=== PATIENT | female | born 1980 | race Caucasian/White ===

== ENCOUNTER 2018-01-05 13:50 | Emergency (ER) | payer OTHER, SELFPAY ==
[2018-01-05 13:58] VITALS: BP 113/75; PULSE 90; RESP 22; TEMP 36.8; O2SAT 98
[2018-01-05 14:48] LABS: Add Manual Diff / Slide Review NO; Basophils Percent Auto 0.6 % (0-2); Hemoglobin 13.4 g/dL (12.0-16.0); Lymphocytes Percent Auto 33.4 % (25-40); Mean Corpuscular HGB Conc 34.4 % (30-36); Mean Corpuscular Hemoglobin 32.9 PG (26-34); Mean Corpuscular Volume 95.5 fL (80-100); Neutrophils Absolute Auto 3900 /uL (3000-5900); Platelet Count 186 X10^3/uL (150-400); Red Blood Cell Count 4.08 X10^6/uL (4.0-5.2); White Blood Cell Count 6.5 X10^3/uL (4.5-11.0)
[2018-01-05 14:55] LABS: Alanine Aminotransferase 25 IU/L (9-52); Albumin Globulin Ratio 1.5 (1.0-2.8); Alkaline Phosphatase 70 U/L (38-126); Aspartate Aminotransferase 29 IU/L (14-36); BUN Creatinine Ratio 18.6 (6-22); Bilirubin Total 0.3 mg/dL (0.2-1.3); Blood Urea Nitrogen 13 mg/dL (7-17); Calcium 8.8 mg/dL (8.4-10.2); Carbon Dioxide 28 mmol/L (22-32); Chloride 104 mmol/L (98-107); Estimated Glomerular Filt Rate > 60.0 mL/min (>60); Globulin 2.6 g/dL (1.7-4.1); Glucose 99 mg/dL (70-100); HEMOLYSIS 16 (0-50); Potassium 3.7 mmol/L (3.4-5.1); Sodium 142 mmol/L (137-145); Total Protein 6.6 g/dL (6.3-8.2)
[2018-01-05 15:12] VITALS: BP 122/89; PULSE 76; RESP 22; TEMP 36.7; O2SAT 97
--- NOTE | 2018-01-05 16:33 | ED_ITS ---
HPI - Abdominal Pain General Chief Complaint: Abdominal Pain Stated Complaint: states intestinal/hip pain Time Seen by Provider: 01/05/18 16:33 Related Data Home Medications Medication Instructions Recorded Confirmed amoxicillin 500 mg PO BID 01/05/18 01/05/18 lidocaine HCl [Lidocaine Viscous] 1 dose PO DIRECTED 01/05/18 01/05/18 methocarbamol 1 tab PO Q6H PRN 01/05/18 01/05/18 oxycodone 10 mg PO TID 01/05/18 01/05/18 quetiapine 25 mg PO BEDTIME 01/05/18 01/05/18 venlafaxine 1 cap PO DAILY 01/05/18 01/05/18 Previous Rx's Medication Instructions Recorded valacyclovir 500 mg tablet 1,000 mg PO QDAY #60 tab 10/31/17 lamotrigine 100 mg tablet 200 mg PO BID #60 tab MDD 200mg 12/30/17 venlafaxine ER 37.5 mg 37.5 mg PO DAILY #30 cap MDD 112.5 12/30/17 capsule,extended release 24 hr mg Allergies Allergy/AdvReac Type Severity Reaction Status Date / Time coconut [COCONUT] Allergy Severe STOPS Verified 12/30/17 15:28 BREATHS prochlorperazine Allergy Intermediate seizure Verified 12/30/17 15:28 NSAIDS (Non-Steroidal Allergy Mild rash, milner Verified 12/30/17 15:28 Anti-Inflamma [NSAIDS (NON-STEROIDAL ANTI-INFLAMMA] promethazine [From PHENERGAN] Allergy Unknown restless Verified 12/30/17 15:28 legs morphine [MORPHINE] AdvReac Unknown it Verified 12/30/17 15:28 metabolizes in my body too fast, I need a lot of Morphin PFSH Medical History Anxiety (Chronic) Depression (Chronic) Femoral acetabular impingement (Chronic) Genital herpes (Chronic) Gout (Chronic) Kidney stones (Resolved 12/2016) Ovarian cancer (Resolved) Pseudotumor cerebri (Resolved) Pulmonary embolism (Resolved 2010) Pulmonary embolism (Resolved 2009) Uterine cancer (Resolved) Surgical History History of carpal tunnel repair (Resolved) Status post appendectomy (Resolved) Status post breast reduction (Resolved) Status post cholecystectomy (Resolved) Status post hernia repair (Resolved 2014) Status post hysterectomy with oophorectomy (Resolved 2003) Status post laparoscopy (Resolved) 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 (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) Family History Father History of kidney cancer Mother Diabetes mellitus Hypertension Hyperlipidemia CAD (coronary artery disease) CVA (cerebral vascular accident) Social History Smoking Status: Current every day smoker Exam Initial Vital Signs Initial Vital Signs: Vital Signs Temperature 98.2 F 01/05/18 13:58 Pulse Rate 90 01/05/18 13:58 Respiratory Rate 22 01/05/18 13:58 Blood Pressure 113/75 01/05/18 13:58 Pulse Oximetry 98 01/05/18 13:58 Course Orders Ordered: ED Orders 01/05/18 14:30 CBC [Complete Blood Count AUTO DIFF] Stat CMP [Comprehensive Metabolic Panel] Stat Vital Signs - 8 hr 01/05/18 13:58 01/05/18 15:12 Temperature 98.2 F 98.0 F Pulse Rate 90 76 Respiratory Rate 22 22 Blood Pressure 113/75 Blood Pressure [Left Arm] 122/89 H Pulse Oximetry 98 97 MDM - Abdominal Pain Lab Data Result diagrams: 01/05/18 14:30 01/05/18 14:30 Lab Results 01/05/18 01/05/18 Range/Units 14:30 14:30 WBC 6.5 (4.5-11.0) X10^3/uL RBC 4.08 (4.0-5.2) X10^6/uL Hgb 13.4 (12.0-16.0) g/dL Hct 39.0 (36-46) % MCV 95.5 (80-100) fL MCH 32.9 (26-34) PG MCHC 34.4 (30-36) % RDW 14.0 (11.6-14.8) % Plt Count 186 (150-400) X10^3/uL Neut % (Auto) 59.0 (50-75) % Lymph % (Auto) 33.4 (25-40) % [place] % (Auto) 5.0 (3-14) % Eos % (Auto) 2.0 (2-4) % Baso % (Auto) 0.6 (0-2) % Neut # (Auto) 3900 (8660-8509) /uL Sodium 142 (137-145) mmol/L Potassium 3.7 (3.4-5.1) mmol/L Chloride 104 (98-107) mmol/L Carbon Dioxide 28 (22-32) mmol/L BUN 13 (7-17) mg/dL Creatinine 0.70 (0.52-1.04) mg/dL Estimated GFR > 60.0 (>60) mL/min BUN/Creatinine Ratio 18.6 (6-22) Glucose 99 (70-100) mg/dL Calcium 8.8 (8.4-10.2) mg/dL Total Bilirubin 0.3 (0.2-1.3) mg/dL AST 29 (14-36) IU/L ALT 25 (9-52) IU/L Alkaline Phosphatase 70 (38-126) U/L Total Protein 6.6 (6.3-8.2) g/dL Albumin 4.0 (3.5-5.0) g/dL Globulin 2.6 (1.7-4.1) g/dL Albumin/Globulin Ratio 1.5 (1.0-2.8) Discharge Plan Departure Prescriptions: No Action lamotrigine 100 mg tablet 200 mg PO BID MDD 200mg Qty: 60 RF: 2 venlafaxine 37.5 mg capsule,extended release 24hr 37.5 mg PO DAILY MDD 112.5 mg Qty: 30 RF: 2 valacyclovir 500 mg tablet 1,000 mg PO QDAY Qty: 60 RF: 3 quetiapine 25 mg tablet 25 mg PO BEDTIME RF: 0 amoxicillin 500 mg capsule 500 mg PO BID RF: 0 venlafaxine 75 mg capsule,extended release 24hr 1 cap PO DAILY RF: 0 methocarbamol 750 mg tablet 1 tab PO Q6H PRN (Reason: Muscle Spasm) RF: 0 lidocaine HCl [Lidocaine Viscous] 2 % solution 1 dose PO DIRECTED RF: 0 oxycodone 10 mg tablet 10 mg PO TID RF: 0
[2018-01-05 16:42] VITALS: BP 122/94; PULSE 88; RESP 20; TEMP 36.1; O2SAT 97
--- NOTE | 2018-01-05 16:43 | DI.CT.S_ITS ---
PROCEDURE: CT ABDOMEN PELVIS W CON INDICATIONS: severe right lower quadrant pain for 3 days TECHNIQUE: After the administration of intravenous contrast, 5 mm thick sections acquired from the diaphragm to the symphysis. 5 mm coronal and sagittal reformats were acquired. For radiation dose reduction, the following was used: automated exposure control, adjustment of mA and/or kV according to patient size. COMPARISON: [facility], CT, KIDNEY/ URETER/BLADDER, 05/24/2017, 22:11. FINDINGS: Image quality: Excellent. ABDOMEN: Lung bases: Lung bases are clear. Heart size is normal. Solid organs: Liver demonstrates steatosis. Gallbladder has been removed. Biliary system is non dilated. Pancreas enhances normally. Spleen is normal in size and enhancement. No adrenal nodules. Kidneys demonstrate normal size and enhancement, without hydronephrosis. Peritoneum and bowel: Bowel loops demonstrate normal wall thickness and caliber. No free fluid or air. The appendix is not well-visualized. However, there is no right lower quadrant inflammatory change, free fluid or free air. Nodes and vessels: No retroperitoneal or mesenteric adenopathy by size criteria. Aorta and inferior vena cava are normal in size. Miscellaneous: Fat containing ventral hernia is noted. PELVIS: Genitourinary: Bladder wall thickness is normal. Miscellaneous: No inguinal hernias or adenopathy. Bones: No suspicious bony lesions. No vertebral body compression fractures. IMPRESSION: 1. No visualized acute intra-abdominal or pelvic process. Dictated by: Ebony Crooks M.D. on 01/05/2018 at 17:49 Approved by: Ebony Crooks M.D. on 01/05/2018 at 17:55
--- NOTE | 2018-01-05 16:45 | PC.NURSE ---
assist with chaparone/ rectal exam/ abd exam
[2018-01-05 17:02] LABS: Lipase 28 U/L (23-300)
[2018-01-05] MEDS: SODIUM CHLORIDE 0.9% 1,000 ML 1000 ML IV (17:04)
[2018-01-05] MEDS: HYDROMORPHONE 1 MG INJ IV ×3 (17:04→19:00)
[2018-01-05] MEDS: ONDANSETRON 4 MG/2 ML INJ IV (17:04)
--- NOTE | 2018-01-05 18:39 | ED.ABDPAIN ---
HPI - Abdominal Pain General Chief Complaint: Abdominal Pain Stated Complaint: states intestinal/hip pain Time Seen by Provider: 01/05/18 16:33 Source: patient Mode of arrival: ambulatory Limitations: no limitations History of Present Illness HPI narrative: Patient presents with severe RLQ pain over the past day or so. She has worsening pain with motion and improves with rest. No fever or chills. No change in bowel or urinary habits. No vaginal bleeding or discharge. She's had similar pain in the past and is reminded of hernia. She's got a complicated gynecologic history and has had ovarian CA and is S/P hysterectomy oophorectomy. A few years later she had a bladder sling as well as subsequent hernia surgery. MD complaint: abdominal pain Related Data Home Medications Medication Instructions Recorded Confirmed amoxicillin 500 mg PO BID 01/05/18 01/05/18 lidocaine HCl [Lidocaine Viscous] 1 dose PO DIRECTED 01/05/18 01/05/18 methocarbamol 1 tab PO Q6H PRN 01/05/18 01/05/18 oxycodone 10 mg PO TID 01/05/18 01/05/18 quetiapine 25 mg PO BEDTIME 01/05/18 01/05/18 venlafaxine 1 cap PO DAILY 01/05/18 01/05/18 Previous Rx's Medication Instructions Recorded valacyclovir 500 mg tablet 1,000 mg PO QDAY #60 tab 10/31/17 lamotrigine 100 mg tablet 200 mg PO BID #60 tab MDD 200mg 12/30/17 venlafaxine ER 37.5 mg 37.5 mg PO DAILY #30 cap MDD 112.5 12/30/17 capsule,extended release 24 hr mg hydrocodone-acetaminophen 2 tab PO Q6-8H PRN #20 tab 01/05/18 ondansetron [Zofran ODT] 4 mg PO Q6-8H PRN #14 tab 01/05/18 Allergies Allergy/AdvReac Type Severity Reaction Status Date / Time coconut [COCONUT] Allergy Severe STOPS Verified 12/30/17 15:28 BREATHS prochlorperazine Allergy Intermediate seizure Verified 12/30/17 15:28 NSAIDS (Non-Steroidal Allergy Mild rash, milner Verified 12/30/17 15:28 Anti-Inflamma [NSAIDS (NON-STEROIDAL ANTI-INFLAMMA] promethazine [From PHENERGAN] Allergy Unknown restless Verified 12/30/17 15:28 legs morphine [MORPHINE] AdvReac Unknown it Verified 12/30/17 15:28 metabolizes in my body too fast, I need a lot of Morphin Review of Systems Review of Systems All systems reviewed & are unremarkable except as noted in HPI and below Constitutional Denies chills, Denies fever(s), Denies lethargy and Denies weakness Eyes Denies change in vision, Denies eye discharge, Denies irritation and Denies loss of vision ENT Ears, Nose, Mouth, and Throat: Denies change in voice, Denies neck pain and Denies sore throat Cardiovascular Denies chest pain, Denies irregular heart rhythm, Denies lightheadedness, Denies palpitations, Denies dyspnea, Denies dyspnea on exertion and Denies orthopnea Respiratory Denies cough, Denies dyspnea, Denies dyspnea on exertion and Denies wheezing Gastrointestinal Gastrointestinal: Reports abdominal pain, Denies change in bowel habits, Denies diarrhea, Denies nausea and Denies vomiting Genitourinary Denies hematuria, Denies flank pain, Denies urinary incontinence and Denies urinary urgency Musculoskeletal Denies neck pain Integumentary/Breasts Denies pruritus, Denies erythema, Denies rash and Denies wounds Neurologic Denies confusion, Denies loss of vision and Denies weakness Psychiatric Denies anxiety, Denies confusion, Denies depression, Denies homicidal ideation and Denies suicidal ideation Endocrine Denies palpitations Hematologic/Lymphatic Denies easy bruising Allergic/Immunologic Denies wheezing PFSH Medical History Anxiety (Chronic) Depression (Chronic) Femoral acetabular impingement (Chronic) Genital herpes (Chronic) Gout (Chronic) Kidney stones (Resolved 12/2016) Ovarian cancer (Resolved) Pseudotumor cerebri (Resolved) Pulmonary embolism (Resolved 2010) Pulmonary embolism (Resolved 2009) Uterine cancer (Resolved) Surgical History History of carpal tunnel repair (Resolved) Status post appendectomy (Resolved) Status post breast reduction (Resolved) Status post cholecystectomy (Resolved) Status post hernia repair (Resolved 2014) Status post hysterectomy with oophorectomy (Resolved 2003) Status post laparoscopy (Resolved) 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 status (Resolved) Family History Father History of kidney cancer Mother Diabetes mellitus Hypertension Hyperlipidemia CAD (coronary artery disease) CVA (cerebral vascular accident) Social History Smoking Status: Current every day smoker Exam Initial Vital Signs Initial Vital Signs: Vital Signs Temperature 98.2 F 01/05/18 13:58 Pulse Rate 90 01/05/18 13:58 Respiratory Rate 22 01/05/18 13:58 Blood Pressure 113/75 01/05/18 13:58 Pulse Oximetry 98 01/05/18 13:58 Const General: cooperative and well developed Nutritional Appearance: well nourished Orientation: alert, awake, oriented x3 and not confused HENRI Head: normocephalic and atraumatic Ears: external ears normal and TM's normal bilaterally Nose: external nose normal and No nasal discharge Face and sinus: sinuses nontender, face symmetric, no sinus tenderness and No dry mucous membranes Mouth: oral mucosae normal and moist mucous membranes Teeth and gingiva: dentition normal Throat: tonsils normal and uvula midline Eyes General: appearance normal, both eyes and all related structures Eyelids: eyelids normal Conjunctivae: conjunctivae normal Sclera: sclerae normal Pupils: PERRL EOM: EOM intact bilaterally Neck Neck: normal visual inspection, trachea midline, No lymphadenopathy, No midline deformity and No JVD Lymphatic: No lymphedema Chest Chest: normal inspection of the chest Resp Effort & Inspection: normal respiratory effort, able to speak in complete sentences, no respiratory distress and no use of accessory muscles Auscultation: clear to auscultation bilaterally, no rales, no rhonchi and no wheezes Cardio Rate: regular rate Rhythm: regular rhythm Heart Sounds: no click, no gallops, no murmurs and no rubs Pulses: normal peripheral pulses GI Inspection: non-distended Palpation: soft, no hepatosplenomegaly, No guarding, No pulsatile mass and tender (severe tenderness in RLQ) Auscultation: normal bowel sounds Back/Spine/Pelvis Back: No CVA tenderness Cervical Spine: cervical ROM normal and No pain with cervical ROM Thoracic/Lumbar Spine: thoracic and lumbar spine normal to inspection Skin General: no rashes or lesions noted, No jaundice and No petechiae Neuro General: alert, oriented x3, gait normal and no focal motor deficits Speech: speech normal Extrem General: full ROM, no clubbing, cyanosis or edema, no pedal edema and no calf tenderness Psych Appearance: well kempt Mental Status: mental status grossly normal Attitude: cooperative Thought Content: normal and suicidality Judgment: judgment good Course Orders Ordered: ED Orders 01/05/18 14:30 CBC [Complete Blood Count AUTO DIFF] Stat CMP [Comprehensive Metabolic Panel] Stat Lipase Stat 01/05/18 16:43 CT abdomen pelvis w con Stat Discontinued Medications Hydromorphone HCl (Dilaudid) 1 mg IV Q15M YULIANA Stop: 01/05/18 17:01 Last Admin: 01/05/18 17:43 Dose: 1 mg Admin: 01/05/18 17:04 Dose: 1 mg Hydromorphone HCl (Dilaudid) 1 mg IV NOW ONE Stop: 01/05/18 18:52 Last Admin: 01/05/18 19:00 Dose: 1 mg Sodium Chloride (Normal Saline 0.9%) 1,000 mls @ 1,000 mls/hr IV BOLUS ONE Stop: 01/05/18 17:41 Last Infusion: 01/05/18 19:20 Dose: 0 mls/hr Admin: 01/05/18 17:04 Dose: 1,000 mls/hr Ondansetron HCl (Zofran) 4 mg IV NOW ONE Stop: 01/05/18 16:43 Last Admin: 01/05/18 17:04 Dose: 4 mg Vital Signs - 8 hr 01/05/18 13:58 01/05/18 15:12 01/05/18 16:42 Temperature 98.2 F 98.0 F 97.0 F L Pulse Rate 90 76 88 Respiratory Rate 22 22 20 Blood Pressure 113/75 Blood Pressure [Left Arm] 122/89 H 122/94 H Pulse Oximetry 98 97 97 01/05/18 19:22 Temperature Pulse Rate 68 Respiratory Rate 14 Blood Pressure 116/79 Blood Pressure [Left Arm] 116/79 Pulse Oximetry 96 MDM - Abdominal Pain Lab Data Result diagrams: 01/05/18 14:30 01/05/18 14:30 Lab Results 01/05/18 01/05/18 Range/Units 14:30 14:30 WBC 6.5 (4.5-11.0) X10^3/uL RBC 4.08 (4.0-5.2) X10^6/uL Hgb 13.4 (12.0-16.0) g/dL Hct 39.0 (36-46) % MCV 95.5 (80-100) fL MCH 32.9 (26-34) PG MCHC 34.4 (30-36) % RDW 14.0 (11.6-14.8) % Plt Count 186 (150-400) X10^3/uL Neut % (Auto) 59.0 (50-75) % Lymph % (Auto) 33.4 (25-40) % [place] % (Auto) 5.0 (3-14) % Eos % (Auto) 2.0 (2-4) % Baso % (Auto) 0.6 (0-2) % Neut # (Auto) 3900 (2497-5914) /uL Sodium 142 (137-145) mmol/L Potassium 3.7 (3.4-5.1) mmol/L Chloride 104 (98-107) mmol/L Carbon Dioxide 28 (22-32) mmol/L BUN 13 (7-17) mg/dL Creatinine 0.70 (0.52-1.04) mg/dL Estimated GFR > 60.0 (>60) mL/min BUN/Creatinine Ratio 18.6 (6-22) Glucose 99 (70-100) mg/dL Calcium 8.8 (8.4-10.2) mg/dL Total Bilirubin 0.3 (0.2-1.3) mg/dL AST 29 (14-36) IU/L ALT 25 (9-52) IU/L Alkaline Phosphatase 70 (38-126) U/L Total Protein 6.6 (6.3-8.2) g/dL Albumin 4.0 (3.5-5.0) g/dL Globulin 2.6 (1.7-4.1) g/dL Albumin/Globulin Ratio 1.5 (1.0-2.8) Lipase 28 (23-300) U/L Point of care testing: Urine Dip Bedside Urine Glucose Negative Bedside Urine Bilirubin - Negative Bedside Urine Ketone - Negative Urine Specific [place] 1.015 Bedside Urine Occult Blood - Negative Bedside Urine pH 6.5 Bedside Urine Protein - Negative Bedside Urine Urobilinogen - Negative Bedside Urine Nitrite - Negative Bedside Urine Leukocytes - Negative Esterase Discharge Plan Departure Patient Disposition: Home, Self-Care Clinical Impression: Acute right flank pain, Hematuria Discharge Date/Time: 01/05/18 19:23 Interventions: ED Discharge Assessment Last Done: 01/05/18 19:22 Activity Restrictions/Additional Instructions: *You have been diagnosed with [ acute flank and groin pain with hematuria ] *What to do: *Take medications as directed *Follow up with your primary care provider or urogynecologist in 2-3 days, call for an appointment. Let them know you were seen in the Emergency Department and that we ask that you be seen in follow up *Return to ER if you should have any new, worsening or concerning symptoms Prescriptions: New hydrocodone-acetaminophen 5-325 mg tablet 2 tab PO Q6-8H PRN (Reason: pain) Qty: 20 RF: 0 ondansetron [Zofran ODT] 4 mg tablet,disintegrating 4 mg PO Q6-8H PRN (Reason: nausea and vomiting) Qty: 14 RF: 0 No Action lamotrigine 100 mg tablet 200 mg PO BID MDD 200mg Qty: 60 RF: 2 venlafaxine 37.5 mg capsule,extended release 24hr 37.5 mg PO DAILY MDD 112.5 mg Qty: 30 RF: 2 valacyclovir 500 mg tablet 1,000 mg PO QDAY Qty: 60 RF: 3 quetiapine 25 mg tablet 25 mg PO BEDTIME RF: 0 amoxicillin 500 mg capsule 500 mg PO BID RF: 0 venlafaxine 75 mg capsule,extended release 24hr 1 cap PO DAILY RF: 0 methocarbamol 750 mg tablet 1 tab PO Q6H PRN (Reason: Muscle Spasm) RF: 0 lidocaine HCl [Lidocaine Viscous] 2 % solution 1 dose PO DIRECTED RF: 0 oxycodone 10 mg tablet 10 mg PO TID RF: 0 Referrals: Cintia Yost DO [Primary Care Provider] -
[2018-01-05 19:22] VITALS: BP 116/79; PULSE 68; RESP 14; O2SAT 96
== END 2018-01-05 19:23 | disposition home or self-care (01) ==
PROVIDERS: Emergency Provider Emergency Medicine; Family Provider Family Medicine; PCP Family Medicine
DX: R10.9 Unspecified abdominal pain (principal); R31.9 Hematuria, unspecified
CPT/HCPCS: 36591; 74177; 80053; 81003; 83690; 85025; 96361; 96374; 96375; 96376; 99283; 99284; J1170; J2405; Q9967

== ENCOUNTER 2018-01-08 15:27 | Emergency (ER) | payer OTHER, SELFPAY ==
[2018-01-08] MEDS: METOCLOPRAMIDE 10 MG/2 ML INJ 5 MG IV (15:27)
--- NOTE | 2018-01-08 15:45 | ED_ITS ---
HPI - Nausea/Vomiting/Diarrhea <Loly Batista PA-C - Last Filed: 01/08/18 22:12> General Chief complaint: Abdominal Pain Stated complaint: BLOOD IN STOOL Time Seen by Provider: 01/08/18 15:44 Source: patient Mode of arrival: ambulatory Limitations: no limitations History of Present Illness HPI Narrative: This 37-year-old female complains of onset of bloody diarrhea this morning at 6:00 a.m.. She states this has been happening approximately 3 times per hour, also states that last episode was around noon time (it is now 4: 00 p.m.). She states she has been vomiting along with this several times an hour, also says last episode was at noon. She is not keeping down food or fluids due to this. She states that she has felt somewhat chilled and sweaty, has not taken her temperature. She states that she has abdominal soreness all over, noticing more in the lower abdomen which she describes as more constant. She states that she has had persistent flank pain since last time she was here a few days ago, denies any urinary symptoms. She denies any chest pain or dyspnea. She denies any new pain or swelling in her arms or legs. She has not had any rash. She denies any recent travel, any known exposures, eating out or sick household contacts. She denies any recent medication changes or antibiotic use, however notes to our pharmacy coordinator that she has not been taking usual medicines since last here. She requesting pain medication for abdominal pain, notes allergies to NSAIDs. She states that she has had some ongoing hoarseness prior to all of this starting, no change. Related Data Home Medications Medication Instructions Recorded Confirmed amoxicillin 500 mg PO BID 01/05/18 01/08/18 lidocaine HCl [Lidocaine Viscous] 1 dose PO DIRECTED 01/05/18 01/08/18 oxycodone 10 mg PO TID 01/05/18 01/08/18 quetiapine 25 mg PO BEDTIME 01/05/18 01/08/18 venlafaxine 1 cap PO DAILY 01/05/18 01/08/18 Previous Rx's Medication Instructions Recorded valacyclovir 500 mg tablet 1,000 mg PO QDAY #60 tab 10/31/17 lamotrigine 100 mg tablet 200 mg PO BID #60 tab MDD 200mg 12/30/17 venlafaxine ER 37.5 mg 37.5 mg PO DAILY #30 cap MDD 112.5 12/30/17 capsule,extended release 24 hr mg hydrocodone-acetaminophen 2 tab PO Q6-8H PRN #20 tab 01/05/18 Allergies Allergy/AdvReac Type Severity Reaction Status Date / Time coconut [COCONUT] Allergy Severe STOPS Verified 12/30/17 15:28 BREATHS prochlorperazine Allergy Intermediate seizure Verified 12/30/17 15:28 NSAIDS (Non-Steroidal Allergy Mild rash, milner Verified 12/30/17 15:28 Anti-Inflamma [NSAIDS (NON-STEROIDAL ANTI-INFLAMMA] promethazine [From PHENERGAN] Allergy Unknown restless Verified 12/30/17 15:28 legs morphine [MORPHINE] AdvReac Unknown it Verified 12/30/17 15:28 metabolizes in my body too fast, I need a lot of Morphin Review of Systems <Loly Batista PA-C - Last Filed: 01/08/18 22:12> Review of Systems All systems reviewed & are unremarkable except as noted in HPI and below Exam <Loly Batista PA-C - Last Filed: 01/08/18 22:12> Narrative Exam Narrative: GENERAL APPEARANCE: Patient sitting comfortably, in no distress. HEENT: PERRL, EOMI, no scleral icterus, normal oropharynx NECK: Supple LUNGS: Clear to auscultation bilaterally. HEART: Rate and rhythm regular, normal S1 and S2, no S3 or S4. ABDOMEN: Soft, nondistended, soft bowel sounds present x 4 quadrants, no masses palpable, generalized tenderness to palpation, more so over lower quadrants, no guarding or rebound EXTREMITIES: No edema, no cyanosis DERMATOLOGIC: No jaundice or exanthem NEUROLOGIC: Alert and oriented with normal speech and coordination Initial Vital Signs Initial Vital Signs: Vital Signs Temperature 97.8 F 01/08/18 15:46 Pulse Rate 67 01/08/18 15:46 Respiratory Rate 20 01/08/18 15:46 Blood Pressure 121/76 H 01/08/18 15:46 Pulse Oximetry 99 01/08/18 15:46 <Guzman Valadez DO - Last Filed: 01/08/18 23:07> Initial Vital Signs Initial Vital Signs: Vital Signs Temperature 97.8 F 01/08/18 15:46 Pulse Rate 67 01/08/18 15:46 Respiratory Rate 20 01/08/18 15:46 Blood Pressure 121/76 H 01/08/18 15:46 Pulse Oximetry 99 01/08/18 15:46 Course <Loly Batista PA-C - Last Filed: 01/08/18 22:12> Additional Information: I reviewed findings with Dr. Arce, who evaluated patient at her recent visit here. He felt reasonable to discharge patient home provided she did not have recurrent vomiting. Dr. Valadez who is attending this evening agrees as well. She continued to complain of nausea, did not have any observed recurrent vomiting and has had 2 L of fluids, tolerated some p.o. fluid and saltines. She has had 2 episodes of known diarrhea since arrival here , which per her history is significant improvement since this morning. I also reviewed her workup from [facility] yesterday. She did not mention being seen there initially. There were no acute findings. I did not repeat her urinalysis since she has no urinary symptoms and has had 2-tests. Reviewed with her that she does have an elevated white cell count today versus last 2 visits, and this could be due to infection which may resolve, but again all of her symptoms need further workup. I asked her to call her PCP 1st thing in the morning and request to be seen tomorrow so that we can get serial follow-ups on her pain. She already has Zofran and pain medication at home. She was not given opioids at this ED visit. She was given an additional dose of Reglan to take this evening if needed. She was noted to be ambulating swiftly without signs of discomfort several times during her stay and watching a video on her cell phone off and on without signs of acute distress. She was advised to return if any acutely worsening symptoms in the interim. She expressed concern about difficulty getting appointment with PCP, so we have printed and faxed records from here as well as [facility] with a note that we have directed patient to call in a.m. Orders Ordered: ED Orders 01/08/18 16:10 Complete Blood Count AUTO DIFF Stat Comprehensive Metabolic Panel Stat Lipase Stat 01/08/18 17:14 GI Panel Stat Discontinued Medications Hyoscyamine (Levsin) 0.125 mg PO NOW ONE Stop: 08/16/18 16:48 Last Admin: 01/08/18 17:26 Dose: 0.125 mg Sodium Chloride (Normal Saline 0.9%) 1,000 mls @ 1,000 mls/hr IV BOLUS ONE Stop: 01/08/18 17:02 Last Infusion: 01/08/18 19:11 Dose: 0 mls/hr Admin: 01/08/18 16:29 Dose: 1,000 mls/hr Sodium Chloride (Normal Saline 0.9%) 1,000 mls @ 1,000 mls/hr IV BOLUS ONE Stop: 01/08/18 18:16 Last Infusion: 01/08/18 20:36 Dose: 0 mls/hr Admin: 01/08/18 19:00 Dose: 1,000 mls/hr Metoclopramide HCl (Reglan) 5 mg IV NOW ONE Stop: 01/08/18 19:13 Last Admin: 01/08/18 15:27 Dose: 5 mg Metoclopramide HCl (Reglan) 5 mg PO NOW ONE Stop: 01/08/18 21:24 Last Admin: 01/08/18 21:36 Dose: 5 mg Ondansetron HCl (Zofran) 4 mg IV NOW ONE Stop: 01/08/18 16:04 Last Admin: 01/08/18 16:29 Dose: 4 mg Vital Signs - 8 hr 01/08/18 15:46 01/08/18 17:14 01/08/18 18:00 Temperature 97.8 F Pulse Rate 67 67 59 L Respiratory Rate 20 18 17 Blood Pressure 121/76 H Blood Pressure [Left Arm] 116/69 112/64 Pulse Oximetry 99 100 100 01/08/18 19:00 01/08/18 20:38 Temperature Pulse Rate 59 L 62 Respiratory Rate 18 15 Blood Pressure Blood Pressure [Left Arm] 134/73 H 121/61 H Pulse Oximetry 100 99 <Guzman Valadez DO - Last Filed: 01/08/18 23:07> Orders Ordered: ED Orders 01/08/18 16:10 Complete Blood Count AUTO DIFF Stat Comprehensive Metabolic Panel Stat Lipase Stat 01/08/18 17:14 GI Panel Stat Discontinued Medications Hyoscyamine (Levsin) 0.125 mg PO NOW ONE Stop: 01/08/18 16:48 Last Admin: 01/08/18 17:26 Dose: 0.125 mg Sodium Chloride (Normal Saline 0.9%) 1,000 mls @ 1,000 mls/hr IV BOLUS ONE Stop: 01/08/18 17:02 Last Infusion: 01/08/18 19:11 Dose: 0 mls/hr Admin: 01/08/18 16:29 Dose: 1,000 mls/hr Sodium Chloride (Normal Saline 0.9%) 1,000 mls @ 1,000 mls/hr IV BOLUS ONE Stop: 01/08/18 18:16 Last Infusion: 01/08/18 20:36 Dose: 0 mls/hr Admin: 01/08/18 19:00 Dose: 1,000 mls/hr Metoclopramide HCl (Reglan) 5 mg IV NOW ONE Stop: 01/08/18 19:13 Last Admin: 01/08/18 15:27 Dose: 5 mg Metoclopramide HCl (Reglan) 5 mg PO NOW ONE Stop: 01/08/18 21:24 Last Admin: 01/08/18 21:36 Dose: 5 mg Ondansetron HCl (Zofran) 4 mg IV NOW ONE Stop: 01/08/18 16:04 Last Admin: 01/08/18 16:29 Dose: 4 mg Vital Signs - 8 hr 01/08/18 15:46 01/08/18 17:14 01/08/18 18:00 Temperature 97.8 F Pulse Rate 67 67 59 L Respiratory Rate 20 18 17 Blood Pressure 121/76 H Blood Pressure [Left Arm] 116/69 112/64 Pulse Oximetry 99 100 100 01/08/18 19:00 01/08/18 20:38 Temperature Pulse Rate 59 L 62 Respiratory Rate 18 15 Blood Pressure Blood Pressure [Left Arm] 134/73 H 121/61 H Pulse Oximetry 100 99 MDM - Nausea/Vomiting/Diarrhea <Loly Batista PA-C - Last Filed: 01/08/18 22:12> Medical Records Attestation: I reviewed the patient's medical records. (No acute findings on KUB CT done 01/07, no significant abnormalities on blood testing or urinalysis) Lab Data Attestation: I reviewed the patient's lab results. Result diagrams: 01/08/18 16:10 01/08/18 16:10 Lab Results 08/16/18 08/16/18 08/16/18 Range/Units 16:10 16:10 17:14 WBC 14.5 H (4.5-11.0) X10^3/uL RBC 4.71 (4.0-5.2) X10^6/uL Hgb 15.4 (12.0-16.0) g/dL Hct 44.6 (36-46) % MCV 94.7 (80-100) fL MCH 32.6 (26-34) PG MCHC 34.4 (30-36) % RDW 14.2 (11.6-14.8) % Plt Count 217 (150-400) X10^3/uL Neut % (Auto) 89.4 H (50-75) % Lymph % (Auto) 7.8 L (25-40) % Montgomery % (Auto) 2.3 L (3-14) % Eos % (Auto) 0.1 L (2-4) % Baso % (Auto) 0.4 (0-2) % Neut # (Auto) 22711 H (5377-4700) /uL Sodium 140 (137-145) mmol/L Potassium 4.4 (3.4-5.1) mmol/L Chloride 107 (98-107) mmol/L Carbon Dioxide 23 (22-32) mmol/L BUN 15 (7-17) mg/dL Creatinine 0.70 (0.52-1.04) mg/dL Estimated GFR > 60.0 (>60) mL/min BUN/Creatinine Ratio 21.4 (6-22) Glucose 108 H (70-100) mg/dL Calcium 9.4 (8.4-10.2) mg/dL Total Bilirubin 0.6 (0.2-1.3) mg/dL AST 32 (14-36) IU/L ALT 37 (9-52) IU/L Alkaline Phosphatase 68 (38-126) U/L Total Protein 7.3 (6.3-8.2) g/dL Albumin 4.6 (3.5-5.0) g/dL Globulin 2.7 (1.7-4.1) g/dL Albumin/Globulin Ratio 1.7 (1.0-2.8) Lipase 27 (23-300) U/L Stool Aeromonas Cult Awaiting culture res (Not Detect) Stl C. cayetanensis PCR Not detected (Not Detect) Stool Rotavirus (PCR) Not detected (Not Detect) Stool Adenovirus (PCR) Not detected (Not Detect) Stool Astrovirus (PCR) Not detected (Not Detect) Stool Cryptosporidium PCR Not detected (Not Detect) Stl E.coli Shiga Tox PCR Not detected (Not Detect) St Sh/Enteroin Ecoli PCR Not detected (Not Detect) Stool E coli O157 PCR Not Reportable Stl Enterotoxigenic E PCR Not detected (Not Detect) Stool EPEC (PCR) Not detected (Not Detect) Stl E. histolytica PCR Not detected (Not Detect) Stool Giardia Lamblia PCR Not detected (Not Detect) Stool Sapovirus (PCR) Not detected (Not Detect) Stl P. shigelloides PCR Not detected (Not Detect) St Y.enterocolitica PCR Not detected (Not Detect) Stool Vibrio (PCR) Not detected (Not Detect) Stl Vibrio cholerae PCR Not detected (Not Detect) Stl Enteroaggr Ecoli PCR Not detected (Not Detect) Stl Norovirus GI/GII PCR Not detected (Not Detect) Campylobacter (PCR) Not detected (Not Detect) C. difficile Tox (PCR) Not detected (Not Detect) Salmonella (PCR) Not detected (Not Detect) <Guzman Valadez, DO - Last Filed: 01/08/18 23:07> Lab Data Lab Results 01/08/18 01/08/18 01/08/18 Range/Units 16:10 16:10 17:14 WBC 14.5 H (4.5-11.0) X10^3/uL RBC 4.71 (4.0-5.2) X10^6/uL Hgb 15.4 (12.0-16.0) g/dL Hct 44.6 (36-46) % MCV 94.7 (80-100) fL MCH 32.6 (26-34) PG MCHC 34.4 (30-36) % RDW 14.2 (11.6-14.8) % Plt Count 217 (150-400) X10^3/uL Neut % (Auto) 89.4 H (50-75) % Lymph % (Auto) 7.8 L (25-40) % Montgomery % (Auto) 2.3 L (3-14) % Eos % (Auto) 0.1 L (2-4) % Baso % (Auto) 0.4 (0-2) % Neut # (Auto) 55340 H (5247-3363) /uL Sodium 140 (137-145) mmol/L Potassium 4.4 (3.4-5.1) mmol/L Chloride 107 (98-107) mmol/L Carbon Dioxide 23 (22-32) mmol/L BUN 15 (7-17) mg/dL Creatinine 0.70 (0.52-1.04) mg/dL Estimated GFR > 60.0 (>60) mL/min BUN/Creatinine Ratio 21.4 (6-22) Glucose 108 H (70-100) mg/dL Calcium 9.4 (8.4-10.2) mg/dL Total Bilirubin 0.6 (0.2-1.3) mg/dL AST 32 (14-36) IU/L ALT 37 (9-52) IU/L Alkaline Phosphatase 68 (38-126) U/L Total Protein 7.3 (6.3-8.2) g/dL Albumin 4.6 (3.5-5.0) g/dL Globulin 2.7 (1.7-4.1) g/dL Albumin/Globulin Ratio 1.7 (1.0-2.8) Lipase 27 (23-300) U/L Stool Aeromonas Cult Awaiting culture res (Not Detect) Stl C. cayetanensis PCR Not detected (Not Detect) Stool Rotavirus (PCR) Not detected (Not Detect) Stool Adenovirus (PCR) Not detected (Not Detect) Stool Astrovirus (PCR) Not detected (Not Detect) Stool Cryptosporidium PCR Not detected (Not Detect) Stl E.coli Shiga Tox PCR Not detected (Not Detect) St Sh/Enteroin Ecoli PCR Not detected (Not Detect) Stool E coli O157 PCR Not Reportable Stl Enterotoxigenic E PCR Not detected (Not Detect) Stool EPEC (PCR) Not detected (Not Detect) Stl E. histolytica PCR Not detected (Not Detect) Stool Giardia Lamblia PCR Not detected (Not Detect) Stool Sapovirus (PCR) Not detected (Not Detect) Stl P. shigelloides PCR Not detected (Not Detect) St Y.enterocolitica PCR Not detected (Not Detect) Stool Vibrio (PCR) Not detected (Not Detect) Stl Vibrio cholerae PCR Not detected (Not Detect) Stl Enteroaggr Ecoli PCR Not detected (Not Detect) Stl Norovirus GI/GII PCR Not detected (Not Detect) Campylobacter (PCR) Not detected (Not Detect) C. difficile Tox (PCR) Not detected (Not Detect) Salmonella (PCR) Not detected (Not Detect) Discharge Plan Departure Patient Disposition: Home Clinical Impression: Bloody diarrhea, Nausea and vomiting Discharge Date/Time: 01/08/18 21:37 Interventions: ED Discharge Assessment Last Done: 01/08/18 21:37 Instructions: DI for Viral Gastroenteritis -- Adult, DI for Abdominal Pain- Adult Activity Restrictions/Additional Instructions: You need further workup as we talked about for your ongoing flank pain, and also the diarrhea and vomiting if they persist. You should call your PCP 1st thing in the morning and let them know that you have been in the emergency room 3 times in the last few days and we advised you to be seen for follow-up tomorrow. You should return if you have new symptoms such as fever, or acutely worse again. Please try to take small sips of clear fluid, and eat just a little bit of bland food, i.e. some applesauce or saltine, every hour or 2, to keep something in your stomach. This may help with nausea. Please take the Odansetron for your nausea if needed, and also I have ordered an additional dose of metoclopramide for you to take this evening or early in the morning if you needed. These are what we gave you in the IV here. You can take your pain medication that you have at home if needed. Some of your symptoms may be exacerbated by being off of your usual medications, so you should try to resume them if you are able Prescriptions: No Action lamotrigine 100 mg tablet 200 mg PO BID MDD 200mg Qty: 60 RF: 2 venlafaxine 37.5 mg capsule,extended release 24hr 37.5 mg PO DAILY MDD 112.5 mg Qty: 30 RF: 2 valacyclovir 500 mg tablet 1,000 mg PO QDAY Qty: 60 RF: 3 quetiapine 25 mg tablet 25 mg PO BEDTIME RF: 0 amoxicillin 500 mg capsule 500 mg PO BID RF: 0 venlafaxine 75 mg capsule,extended release 24hr 1 cap PO DAILY RF: 0 lidocaine HCl [Lidocaine Viscous] 2 % solution 1 dose PO DIRECTED RF: 0 oxycodone 10 mg tablet 10 mg PO TID RF: 0 hydrocodone-acetaminophen 5-325 mg tablet 2 tab PO Q6-8H PRN (Reason: pain) Qty: 20 RF: 0 Referrals: Cintia Yost DO [Primary Care Provider] - <Guzman Valadez DO - Last Filed: 01/08/18 23:07> Cosign ED Attending Cassy Attestation: I was available for consultation during this patient's emergency department encounter
[2018-01-08 15:46] VITALS: BP 121/76; PULSE 67; RESP 20; TEMP 36.6; O2SAT 99
[2018-01-08 16:21] LABS: Add Manual Diff / Slide Review NO; Basophils Percent Auto 0.4 % (0-2); Eosinophils Percent Auto 0.1 % (2-4); Hematocrit 44.6 % (36-46); Hemoglobin 15.4 g/dL (12.0-16.0); Lymphocytes Percent Auto 7.8 % (25-40); Mean Corpuscular HGB Conc 34.4 % (30-36); Mean Corpuscular Hemoglobin 32.6 PG (26-34); Mean Corpuscular Volume 94.7 fL (80-100); Monocytes Percent Auto 2.3 % (3-14); Neutrophils Absolute Auto 13000 /uL (3000-5900); Neutrophils Percent Auto 89.4 % (50-75); Platelet Count 217 X10^3/uL (150-400); Red Blood Cell Count 4.71 X10^6/uL (4.0-5.2); Red Cell Distribution Width 14.2 % (11.6-14.8); White Blood Cell Count 14.5 X10^3/uL (4.5-11.0)
[2018-01-08] MEDS: ONDANSETRON 4 MG/2 ML INJ IV (16:29)
[2018-01-08] MEDS: SODIUM CHLORIDE 0.9% 1,000 ML 1000 ML IV ×2 (16:29→19:00)
[2018-01-08 16:33] LABS: Alanine Aminotransferase 37 IU/L (9-52); Albumin 4.6 g/dL (3.5-5.0); Albumin Globulin Ratio 1.7 (1.0-2.8); Alkaline Phosphatase 68 U/L (38-126); Aspartate Aminotransferase 32 IU/L (14-36); BUN Creatinine Ratio 21.4 (6-22); Bilirubin Total 0.6 mg/dL (0.2-1.3); Blood Urea Nitrogen 15 mg/dL (7-17); Calcium 9.4 mg/dL (8.4-10.2); Carbon Dioxide 23 mmol/L (22-32); Chloride 107 mmol/L (98-107); Estimated Glomerular Filt Rate > 60.0 mL/min (>60); Globulin 2.7 g/dL (1.7-4.1); Glucose 108 mg/dL (70-100); HEMOLYSIS 49 (0-50); Lipase 27 U/L (23-300); Potassium 4.4 mmol/L (3.4-5.1); Sodium 140 mmol/L (137-145); Total Protein 7.3 g/dL (6.3-8.2)
[2018-01-08 17:14] VITALS: BP 116/69; PULSE 67; RESP 18; O2SAT 100
[2018-01-08] MEDS: HYOSCYAMINE 0.125 MG TABLET PO (17:26)
[2018-01-08 18:00] VITALS: BP 112/64; PULSE 59; RESP 17; O2SAT 100
[2018-01-08 19:00] VITALS: BP 134/73; PULSE 59; RESP 18; O2SAT 100
[2018-01-08 19:01] LABS: Adenovirus F 40/41 Not Detected (Not Detect); Astrovirus Not Detected (Not Detect); Campylobacter Not Detected (Not Detect); Clostridium difficile toxin AB Not Detected (Not Detect); Cryptosporidium Not Detected (Not Detect); Cyclospora cayetanensis Not Detected (Not Detect); Entamoeba histolytica Not Detected (Not Detect); Enteroaggregative E.coli Not Detected (Not Detect); Enteropathogenic E.coli Not Detected (Not Detect); Enterotoxigenic E.coli It/st Not Detected (Not Detect); Giardia lamblia Not Detected (Not Detect); Norovirus GI/GII Not Detected (Not Detect); Plesiomonsa shigelloides Not Detected (Not Detect); Rotavirus A Not Detected (Not Detect); Salmonella Not Detected (Not Detect); Sapovirus Not Detected (Not Detect); Shiga-like toxin-prod E.coli Not Detected (Not Detect); Shigella/Enteroinvasive E.coli Not Detected (Not Detect); Vibrio Not Detected (Not Detect); Vibrio cholerae Not Detected (Not Detect); Yersinia enterocolitica Not Detected (Not Detect)
[2018-01-08 20:38] VITALS: BP 121/61; PULSE 62; RESP 15; O2SAT 99
[2018-01-08] MEDS: METOCLOPRAMIDE HCL 5 MG TABLET PO (21:36)
== END 2018-01-08 21:37 | disposition home or self-care (01) ==
PROVIDERS: Emergency Provider Internal Medicine; Family Provider Family Medicine; PCP Family Medicine
DX: R19.7 Diarrhea, unspecified (principal); R11.2 Nausea with vomiting, unspecified
CPT/HCPCS: 36591; 80053; 81003; 81025; 83690; 85025; 87507; 96361; 96374; 96375; 99284; J2405; J2765

== ENCOUNTER → 2018-01-09 16:27 | Outpatient (CLI) | payer OTHER, SELFPAY ==
[2018-01-09 17:28] LABS: Clostridium Difficile Tox PCR Positive for C. diff
== END ==
PROVIDERS: Family Provider Family Medicine; PCP Family Medicine; Visit Provider Registered Nurse
DX: R10.30 Lower abdominal pain, unspecified (principal); R11.10 Vomiting, unspecified; R19.7 Diarrhea, unspecified
CPT/HCPCS: 86677; 87493

== ENCOUNTER 2018-01-15 15:30 | Emergency (ER) | payer OTHER, SELFPAY ==
[2018-01-15 16:03] VITALS: BP 124/89; PULSE 110; RESP 20; TEMP 36.4; O2SAT 98
--- NOTE | 2018-01-15 16:37 | ED_ITS ---
HPI - Abdominal Pain General Chief Complaint: Abdominal Pain Stated Complaint: states cdiff Time Seen by Provider: 01/15/18 15:46 Source: patient Mode of arrival: ambulatory Limitations: no limitations History of Present Illness HPI narrative: Patient is a 37-year-old female who is been seen here in the emergency department multiple times for abdominal pain and diarrhea. There has been concerns in the past for drug-seeking behavior. She was seen by her primary doctor a couple days ago and was placed on Cipro and Flagyl. She had stool cultures done at that time which did resolve positive for C diff. Patient states she went to [facility] and was admitted to the hospital and was placed on oral vancomycin which she is currently taking. She was also discharged home with 2 mg Dilaudid pills. She has a follow-up with her primary doctor tomorrow morning. She returns today because she ?just can't take the pain anymore ?she states she is still having diarrhea. Related Data Home Medications Medication Instructions Recorded Confirmed quetiapine 25 mg PO BEDTIME 01/05/18 01/09/18 venlafaxine 1 cap PO DAILY 01/05/18 01/09/18 hydromorphone [Dilaudid] 2 mg PO Q6H PRN 01/15/18 01/15/18 vancomycin 125 mg PO QID 01/15/18 01/15/18 Previous Rx's Medication Instructions Recorded valacyclovir 500 mg tablet 1,000 mg PO QDAY #60 tab 10/31/17 lamotrigine 100 mg tablet 200 mg PO BID #60 tab MDD 200mg 12/30/17 venlafaxine ER 37.5 mg 37.5 mg PO DAILY #30 cap MDD 112.5 12/30/17 capsule,extended release 24 hr mg ciprofloxacin 500 mg tablet 500 mg PO Q12H 7 Days #14 tab 01/09/18 metronidazole 500 mg tablet 500 mg PO QID 7 Days #28 tab 01/09/18 Allergies Allergy/AdvReac Type Severity Reaction Status Date / Time coconut [COCONUT] Allergy Severe STOPS Verified 01/15/18 16:07 BREATHS prochlorperazine Allergy Intermediate seizure Verified 01/15/18 16:07 NSAIDS (Non-Steroidal Allergy Mild rash, milner Verified 01/15/18 16:07 Anti-Inflamma [NSAIDS (NON-STEROIDAL ANTI-INFLAMMA] promethazine [From PHENERGAN] Allergy Unknown restless Verified 01/15/18 16:07 legs morphine [MORPHINE] AdvReac Unknown it Verified 01/15/18 16:07 metabolizes in my body too fast, I need a lot of Morphin Review of Systems Constitutional Denies fever(s) Cardiovascular Denies chest pain and Denies dyspnea Respiratory Denies dyspnea Gastrointestinal Gastrointestinal: Reports abdominal pain, Denies diarrhea, Reports nausea and Reports vomiting Genitourinary Denies dysuria Musculoskeletal Denies myalgias and Denies arthralgias Integumentary/Breasts Denies lesions and Denies rash Hematologic/Lymphatic Denies easy bleeding and Denies easy bruising [facility] Medical History Anxiety (Chronic) Depression (Chronic) Femoral acetabular impingement (Chronic) Genital herpes (Chronic) Gout (Chronic) Kidney stones (Resolved 12/2016) Ovarian cancer (Resolved) Pseudotumor cerebri (Resolved) Pulmonary embolism (Resolved 2010) Pulmonary embolism (Resolved 2009) Uterine cancer (Resolved) Surgical History History of carpal tunnel repair (Resolved) Status post appendectomy (Resolved) Status post breast reduction (Resolved) Status post cholecystectomy (Resolved) Status post hernia repair (Resolved 2014) Status post hysterectomy with oophorectomy (Resolved 2003) Status post laparoscopy (Resolved) ORDER MANAGER (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) shunt status (Resolved) Family History Father History of kidney cancer Mother Diabetes mellitus Hypertension Hyperlipidemia CAD (coronary artery disease) CVA (cerebral vascular accident) Social History Smoking Status: Current every day smoker Exam Initial Vital Signs Initial Vital Signs: Vital Signs Temperature 97.6 F 01/15/18 16:03 Pulse Rate 110 H 01/15/18 16:03 Respiratory Rate 20 01/15/18 16:03 Blood Pressure 124/89 H 01/15/18 16:03 Pulse Oximetry 98 01/15/18 16:03 Const General: cooperative, well developed, well groomed and No acute distress Orientation: alert, awake and oriented x3 HENMT Head: normal to inspection and normocephalic Cardio Rate: tachycardic Rhythm: regular rhythm Pulses: radial pulses present GI Inspection: non-distended Palpation: soft and tender (Extreme pain with every portion of palpation.) Skin Lesions: no lesions Rashes: no rashes Neuro General: alert, awake and oriented x3 Extrem General: normal to inspection and full ROM Psych Appearance: grossly normal and well kempt Course Orders Ordered: ED Orders 01/15/18 16:40 Basic Metabolic Panel Stat Complete Blood Count AUTO DIFF Stat Discontinued Medications Sodium Chloride (Normal Saline 0.9%) 1,000 mls @ 1,000 mls/hr IV BOLUS ONE Stop: 01/15/18 16:52 Last Infusion: 01/15/18 18:41 Dose: 0 mls/hr Admin: 01/15/18 16:54 Dose: 1,000 mls/hr Vital Signs - 8 hr 01/15/18 16:03 Temperature 97.6 F Pulse Rate 110 H Respiratory Rate 20 Blood Pressure 124/89 H Pulse Oximetry 98 MDM - Abdominal Pain Lab Data Attestation: I reviewed the patient's lab results. Result diagrams: 01/15/18 16:40 01/15/18 16:40 Lab Results 01/15/18 01/15/18 Range/Units 16:40 16:40 WBC 9.1 (4.5-11.0) X10^3/uL RBC 4.44 (4.0-5.2) X10^6/uL Hgb 14.5 (12.0-16.0) g/dL Hct 42.5 (36-46) % MCV 95.9 (80-100) fL MCH 32.7 (26-34) PG MCHC 34.1 (30-36) % RDW 14.1 (11.6-14.8) % Plt Count 246 (150-400) X10^3/uL Neut % (Auto) 74.2 (50-75) % Lymph % (Auto) 20.1 L (25-40) % Emmet % (Auto) 3.9 (3-14) % Eos % (Auto) 1.2 L (2-4) % Baso % (Auto) 0.6 (0-2) % Neut # (Auto) 6800 H (3625-9120) /uL Sodium 143 (137-145) mmol/L Potassium 4.0 (3.4-5.1) mmol/L Chloride 99 (98-107) mmol/L Carbon Dioxide 30 (22-32) mmol/L BUN 14 (7-17) mg/dL Creatinine 0.80 (0.52-1.04) mg/dL Estimated GFR > 60.0 (>60) mL/min BUN/Creatinine Ratio 17.5 (6-22) Glucose 120 H (70-100) mg/dL Calcium 9.8 (8.4-10.2) mg/dL [facility] Narrative Medical decision making narrative: Patient does not have an elevated white blood cell count. Creatinine is unremarkable. Received fluids here in the ER. He is currently on oral vancomycin which is an appropriate treatment for her C diff. She also has oral Dilaudid at home. Patient initially asked for pain medication however I declined to give her this. She really sat in the room playing on her phone. Never asked again for pain medication. Informed the patient that she is on appropriate treatment. I did not feel that she needs admitted to the hospital secondary to her normal labs. I have strong suspicion for drug-seeking behavior in this individual. Discussed the case with Dr. Mantilla who looked the patient up under the state drug monitoring program and states that it she has been shaving pain medication from multiple providers. Informed the patient that if she feels like she needs more pain medication that she needs to keep her appointment with her primary doctor tomorrow and received pain medication from 1 provider. She was given return precautions. She expressed understanding. Patient seemed upset about this disposition. Discharge Plan Departure Patient Disposition: Home Clinical Impression: Abdominal pain, C. difficile colitis Discharge Date/Time: 01/15/18 19:00 Instructions: DI for Abdominal Pain-Adult, Clostridium difficile Infection Activity Restrictions/Additional Instructions: Recommend that you continue the oral vancomycin. You can take the pain medication that you have at home for any abdominal pain. If you feel like he needs more pain medication this needs to come from your primary care doctor and only 1 provider. We do not manage chronic pain here in the emergency department. Return to the emergency department for any new symptoms. Prescriptions: No Action lamotrigine 100 mg tablet 200 mg PO BID MDD 200mg Qty: 60 RF: 2 venlafaxine 37.5 mg capsule,extended release 24hr 37.5 mg PO DAILY MDD 112.5 mg Qty: 30 RF: 2 valacyclovir 500 mg tablet 1,000 mg PO QDAY Qty: 60 RF: 3 metronidazole [Flagyl] 500 mg tablet 500 mg PO QID 7 Days Qty: 28 RF: 0 ciprofloxacin HCl 500 mg tablet 500 mg PO Q12H 7 Days Qty: 14 RF: 0 hydromorphone [Dilaudid] 2 mg Tablet 2 mg PO Q6H PRN (Reason: Pain (Scale Score 1-3)) RF: 0 vancomycin 125 mg Capsule 125 mg PO QID RF: 0 quetiapine 25 mg tablet 25 mg PO BEDTIME RF: 0 venlafaxine 75 mg capsule,extended release 24hr 1 cap PO DAILY RF: 0
[2018-01-15 16:50] LABS: Add Manual Diff / Slide Review NO; Basophils Percent Auto 0.6 % (0-2); Eosinophils Percent Auto 1.2 % (2-4); Hematocrit 42.5 % (36-46); Hemoglobin 14.5 g/dL (12.0-16.0); Lymphocytes Percent Auto 20.1 % (25-40); Mean Corpuscular HGB Conc 34.1 % (30-36); Mean Corpuscular Hemoglobin 32.7 PG (26-34); Mean Corpuscular Volume 95.9 fL (80-100); Monocytes Percent Auto 3.9 % (3-14); Neutrophils Absolute Auto 6800 /uL (3000-5900); Neutrophils Percent Auto 74.2 % (50-75); Platelet Count 246 X10^3/uL (150-400); Red Blood Cell Count 4.44 X10^6/uL (4.0-5.2); Red Cell Distribution Width 14.1 % (11.6-14.8); White Blood Cell Count 9.1 X10^3/uL (4.5-11.0)
[2018-01-15] MEDS: SODIUM CHLORIDE 0.9% 1,000 ML 1000 ML IV (16:54)
[2018-01-15 17:00] LABS: BUN Creatinine Ratio 17.5 (6-22); Blood Urea Nitrogen 14 mg/dL (7-17); Calcium 9.8 mg/dL (8.4-10.2); Carbon Dioxide 30 mmol/L (22-32); Chloride 99 mmol/L (98-107); Estimated Glomerular Filt Rate > 60.0 mL/min (>60); Glucose 120 mg/dL (70-100); HEMOLYSIS < 15 (0-50); Sodium 143 mmol/L (137-145)
== END 2018-01-15 19:00 | disposition home or self-care (01) ==
PROVIDERS: Emergency Provider Emergency Medicine; Family Provider Family Medicine; PCP Family Medicine
DX: A04.72 Enterocolitis due to Clostridium difficile, not specified as recurrent (principal); R10.9 Unspecified abdominal pain
CPT/HCPCS: 36591; 80048; 85025; 96360; 96361; 99283; 99284

== ENCOUNTER 2018-01-16 23:02 | Observation (INO) | payer OTHER, SELFPAY ==
[2018-01-16 23:07] VITALS: BP 149/88; PULSE 108; RESP 22; O2SAT 98; BMI 32.3
[2018-01-17] VITALS (10 sets, daily range): BP systolic 84–136; BP diastolic 50–93; PULSE 70–108; RESP 16–20; TEMP 36.4–36.8; O2SAT 94–99; BMI 32.3
[2018-01-17] MEDS: ONDANSETRON 4 MG/2 ML INJ IV ×4 (01:00→21:20)
[2018-01-17 01:03] LABS: Add Manual Diff / Slide Review NO; Basophils Percent Auto 0.4 % (0-2); Eosinophils Percent Auto 1.7 % (2-4); Hematocrit 43.1 % (36-46); Hemoglobin 14.8 g/dL (12.0-16.0); Lymphocytes Percent Auto 32.8 % (25-40); Mean Corpuscular HGB Conc 34.4 % (30-36); Mean Corpuscular Hemoglobin 32.7 PG (26-34); Monocytes Percent Auto 6.6 % (3-14); Neutrophils Absolute Auto 5900 /uL (3000-5900); Neutrophils Percent Auto 58.5 % (50-75); Platelet Count 278 X10^3/uL (150-400); Red Blood Cell Count 4.54 X10^6/uL (4.0-5.2); Red Cell Distribution Width 14.2 % (11.6-14.8); White Blood Cell Count 10.1 X10^3/uL (4.5-11.0)
[2018-01-17] MEDS: HYDROMORPHONE 1 MG INJ IV ×2 (01:08→01:52)
[2018-01-17 01:09] LABS: Alanine Aminotransferase 27 IU/L (9-52); Albumin 4.6 g/dL (3.5-5.0); Albumin Globulin Ratio 1.6 (1.0-2.8); Alkaline Phosphatase 77 U/L (38-126); Aspartate Aminotransferase 21 IU/L (14-36); BUN Creatinine Ratio 25.7 (6-22); Bilirubin Total 0.3 mg/dL (0.2-1.3); Blood Urea Nitrogen 18 mg/dL (7-17); Calcium 9.8 mg/dL (8.4-10.2); Carbon Dioxide 24 mmol/L (22-32); Chloride 107 mmol/L (98-107); Estimated Glomerular Filt Rate > 60.0 mL/min (>60); Globulin 2.9 g/dL (1.7-4.1); Glucose 92 mg/dL (70-100); HEMOLYSIS 21 (0-50); Lipase 140 U/L (23-300); Potassium 4.1 mmol/L (3.4-5.1); Sodium 145 mmol/L (137-145); Total Protein 7.5 g/dL (6.3-8.2)
[2018-01-17] MEDS: SODIUM CHLORIDE 0.9% 1,000 ML 150 ML IV ×2 (01:09→13:29)
--- NOTE | 2018-01-17 01:22 | ED_ITS ---
HPI - Abdominal Pain General Chief Complaint: Abdominal Pain Stated Complaint: C.DIFF Time Seen by Provider: 01/16/18 23:07 Source: patient Mode of arrival: ambulatory Limitations: no limitations History of Present Illness HPI narrative: 37-year-old female with history of generalized anxiety disorder, PTSD, and known C diff colitis presents to the emergency department with intractable abdominal pain. Patient was recently seen at [facility] and placed on vancomycin and Dilaudid p.o.. She ran out of her Dilaudid and now has intractable pain. She denies any significant ongoing diarrhea or blood in her stools, she denies fever chills and vomiting. Her pain is worse with any motion and improves while sitting still. She denies dysuria, frequency or urgency. MD complaint: abdominal pain Onset (ago): day(s) Pain Consistency: constant Location: diffuse Severity: severe Severity scale (1-10): 10 Quality: cramping Radiation: none Migration to: no migration Relieving factors: rest Exacerbating factors: movement Associated symptoms: nausea Related Data Home Medications Medication Instructions Recorded Confirmed quetiapine 25 mg PO BEDTIME 01/05/18 01/09/18 venlafaxine 1 cap PO DAILY 01/05/18 01/09/18 hydromorphone [Dilaudid] 2 mg PO Q6H PRN 01/15/18 01/15/18 vancomycin 125 mg PO QID 01/15/18 01/15/18 Previous Rx's Medication Instructions Recorded valacyclovir 500 mg tablet 1,000 mg PO QDAY #60 tab 10/31/17 lamotrigine 100 mg tablet 200 mg PO BID #60 tab MDD 200mg 12/30/17 venlafaxine ER 37.5 mg 37.5 mg PO DAILY #30 cap MDD 112.5 12/30/17 capsule,extended release 24 hr mg Allergies Allergy/AdvReac Type Severity Reaction Status Date / Time coconut [COCONUT] Allergy Severe STOPS Verified 01/15/18 16:07 BREATHS prochlorperazine Allergy Intermediate seizure Verified 01/15/18 16:07 NSAIDS (Non-Steroidal Allergy Mild rash, milner Verified 01/15/18 16:07 Anti-Inflamma [NSAIDS (NON-STEROIDAL ANTI-INFLAMMA] promethazine [From PHENERGAN] Allergy Unknown restless Verified 01/15/18 16:07 legs morphine [MORPHINE] AdvReac Unknown it Verified 01/15/18 16:07 metabolizes in my body too fast, I need a lot of Morphin Review of Systems Review of Systems All systems reviewed & are unremarkable except as noted in HPI and below Constitutional Denies chills, Denies fever(s), Denies lethargy and Denies weakness Eyes Denies change in vision, Denies eye discharge, Denies irritation and Denies loss of vision ENT Ears, Nose, Mouth, and Throat: Denies change in voice, Denies neck pain and Denies sore throat Cardiovascular Denies chest pain, Denies irregular heart rhythm, Denies lightheadedness, Denies palpitations, Denies dyspnea, Denies dyspnea on exertion and Denies orthopnea Respiratory Denies cough, Denies dyspnea, Denies dyspnea on exertion and Denies wheezing Gastrointestinal Gastrointestinal: Reports abdominal pain, Denies change in bowel habits, Denies diarrhea, Denies nausea and Denies vomiting Genitourinary Denies hematuria, Denies flank pain, Denies urinary incontinence and Denies urinary urgency Musculoskeletal Denies neck pain Integumentary/Breasts Denies pruritus, Denies erythema, Denies rash and Denies wounds Neurologic Denies confusion, Denies loss of vision and Denies weakness Psychiatric Denies anxiety, Denies confusion, Denies depression, Denies homicidal ideation and Denies suicidal ideation Endocrine Denies palpitations Hematologic/Lymphatic Denies easy bruising Allergic/Immunologic Denies wheezing PFSH Medical History Anxiety (Chronic) Depression (Chronic) Femoral acetabular impingement (Chronic) Genital herpes (Chronic) Gout (Chronic) Kidney stones (Resolved 12/2016) Ovarian cancer (Resolved) Pseudotumor cerebri (Resolved) Pulmonary embolism (Resolved 2010) Pulmonary embolism (Resolved 2009) Uterine cancer (Resolved) Surgical History History of carpal tunnel repair (Resolved) Status post appendectomy (Resolved) Status post breast reduction (Resolved) Status post cholecystectomy (Resolved) Status post hernia repair (Resolved 2014) Status post hysterectomy with oophorectomy (Resolved 2003) Status post laparoscopy (Resolved) 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 (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) shunt status (Resolved) Family History Father History of kidney cancer Mother Diabetes mellitus Hypertension Hyperlipidemia CAD (coronary artery disease) CVA (cerebral vascular accident) Social History Smoking Status: Current every day smoker Exam Narrative Exam Narrative: 37-year-old female in distress Initial Vital Signs Initial Vital Signs: Vital Signs Pulse Rate 108 H 01/16/18 23:07 Respiratory Rate 22 01/16/18 23:07 Blood Pressure 149/88 H 01/16/18 23:07 Pulse Oximetry 98 01/16/18 23:07 Const General: cooperative and well developed Nutritional Appearance: well nourished Orientation: alert, awake, oriented x3 and not confused HENMT Head: normocephalic and atraumatic Ears: external ears normal and TM's normal bilaterally Nose: external nose normal and No nasal discharge Face and sinus: sinuses nontender, face symmetric, no sinus tenderness and No dry mucous membranes Mouth: oral mucosae normal and moist mucous membranes Teeth and gingiva: dentition normal Throat: tonsils normal and uvula midline Eyes General: appearance normal, both eyes and all related structures Eyelids: eyelids normal Conjunctivae: conjunctivae normal Sclera: sclerae normal Pupils: PERRL EOM: EOM intact bilaterally Neck Neck: normal visual inspection, trachea midline, No lymphadenopathy, No midline deformity and No JVD Lymphatic: No lymphedema Chest Chest: normal inspection of the chest Resp Effort & Inspection: normal respiratory effort, able to speak in complete sentences, no respiratory distress and no use of accessory muscles Auscultation: clear to auscultation bilaterally, no rales, no rhonchi and no wheezes Cardio Rate: regular rate Rhythm: regular rhythm Heart Sounds: no click, no gallops, no murmurs and no rubs Pulses: normal peripheral pulses GI Inspection: non-distended Palpation: soft, no hepatosplenomegaly, No guarding, No pulsatile mass and No tender Auscultation: normal bowel sounds Back/Spine/Pelvis Back: No CVA tenderness Cervical Spine: cervical ROM normal and No pain with cervical ROM Thoracic/Lumbar Spine: thoracic and lumbar spine normal to inspection Skin General: no rashes or lesions noted, No jaundice and No petechiae Neuro General: alert, oriented x3, gait normal and no focal motor deficits Speech: speech normal Extrem General: full ROM, no clubbing, cyanosis or edema, no pedal edema and no calf tenderness Psych Appearance: well kempt Mental Status: mental status grossly normal Attitude: cooperative Thought Content: normal and suicidality Judgment: judgment good Course Decision to Admit Date: 01/17/18 Decision to Admit time: 00:08 Orders Ordered: ED Orders 01/17/18 00:25 Complete Blood Count AUTO DIFF Stat Comprehensive Metabolic Panel Stat Lipase Stat Sodium Chloride (Normal Saline 0.9%) 1,000 mls @ 150 mls/hr IV CONT YULIANA Last Admin: 01/17/18 01:09 Dose: 150 mls/hr Discontinued Medications Hydromorphone HCl (Dilaudid) 1 mg IV Q15M YULIANA Stop: 01/17/18 01:16 Last Admin: 01/17/18 01:08 Dose: 1 mg Ondansetron HCl (Zofran) 4 mg IV NOW ONE Stop: 01/17/18 00:54 Last Admin: 01/17/18 01:00 Dose: 4 mg Reevaluation(s) Reevaluation #1: Patient and exquisite pain and has failed outpatient treatment of pain. She is administered multiple doses of IV pain meds and department is still having pain Consultations Consultation #1: Dr. Oakes happy to accept this patient on her service Vital Signs - 8 hr 01/16/18 23:07 Pulse Rate 108 H Respiratory Rate 22 Blood Pressure 149/88 H Pulse Oximetry 98 MDM - Abdominal Pain Lab Data Result diagrams: 01/17/18 00:25 01/17/18 00:25 Lab Results 01/17/18 01/17/18 Range/Units 00:25 00:25 WBC 10.1 (4.5-11.0) X10^3/uL RBC 4.54 (4.0-5.2) X10^6/uL Hgb 14.8 (12.0-16.0) g/dL Hct 43.1 (36-46) % MCV 95.0 (80-100) fL MCH 32.7 (26-34) PG MCHC 34.4 (30-36) % RDW 14.2 (11.6-14.8) % Plt Count 278 (150-400) X10^3/uL Neut % (Auto) 58.5 (50-75) % Lymph % (Auto) 32.8 (25-40) % [place] % (Auto) 6.6 (3-14) % Eos % (Auto) 1.7 L (2-4) % Baso % (Auto) 0.4 (0-2) % Neut # (Auto) 5900 (9759-3527) /uL Sodium 145 (137-145) mmol/L Potassium 4.1 (3.4-5.1) mmol/L Chloride 107 (98-107) mmol/L Carbon Dioxide 24 (22-32) mmol/L BUN 18 H (7-17) mg/dL Creatinine 0.70 (0.52-1.04) mg/dL Estimated GFR > 60.0 (>60) mL/min BUN/Creatinine Ratio 25.7 H (6-22) Glucose 92 (70-100) mg/dL Calcium 9.8 (8.4-10.2) mg/dL Total Bilirubin 0.3 (0.2-1.3) mg/dL AST 21 (14-36) IU/L ALT 27 (9-52) IU/L Alkaline Phosphatase 77 (38-126) U/L Total Protein 7.5 (6.3-8.2) g/dL Albumin 4.6 (3.5-5.0) g/dL Globulin 2.9 (1.7-4.1) g/dL Albumin/Globulin Ratio 1.6 (1.0-2.8) Lipase 140 D (23-300) U/L Discharge Plan Departure Patient Disposition: Admitted as Observation Clinical Impression: Intractable abdominal pain, C. difficile colitis
--- NOTE | 2018-01-17 02:03 | PC.NURSE ---
pt medicated with 2nd dose of dilaudid 1mg dose for abd pain. pt reports pain decreased to 8/10 from 9/10. pt will be transfer to admitted room via stretcher with tech with infusing IVF of NS at [facility].
--- NOTE | 2018-01-17 02:54 | PC.NURSE ---
Patient is AxOx3, pleasant and cooperative. IVF running as ordered, and Dilaudid INSTRUMENT ROOM TECHNICIAN started. Pt complaining of 9 out of 10 stomach pain. Currently has C-diff, has loose stools. NPO. Ambulates independently. Vital signs are stable.
[2018-01-17] MEDS: diphenhydrAMINE 25 MG TABLET PO (06:33)
[2018-01-17] MEDS: HYDROMORPHONE PCA 6 MG/30 ML PCA.VIAL IV ×2 (06:39→13:27)
[2018-01-17] MEDS: FLUCONAZOLE 150 MG TABLET PO (09:27)
[2018-01-17] MEDS: VANCOMYCIN 125 MG CAPSULE PO ×4 (09:27→20:38)
[2018-01-17] MEDS: lamoTRIgine 100 MG TABLET 200 MG PO ×2 (09:27→20:38)
[2018-01-17] MEDS: valACYclovir 500 MG TABLET 1000 MG PO (09:27)
[2018-01-17] MEDS: NICOTINE 21 MG PATCH TOP (09:27)
[2018-01-17] MEDS: VENLAFAXINE ER 37.5 MG CAP PO (09:28)
[2018-01-17] MEDS: VENLAFAXINE ER 75 MG CAP PO (09:28)
--- NOTE | 2018-01-17 10:47 | CM.DANOTE ---
Discharge Planning/Care Management DCP: assessment: case received, EMR reviewed (ER note only available, Dr. Oakes has been in to see pt but her H&P is not yet available) and met with pt. She is found lying in bed, rubbing her arms, moaning in pain, looking very uncomfortable. Introduced self and role. Pt confirms her nurse is aware of her pain and the doctor just changed the orders so I am hopijng this gets better. Pt is a 37 year old female who admitted early this mornin to care of [facility] physicians. DR. Yost: PCP Pt also is established with Behavioral Health services, new pt as of this month for physician and counselor. Payer: [employer] Pt is admitted for pain not managed in the outpt setting/ carries dx of c-diff colitis. Also with dx of PTSD and generalized anxiety disorder. P: DCP team to follow as POC unfolds to assist with any d/c needs that may arise. Pt is not currently in a position to discuss this now. CM Discharge Assessment Start: 01/17/18 10:43 Freq: Status: Active Protocol: Document 01/17/18 10:43 ITV (Rec: 01/17/18 10:47 ITV [id number]) Discharge Planning Assessment History Provided By Patient Medical Record Has Patient been admitted in last 30 No days? Comment Noted: 3 ER visits this month plus current ER to admission. Is patient alert and oriented? Yes Comment pt in too much pain to have a discussion re specifics of her functional abilities. Whiteboard Updated in Patient Room with Yes name and ext. # of Oncology Specialist Review Status In Process Next Review Type Continued Stay Review
--- NOTE | 2018-01-17 11:31 | PM.HP.1 ---
History of Present Illness Date Patient Seen: 01/17/18 Time Patient Seen: 08:00 Chief complaint: C.DIFF Narrative: Pt is a 37 year old woman with depression, anxiety, PTSD, and borderline personality disorder who presented with abdominal pain. The pt reports that she started having diarrhea around 01/02. On 01/09 she had a grossly bloody BM, and a significant increase in her diffuse abdominal pain. She was hospitalized at [facility] with C diff colitis from 01/10-01/14. The pt reports that there she was treated with PO Vancomycin and Dilaudid for pain control. At discharge, she continued to have significant abdominal pain, and was discharged with 8 tablets of PO dilaudid, in addition to PO Vancomycin to continue as an outpatient. The pt reports that at home, she has continued to have significant pain. She states the pain is diffuse across her entire abdomen, in addition to having a burning pain in her rectum. It is 8-10/10 on the pain scale, and throbbing to sharp in nature. Nothing seems to make the pain worse or better. She continues to have diarrhea, but it is no longer bloody. She believes it has improved slightly over the past 3 days. The pt was seen in the ER on 01/15 for abdominal pain, and received IV fluids. She was discharged home. She returned to the ER last night due to persistent pain, and was admitted due to the inability to manage her pain at home. The pt denies any recent fevers, chills. She has been tolerating simple foods relatively well. There was some concern from the ER regarding drug-seeking behavior. On review of her [place] state drug monitoring report, in December she has received [address] Lee, 12 oxycodone from , and the 8 dilaudid from . Prior to that time, she had receive multiple different Percocet prescriptions in April and May from different providers. Patient History Medical History Anxiety (Chronic) Depression (Chronic) Femoral acetabular impingement (Chronic) Genital herpes (Chronic) Gout (Chronic) Kidney stones (Resolved 12/2016) Ovarian cancer (Resolved) Pseudotumor cerebri (Resolved) Pulmonary embolism (Resolved 2010) Pulmonary embolism (Resolved 2009) Uterine cancer (Resolved) Surgical History History of carpal tunnel repair (Resolved) Status post appendectomy (Resolved) Status post breast reduction (Resolved) Status post cholecystectomy (Resolved) Status post hernia repair (Resolved 2014) Status post hysterectomy with oophorectomy (Resolved 2003) Status post laparoscopy (Resolved) 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 (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) shunt status (Resolved) Family & Social History Family History: Reviewed 01/17/18 by Carey Oakes MD Social History: household members family Prior Living Arrangements RV Safety & Behavioral: Feels Safe in Current Yes Environment Been Physically Hurt or No Threatened By a Person Suicidal Ideation Description None Suicide Plan Description No Plan Tobacco & Substance use: Tobacco type cigarettes Smoking Status Current every day smoker Smoking packs per day 0.25 alcohol intake frequency 0-2 drinks per day Substance Use Type marijuana Meds Home Medications Medication Instructions Recorded Confirmed Type valacyclovir 500 mg tablet 1,000 mg PO QDAY #60 tab 10/31/17 01/17/18 Rx lamotrigine 100 mg tablet 200 mg PO BID #60 tab MDD 200mg 12/30/17 01/17/18 Rx venlafaxine ER 37.5 mg 37.5 mg PO DAILY #30 cap MDD 112.5 12/30/17 01/17/18 Rx capsule,extended release 24 hr mg quetiapine 25 mg PO BEDTIME 01/05/18 01/17/18 History venlafaxine 1 cap PO DAILY 01/05/18 01/17/18 History hydromorphone [Dilaudid] 2 mg PO Q6H PRN 01/15/18 01/17/18 History vancomycin 125 mg PO QID 01/15/18 01/17/18 History Allergies Allergy/AdvReac Type Severity Reaction Status Date / Time coconut [COCONUT] Allergy Severe STOPS Verified 01/15/18 16:07 BREATHS prochlorperazine Allergy Intermediate seizure Verified 01/15/18 16:07 NSAIDS (Non-Steroidal Allergy Mild rash, milner Verified 01/15/18 16:07 Anti-Inflamma [NSAIDS (NON-STEROIDAL ANTI-INFLAMMA] promethazine [From PHENERGAN] Allergy Unknown restless Verified 01/15/18 16:07 legs morphine [MORPHINE] AdvReac Unknown it Verified 01/15/18 16:07 metabolizes in my body too fast, I need a lot of Morphin Exam Vital Signs (past 8 hours): - 01/17/18 05:37 01/17/18 07:30 01/17/18 08:30 Temperature 97.7 F 97.6 F Pulse Rate 108 H 89 Respiratory Rate 18 16 Blood Pressure 126/73 H 84/50 L 106/82 H Pulse Oximetry 95 96 Oxygen Delivery Method Room Air Const General: cooperative, healthy appearing, comfortable, well developed and well groomed [facility] Head: normocephalic and atraumatic Ears: TM's normal bilaterally Mouth: oral mucosae normal, oropharynx normal and moist mucous membranes Teeth and gingiva: dentition normal Neck Neck: supple Thyroid: thyroid normal Resp Auscultation: clear to auscultation bilaterally, no crackles and no wheezes Cardio Rate: regular rate Rhythm: regular rhythm Heart Sounds: S1 normal, S2 normal and no murmurs GI Inspection: normal to inspection Palpation: soft, no hepatosplenomegaly, No guarding, No rigid and tender (diffusely tender to very light palpation which does not seem to worsen with distraction and deep palpation) Auscultation: normal bowel sounds Skin Rashes: no rashes Neuro General: alert, awake, oriented x3, gait normal, moves all extremities and no focal motor deficits Extrem General: no clubbing, cyanosis or edema Objective Labs Result Diagrams: 01/17/18 00:25 01/17/18 00:25 Labs: Laboratory Results - last 24 hr 01/17/18 01/17/18 00:25 00:25 WBC 10.1 RBC 4.54 Hgb 14.8 Hct 43.1 MCV 95.0 MCH 32.7 MCHC 34.4 RDW 14.2 Plt Count 278 Neut % (Auto) 58.5 Lymph % (Auto) 32.8 [place] % (Auto) 6.6 Eos % (Auto) 1.7 L Baso % (Auto) 0.4 Neut # (Auto) 5900 Sodium 145 Potassium 4.1 Chloride 107 Carbon Dioxide 24 BUN 18 H Creatinine 0.70 Estimated GFR > 60.0 BUN/Creatinine Ratio 25.7 H Glucose 92 Calcium 9.8 Total Bilirubin 0.3 AST 21 ALT 27 Alkaline Phosphatase 77 Total Protein 7.5 Albumin 4.6 Globulin 2.9 Albumin/Globulin Ratio 1.6 Lipase 140 D Assessment & Plan (1) Intractable abdominal pain: Current visit: Yes Status: Acute (2) C. difficile colitis: Current visit: Yes Status: Acute (3) Borderline personality disorder: Current visit: Yes Status: Suspected (4) Generalized anxiety disorder: Current visit: Yes Status: Chronic (5) Major depressive disorder, recurrent episode, in partial remission: Current visit: Yes Status: Acute Plan: Assessment/Plan Narrative: 37 year old woman with depression, anxiety, PTSD, and borderline personality disorder who presented with abdominal pain in the setting of know C. diff colitis. Pt is significantly tender on examination, but pain is out of proportion to exam and distractible. Pt was easily ambulating in the room when entered. Question of drug-seeking did arise from the ER, with [place] monitoring program showing tendency for prescribing of pain medications from multiple providers. Overall, pt does have reason for abdominal discomfort with C diff, however do question severity. 1) Abdominal pain with C diff: - On PERMIT SPECIALIST from the ER - Will transition to PO oxycodone with IV dilaudid for breakthrough this afternoon - Continue Vancomycin 2) Psychiatric issues: - Continue home medications FEN: Liquid diet for now DVT prophylaxis: Pt frequently ambulating in the room. Dispo: Pt admitted under observation. Plan for d/c tomorrow pending adequate pain control.
[2018-01-17] MEDS: DICYCLOMINE 10 MG CAPSULE PO ×2 (12:02→19:03)
[2018-01-17] MEDS: OXYCODONE IR 10 MG TABLET PO ×3 (12:13→20:38)
--- NOTE | 2018-01-17 15:17 | PC.NURSE ---
DAY SHIFT NOTE: Patient having a lot of pain early this shift which CONSTRUCTION PROJECT ENGINEER was minimally helping. Dr. Oakes in to assess patient early this am and new medications ordered. Patient complaining of continued cramping pain and Dr. Oakes called and new orders received. PO oxycodone effective for pain management at this time, accompanied with Bentyl for the cramping stomach pain. IVF discontinued as patient is now eating and drinking. Call light in reach, patient using appropriately. No acute distress at this time. Will continue to monitor.
[2018-01-17] MEDS: diphenhydrAMINE 25 MG TABLET 50 MG PO (16:25)
[2018-01-17] MEDS: SODIUM CHLORIDE 0.9% FLUSH 10 ML IV ×3 (16:26→21:13)
[2018-01-17] MEDS: ACETAMINOPHEN 325 MG TABLET 650 MG PO (19:03)
[2018-01-17] MEDS: QUETIAPINE 25 MG TABLET PO (20:38)
[2018-01-17] MEDS: HYDROMORPHONE 1 MG INJ 2 MG IV (21:15)
--- NOTE | 2018-01-17 21:56 | PC.NURSE ---
SHIFT NOTE pt c/o severe abdominal pain, states PRN oxycodone ineffective despite being given around the clock and with PRN bentyl. pt seen in the position, slightly shaking and c/o 10/10 abdominal pain comparable to giving . VS WNL. PRN IV dilaudid administered with good effect. pt stating nausea, PRN zofran administered with pt requesting to have PO intake immediately afterward. pt currently resting comfortably. [facility].
[2018-01-18 00:04] VITALS: BP 100/58; PULSE 84; RESP 12; TEMP 36.7; O2SAT 96
[2018-01-18] MEDS: ACETAMINOPHEN 325 MG TABLET 650 MG PO (02:09)
[2018-01-18] MEDS: OXYCODONE IR 10 MG TABLET PO ×2 (02:09→06:25)
[2018-01-18] MEDS: diphenhydrAMINE 25 MG TABLET 50 MG PO ×2 (02:10→06:23)
[2018-01-18 06:00] VITALS: BP 114/65; PULSE 85; RESP 13; TEMP 36.9; O2SAT 96
[2018-01-18] MEDS: SODIUM CHLORIDE 0.9% FLUSH 10 ML IV ×2 (06:23→08:49)
[2018-01-18 07:00] VITALS: O2SAT 97
[2018-01-18 07:30] VITALS: BP 105/61; PULSE 82; RESP 16; TEMP 36.6; O2SAT 98
[2018-01-18] MEDS: lamoTRIgine 100 MG TABLET 200 MG PO (08:48)
[2018-01-18] MEDS: valACYclovir 500 MG TABLET 1000 MG PO (08:48)
[2018-01-18] MEDS: VANCOMYCIN 125 MG CAPSULE PO ×2 (08:48→12:06)
[2018-01-18] MEDS: NICOTINE 21 MG PATCH TOP (08:48)
[2018-01-18] MEDS: VENLAFAXINE ER 75 MG CAP PO (08:49)
[2018-01-18] MEDS: VENLAFAXINE ER 37.5 MG CAP PO (08:50)
[2018-01-18] MEDS: DICYCLOMINE 10 MG CAPSULE PO ×2 (09:07→12:06)
[2018-01-18] MEDS: HYDROMORPHONE 1 MG INJ 2 MG IV (09:07)
--- NOTE | 2018-01-18 10:01 | P.DS_ITS ---
History of Present Illness Date Patient Seen: 01/18/18 Time Patient Seen: 09:00 Chief complaint: C.DIFF Narrative: Pt is a 37 year old woman with depression, anxiety, PTSD, and borderline personality disorder who presented with abdominal pain. The pt reports that she started having diarrhea around 01/02. On 01/09 she had a grossly bloody BM, and a significant increase in her diffuse abdominal pain. She was hospitalized at [facility] with C diff colitis from 01/10-01/14. The pt reports that there she was treated with PO Vancomycin and Dilaudid for pain control. At discharge, she continued to have significant abdominal pain, and was discharged with 8 tablets of PO dilaudid, in addition to PO Vancomycin to continue as an outpatient. The pt reports that at home, she has continued to have significant pain. She states the pain is diffuse across her entire abdomen , in addition to having a burning pain in her rectum. It is 8-10/10 on the pain scale, and throbbing to sharp in nature. Nothing seems to make the pain worse or better. She continues to have diarrhea, but it is no longer bloody. She believes it has improved slightly over the past 3 days. The pt was seen in the ER on 01/15 for abdominal pain, and received IV fluids. She was discharged home. She returned to the ER last night due to persistent pain, and was admitted due to the inability to manage her pain at home. The pt denies any recent fevers, chills. She has been tolerating simple foods relatively well. There was some concern from the ER regarding drug-seeking behavior. On review of her [place] state drug monitoring report, in December she has received [address] Lee, 12 oxycodone from , and the 8 dilaudid from . Prior to that time, she had receive multiple different Percocet prescriptions in April and May from different providers. Discharge Providers Date of admission: 01/17/18 01:35 Primary care physician: Cintia Yost DO Discharge provider: Carey Oakes MD Summary Discharge Diagnosis: C diff colitis Abdominal pain Depression Anxiety Borderline personality disorder Tobacco abuse Hospital Course: The patient was admitted due to pain control issues related to her C diff colitis. She was initially started on a Dilaudid [employer]. This was transitioned to oral oxycodone in addition to IV Dilaudid for breakthrough pain. She was also started on dicyclomine to help with her abdominal cramping. The patient was transitioned to p.o. Dilaudid the day of discharge, with better pain control with this medication. As an outpatient, she will continue the dicyclomine, Tylenol, and p.o. Dilaudid. Discussed the need to be titrated down on the Dilaudid. Her pain should significantly improve over the next 1 - 2 days. The patient's diarrhea was improving throughout her hospitalization. She will complete her course of p.o. vancomycin as an outpatient. Discussed with patient the need to follow up in clinic within the next week. She will need to follow up in clinic prior to receiving any additional pain medications. The patient expressed understanding of this. Status at Discharge Functional status at discharge: independent ambulation Overall status at discharge: patient is progressing back to baseline Time Spent with Patient Greater than 30 minutes Time spent discussing smoking cessation with patient: 3 to 10 minutes Exam Vital Signs (past 8 hours): - 01/18/18 06:00 01/18/18 07:00 01/18/18 07:30 Temperature 98.4 F 97.8 F Pulse Rate 85 82 Respiratory Rate 13 16 Blood Pressure 114/65 105/61 Pulse Oximetry 96 97 98 Oxygen Delivery Method Room Air Narrative Exam Narrative: General: No acute distress, sitting comfortably in bed, appears well, usually ambulating in room CV: Regular rate and rhythm, no murmurs Respiratory: Clear to auscultation bilaterally Abdomen: Soft, nondistended, normoactive bowel sounds, diffusely tender to very light palpation but distractible no increased pain with deeper palpation Extremities no edema Objective Labs Result Diagrams: 01/17/18 00:25 01/17/18 00:25 Discharge Plan Discharge Plan Patient Disposition: Home Provider Discharge Instructions Diet: Regular Diet comment: Advance diet as tolerated Activity: Normal activity Cold/Heat Therapy: Can use heating pad on stomach to help with pain Skin/Wound/Dressing Care Report to your healthcare provider any signs of infection, such as:: chills, fever and increased pain Discharge Data Primary Care Provider: Cintia Yost Attending Provider: Carey Oakes Admit Date/Time: 01/17/18 01:35
[2018-01-18 12:30] VITALS: BP 107/58; PULSE 85; RESP 16; TEMP 36.6; O2SAT 96
--- NOTE | 2018-01-18 12:51 | CM.DPC ---
DCP Discharge Home Per MD, pt is medically stable to d/c home today on oral medications and no current identified barriers to discharge. Per RN, pt has been independent in room although orders many prune juices which likely are not helpful with her initial CDiff dx. No concerns at this time and pt will follow up with her PCP at d/c. Plan: Patient to d/c home today via POV and no SW needs at this time. Pt will follow up with her PCP and Psychiatrist after discharge for ongoing medication and mental health management. LAZARO Razo
[2018-01-18] MEDS: HYDROMORPHONE 2 MG TABLET 4 MG PO (13:17)
--- NOTE | 2018-01-18 14:01 | PC.NURSE ---
1350 Pt dcd to home w/friend. Pt left without telling me, ambulatory.
== END 2018-01-18 14:00 | disposition home or self-care (01) ==
LOC: ED 01-17 01:25 → AC 01-17 01:36
PROVIDERS: Admitting Provider Family Medicine; Emergency Provider Emergency Medicine; Family Provider Family Medicine; PCP Family Medicine; Visit Provider Family Medicine
DX: A04.72 Enterocolitis due to Clostridium difficile, not specified as recurrent (principal); F33.41 Major depressive disorder, recurrent, in partial remission; F41.1 Generalized anxiety disorder; F60.3 Borderline personality disorder; R10.9 Unspecified abdominal pain; F43.10 Post-traumatic stress disorder, unspecified; F17.210 Nicotine dependence, cigarettes, uncomplicated
CPT/HCPCS: 36591; 80053; 83690; 85025; 99217; 99219; 99283; 99284; G0378; J1170; J2405

== ENCOUNTER 2018-01-22 16:40 | Emergency (ER) | payer OTHER, SELFPAY ==
[2018-01-17 01:41] VITALS: BMI 32.3
[2018-01-22 16:55] VITALS: BP 139/101; PULSE 98; RESP 20; TEMP 36.9; O2SAT 98
--- NOTE | 2018-01-22 18:10 | ED.ABDPAIN ---
HPI - Abdominal Pain <Agueda Haynes, SOFTWARE INTEGRATOR-BC - Last Filed: 01/22/18 23:08> General Chief Complaint: Abdominal Pain Stated Complaint: C DIFF PAIN Time Seen by Provider: 01/22/18 17:42 Source: patient Mode of arrival: ambulatory Limitations: no limitations History of Present Illness HPI narrative: The patient presents with chief complaint of abdominal pain. She is being treated for C diff. She was hospitalized recently at [facility], as well as at this facility. Her admission at this facility is for intractable pain. She states that she took one 5 mg oxycodone today, and that she does not have anything else. She complains of some nausea. She does state that she is still having watery diarrhea, about 7 times a day with some blood. Chart review illustrate that she saw her primary care's office about 2 days ago, who suggested follow-up in 2-3 days. She has that appointment for tomorrow. She states that the admitting physician knows that she is in the emergency department. Chart review illustrate PCP was worried about toxic megacolon if worsening or no improvement. Patient denies any fevers. She also denies chest pain or shortness of breath. Related Data Home Medications Medication Instructions Recorded Confirmed quetiapine 25 mg PO BEDTIME 01/05/18 01/17/18 venlafaxine 1 cap PO DAILY 01/05/18 01/17/18 vancomycin 125 mg PO QID 01/15/18 01/17/18 Previous Rx's Medication Instructions Recorded valacyclovir 500 mg tablet 1,000 mg PO QDAY #60 tab 10/31/17 lamotrigine 100 mg tablet 200 mg PO BID #60 tab MDD 200mg 12/30/17 venlafaxine ER 37.5 mg 37.5 mg PO DAILY #30 cap MDD 112.5 12/30/17 capsule,extended release 24 hr mg acetaminophen 650 mg PO Q6HR PRN #30 tab 01/18/18 dicyclomine 10 mg PO Q6HR #30 cap 01/18/18 diphenhydramine HCl [Allergy 50 mg PO Q4HR PRN #30 tab 01/18/18 (diphenhydramine)] oxycodone-acetaminophen 5 mg-325 See Label Instructions PO Q6H PRN 01/20/18 mg tablet #20 tab Allergies Allergy/AdvReac Type Severity Reaction Status Date / Time coconut [COCONUT] Allergy Severe STOPS Verified 01/15/18 16:07 BREATHS prochlorperazine Allergy Intermediate seizure Verified 01/15/18 16:07 NSAIDS (Non-Steroidal Allergy Mild rash, milner Verified 01/15/18 16:07 Anti-Inflamma [NSAIDS (NON-STEROIDAL ANTI-INFLAMMA] promethazine [From PHENERGAN] Allergy Unknown restless Verified 01/15/18 16:07 legs morphine [MORPHINE] AdvReac Unknown it Verified 01/15/18 16:07 metabolizes in my body too fast, I need a lot of Morphin Review of Systems <TREVOR Patel-BC - Last Filed: 01/22/18 23:08> Review of Systems GENERAL: Denies chills, fatigue, malaise, fever, sweats. HEENT: Denies sinus pain, ear pain, sore throat, difficulty swallowing, dizziness. RESPIRATORY: Denies dyspnea, cough, wheezing, hemoptysis, sputum. CARDIOVASCULAR: Denies chest pain, palpitations, orthopnea, edema, GASTROINTESTINAL: See HPI : Denies dysuria, frequency, incontinence, hematuria, urinary retention. MUSCULOSKELETAL: denies weakness, joint pain, or bony pain SKIN: Denies rash, skin lesions, or other NEUROLOGIC: Denies weakness, headache, numbness, change in speech, confusion, seizures, incoordination. PSYCHIATRIC: No concerning psychosocial issues. 12 point review of systems is negative except for those stated above Exam <TREVOR Patel-BC - Last Filed: 01/22/18 23:08> Narrative Exam Narrative: GENERAL: This is a well-nourished, well-developed patient, in mild distress. HEAD: Atraumatic. Normocephalic. No temporal or scalp tenderness. EYES: Pupils equal round and reactive. Extraocular motions intact. No scleral icterus. No injection or drainage. ENT: Nose without bleeding, purulent drainage or septal hematoma. Throat without erythema, tonsillar hypertrophy or exudate. Uvula midline. Airway patent. NECK: Trachea midline. No JVD or lymphadenopathy. Supple, nontender, no meningeal signs. CARDIOVASCULAR: Regular rate and rhythm without murmurs, gallops, or rubs. RESPIRATORY: Clear to auscultation. Breath sounds equal bilaterally. No wheezes, rales, or rhonchi. GASTROINTESTINAL: Abdomen obese. Patient complains of pain even when auscultating for bowel sounds. Bowel sounds positive all 4 quadrants. No hepatosplenomegaly appreciated on palpation. Patient does complain of severe pain throughout abdomen. Inconsistent guarding noted. EXTREMITIES: No clubbing, cyanosis, or edema. No joint tenderness, effusion, or edema noted. BACK: Nontender without deformity or crepitance. No flank tenderness. NEURO: AOx3. Teary. SKIN: No rash or erythema. Patient denies thoughts of self-harm. Initial Vital Signs Initial Vital Signs: Vital Signs Temperature 98.4 F 01/22/18 16:55 Pulse Rate 98 H 01/22/18 16:55 Respiratory Rate 20 01/22/18 16:55 Blood Pressure 139/101 H 01/22/18 16:55 Pulse Oximetry 98 01/22/18 16:55 <Leo Arce DO - Last Filed: 01/22/18 23:39> Initial Vital Signs Initial Vital Signs: Vital Signs Temperature 98.4 F 01/22/18 16:55 Pulse Rate 98 H 01/22/18 16:55 Respiratory Rate 20 01/22/18 16:55 Blood Pressure 139/101 H 01/22/18 16:55 Pulse Oximetry 98 01/22/18 16:55 Course <YAMIL Patel - Last Filed: 01/22/18 23:08> Orders Ordered: ED Orders 01/22/18 18:14 CT abdomen pelvis w con Stat 01/22/18 18:30 Complete Blood Count AUTO DIFF Stat Comprehensive Metabolic Panel Stat Lipase Stat Discontinued Medications Hydromorphone HCl (Dilaudid) 0.5 mg IV NOW ONE Stop: 01/22/18 18:11 Last Admin: 01/22/18 18:47 Dose: 0.5 mg Hydromorphone HCl (Dilaudid) 0.5 mg IV NOW ONE Stop: 01/22/18 19:31 Last Admin: 01/22/18 19:43 Dose: 0.5 mg Hydromorphone HCl (Dilaudid) 0.5 mg IV NOW ONE Stop: 01/22/18 21:06 Last Admin: 01/22/18 21:09 Dose: 0.5 mg Sodium Chloride (Normal Saline 0.9%) 1,000 mls @ 150 mls/hr IV CONT YULIANA Last Infusion: 01/22/18 21:03 Dose: 0 mls/hr Infusion: 01/22/18 19:41 Dose: 1,000 mls/hr Admin: 01/22/18 18:47 Dose: 150 mls/hr Ondansetron HCl (Zofran) 4 mg IV NOW ONE Stop: 01/22/18 18:12 Last Admin: 01/22/18 18:47 Dose: 4 mg Oxycodone/Acetaminophen (Endocet 5/325 Prepack) 1 bottle MISC SEEINSTR ONE Stop: 01/22/18 21:19 Last Admin: 01/22/18 21:37 Dose: 1 bottle I checked on the patient multiple times throughout her emergency department stay. Consultations Consultation #1: I spoke with Dr Recinos the on-call physician for the patient's medical group. I asked whether not he had any ideas recommendations regarding the patient or required or recommended workup. We we discussed that she is stable vital signs, is hemodynamically stable, afebrile, has normal white count and a negative abdominal CT. This the patient does not meet admission criteria at this point time. He encouraged to follow up with her primary care physician, which I recommended. Time: 20:30 Vital Signs - 8 hr 01/22/18 16:55 01/22/18 19:06 01/22/18 20:16 Temperature 98.4 F Pulse Rate 98 H 90 Respiratory Rate 20 Blood Pressure 139/101 H Blood Pressure [Left Arm] 138/67 147/126 H Pulse Oximetry 98 98 01/22/18 20:27 01/22/18 21:22 01/22/18 22:01 Temperature Pulse Rate 106 H 79 95 H Respiratory Rate 25 H 15 Blood Pressure 124/94 H Blood Pressure [Left Arm] 112/77 Pulse Oximetry 100 99 95 <Leo Arce, DO - Last Filed: 01/22/18 23:39> Orders Ordered: ED Orders 01/22/18 18:14 CT abdomen pelvis w con Stat 01/22/18 18:30 Complete Blood Count AUTO DIFF Stat Comprehensive Metabolic Panel Stat Lipase Stat Discontinued Medications Hydromorphone HCl (Dilaudid) 0.5 mg IV NOW ONE Stop: 01/22/18 18:11 Last Admin: 01/22/18 18:47 Dose: 0.5 mg Hydromorphone HCl (Dilaudid) 0.5 mg IV NOW ONE Stop: 01/22/18 19:31 Last Admin: 01/22/18 19:43 Dose: 0.5 mg Hydromorphone HCl (Dilaudid) 0.5 mg IV NOW ONE Stop: 01/22/18 21:06 Last Admin: 01/22/18 21:09 Dose: 0.5 mg Sodium Chloride (Normal Saline 0.9%) 1,000 mls @ 150 mls/hr IV CONT YULIANA Last Infusion: 01/22/18 21:03 Dose: 0 mls/hr Infusion: 01/22/18 19:41 Dose: 1,000 mls/hr Admin: 01/22/18 18:47 Dose: 150 mls/hr Ondansetron HCl (Zofran) 4 mg IV NOW ONE Stop: 01/22/18 18:12 Last Admin: 01/22/18 18:47 Dose: 4 mg Oxycodone/Acetaminophen (Endocet 5/325 Prepack) 1 bottle MISC SEEINSTR ONE Stop: 01/22/18 21:19 Last Admin: 01/22/18 21:37 Dose: 1 bottle Vital Signs - 8 hr 01/22/18 16:55 01/22/18 19:06 01/22/18 20:16 Temperature 98.4 F Pulse Rate 98 H 90 Respiratory Rate 20 Blood Pressure 139/101 H Blood Pressure [Left Arm] 138/67 147/126 H Pulse Oximetry 98 98 01/22/18 20:27 01/22/18 21:22 01/22/18 22:01 Temperature Pulse Rate 106 H 79 95 H Respiratory Rate 25 H 15 Blood Pressure 124/94 H Blood Pressure [Left Arm] 112/77 Pulse Oximetry 100 99 95 MDM - Abdominal Pain <TREVOR Patel- - Last Filed: 01/22/18 23:08> Lab Data Attestation: I reviewed the patient's lab results. Result diagrams: 01/22/18 18:30 01/22/18 18:30 Lab Results 01/22/18 01/22/18 Range/Units 18:30 18:30 WBC 8.2 (4.5-11.0) X10^3/uL RBC 4.52 (4.0-5.2) X10^6/uL Hgb 14.9 (12.0-16.0) g/dL Hct 43.2 (36-46) % MCV 95.6 (80-100) fL MCH 32.9 (26-34) PG MCHC 34.4 (30-36) % RDW 14.2 (11.6-14.8) % Plt Count 268 (150-400) X10^3/uL Neut % (Auto) 61.2 (50-75) % Lymph % (Auto) 31.1 (25-40) % [place] % (Auto) 5.7 (3-14) % Eos % (Auto) 1.1 L (2-4) % Baso % (Auto) 0.9 (0-2) % Neut # (Auto) 5000 (3882-7515) /uL Sodium 144 (137-145) mmol/L Potassium 5.2 H (3.4-5.1) mmol/L Chloride 105 (98-107) mmol/L Carbon Dioxide 24 (22-32) mmol/L BUN 14 (7-17) mg/dL Creatinine 0.70 (0.52-1.04) mg/dL Estimated GFR > 60.0 (>60) mL/min BUN/Creatinine Ratio 20.0 (6-22) Glucose 79 (70-100) mg/dL Calcium 9.6 (8.4-10.2) mg/dL Total Bilirubin 0.6 (0.2-1.3) mg/dL AST 48 H (14-36) IU/L ALT 31 (9-52) IU/L Alkaline Phosphatase 64 (38-126) U/L Total Protein 7.9 (6.3-8.2) g/dL Albumin 4.8 (3.5-5.0) g/dL Globulin 3.1 (1.7-4.1) g/dL Albumin/Globulin Ratio 1.5 (1.0-2.8) Lipase 21 L D (23-300) U/L Point of care testing: Urine Dip Bedside Urine Glucose Negative Bedside Urine Bilirubin - Negative Bedside Urine Ketone - Negative Urine Specific [place] 1.015 Bedside Urine Occult Blood - Negative Bedside Urine pH 6.5 Bedside Urine Protein - Negative Bedside Urine Urobilinogen - Negative Bedside Urine Nitrite - Negative Bedside Urine Leukocytes - Negative Esterase Imaging Data CT scan - abdomen: Radiologist's impression: [address] [address] [address] Scan Report Signed Patient: Jing Zhou MR#: [id number] : 1980 Acct:[id number] Age/Sex: 37 / F Date of Service: 01/22/18 Loc: ED Accession Number: [id number] Procedure: CT abdomen pelvis w con Ordering Provider: Agueda Haynes- PROCEDURE: CT ABDOMEN PELVIS W CON INDICATIONS: abdominal pain TECHNIQUE: After the administration of intravenous contrast, 5 mm thick sections acquired from the diaphragm to the symphysis. 5 mm coronal and sagittal reformats were acquired. For radiation dose reduction, the following was used: automated exposure control, adjustment of mA and/or kV according to patient size. COMPARISON: [facility], CT, CT KUB, 01/07/2018, 18:30. [facility], CT, CT ABDOMEN PELVIS W CON, 01/05/2018, 17:21. [facility], CT, UPPER EXTREMITY WO CONTRAST, 06/20/2017, 15:11. [facility], CT, KIDNEY/ URETER/BLADDER, 05/24/2017, 22:11. FINDINGS: Image quality: Excellent. ABDOMEN: Lung bases: Lung bases are clear. Heart size is normal. Solid organs: There is diffuse hepatic steatosis. Gallbladder surgically absent. Biliary system is non dilated. There is unchanged hypoattenuation of the pancreatic head, similar in appearance prior exams. Spleen is normal in size and enhancement. No adrenal nodules. Kidneys demonstrate normal size and enhancement, without hydronephrosis. Peritoneum and bowel: Bowel loops demonstrate normal wall thickness and caliber. No free fluid or air. Nodes and vessels: No retroperitoneal or mesenteric adenopathy by size criteria. Aorta and inferior vena cava are normal in size. Miscellaneous: Small fat-containing umbilical hernia. PELVIS: Genitourinary: Bladder wall thickness is normal. Miscellaneous: Small left inguinal hernia. No lymphadenopathy. Uterus is absent. No abnormal adnexal masses. Bones: No suspicious bony lesions. No vertebral body compression fractures. IMPRESSION: #1. No acute infectious or inflammatory process within the imaged abdomen and pelvis. #2. Vague hypoattenuation of the pancreatic head, similar to comparison exam of 01/07/18. No peripancreatic inflammation to suggest acute pancreatitis. Recommend correlation with pancreatic laboratory values and consider outpatient MRI of the pancreas for further evaluation. Dictated by: Gasper Marcelino M.D. on 01/22/2018 at 20:04 Approved by: Gasper Marcelino M.D. on 01/22/2018 at 20:15 [facility] Narrative Medical decision making narrative: The patient has a complicated medical history. She presented with abdominal pain with done known diagnosis of C diff. She does have a history of hard to control pain. However she had normal CBC and CMP. She is hemodynamically stable throughout her stay in the emergency department and remained afebrile. Given the severity of her pain, as well as the PCPs concern for toxic megacolon, I did a CT of the abdomen which came back negative. We treated her pain in the emergency department with Dilaudid. I did give her a take home pack of oxycodone to get her through till her PCPs appointments tomorrow. Given the large amount of recent pain medication prescriptions as well as notes regarding possible drug-seeking behavior, I feel it is best to treat her urgent pain, but have primary care hand a longer-term pain control. I discussed return precautions and encouraged her follow up if she has any acute concerns. <Leo Arce, DO - Last Filed: 01/22/18 23:39> Lab Data Lab Results 01/22/18 01/22/18 Range/Units 18:30 18:30 WBC 8.2 (4.5-11.0) X10^3/uL RBC 4.52 (4.0-5.2) X10^6/uL Hgb 14.9 (12.0-16.0) g/dL Hct 43.2 (36-46) % MCV 95.6 (80-100) fL MCH 32.9 (26-34) PG MCHC 34.4 (30-36) % RDW 14.2 (11.6-14.8) % Plt Count 268 (150-400) X10^3/uL Neut % (Auto) 61.2 (50-75) % Lymph % (Auto) 31.1 (25-40) % [place] % (Auto) 5.7 (3-14) % Eos % (Auto) 1.1 L (2-4) % Baso % (Auto) 0.9 (0-2) % Neut # (Auto) 5000 (5032-5802) /uL Sodium 144 (137-145) mmol/L Potassium 5.2 H (3.4-5.1) mmol/L Chloride 105 (98-107) mmol/L Carbon Dioxide 24 (22-32) mmol/L BUN 14 (7-17) mg/dL Creatinine 0.70 (0.52-1.04) mg/dL Estimated GFR > 60.0 (>60) mL/min BUN/Creatinine Ratio 20.0 (6-22) Glucose 79 (70-100) mg/dL Calcium 9.6 (8.4-10.2) mg/dL Total Bilirubin 0.6 (0.2-1.3) mg/dL AST 48 H (14-36) IU/L ALT 31 (9-52) IU/L Alkaline Phosphatase 64 (38-126) U/L Total Protein 7.9 (6.3-8.2) g/dL Albumin 4.8 (3.5-5.0) g/dL Globulin 3.1 (1.7-4.1) g/dL Albumin/Globulin Ratio 1.5 (1.0-2.8) Lipase 21 L D (23-300) U/L Point of care testing: Urine Dip Bedside Urine Glucose Negative Bedside Urine Bilirubin - Negative Bedside Urine Ketone - Negative Urine Specific [place] 1.015 Bedside Urine Occult Blood - Negative Bedside Urine pH 6.5 Bedside Urine Protein - Negative Bedside Urine Urobilinogen - Negative Bedside Urine Nitrite - Negative Bedside Urine Leukocytes - Negative Esterase Discharge Plan Departure Patient Disposition: Home Clinical Impression: Abdominal pain Discharge Date/Time: 01/22/18 22:03 Interventions: ED Discharge Assessment Last Done: 01/22/18 22:01 Instructions: DI for Abdominal Pain-Adult, DI for Clostridium difficile Infection Activity Restrictions/Additional Instructions: I am giving you a small take home pack pain medication. Your CT scan and lab work came back well today. I would like you to follow up with your primary care provider tomorrow. Prescriptions: No Action lamotrigine 100 mg tablet 200 mg PO BID MDD 200mg Qty: 60 RF: 2 venlafaxine 37.5 mg capsule,extended release 24hr 37.5 mg PO DAILY MDD 112.5 mg Qty: 30 RF: 2 valacyclovir 500 mg tablet 1,000 mg PO QDAY Qty: 60 RF: 3 oxycodone-acetaminophen [Percocet] 5-325 mg tablet See Label Instructions PO Q6H PRN (Reason: pain) Qty: 20 RF: 0 vancomycin 125 mg Capsule 125 mg PO QID RF: 0 quetiapine 25 mg tablet 25 mg PO BEDTIME RF: 0 venlafaxine 75 mg capsule,extended release 24hr 1 cap PO DAILY RF: 0 acetaminophen 325 mg Tablet 650 mg PO Q6HR PRN (Reason: As Needed For Fever/Mild Pain) Qty: 30 RF: 0 diphenhydramine HCl [Allergy (diphenhydramine)] 25 mg Tablet 50 mg PO Q4HR PRN (Reason: Itching) Qty: 30 RF: 0 dicyclomine 10 mg Capsule 10 mg PO Q6HR Qty: 30 RF: 0 Referrals: Cintia Yost DO [Primary Care Provider] - <Leo Arce DO - Last Filed: 01/22/18 23:39> Cosign ED Attending Jewelsature Attestation: I was immediately available in the department for consultation. Documentation has been reviewed. I agree with assessment and plan.
--- NOTE | 2018-01-22 18:14 | DI.CT.S_ITS ---
PROCEDURE: CT ABDOMEN PELVIS W CON INDICATIONS: abdominal pain TECHNIQUE: After the administration of intravenous contrast, 5 mm thick sections acquired from the diaphragm to the symphysis. 5 mm coronal and sagittal reformats were acquired. For radiation dose reduction, the following was used: automated exposure control, adjustment of mA and/or kV according to patient size. COMPARISON: [facility], CT, CT KUB, 01/07/2018, 18:30. [facility], CT, CT ABDOMEN PELVIS W CON, 01/05/2018, 17:21. [facility], CT, UPPER EXTREMITY WO CONTRAST, 06/20/2017, 15:11. [facility], CT, KIDNEY/ URETER/BLADDER, 05/24/2017, 22:11. FINDINGS: Image quality: Excellent. ABDOMEN: Lung bases: Lung bases are clear. Heart size is normal. Solid organs: There is diffuse hepatic steatosis. Gallbladder surgically absent. Biliary system is non dilated. There is unchanged hypoattenuation of the pancreatic head, similar in appearance prior exams. Spleen is normal in size and enhancement. No adrenal nodules. Kidneys demonstrate normal size and enhancement, without hydronephrosis. Peritoneum and bowel: Bowel loops demonstrate normal wall thickness and caliber. No free fluid or air. Nodes and vessels: No retroperitoneal or mesenteric adenopathy by size criteria. Aorta and inferior vena cava are normal in size. Miscellaneous: Small fat-containing umbilical hernia. PELVIS: Genitourinary: Bladder wall thickness is normal. Miscellaneous: Small left inguinal hernia. No lymphadenopathy. Uterus is absent. No abnormal adnexal masses. Bones: No suspicious bony lesions. No vertebral body compression fractures. IMPRESSION: #1. No acute infectious or inflammatory process within the imaged abdomen and pelvis. #2. Vague hypoattenuation of the pancreatic head, similar to comparison exam of 01/07/18. No peripancreatic inflammation to suggest acute pancreatitis. Recommend correlation with pancreatic laboratory values and consider outpatient MRI of the pancreas for further evaluation. Dictated by: Gasper Marcelino M.D. on 01/22/2018 at 20:04 Approved by: Gasper Marcelino M.D. on 01/22/2018 at 20:15
[2018-01-22] MEDS: ONDANSETRON 4 MG/2 ML INJ IV (18:47)
[2018-01-22] MEDS: HYDROMORPHONE 1 MG INJ 0.5 MG IV ×3 (18:47→21:09)
[2018-01-22] MEDS: SODIUM CHLORIDE 0.9% 1,000 ML 150 ML IV (18:47)
[2018-01-22 19:00] LABS: Add Manual Diff / Slide Review NO; Basophils Percent Auto 0.9 % (0-2); Eosinophils Percent Auto 1.1 % (2-4); Hematocrit 43.2 % (36-46); Hemoglobin 14.9 g/dL (12.0-16.0); Lymphocytes Percent Auto 31.1 % (25-40); Mean Corpuscular HGB Conc 34.4 % (30-36); Mean Corpuscular Hemoglobin 32.9 PG (26-34); Mean Corpuscular Volume 95.6 fL (80-100); Monocytes Percent Auto 5.7 % (3-14); Neutrophils Absolute Auto 5000 /uL (3000-5900); Neutrophils Percent Auto 61.2 % (50-75); Platelet Count 268 X10^3/uL (150-400); Red Blood Cell Count 4.52 X10^6/uL (4.0-5.2); Red Cell Distribution Width 14.2 % (11.6-14.8); White Blood Cell Count 8.2 X10^3/uL (4.5-11.0)
[2018-01-22 19:06] VITALS: BP 138/67; PULSE 90; O2SAT 98
[2018-01-22 19:08] LABS: Alanine Aminotransferase 31 IU/L (9-52); Albumin 4.8 g/dL (3.5-5.0); Albumin Globulin Ratio 1.5 (1.0-2.8); Alkaline Phosphatase 64 U/L (38-126); Aspartate Aminotransferase 48 IU/L (14-36); Bilirubin Total 0.6 mg/dL (0.2-1.3); Blood Urea Nitrogen 14 mg/dL (7-17); Calcium 9.6 mg/dL (8.4-10.2); Carbon Dioxide 24 mmol/L (22-32); Chloride 105 mmol/L (98-107); Estimated Glomerular Filt Rate > 60.0 mL/min (>60); Globulin 3.1 g/dL (1.7-4.1); Glucose 79 mg/dL (70-100); Lipase 21 U/L (23-300); Sodium 144 mmol/L (137-145); Total Protein 7.9 g/dL (6.3-8.2)
[2018-01-22 19:10] LABS: HEMOLYSIS 87 (0-50)
[2018-01-22 19:11] LABS: Potassium 5.2 mmol/L (3.4-5.1)
[2018-01-22 20:16] VITALS: BP 147/126
[2018-01-22 20:27] VITALS: PULSE 106; O2SAT 100
--- NOTE | 2018-01-22 21:20 | ED_ITS ---
HPI - Abdominal Pain <Agueda Haynes, ADVERTISING TEACHER-BC - Last Filed: 01/22/18 23:08> General Chief Complaint: Abdominal Pain Stated Complaint: C DIFF PAIN Time Seen by Provider: 01/22/18 17:42 Source: patient Mode of arrival: ambulatory Limitations: no limitations History of Present Illness HPI narrative: The patient presents with chief complaint of abdominal pain. She is being treated for C diff. She was hospitalized recently at [facility], as well as at this facility. Her admission at this facility is for intractable pain. She states that she took one 5 mg oxycodone today, and that she does not have anything else. She complains of some nausea. She does state that she is still having watery diarrhea, about 7 times a day with some blood. Chart review illustrate that she saw her primary care's office about 2 days ago , who suggested follow-up in 2-3 days. She has that appointment for tomorrow. She states that the admitting physician knows that she is in the emergency department. Chart review illustrate PCP was worried about toxic megacolon if worsening or no improvement. Patient denies any fevers. She also denies chest pain or shortness of breath. Related Data Home Medications Medication Instructions Recorded Confirmed quetiapine 25 mg PO BEDTIME 01/05/18 01/17/18 venlafaxine 1 cap PO DAILY 01/05/18 01/17/18 vancomycin 125 mg PO QID 01/15/18 01/17/18 Previous Rx's Medication Instructions Recorded valacyclovir 500 mg tablet 1,000 mg PO QDAY #60 tab 10/31/17 lamotrigine 100 mg tablet 200 mg PO BID #60 tab MDD 200mg 12/30/17 venlafaxine ER 37.5 mg 37.5 mg PO DAILY #30 cap MDD 112.5 12/30/17 capsule,extended release 24 hr mg acetaminophen 650 mg PO Q6HR PRN #30 tab 01/18/18 dicyclomine 10 mg PO Q6HR #30 cap 01/18/18 diphenhydramine HCl [Allergy 50 mg PO Q4HR PRN #30 tab 01/18/18 (diphenhydramine)] oxycodone-acetaminophen 5 mg-325 See Label Instructions PO Q6H PRN 01/20/18 mg tablet #20 tab Allergies Allergy/AdvReac Type Severity Reaction Status Date / Time coconut [COCONUT] Allergy Severe STOPS Verified 01/15/18 16:07 BREATHS prochlorperazine Allergy Intermediate seizure Verified 01/15/18 16:07 NSAIDS (Non-Steroidal Allergy Mild rash, milner Verified 01/15/18 16:07 Anti-Inflamma [NSAIDS (NON-STEROIDAL ANTI-INFLAMMA] promethazine [From PHENERGAN] Allergy Unknown restless Verified 01/15/18 16:07 legs morphine [MORPHINE] AdvReac Unknown it Verified 01/15/18 16:07 metabolizes in my body too fast, I need a lot of Morphin Review of Systems <TREVOR Patel-BC - Last Filed: 01/22/18 23:08> Review of Systems GENERAL: Denies chills, fatigue, malaise, fever, sweats. HEENT: Denies sinus pain, ear pain, sore throat, difficulty swallowing, dizziness. RESPIRATORY: Denies dyspnea, cough, wheezing, hemoptysis, sputum. CARDIOVASCULAR: Denies chest pain, palpitations, orthopnea, edema, GASTROINTESTINAL: See HPI : Denies dysuria, frequency, incontinence, hematuria, urinary retention. MUSCULOSKELETAL: denies weakness, joint pain, or bony pain SKIN: Denies rash, skin lesions, or other NEUROLOGIC: Denies weakness, headache, numbness, change in speech, confusion, seizures, incoordination. PSYCHIATRIC: No concerning psychosocial issues. 12 point review of systems is negative except for those stated above Exam <TREVOR Patel-BC - Last Filed: 01/22/18 23:08> Narrative Exam Narrative: GENERAL: This is a well-nourished, well-developed patient, in mild distress. HEAD: Atraumatic. Normocephalic. No temporal or scalp tenderness. EYES: Pupils equal round and reactive. Extraocular motions intact. No scleral icterus. No injection or drainage. ENT: Nose without bleeding, purulent drainage or septal hematoma. Throat without erythema, tonsillar hypertrophy or exudate. Uvula midline. Airway patent. NECK: Trachea midline. No JVD or lymphadenopathy. Supple, nontender, no meningeal signs. CARDIOVASCULAR: Regular rate and rhythm without murmurs, gallops, or rubs. RESPIRATORY: Clear to auscultation. Breath sounds equal bilaterally. No wheezes , rales, or rhonchi. GASTROINTESTINAL: Abdomen obese. Patient complains of pain even when auscultating for bowel sounds. Bowel sounds positive all 4 quadrants. No hepatosplenomegaly appreciated on palpation. Patient does complain of severe pain throughout abdomen. Inconsistent guarding noted. EXTREMITIES: No clubbing, cyanosis, or edema. No joint tenderness, effusion, or edema noted. BACK: Nontender without deformity or crepitance. No flank tenderness. NEURO: AOx3. Teary. SKIN: No rash or erythema. Patient denies thoughts of self-harm. Initial Vital Signs Initial Vital Signs: Vital Signs Temperature 98.4 F 01/22/18 16:55 Pulse Rate 98 H 01/22/18 16:55 Respiratory Rate 20 01/22/18 16:55 Blood Pressure 139/101 H 01/22/18 16:55 Pulse Oximetry 98 01/22/18 16:55 <Leo Arce DO - Last Filed: 01/22/18 23:39> Initial Vital Signs Initial Vital Signs: Vital Signs Temperature 98.4 F 01/22/18 16:55 Pulse Rate 98 H 01/22/18 16:55 Respiratory Rate 20 01/22/18 16:55 Blood Pressure 139/101 H 01/22/18 16:55 Pulse Oximetry 98 01/22/18 16:55 Course <YAMIL Patel - Last Filed: 01/22/18 23:08> Orders Ordered: ED Orders 01/22/18 18:14 CT abdomen pelvis w con Stat 01/22/18 18:30 Complete Blood Count AUTO DIFF Stat Comprehensive Metabolic Panel Stat Lipase Stat Discontinued Medications Hydromorphone HCl (Dilaudid) 0.5 mg IV NOW ONE Stop: 01/22/18 18:11 Last Admin: 01/22/18 18:47 Dose: 0.5 mg Hydromorphone HCl (Dilaudid) 0.5 mg IV NOW ONE Stop: 01/22/18 19:31 Last Admin: 01/22/18 19:43 Dose: 0.5 mg Hydromorphone HCl (Dilaudid) 0.5 mg IV NOW ONE Stop: 01/22/18 21:06 Last Admin: 01/22/18 21:09 Dose: 0.5 mg Sodium Chloride (Normal Saline 0.9%) 1,000 mls @ 150 mls/hr IV CONT YULIANA Last Infusion: 01/22/18 21:03 Dose: 0 mls/hr Infusion: 01/22/18 19:41 Dose: 1,000 mls/hr Admin: 01/22/18 18:47 Dose: 150 mls/hr Ondansetron HCl (Zofran) 4 mg IV NOW ONE Stop: 01/22/18 18:12 Last Admin: 01/22/18 18:47 Dose: 4 mg Oxycodone/Acetaminophen (Endocet 5/325 Prepack) 1 bottle MISC SEEINSTR ONE Stop: 01/22/18 21:19 Last Admin: 01/22/18 21:37 Dose: 1 bottle I checked on the patient multiple times throughout her emergency department stay. Consultations Consultation #1: I spoke with Dr Recinos the on-call physician for the patient's medical group. I asked whether not he had any ideas recommendations regarding the patient or required or recommended workup. We we discussed that she is stable vital signs, is hemodynamically stable, afebrile, has normal white count and a negative abdominal CT. This the patient does not meet admission criteria at this point time. He encouraged to follow up with her primary care physician , which I recommended. Time: 20:30 Vital Signs - 8 hr 01/22/18 16:55 01/22/18 19:06 01/22/18 20:16 Temperature 98.4 F Pulse Rate 98 H 90 Respiratory Rate 20 Blood Pressure 139/101 H Blood Pressure [Left Arm] 138/67 147/126 H Pulse Oximetry 98 98 01/22/18 20:27 01/22/18 21:22 01/22/18 22:01 Temperature Pulse Rate 106 H 79 95 H Respiratory Rate 25 H 15 Blood Pressure 124/94 H Blood Pressure [Left Arm] 112/77 Pulse Oximetry 100 99 95 <Leo Arce, DO - Last Filed: 01/22/18 23:39> Orders Ordered: ED Orders 01/22/18 18:14 CT abdomen pelvis w con Stat 01/22/18 18:30 Complete Blood Count AUTO DIFF Stat Comprehensive Metabolic Panel Stat Lipase Stat Discontinued Medications Hydromorphone HCl (Dilaudid) 0.5 mg IV NOW ONE Stop: 01/22/18 18:11 Last Admin: 01/22/18 18:47 Dose: 0.5 mg Hydromorphone HCl (Dilaudid) 0.5 mg IV NOW ONE Stop: 01/22/18 19:31 Last Admin: 01/22/18 19:43 Dose: 0.5 mg Hydromorphone HCl (Dilaudid) 0.5 mg IV NOW ONE Stop: 01/22/18 21:06 Last Admin: 01/22/18 21:09 Dose: 0.5 mg Sodium Chloride (Normal Saline 0.9%) 1,000 mls @ 150 mls/hr IV CONT YULIANA Last Infusion: 01/22/18 21:03 Dose: 0 mls/hr Infusion: 01/22/18 19:41 Dose: 1,000 mls/hr Admin: 01/22/18 18:47 Dose: 150 mls/hr Ondansetron HCl (Zofran) 4 mg IV NOW ONE Stop: 01/22/18 18:12 Last Admin: 01/22/18 18:47 Dose: 4 mg Oxycodone/Acetaminophen (Endocet 5/325 Prepack) 1 bottle MISC SEEINSTR ONE Stop: 01/22/18 21:19 Last Admin: 01/22/18 21:37 Dose: 1 bottle Vital Signs - 8 hr 01/22/18 16:55 01/22/18 19:06 01/22/18 20:16 Temperature 98.4 F Pulse Rate 98 H 90 Respiratory Rate 20 Blood Pressure 139/101 H Blood Pressure [Left Arm] 138/67 147/126 H Pulse Oximetry 98 98 01/22/18 20:27 01/22/18 21:22 01/22/18 22:01 Temperature Pulse Rate 106 H 79 95 H Respiratory Rate 25 H 15 Blood Pressure 124/94 H Blood Pressure [Left Arm] 112/77 Pulse Oximetry 100 99 95 MDM - Abdominal Pain <TREVOR Patel- - Last Filed: 01/22/18 23:08> Lab Data Attestation: I reviewed the patient's lab results. Result diagrams: 01/22/18 18:30 01/22/18 18:30 Lab Results 01/22/18 01/22/18 Range/Units 18:30 18:30 WBC 8.2 (4.5-11.0) X10^3/uL RBC 4.52 (4.0-5.2) X10^6/uL Hgb 14.9 (12.0-16.0) g/dL Hct 43.2 (36-46) % MCV 95.6 (80-100) fL MCH 32.9 (26-34) PG MCHC 34.4 (30-36) % RDW 14.2 (11.6-14.8) % Plt Count 268 (150-400) X10^3/uL Neut % (Auto) 61.2 (50-75) % Lymph % (Auto) 31.1 (25-40) % Stearns % (Auto) 5.7 (3-14) % Eos % (Auto) 1.1 L (2-4) % Baso % (Auto) 0.9 (0-2) % Neut # (Auto) 5000 (5204-8777) /uL Sodium 144 (137-145) mmol/L Potassium 5.2 H (3.4-5.1) mmol/L Chloride 105 (98-107) mmol/L Carbon Dioxide 24 (22-32) mmol/L BUN 14 (7-17) mg/dL Creatinine 0.70 (0.52-1.04) mg/dL Estimated GFR > 60.0 (>60) mL/min BUN/Creatinine Ratio 20.0 (6-22) Glucose 79 (70-100) mg/dL Calcium 9.6 (8.4-10.2) mg/dL Total Bilirubin 0.6 (0.2-1.3) mg/dL AST 48 H (14-36) IU/L ALT 31 (9-52) IU/L Alkaline Phosphatase 64 (38-126) U/L Total Protein 7.9 (6.3-8.2) g/dL Albumin 4.8 (3.5-5.0) g/dL Globulin 3.1 (1.7-4.1) g/dL Albumin/Globulin Ratio 1.5 (1.0-2.8) Lipase 21 L D (23-300) U/L Point of care testing: Urine Dip Bedside Urine Glucose Negative Bedside Urine Bilirubin - Negative Bedside Urine Ketone - Negative Urine Specific [place] 1.015 Bedside Urine Occult Blood - Negative Bedside Urine pH 6.5 Bedside Urine Protein - Negative Bedside Urine Urobilinogen - Negative Bedside Urine Nitrite - Negative Bedside Urine Leukocytes - Negative Esterase Imaging Data CT scan - abdomen: Radiologist's impression: [address] [address] [address] Scan Report Signed Patient: Jing Zhou MR#: [id number] : 1980 Acct:[id number] Age/Sex: 37 / F Date of Service: 01/22/18 Loc: ED Accession Number: [id number] Procedure: CT abdomen pelvis w con Ordering Provider: Agueda Haynes- PROCEDURE: CT ABDOMEN PELVIS W CON INDICATIONS: abdominal pain TECHNIQUE: After the administration of intravenous contrast, 5 mm thick sections acquired from the diaphragm to the symphysis. 5 mm coronal and sagittal reformats were acquired. For radiation dose reduction, the following was used: automated exposure control, adjustment of mA and/or kV according to patient size. COMPARISON: [facility], CT, CT KUB, 01/07/2018, 18:30. [facility], CT, CT ABDOMEN PELVIS W CON, 01/05/2018, 17:21. [facility], CT, UPPER EXTREMITY WO CONTRAST, 06/20/2017, 15:11. [facility], CT, KIDNEY/ URETER/BLADDER, 2016, 22:11. FINDINGS: Image quality: Excellent. ABDOMEN: Lung bases: Lung bases are clear. Heart size is normal. Solid organs: There is diffuse hepatic steatosis. Gallbladder surgically absent. Biliary system is non dilated. There is unchanged hypoattenuation of the pancreatic head , similar in appearance prior exams. Spleen is normal in size and enhancement. No adrenal nodules. Kidneys demonstrate normal size and enhancement, without hydronephrosis. Peritoneum and bowel: Bowel loops demonstrate normal wall thickness and caliber. No free fluid or air. Nodes and vessels: No retroperitoneal or mesenteric adenopathy by size criteria. Aorta and inferior vena cava are normal in size. Miscellaneous: Small fat-containing umbilical hernia. PELVIS: Genitourinary: Bladder wall thickness is normal. Miscellaneous: Small left inguinal hernia. No lymphadenopathy. Uterus is absent. No abnormal adnexal masses. Bones: No suspicious bony lesions. No vertebral body compression fractures. IMPRESSION: #1. No acute infectious or inflammatory process within the imaged abdomen and pelvis. #2. Vague hypoattenuation of the pancreatic head, similar to comparison exam of 01/07/18. No peripancreatic inflammation to suggest acute pancreatitis. Recommend correlation with pancreatic laboratory values and consider outpatient MRI of the pancreas for further evaluation. Dictated by: Gasper Marcelino M.D. on 01/22/2018 at 20:04 Approved by: Gasper Marcelino M.D. on 01/22/2018 at 20:15 [facility] Narrative Medical decision making narrative: The patient has a complicated medical history. She presented with abdominal pain with done known diagnosis of C diff. She does have a history of hard to control pain. However she had normal CBC and CMP. She is hemodynamically stable throughout her stay in the emergency department and remained afebrile. Given the severity of her pain, as well as the PCPs concern for toxic megacolon, I did a CT of the abdomen which came back negative. We treated her pain in the emergency department with Dilaudid. I did give her a take home pack of oxycodone to get her through till her PCPs appointments tomorrow. Given the large amount of recent pain medication prescriptions as well as notes regarding possible drug-seeking behavior, I feel it is best to treat her urgent pain, but have primary care hand a longer-term pain control. I discussed return precautions and encouraged her follow up if she has any acute concerns. <Leo Arce, DO - Last Filed: 01/22/18 23:39> Lab Data Lab Results 01/22/18 01/22/18 Range/Units 18:30 18:30 WBC 8.2 (4.5-11.0) X10^3/uL RBC 4.52 (4.0-5.2) X10^6/uL Hgb 14.9 (12.0-16.0) g/dL Hct 43.2 (36-46) % MCV 95.6 (80-100) fL MCH 32.9 (26-34) PG MCHC 34.4 (30-36) % RDW 14.2 (11.6-14.8) % Plt Count 268 (150-400) X10^3/uL Neut % (Auto) 61.2 (50-75) % Lymph % (Auto) 31.1 (25-40) % Stearns % (Auto) 5.7 (3-14) % Eos % (Auto) 1.1 L (2-4) % Baso % (Auto) 0.9 (0-2) % Neut # (Auto) 5000 (2992-3777) /uL Sodium 144 (137-145) mmol/L Potassium 5.2 H (3.4-5.1) mmol/L Chloride 105 (98-107) mmol/L Carbon Dioxide 24 (22-32) mmol/L BUN 14 (7-17) mg/dL Creatinine 0.70 (0.52-1.04) mg/dL Estimated GFR > 60.0 (>60) mL/min BUN/Creatinine Ratio 20.0 (6-22) Glucose 79 (70-100) mg/dL Calcium 9.6 (8.4-10.2) mg/dL Total Bilirubin 0.6 (0.2-1.3) mg/dL AST 48 H (14-36) IU/L ALT 31 (9-52) IU/L Alkaline Phosphatase 64 (38-126) U/L Total Protein 7.9 (6.3-8.2) g/dL Albumin 4.8 (3.5-5.0) g/dL Globulin 3.1 (1.7-4.1) g/dL Albumin/Globulin Ratio 1.5 (1.0-2.8) Lipase 21 L D (23-300) U/L Point of care testing: Urine Dip Bedside Urine Glucose Negative Bedside Urine Bilirubin - Negative Bedside Urine Ketone - Negative Urine Specific [place] 1.015 Bedside Urine Occult Blood - Negative Bedside Urine pH 6.5 Bedside Urine Protein - Negative Bedside Urine Urobilinogen - Negative Bedside Urine Nitrite - Negative Bedside Urine Leukocytes - Negative Esterase Discharge Plan Departure Patient Disposition: Home Clinical Impression: Abdominal pain Discharge Date/Time: 01/22/18 22:03 Interventions: ED Discharge Assessment Last Done: 01/22/18 22:01 Instructions: DI for Abdominal Pain-Adult, DI for Clostridium difficile Infection Activity Restrictions/Additional Instructions: I am giving you a small take home pack pain medication. Your CT scan and lab work came back well today. I would like you to follow up with your primary care provider tomorrow. Prescriptions: No Action lamotrigine 100 mg tablet 200 mg PO BID MDD 200mg Qty: 60 RF: 2 venlafaxine 37.5 mg capsule,extended release 24hr 37.5 mg PO DAILY MDD 112.5 mg Qty: 30 RF: 2 valacyclovir 500 mg tablet 1,000 mg PO QDAY Qty: 60 RF: 3 oxycodone-acetaminophen [Percocet] 5-325 mg tablet See Label Instructions PO Q6H PRN (Reason: pain) Qty: 20 RF: 0 vancomycin 125 mg Capsule 125 mg PO QID RF: 0 quetiapine 25 mg tablet 25 mg PO BEDTIME RF: 0 venlafaxine 75 mg capsule,extended release 24hr 1 cap PO DAILY RF: 0 acetaminophen 325 mg Tablet 650 mg PO Q6HR PRN (Reason: As Needed For Fever/Mild Pain) Qty: 30 RF: 0 diphenhydramine HCl [Allergy (diphenhydramine)] 25 mg Tablet 50 mg PO Q4HR PRN (Reason: Itching) Qty: 30 RF: 0 dicyclomine 10 mg Capsule 10 mg PO Q6HR Qty: 30 RF: 0 Referrals: Cintia Yost DO [Primary Care Provider] - <Leo Arce DO - Last Filed: 01/22/18 23:39> Cosign ED Attending Jewelsature Attestation: I was immediately available in the department for consultation. Documentation has been reviewed. I agree with assessment and plan.
[2018-01-22 21:22] VITALS: BP 112/77; PULSE 79; RESP 25; O2SAT 99
[2018-01-22] MEDS: OXYCODONE/APAP 5/325 PREPACK 1 BOTTLE MISC (21:37)
[2018-01-22 22:01] VITALS: BP 124/94; PULSE 95; RESP 15; O2SAT 95
== END 2018-01-22 22:03 | disposition home or self-care (01) ==
PROVIDERS: Emergency Provider Nurse Practitioner Family; Family Provider Family Medicine; PCP Family Medicine
DX: R10.9 Unspecified abdominal pain (principal)
CPT/HCPCS: 36591; 74177; 80053; 81003; 83690; 85025; 96361; 96374; 96375; 96376; 99283; 99285; J1170; J2405; Q9967

== ENCOUNTER → 2018-01-30 12:15 | Outpatient (CLI) | payer OTHER, SELFPAY ==
[2018-01-17 01:41] VITALS: BMI 32.3
[2018-01-30 13:56] LABS: Add Manual Diff / Slide Review NO; Basophils Percent Auto 0.4 % (0-2); Eosinophils Percent Auto 1.8 % (2-4); Hematocrit 44.8 % (36-46); Hemoglobin 15.4 g/dL (12.0-16.0); Lymphocytes Percent Auto 26.5 % (25-40); Mean Corpuscular HGB Conc 34.4 % (30-36); Mean Corpuscular Hemoglobin 32.7 PG (26-34); Mean Corpuscular Volume 95.1 fL (80-100); Monocytes Percent Auto 4.2 % (3-14); Neutrophils Absolute Auto 5100 /uL (3000-5900); Neutrophils Percent Auto 67.1 % (50-75); Platelet Count 239 X10^3/uL (150-400); Red Blood Cell Count 4.71 X10^6/uL (4.0-5.2); White Blood Cell Count 7.6 X10^3/uL (4.5-11.0)
[2018-01-30 14:06] LABS: Alanine Aminotransferase 34 IU/L (9-52); Albumin Globulin Ratio 1.7 (1.0-2.8); Alkaline Phosphatase 82 U/L (38-126); Aspartate Aminotransferase 25 IU/L (14-36); BUN Creatinine Ratio 27.1 (6-22); Bilirubin Total 0.4 mg/dL (0.2-1.3); Blood Urea Nitrogen 19 mg/dL (7-17); Calcium 9.8 mg/dL (8.4-10.2); Carbon Dioxide 20 mmol/L (22-32); Chloride 109 mmol/L (98-107); Estimated Glomerular Filt Rate > 60.0 mL/min (>60); Globulin 2.9 g/dL (1.7-4.1); Glucose 106 mg/dL (70-100); HEMOLYSIS 17 (0-50); Potassium 4.5 mmol/L (3.4-5.1); Sodium 144 mmol/L (137-145); Total Protein 7.9 g/dL (6.3-8.2)
[2018-01-30 15:54] LABS: Clostridium Difficile Tox PCR Negative for C. diff
== END ==
PROVIDERS: Family Provider Family Medicine; PCP Family Medicine; Visit Provider Family Medicine
DX: A04.72 Enterocolitis due to Clostridium difficile, not specified as recurrent (principal)
CPT/HCPCS: 36415; 80053; 85025; 87493

== ENCOUNTER → 2018-02-02 15:53 | Outpatient (CLI) | payer OTHER, SELFPAY ==
[2018-01-17 01:41] VITALS: BMI 32.3
== END ==
PROVIDERS: Family Provider Family Medicine; PCP Family Medicine; Visit Provider Family Medicine
DX: Z53.9 Procedure and treatment not carried out, unspecified reason (principal)

== ENCOUNTER 2018-03-29 21:22 | Emergency (ER) | payer OTHER, MEDICAID, SELFPAY ==
[2018-01-17 01:41] VITALS: BMI 32.3
[2018-03-29 21:33] VITALS: BP 145/90; PULSE 116; RESP 18; TEMP 37.1; O2SAT 99; BMI 33.9
--- NOTE | 2018-03-29 21:39 | ED.ABDPAIN ---
HPI - Abdominal Pain General Chief Complaint: Abdominal Pain Stated Complaint: thinks she has a hernia Time Seen by Provider: 03/29/18 21:39 Source: patient Mode of arrival: ambulatory Limitations: no limitations History of Present Illness HPI narrative: patient is a 37-year-old female with right lower quadrant abdominal pain. Patient states that she has had inguinal hernia is in this area in the past. She states that the 1st time she had 5 hernias and the 2nd time she had 2 hernias . She states that for the past 4 5 days she has had pain in her right lower quadrant extending down to her right thigh. No urinary symptoms no vaginal bleeding. No change in bowel. No fevers. No vomiting. No change in the skin. Related Data Home Medications Medication Instructions Recorded Confirmed quetiapine 25 mg PO BEDTIME 01/05/18 01/17/18 venlafaxine 1 cap PO DAILY 01/05/18 01/17/18 Previous Rx's Medication Instructions Recorded lamotrigine 100 mg tablet 200 mg PO BID #60 tab MDD 200mg 12/30/17 venlafaxine ER 37.5 mg 37.5 mg PO DAILY #30 cap MDD 112.5 12/30/17 capsule,extended release 24 hr mg acetaminophen 650 mg PO Q6HR PRN #30 tab 01/18/18 dicyclomine 10 mg PO Q6HR #30 cap 01/18/18 diphenhydramine HCl [Allergy 50 mg PO Q4HR PRN #30 tab 01/18/18 (diphenhydramine)] hydroxyzine HCl 25 mg tablet 25 mg PO TID PRN #30 tab 01/23/18 ondansetron HCl 4 mg tablet 4 mg PO Q8H #30 tab 01/23/18 oxycodone-acetaminophen 5 mg-325 See Label Instructions PO Q8H PRN 01/30/18 mg tablet #30 tab vancomycin 125 mg capsule 125 mg PO QID #54 cap 01/30/18 valacyclovir 500 mg tablet 1,000 mg PO QDAY #60 tab 02/24/18 Allergies Allergy/AdvReac Type Severity Reaction Status Date / Time coconut [COCONUT] Allergy Severe STOPS Verified 01/15/18 16:07 BREATHS prochlorperazine Allergy Intermediate seizure Verified 01/15/18 16:07 NSAIDS (Non-Steroidal Allergy Mild rash, milner Verified 01/15/18 16:07 Anti-Inflamma [NSAIDS (NON-STEROIDAL ANTI-INFLAMMA] promethazine [From PHENERGAN] Allergy Unknown restless Verified 01/15/18 16:07 legs morphine [MORPHINE] AdvReac Unknown it Verified 01/15/18 16:07 metabolizes in my body too fast, I need a lot of Morphin Review of Systems Constitutional Denies chills and Denies fever(s) Cardiovascular Denies chest pain and Denies dyspnea Respiratory Denies dyspnea Gastrointestinal Gastrointestinal: Reports abdominal pain, Denies change in stool character, Denies coffee ground emesis, Denies constipation, Denies diarrhea, Denies nausea and Denies vomiting Genitourinary Denies hematuria, Denies dysuria, Denies pelvic pain, Denies urinary hesitancy, Denies urinary urgency and Denies vaginal discharge Musculoskeletal Denies myalgias and Denies arthralgias Integumentary/Breasts Denies lesions and Denies rash Hematologic/Lymphatic Denies easy bleeding and Denies easy bruising [facility] Medical History Anxiety (Chronic) Depression (Chronic) Femoral acetabular impingement (Chronic) Genital herpes (Chronic) Gout (Chronic) Kidney stones (Resolved 12/2016) Ovarian cancer (Resolved) Pseudotumor cerebri (Resolved) Pulmonary embolism (Resolved 2010) Pulmonary embolism (Resolved 2009) Uterine cancer (Resolved) Surgical History History of carpal tunnel repair (Resolved) Status post appendectomy (Resolved) Status post breast reduction (Resolved) Status post cholecystectomy (Resolved) Status post hernia repair (Resolved 2014) Status post hysterectomy with oophorectomy (Resolved 2003) Status post laparoscopy (Resolved) 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 (Resolved) Family History Father History of kidney cancer Mother Diabetes mellitus Hypertension Hyperlipidemia CAD (coronary artery disease) CVA (cerebral vascular accident) Social History marital status: household members: family lives independently: Yes occupational status: employed Smoking Status: Current every day smoker alcohol intake: never substance use type: marijuana Exam Initial Vital Signs Initial Vital Signs: Vital Signs Temperature 98.7 F 03/29/18 21:33 Pulse Rate 116 H 03/29/18 21:33 Respiratory Rate 18 03/29/18 21:33 Blood Pressure 145/90 H 03/29/18 21:33 Pulse Oximetry 99 03/29/18 21:33 Const General: cooperative, comfortable, well developed, well groomed and No acute distress Orientation: alert, awake and oriented x3 Resp Effort & Inspection: normal respiratory effort GI Inspection: non-distended Palpation: soft, No firm and tender ( Right lower quadrant without rebound or guarding) Skin Lesions: no lesions Rashes: no rashes Other: midline surgical incision in place the patient states that this is from an appendectomy. Neuro General: alert, awake and oriented x3 Extrem General: normal to inspection and capillary refill normal Psych Appearance: grossly normal and well kempt Course Orders Ordered: ED Orders 03/29/18 21:50 XR abdomen 1V Stat 03/29/18 22:24 Complete Blood Count AUTO DIFF Stat Comprehensive Metabolic Panel Stat Lactate (Lactic Acid) Stat Lipase Stat Vital Signs - 8 hr 03/29/18 21:33 03/29/18 23:04 Temperature 98.7 F Pulse Rate 116 H 85 Respiratory Rate 18 18 Blood Pressure 145/90 H Blood Pressure [Left Arm] 125/82 Pulse Oximetry 99 99 MDM - Abdominal Pain Lab Data Attestation: I reviewed the patient's lab results. Result diagrams: 03/29/18 22:24 03/29/18 22:24 Lab Results 03/29/18 03/29/18 03/29/18 Range/Units 22:24 22:24 22:24 WBC 9.0 (4.5-11.0) X10^3/uL RBC 4.39 (4.0-5.2) X10^6/uL Hgb 14.2 (12.0-16.0) g/dL Hct 41.7 (36-46) % MCV 95.0 (80-100) fL MCH 32.3 (26-34) PG MCHC 34.0 (30-36) % RDW 13.4 (11.6-14.8) % Plt Count 237 (150-400) X10^3/uL Neut % (Auto) 63.7 (50-75) % Lymph % (Auto) 29.4 (25-40) % [place] % (Auto) 5.4 (3-14) % Eos % (Auto) 0.9 L (2-4) % Baso % (Auto) 0.6 (0-2) % Neut # (Auto) 5700 (2452-3417) /uL Sodium 142 (137-145) mmol/L Potassium 3.9 (3.4-5.1) mmol/L Chloride 105 (98-107) mmol/L Carbon Dioxide 24 (22-32) mmol/L BUN 12 (7-17) mg/dL Creatinine 0.70 (0.52-1.04) mg/dL Estimated GFR > 60.0 (>60) mL/min BUN/Creatinine Ratio 17.1 (6-22) Glucose 88 (70-100) mg/dL Lactate 1.4 (0.7-2.1) mmol/L Calcium 9.1 (8.4-10.2) mg/dL Total Bilirubin 0.3 (0.2-1.3) mg/dL AST 27 (14-36) IU/L ALT 43 (9-52) IU/L Alkaline Phosphatase 73 (38-126) U/L Total Protein 7.2 (6.3-8.2) g/dL Albumin 4.5 (3.5-5.0) g/dL Globulin 2.7 (1.7-4.1) g/dL Albumin/Globulin Ratio 1.7 (1.0-2.8) Lipase 75 (23-300) U/L Point of care testing: Point of Care Testing Test Results Negative Urine Dip Bedside Urine Glucose Negative Bedside Urine Bilirubin - Negative Bedside Urine Ketone - Negative Urine Specific [place] 1.030 Bedside Urine Occult Blood - Negative Bedside Urine pH 6.0 Bedside Urine Protein - Negative Bedside Urine Urobilinogen - Negative Bedside Urine Nitrite - Negative Bedside Urine Leukocytes - Negative Esterase Imaging Data abdominal x-ray: Attestation: I personally reviewed and interpreted this imaging study as follows: My impression: no air-fluid levels, no dilated loops of bowel, MDM Narrative Medical decision making narrative: I reviewed several of the patient's prior visits here in the emergency department and also with primary care physicians here at [facility]. Several of these visits recorded in their notes of concern for drug-seeking behavior. Patient also has had multiple workups for different types of abdominal pain. Patient has many allergies to medications. She states that her current primary care doctor is over at [facility]. Her x-ray today shows no signs of obstruction or air-fluid levels. Her CBC is unremarkable. Her chemistry is unremarkable. Lactate negative. Patient is not having any urinary symptoms. I was unable to appreciate any hernia on her exam. Informed the patient that she needed to talk with her primary care doctor regarding any pain management needs. Also informed her that she can contact the general surgery office to get in to see them for further evaluation. She has had multiple CT scans in the past for various other reasons and I feel it is prudent to avoid another CT scan this evening. Patient expressed understanding and agreement. Discharge Plan Departure Patient Disposition: Home Clinical Impression: Abdominal pain Instructions: DI for Abdominal Pain-Adult Activity Restrictions/Additional Instructions: I recommend you contact your primary care doctor tomorrow to discuss further workup of your abdominal pain and long-term pain management. You can use Tylenol until then. You can also contact the [facility] at [phone]. return to the emergency department for any new symptoms. Prescriptions: No Action lamotrigine 100 mg tablet 200 mg PO BID MDD 200mg Qty: 60 RF: 2 venlafaxine 37.5 mg capsule,extended release 24hr 37.5 mg PO DAILY MDD 112.5 mg Qty: 30 RF: 2 valacyclovir 500 mg tablet 1,000 mg PO QDAY Qty: 60 RF: 0 ondansetron HCl [Zofran] 4 mg tablet 4 mg PO Q8H Qty: 30 RF: 0 hydroxyzine HCl 25 mg tablet 25 mg PO TID PRN (Reason: nausea and vomiting) Qty: 30 RF: 0 vancomycin 125 mg capsule 125 mg PO QID Qty: 54 RF: 0 oxycodone-acetaminophen [Percocet] 5-325 mg tablet See Label Instructions PO Q8H PRN (Reason: pain) Qty: 30 RF: 0 quetiapine 25 mg tablet 25 mg PO BEDTIME RF: 0 venlafaxine 75 mg capsule,extended release 24hr 1 cap PO DAILY RF: 0 acetaminophen 325 mg Tablet 650 mg PO Q6HR PRN (Reason: As Needed For Fever/Mild Pain) Qty: 30 RF: 0 diphenhydramine HCl [Allergy (diphenhydramine)] 25 mg Tablet 50 mg PO Q4HR PRN (Reason: Itching) Qty: 30 RF: 0 dicyclomine 10 mg Capsule 10 mg PO Q6HR Qty: 30 RF: 0
--- NOTE | 2018-03-29 21:50 | DI.RAD.S_ITS ---
PROCEDURE: XR ABDOMEN 1V INDICATIONS: abdominal pain with history of hernias TECHNIQUE: One view of the abdomen acquired. COMPARISON: None. FINDINGS: Surgical changes and devices: Surgical clips in the right upper quadrant Bowel: Bowel gas pattern is normal. Soft tissues: No suspicious abdominal calcifications. Visualized solid organ contours appear normal in size. Bones: No suspicious bony lesions. IMPRESSION: No evidence of bowel obstruction. Dictated by: Koko Delgado M.D. on 03/30/2018 at 7:44 Approved by: Koko Delgado M.D. on 03/30/2018 at 7:45
--- NOTE | 2018-03-29 22:26 | PC.NURSE ---
Pt reports moving tree limbs and doing yard work two days ago and felt a pop in her right groin. The pain has increased and is now radiating down her right leg. She is currently laying on her left side on the stretcher for comfort. she was able to be in high fowlers for IV start but reported discomfort. She returned to her left side after IV start. Partner is at bedside now. Pt denies needs at this time.
[2018-03-29 22:33] LABS: Add Manual Diff / Slide Review NO; Basophils Percent Auto 0.6 % (0-2); Eosinophils Percent Auto 0.9 % (2-4); Hematocrit 41.7 % (36-46); Hemoglobin 14.2 g/dL (12.0-16.0); Lymphocytes Percent Auto 29.4 % (25-40); Mean Corpuscular Hemoglobin 32.3 PG (26-34); Monocytes Percent Auto 5.4 % (3-14); Neutrophils Absolute Auto 5700 /uL (3000-5900); Neutrophils Percent Auto 63.7 % (50-75); Platelet Count 237 X10^3/uL (150-400); Red Blood Cell Count 4.39 X10^6/uL (4.0-5.2); Red Cell Distribution Width 13.4 % (11.6-14.8)
[2018-03-29 22:57] LABS: Alanine Aminotransferase 43 IU/L (9-52); Albumin 4.5 g/dL (3.5-5.0); Albumin Globulin Ratio 1.7 (1.0-2.8); Alkaline Phosphatase 73 U/L (38-126); Aspartate Aminotransferase 27 IU/L (14-36); BUN Creatinine Ratio 17.1 (6-22); Bilirubin Total 0.3 mg/dL (0.2-1.3); Blood Urea Nitrogen 12 mg/dL (7-17); Calcium 9.1 mg/dL (8.4-10.2); Carbon Dioxide 24 mmol/L (22-32); Chloride 105 mmol/L (98-107); Estimated Glomerular Filt Rate > 60.0 mL/min (>60); Globulin 2.7 g/dL (1.7-4.1); Glucose 88 mg/dL (70-100); HEMOLYSIS < 15 (0-50); Lipase 75 U/L (23-300); Potassium 3.9 mmol/L (3.4-5.1); Sodium 142 mmol/L (137-145); Total Protein 7.2 g/dL (6.3-8.2)
[2018-03-29 22:58] LABS: Lactate (Lactic Acid) 1.4 mmol/L (0.7-2.1)
[2018-03-29 23:04] VITALS: BP 125/82; PULSE 85; RESP 18; O2SAT 99
== END 2018-03-29 23:19 | disposition home or self-care (01) ==
PROVIDERS: Emergency Provider Emergency Medicine; Family Provider Family Medicine; PCP Family Medicine
DX: R10.9 Unspecified abdominal pain (principal)
CPT/HCPCS: 36591; 74018; 80053; 81003; 81025; 83605; 83690; 85025; 99282; 99284

== ENCOUNTER 2018-05-24 15:32 | Emergency (ER) | payer OTHER, MEDICAID, SELFPAY ==
[2018-01-17 01:41] VITALS: BMI 32.3
[2018-05-24 15:45] VITALS: BP 133/93; PULSE 72; RESP 18; TEMP 36.6; O2SAT 97; BMI 35.2
--- NOTE | 2018-05-24 18:26 | ED.FALL ---
HPI - Fall General Chief Complaint: Fall Stated Complaint: fell on back , numbness in hands, stiff neck Time Seen by Provider: 05/24/18 18:16 Source: patient and family Mode of arrival: ambulatory Limitations: no limitations History of Present Illness HPI Narrative: 37F daily smoker with history of chronic pain, PTSD presents with chief of slipping and falling in the much a few days ago. She states that her pain has been gradually worsening and now she feels pain particularly with any motion. She has numbness and tingling that goes into her arms and movement of her arms makes her pain worse. She did not strike her head and denies any loss of consciousness nor nausea or vomiting. She denies any known history of neck or back trouble but has had trouble with back pain and chronic abdominal pain. She has tried marijuana, tincture of CBD, hot packs, cold packs, and a 10s unit without much in the way of relief MD complaint: fall Onset (ago): day(s) Fall from: standing Fall witnessed: no Place fall occurred: home Loss of consciousness: none Prolonged down time: no Symptoms prior to fall: none Context: tripped/slipped Location of injury: back Severity: mild Quality: burning and aching Related Data Home Medications Medication Instructions Recorded Confirmed quetiapine 25 mg PO BEDTIME 01/05/18 01/17/18 venlafaxine 1 cap PO DAILY 01/05/18 01/17/18 Previous Rx's Medication Instructions Recorded lamotrigine 100 mg tablet 200 mg PO BID #60 tab MDD 200mg 12/30/17 venlafaxine ER 37.5 mg 37.5 mg PO DAILY #30 cap MDD 112.5 12/30/17 capsule,extended release 24 hr mg acetaminophen 650 mg PO Q6HR PRN #30 tab 01/18/18 dicyclomine 10 mg PO Q6HR #30 cap 01/18/18 diphenhydramine HCl [Allergy 50 mg PO Q4HR PRN #30 tab 01/18/18 (diphenhydramine)] hydroxyzine HCl 25 mg tablet 25 mg PO TID PRN #30 tab 01/23/18 ondansetron HCl 4 mg tablet 4 mg PO Q8H #30 tab 01/23/18 oxycodone-acetaminophen 5 mg-325 See Label Instructions PO Q8H PRN 01/30/18 mg tablet #30 tab vancomycin 125 mg capsule 125 mg PO QID #54 cap 01/30/18 valacyclovir 500 mg tablet 1,000 mg PO QDAY #60 tab 02/24/18 hydrocodone-acetaminophen 1 tab PO Q4-6H PRN #10 tab 05/24/18 prednisone 20 mg PO DAILY #5 tab 05/24/18 Allergies Allergy/AdvReac Type Severity Reaction Status Date / Time coconut [COCONUT] Allergy Severe STOPS Verified 05/24/18 15:45 BREATHS prochlorperazine Allergy Intermediate seizure Verified 05/24/18 15:45 NSAIDS (Non-Steroidal Allergy Mild rash, milner Verified 05/24/18 15:45 Anti-Inflamma [NSAIDS (NON-STEROIDAL ANTI-INFLAMMA] promethazine [From PHENERGAN] Allergy Unknown restless Verified 05/24/18 15:45 legs morphine [MORPHINE] AdvReac Unknown it Verified 05/24/18 15:45 metabolizes in my body too fast, I need a lot of Morphin Review of Systems Review of Systems All systems reviewed & are unremarkable except as noted in HPI and below Constitutional Denies chills, Denies fever(s), Denies lethargy and Denies weakness Eyes Denies change in vision, Denies eye discharge, Denies irritation and Denies loss of vision ENT Ears, Nose, Mouth, and Throat: Denies change in voice, Denies neck pain and Denies sore throat Cardiovascular Denies chest pain, Denies irregular heart rhythm, Denies lightheadedness, Denies palpitations, Denies dyspnea, Denies dyspnea on exertion and Denies orthopnea Respiratory Denies cough, Denies dyspnea, Denies dyspnea on exertion and Denies wheezing Gastrointestinal Gastrointestinal: Denies abdominal pain, Denies change in bowel habits, Denies diarrhea, Denies nausea and Denies vomiting Genitourinary Denies hematuria, Denies flank pain, Denies urinary incontinence and Denies urinary urgency Musculoskeletal Reports back pain, Reports limited range of motion, Denies neck pain, Reports radiating pain into limb and Reports tingling Integumentary/Breasts Denies pruritus, Denies erythema, Denies rash and Denies wounds Neurologic Denies confusion, Denies loss of vision, Reports sensory deficit, Reports tingling and Denies weakness Psychiatric Denies anxiety, Denies confusion, Denies depression, Denies homicidal ideation and Denies suicidal ideation Endocrine Denies palpitations Hematologic/Lymphatic Denies easy bruising Allergic/Immunologic Denies wheezing Exam Narrative Exam Narrative: GENERAL: 37-year-old female, obviously uncomfortable and anxious HEAD: Atraumatic. Normocephalic. No temporal or scalp tenderness. EYES: Pupils equal round and reactive. Extraocular motions intact. No scleral icterus. No injection or drainage. ENT: Nose without bleeding, purulent drainage or septal hematoma. Throat without erythema, tonsillar hypertrophy or exudate. Uvula midline. Airway patent. NECK: Trachea midline. No JVD or lymphadenopathy. Tenderness with palpation nearly anywhere along the cervical or thoracic spine. Axial loading makes the patient uncomfortable. CARDIOVASCULAR: Regular rate and rhythm without murmurs, gallops, or rubs. RESPIRATORY: Clear to auscultation. Breath sounds equal bilaterally. No wheezes, rales, or rhonchi. GASTROINTESTINAL: Abdomen soft, non-tender, nondistended. No hepato-splenomegaly, or palpable masses. No guarding. EXTREMITIES: No clubbing, cyanosis, or edema. No joint tenderness, effusion, or edema noted. BACK: Nontender without deformity or crepitance. No flank tenderness. NEURO: AOx3. SKIN: No rash or erythema. Initial Vital Signs Initial Vital Signs: Vital Signs Temperature 98 F 05/24/18 15:45 Pulse Rate 72 05/24/18 15:45 Respiratory Rate 18 05/24/18 15:45 Blood Pressure 133/93 H 05/24/18 15:45 Pulse Oximetry 97 05/24/18 15:45 [facility] Social History marital status: household members: family lives independently: Yes occupational status: employed Smoking Status: Current every day smoker alcohol intake: never substance use type: marijuana Course Orders Ordered: ED Orders 05/24/18 18:41 CT cervical spine wo con Stat CT thoracic spine wo con Stat Discontinued Medications Hydrocodone Bitart/Acetaminophen (Vicodin Prepack) 1 bottle MISC SEEINSTR ONE Stop: 05/24/18 20:46 Last Admin: 05/24/18 21:07 Dose: 1 bottle Prednisone (Deltasone) 40 mg PO NOW ONE Stop: 05/24/18 20:46 Last Admin: 05/24/18 21:07 Dose: 40 mg Vital Signs - 8 hr 05/24/18 21:17 Pulse Rate 88 Respiratory Rate 20 Blood Pressure 129/88 Pulse Oximetry 98 MDM - Fall Medical Records Attestation: I reviewed the patient's medical records. Lab Data Attestation: I reviewed the patient's lab results. Imaging Data CT C Spine / T Spine: Radiologist's impression: PROCEDURE: CT CERVICAL SPINE WO CON INDICATIONS: fall with neck pain, numbness, tingling TECHNIQUE: Noncontrast 3 mm thick sections acquired from the skull base to the T4 level. Sagittal and coronal reformats were then constructed. For radiation dose reduction, the following was used: automated exposure control, adjustment of mA and/or kV according to patient size. COMPARISON: [facility], CT, CT ABDOMEN PELVIS WITH CONTRAST, 04/21/2018, 21:32. [facility], CT, CT SOFT TISSUE NECK WITH CONTRAST, 03/03/2018, 0:51. [facility], CT, CT HEAD WITHOUT CONTRAST, 03/02/2018, 21:27. [facility], CT, CT ABDOMEN PELVIS WITH CONTRAST, 02/09/2018, 23:05. FINDINGS: Image quality: Excellent. Bones: No fractures or dislocation through C7. There is straightening of the normal cervical lordosis. Soft tissues: Prevertebral soft tissues are normal in thickness. No apical pneumothoraces. IMPRESSION: No acute fracture of the cervical spine through C7. Straightening of the normal cervical lordosis may be positional or secondary to muscle strain. Dictated by: Gasper Marcelino M.D. on 05/24/2018 at 19:59 Approved by: Gasper Marcelino M.D. on 05/24/2018 at 20:07 INDICATIONS: fall with severe neck/back pain TECHNIQUE: Noncontrast 3 mm thick sections acquired through the region of interest in the thoracic spine. Sagittal and coronal reformats were then constructed. For radiation dose reduction, the following was used: automated exposure control. COMPARISON: [facility], CT, CT ABDOMEN PELVIS WITH CONTRAST, 04/21/2018, 21:32. [facility], CT, CT SOFT TISSUE NECK WITH CONTRAST, 03/03/2018, 0:51. [facility], CT, CT HEAD WITHOUT CONTRAST, 03/02/2018, 21:27. [facility], CT, CT ABDOMEN PELVIS WITH CONTRAST, 02/09/2018, 23:05. FINDINGS: Image quality: Excellent. Bones: There is normal overall bony alignment. No acute vertebral body compression fractures. No suspicious sclerotic or lytic bony lesions. Central spinal canal is of normal osseous caliber. Soft tissues: No paravertebral masses or hematomas. Visualized posteromedial lungs appear clear. Right internal jugular central venous catheter tip projects to the right atrium. Right upper quadrant surgical clips consistent with prior cholecystectomy. IMPRESSION: No acute vertebral body compression fracture of the thoracic spine. Dictated by: Gasper Marcelino M.D. on 05/24/2018 at 20:10 Approved by: Gasper Marcelino M.D. on 05/24/2018 at 20:18 Discharge Plan Departure Patient Disposition: Home Clinical Impression: Cervical paraspinal muscle spasm, Radiculopathy of cervical region Discharge Date/Time: 05/24/18 21:16 Interventions: ED Discharge Assessment Last Done: 05/24/18 21:17 Instructions: DI for Cervical Radiculopathy Activity Restrictions/Additional Instructions: *You have been diagnosed with [ acute cervical radiculopathy ] *What to do: *Take medications as directed *Follow up with your primary care provider in 2-3 days, call for an appointment. Let them know you were seen in the Emergency Department and that we ask that you be seen in follow up *Return to ER if you should have any new, worsening or concerning symptoms, such as [worsening pain, numbness, tingling, weakness or other bothersome symptoms You have been prescribed narcotic medications. While on these medications you cannot drive or operate heavy machinery. Additionally you cannot sign legal documents or perform any duties such as this. Many people get constipated on narcotic medications so it would be advisable to discuss stool softeners with the pharmacist when you cone picker your prescription. Please understand that we cannot provide further refills of narcotics or controlled substances through the ED and your pain management will need to be through your Primary Care Provider ] Prescriptions: New hydrocodone-acetaminophen 5-325 mg tablet 1 tab PO Q4-6H PRN (Reason: pain) Qty: 10 RF: 0 prednisone 20 mg tablet 20 mg PO DAILY Qty: 5 RF: 0 No Action lamotrigine 100 mg tablet 200 mg PO BID MDD 200mg Qty: 60 RF: 2 venlafaxine 37.5 mg capsule,extended release 24hr 37.5 mg PO DAILY MDD 112.5 mg Qty: 30 RF: 2 valacyclovir 500 mg tablet 1,000 mg PO QDAY Qty: 60 RF: 0 ondansetron HCl [Zofran] 4 mg tablet 4 mg PO Q8H Qty: 30 RF: 0 hydroxyzine HCl 25 mg tablet 25 mg PO TID PRN (Reason: nausea and vomiting) Qty: 30 RF: 0 vancomycin 125 mg capsule 125 mg PO QID Qty: 54 RF: 0 oxycodone-acetaminophen [Percocet] 5-325 mg tablet See Label Instructions PO Q8H PRN (Reason: pain) Qty: 30 RF: 0 quetiapine 25 mg tablet 25 mg PO BEDTIME RF: 0 venlafaxine 75 mg capsule,extended release 24hr 1 cap PO DAILY RF: 0 acetaminophen 325 mg Tablet 650 mg PO Q6HR PRN (Reason: As Needed For Fever/Mild Pain) Qty: 30 RF: 0 diphenhydramine HCl [Allergy (diphenhydramine)] 25 mg Tablet 50 mg PO Q4HR PRN (Reason: Itching) Qty: 30 RF: 0 dicyclomine 10 mg Capsule 10 mg PO Q6HR Qty: 30 RF: 0
--- NOTE | 2018-05-24 18:41 | DI.CT.S_ITS ---
PROCEDURE: CT CERVICAL SPINE WO CON INDICATIONS: fall with neck pain, numbness, tingling TECHNIQUE: Noncontrast 3 mm thick sections acquired from the skull base to the T4 level. Sagittal and coronal reformats were then constructed. For radiation dose reduction, the following was used: automated exposure control, adjustment of mA and/or kV according to patient size. COMPARISON: [facility], CT, CT ABDOMEN PELVIS WITH CONTRAST, 04/21/2018, 21:32. [facility], CT, CT SOFT TISSUE NECK WITH CONTRAST, 03/03/2018, 0:51. [facility], CT, CT HEAD WITHOUT CONTRAST, 03/02/2018, 21:27. [facility], CT, CT ABDOMEN PELVIS WITH CONTRAST, 02/09/2018, 23:05. FINDINGS: Image quality: Excellent. Bones: No fractures or dislocation through C7. There is straightening of the normal cervical lordosis. Soft tissues: Prevertebral soft tissues are normal in thickness. No apical pneumothoraces. IMPRESSION: No acute fracture of the cervical spine through C7. Straightening of the normal cervical lordosis may be positional or secondary to muscle strain. Dictated by: Gasper Marcelino M.D. on 05/24/2018 at 19:59 Approved by: Gasper Marcelino M.D. on 05/24/2018 at 20:07
--- NOTE | 2018-05-24 18:41 | DI.CT.S_ITS ---
PROCEDURE: CT THORACIC SPINE WO CON INDICATIONS: fall with severe neck/back pain TECHNIQUE: Noncontrast 3 mm thick sections acquired through the region of interest in the thoracic spine. Sagittal and coronal reformats were then constructed. For radiation dose reduction, the following was used: automated exposure control. COMPARISON: Merged With [facility], CT, CT ABDOMEN PELVIS WITH CONTRAST, 04/21/2018, 21:32. Merged With [facility], CT, CT SOFT TISSUE NECK WITH CONTRAST, 03/03/2018, 0:51. Merged With [facility], CT, CT HEAD WITHOUT CONTRAST, 03/02/2018, 21:27. Merged With [facility], CT, CT ABDOMEN PELVIS WITH CONTRAST, 02/09/2018, 23:05. FINDINGS: Image quality: Excellent. Bones: There is normal overall bony alignment. No acute vertebral body compression fractures. No suspicious sclerotic or lytic bony lesions. Central spinal canal is of normal osseous caliber. Soft tissues: No paravertebral masses or hematomas. Visualized posteromedial lungs appear clear. Right internal jugular central venous catheter tip projects to the right atrium. Right upper quadrant surgical clips consistent with prior cholecystectomy. IMPRESSION: No acute vertebral body compression fracture of the thoracic spine. Dictated by: Gasper Marcelino M.D. on 05/24/2018 at 20:10 Approved by: Gasper Marcelino M.D. on 05/24/2018 at 20:18
--- NOTE | 2018-05-24 18:50 | ED_ITS ---
HPI - Fall General Chief Complaint: Fall Stated Complaint: fell on back , numbness in hands, stiff neck Time Seen by Provider: 05/24/18 18:16 Source: patient and family Mode of arrival: ambulatory Limitations: no limitations History of Present Illness HPI Narrative: 37F daily smoker with history of chronic pain, PTSD presents with chief of slipping and falling in the much a few days ago. She states that her pain has been gradually worsening and now she feels pain particularly with any motion. She has numbness and tingling that goes into her arms and movement of her arms makes her pain worse. She did not strike her head and denies any loss of consciousness nor nausea or vomiting. She denies any known history of neck or back trouble but has had trouble with back pain and chronic abdominal pain. She has tried marijuana, tincture of CBD, hot packs, cold packs, and a 10s unit without much in the way of relief MD complaint: fall Onset (ago): day(s) Fall from: standing Fall witnessed: no Place fall occurred: home Loss of consciousness: none Prolonged down time: no Symptoms prior to fall: none Context: tripped/slipped Location of injury: back Severity: mild Quality: burning and aching Related Data Home Medications Medication Instructions Recorded Confirmed quetiapine 25 mg PO BEDTIME 01/05/18 01/17/18 venlafaxine 1 cap PO DAILY 01/05/18 01/17/18 Previous Rx's Medication Instructions Recorded lamotrigine 100 mg tablet 200 mg PO BID #60 tab MDD 200mg 12/30/17 venlafaxine ER 37.5 mg 37.5 mg PO DAILY #30 cap MDD 112.5 12/30/17 capsule,extended release 24 hr mg acetaminophen 650 mg PO Q6HR PRN #30 tab 01/18/18 dicyclomine 10 mg PO Q6HR #30 cap 01/18/18 diphenhydramine HCl [Allergy 50 mg PO Q4HR PRN #30 tab 01/18/18 (diphenhydramine)] hydroxyzine HCl 25 mg tablet 25 mg PO TID PRN #30 tab 01/23/18 ondansetron HCl 4 mg tablet 4 mg PO Q8H #30 tab 01/23/18 oxycodone-acetaminophen 5 mg-325 See Label Instructions PO Q8H PRN 01/30/18 mg tablet #30 tab vancomycin 125 mg capsule 125 mg PO QID #54 cap 01/30/18 valacyclovir 500 mg tablet 1,000 mg PO QDAY #60 tab 02/24/18 hydrocodone-acetaminophen 1 tab PO Q4-6H PRN #10 tab 05/24/18 prednisone 20 mg PO DAILY #5 tab 05/24/18 Allergies Allergy/AdvReac Type Severity Reaction Status Date / Time coconut [COCONUT] Allergy Severe STOPS Verified 05/24/18 15:45 BREATHS prochlorperazine Allergy Intermediate seizure Verified 05/24/18 15:45 NSAIDS (Non-Steroidal Allergy Mild rash, milner Verified 05/24/18 15:45 Anti-Inflamma [NSAIDS (NON-STEROIDAL ANTI-INFLAMMA] promethazine [From PHENERGAN] Allergy Unknown restless Verified 05/24/18 15:45 legs morphine [MORPHINE] AdvReac Unknown it Verified 05/24/18 15:45 metabolizes in my body too fast, I need a lot of Morphin Review of Systems Review of Systems All systems reviewed & are unremarkable except as noted in HPI and below Constitutional Denies chills, Denies fever(s), Denies lethargy and Denies weakness Eyes Denies change in vision, Denies eye discharge, Denies irritation and Denies loss of vision ENT Ears, Nose, Mouth, and Throat: Denies change in voice, Denies neck pain and Denies sore throat Cardiovascular Denies chest pain, Denies irregular heart rhythm, Denies lightheadedness, Denies palpitations, Denies dyspnea, Denies dyspnea on exertion and Denies orthopnea Respiratory Denies cough, Denies dyspnea, Denies dyspnea on exertion and Denies wheezing Gastrointestinal Gastrointestinal: Denies abdominal pain, Denies change in bowel habits, Denies diarrhea, Denies nausea and Denies vomiting Genitourinary Denies hematuria, Denies flank pain, Denies urinary incontinence and Denies urinary urgency Musculoskeletal Reports back pain, Reports limited range of motion, Denies neck pain, Reports radiating pain into limb and Reports tingling Integumentary/Breasts Denies pruritus, Denies erythema, Denies rash and Denies wounds Neurologic Denies confusion, Denies loss of vision, Reports sensory deficit, Reports tingling and Denies weakness Psychiatric Denies anxiety, Denies confusion, Denies depression, Denies homicidal ideation and Denies suicidal ideation Endocrine Denies palpitations Hematologic/Lymphatic Denies easy bruising Allergic/Immunologic Denies wheezing Exam Narrative Exam Narrative: GENERAL: 37-year-old female, obviously uncomfortable and anxious HEAD: Atraumatic. Normocephalic. No temporal or scalp tenderness. EYES: Pupils equal round and reactive. Extraocular motions intact. No scleral icterus. No injection or drainage. ENT: Nose without bleeding, purulent drainage or septal hematoma. Throat without erythema, tonsillar hypertrophy or exudate. Uvula midline. Airway patent. NECK: Trachea midline. No JVD or lymphadenopathy. Tenderness with palpation nearly anywhere along the cervical or thoracic spine. Axial loading makes the patient uncomfortable. CARDIOVASCULAR: Regular rate and rhythm without murmurs, gallops, or rubs. RESPIRATORY: Clear to auscultation. Breath sounds equal bilaterally. No wheezes , rales, or rhonchi. GASTROINTESTINAL: Abdomen soft, non-tender, nondistended. No hepato-splenomegaly , or palpable masses. No guarding. EXTREMITIES: No clubbing, cyanosis, or edema. No joint tenderness, effusion, or edema noted. BACK: Nontender without deformity or crepitance. No flank tenderness. NEURO: AOx3. SKIN: No rash or erythema. Initial Vital Signs Initial Vital Signs: Vital Signs Temperature 98 F 05/24/18 15:45 Pulse Rate 72 05/24/18 15:45 Respiratory Rate 18 05/24/18 15:45 Blood Pressure 133/93 H 05/24/18 15:45 Pulse Oximetry 97 05/24/18 15:45 [facility] Social History marital status: household members: family lives independently: Yes occupational status: employed Smoking Status: Current every day smoker alcohol intake: never substance use type: marijuana Course Orders Ordered: ED Orders 05/24/18 18:41 CT cervical spine wo con Stat CT thoracic spine wo con Stat Discontinued Medications Hydrocodone Bitart/Acetaminophen (Vicodin Prepack) 1 bottle MISC SEEINSTR ONE Stop: 05/24/18 20:46 Last Admin: 05/24/18 21:07 Dose: 1 bottle Prednisone (Deltasone) 40 mg PO NOW ONE Stop: 05/24/18 20:46 Last Admin: 05/24/18 21:07 Dose: 40 mg Vital Signs - 8 hr 05/24/18 21:17 Pulse Rate 88 Respiratory Rate 20 Blood Pressure 129/88 Pulse Oximetry 98 MDM - Fall Medical Records Attestation: I reviewed the patient's medical records. Lab Data Attestation: I reviewed the patient's lab results. Imaging Data CT C Spine / T Spine: Radiologist's impression: PROCEDURE: CT CERVICAL SPINE WO CON INDICATIONS: fall with neck pain, numbness, tingling TECHNIQUE: Noncontrast 3 mm thick sections acquired from the skull base to the T4 level. Sagittal and coronal reformats were then constructed. For radiation dose reduction, the following was used: automated exposure control, adjustment of mA and/or kV according to patient size. COMPARISON: [facility], CT, CT ABDOMEN PELVIS WITH CONTRAST, 2017, 21:32. [facility], CT, CT SOFT TISSUE NECK WITH CONTRAST, 2017, 0:51. [facility], CT, CT HEAD WITHOUT CONTRAST, 03/02/2018, 21:27. [facility], CT, CT ABDOMEN PELVIS WITH CONTRAST, 02/09/2018, 23:05. FINDINGS: Image quality: Excellent. Bones: No fractures or dislocation through C7. There is straightening of the normal cervical lordosis. Soft tissues: Prevertebral soft tissues are normal in thickness. No apical pneumothoraces. IMPRESSION: No acute fracture of the cervical spine through C7. Straightening of the normal cervical lordosis may be positional or secondary to muscle strain. Dictated by: Gasper Marcelino M.D. on 05/24/2018 at 19:59 Approved by: Gasper Marcelino M.D. on 05/24/2018 at 20:07 INDICATIONS: fall with severe neck/back pain TECHNIQUE: Noncontrast 3 mm thick sections acquired through the region of interest in the thoracic spine. Sagittal and coronal reformats were then constructed. For radiation dose reduction, the following was used: automated exposure control. COMPARISON: [facility], CT, CT ABDOMEN PELVIS WITH CONTRAST, 2017, 21:32. [facility], CT, CT SOFT TISSUE NECK WITH CONTRAST, 2017, 0:51. [facility], CT, CT HEAD WITHOUT CONTRAST, 03/02/2018, 21:27. [facility], CT, CT ABDOMEN PELVIS WITH CONTRAST, 02/09/2018, 23:05. FINDINGS: Image quality: Excellent. Bones: There is normal overall bony alignment. No acute vertebral body compression fractures. No suspicious sclerotic or lytic bony lesions. Central spinal canal is of normal osseous caliber. Soft tissues: No paravertebral masses or hematomas. Visualized posteromedial lungs appear clear. Right internal jugular central venous catheter tip projects to the right atrium. Right upper quadrant surgical clips consistent with prior cholecystectomy. IMPRESSION: No acute vertebral body compression fracture of the thoracic spine. Dictated by: Gasper Marcelino M.D. on 05/24/2018 at 20:10 Approved by: Gasper Marcelino M.D. on 05/24/2018 at 20:18 Discharge Plan Departure Patient Disposition: Home Clinical Impression: Cervical paraspinal muscle spasm, Radiculopathy of cervical region Discharge Date/Time: 05/24/18 21:16 Interventions: ED Discharge Assessment Last Done: 05/24/18 21:17 Instructions: DI for Cervical Radiculopathy Activity Restrictions/Additional Instructions: *You have been diagnosed with [ acute cervical radiculopathy ] *What to do: *Take medications as directed *Follow up with your primary care provider in 2-3 days, call for an appointment. Let them know you were seen in the Emergency Department and that we ask that you be seen in follow up *Return to ER if you should have any new, worsening or concerning symptoms , such as [worsening pain, numbness, tingling, weakness or other bothersome symptoms You have been prescribed narcotic medications. While on these medications you cannot drive or operate heavy machinery. Additionally you cannot sign legal documents or perform any duties such as this. 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 Please understand that we cannot provide further refills of narcotics or controlled substances through the ED and your pain management will need to be through your Primary Care Provider ] Prescriptions: New hydrocodone-acetaminophen 5-325 mg tablet 1 tab PO Q4-6H PRN (Reason: pain) Qty: 10 RF: 0 prednisone 20 mg tablet 20 mg PO DAILY Qty: 5 RF: 0 No Action lamotrigine 100 mg tablet 200 mg PO BID MDD 200mg Qty: 60 RF: 2 venlafaxine 37.5 mg capsule,extended release 24hr 37.5 mg PO DAILY MDD 112.5 mg Qty: 30 RF: 2 valacyclovir 500 mg tablet 1,000 mg PO QDAY Qty: 60 RF: 0 ondansetron HCl [Zofran] 4 mg tablet 4 mg PO Q8H Qty: 30 RF: 0 hydroxyzine HCl 25 mg tablet 25 mg PO TID PRN (Reason: nausea and vomiting) Qty: 30 RF: 0 vancomycin 125 mg capsule 125 mg PO QID Qty: 54 RF: 0 oxycodone-acetaminophen [Percocet] 5-325 mg tablet See Label Instructions PO Q8H PRN (Reason: pain) Qty: 30 RF: 0 quetiapine 25 mg tablet 25 mg PO BEDTIME RF: 0 venlafaxine 75 mg capsule,extended release 24hr 1 cap PO DAILY RF: 0 acetaminophen 325 mg Tablet 650 mg PO Q6HR PRN (Reason: As Needed For Fever/Mild Pain) Qty: 30 RF: 0 diphenhydramine HCl [Allergy (diphenhydramine)] 25 mg Tablet 50 mg PO Q4HR PRN (Reason: Itching) Qty: 30 RF: 0 dicyclomine 10 mg Capsule 10 mg PO Q6HR Qty: 30 RF: 0
[2018-05-24] MEDS: predniSONE 20 MG TABLET 40 MG PO (21:07)
[2018-05-24] MEDS: HYDROCODONE/ACET 5/325 PREPACK 1 BOTTLE MISC (21:07)
[2018-05-24 21:17] VITALS: BP 129/88; PULSE 88; RESP 20; O2SAT 98
== END 2018-05-24 21:16 | disposition home or self-care (01) ==
PROVIDERS: Emergency Provider Emergency Medicine
DX: M62.838 Other muscle spasm (principal); M54.12 Radiculopathy, cervical region; W01.0XXA Fall on same level from slipping, tripping and stumbling without subsequent striking against object, initial encounter
CPT/HCPCS: 72125; 72128; 99283; 99284

== ENCOUNTER 2018-07-07 16:21 | Emergency (ER) | payer OTHER, MEDICAID, SELFPAY ==
[2018-01-17 01:41] VITALS: BMI 32.3
[2018-07-07 17:04] VITALS: BP 127/88; PULSE 94; RESP 20; TEMP 36.8; O2SAT 99; BMI 33.3
--- NOTE | 2018-07-07 19:49 | ED.BACK ---
HPI - Back Pain/Injury General Chief Complaint: Back Pain/Injury Stated Complaint: rt hip, lft knee, back pain, hard time breathing Time Seen by Provider: 07/07/18 19:11 Source: patient Mode of arrival: ambulatory Limitations: no limitations History of Present Illness HPI Narrative: PATIENT IS A 37-YEAR-OLD FEMALE WHO PRESENTS WITH RIGHT SHOULDER AND THORACIC PAIN. SHE WAS SHOVELING SNOW TODAY SHE SAID SHE DID NOT MAKE A FAR WHEN SHE HAD INSTANT PAIN. SHE ALSO HAS CHRONIC ONGOING RIGHT HIP PAIN. SHE GOT SOME TINGLING ON THE ANTERIOR SIDE WHICH IS NOT NEW FOR HER. HER BIGGEST COMPLAINT TODAY IS RIGHT SHOULDER AND THORACIC PAIN. SHE DENIES NUMBNESS OR TINGLING IN HER ARM SHE CANNOT TAKE ANY NSAIDS. She did take 2 methocarbamol last 1 was at 2:00 p.m. she has not had any relief. She is requesting that we call her orthopedic surgeon for her right hip, doctor Frye. [place] Complaint: back pain and back injury Related Data Home Medications Medication Instructions Recorded Confirmed quetiapine 25 mg PO BEDTIME 01/05/18 01/17/18 venlafaxine 1 cap PO DAILY 01/05/18 01/17/18 Previous Rx's Medication Instructions Recorded lamotrigine 100 mg tablet 200 mg PO BID #60 tab MDD 200mg 12/30/17 venlafaxine ER 37.5 mg 37.5 mg PO DAILY #30 cap MDD 112.5 12/30/17 capsule,extended release 24 hr mg acetaminophen 650 mg PO Q6HR PRN #30 tab 01/18/18 dicyclomine 10 mg PO Q6HR #30 cap 01/18/18 diphenhydramine HCl [Allergy 50 mg PO Q4HR PRN #30 tab 01/18/18 (diphenhydramine)] hydroxyzine HCl 25 mg tablet 25 mg PO TID PRN #30 tab 01/23/18 ondansetron HCl 4 mg tablet 4 mg PO Q8H #30 tab 01/23/18 oxycodone-acetaminophen 5 mg-325 See Rx Instructions PO Q8H PRN #30 01/30/18 mg tablet tab vancomycin 125 mg capsule 125 mg PO QID #54 cap 01/30/18 valacyclovir 500 mg tablet 1,000 mg PO QDAY #60 tab 02/24/18 hydrocodone-acetaminophen 1 tab PO Q4-6H PRN #10 tab 05/24/18 prednisone 20 mg PO DAILY #5 tab 05/24/18 diazepam [Valium] 5 mg PO Q12HR PRN #4 tab 07/07/18 Allergies Allergy/AdvReac Type Severity Reaction Status Date / Time coconut [COCONUT] Allergy Severe STOPS Verified 07/07/18 17:03 BREATHS prochlorperazine Allergy Intermediate seizure Verified 07/07/18 17:03 NSAIDS (Non-Steroidal Allergy Mild rash, milner Verified 07/07/18 17:03 Anti-Inflamma [NSAIDS (NON-STEROIDAL ANTI-INFLAMMA] promethazine [From PHENERGAN] Allergy Unknown restless Verified 07/07/18 17:03 legs morphine [MORPHINE] AdvReac Unknown it Verified 07/07/18 17:03 metabolizes in my body too fast, I need a lot of Morphin Review of Systems Review of Systems ROS Unobtainable: All systems reviewed & are unremarkable except as noted in HPI and below Constitutional Denies chills, Denies fever(s), Denies lethargy and Denies weakness Cardiovascular Denies chest pain, Denies irregular heart rhythm, Denies lightheadedness, Denies palpitations, Denies dyspnea, Denies dyspnea on exertion and Denies orthopnea Respiratory Denies cough, Denies dyspnea, Denies dyspnea on exertion and Denies wheezing Gastrointestinal Gastrointestinal: Denies abdominal pain, Denies change in bowel habits, Denies diarrhea, Denies nausea and Denies vomiting Musculoskeletal Reports as per HPI and Reports tingling ( right leg chronic unchanged) Integumentary/Breasts Denies pruritus, Denies erythema, Denies rash and Denies wounds Neurologic Denies confusion, Reports tingling ( right leg chronic unchanged) and Denies weakness Psychiatric Denies anxiety, Denies confusion, Denies depression, Denies homicidal ideation and Denies suicidal ideation Endocrine Denies palpitations Allergic/Immunologic Denies wheezing [facility] Surgical History History of carpal tunnel repair (Resolved) Status post appendectomy (Resolved) Status post breast reduction (Resolved) Status post cholecystectomy (Resolved) Status post hernia repair (Resolved 2014) Status post hysterectomy with oophorectomy (Resolved 2003) Status post laparoscopy (Resolved) 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 PROFESSOR (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) shunt status (Resolved) Family History Father History of kidney cancer Mother Diabetes mellitus Hypertension Hyperlipidemia CAD (coronary artery disease) CVA (cerebral vascular accident) Social History marital status: household members: family lives independently: Yes occupational status: employed Smoking Status: Current every day smoker alcohol intake: never substance use type: marijuana Family History Father History of kidney cancer Mother Diabetes mellitus Hypertension Hyperlipidemia CAD (coronary artery disease) CVA (cerebral vascular accident) Social History marital status: household members: family lives independently: Yes occupational status: employed Smoking Status: Current every day smoker alcohol intake: never substance use type: marijuana Exam Initial Vital Signs Initial Vital Signs: Vital Signs Temperature 98.2 F 07/07/18 17:04 Pulse Rate 94 H 07/07/18 17:04 Respiratory Rate 20 07/07/18 17:04 Blood Pressure 127/88 07/07/18 17:04 Pulse Oximetry 99 07/07/18 17:04 GENERAL: young female appears in pain HEENT: Head atraumatic,EOMI, pupils reactive CARDIOVASCULAR: Regular rate and rhythm without murmurs, rubs or gallops. RESPIRATORY: Breath sounds equal bilaterally, no wheezes rales or rhonchi. BACK: No vertebral tenderness. She is tender in her thoracic and shoulder area on the right side. Tender to touch no sign of trauma. Also some mild tenderness in her lumbar area as well but no vertebral tenderness or step-offs throughout the spine. EXTREMITIES: Normal range of motion, no clubbing or edema. Neurovascularly intact Right upper extremity: Neurovascularly intact however decreased range of motion in shoulder due to pain. NEUROLOGICAL: Alert and oriented x4.Normal gait and speech. SKIN: Warm, dry, no laceration, no petechiae, no rashes or lesions. Course Orders Ordered: Discontinued Medications Diazepam (Valium) 5 mg PO NOW ONE Stop: 07/07/18 19:57 Last Admin: 07/07/18 20:04 Dose: 5 mg Vital Signs - 8 hr 07/07/18 21:13 Pulse Rate 82 Respiratory Rate 22 Blood Pressure 121/79 Pulse Oximetry 95 MDM - Back Pain/Injury Lab Data Point of Care Testing Test Results Negative Urine Dip Bedside Urine Glucose Negative Bedside Urine Bilirubin - Negative Bedside Urine Ketone - Negative Urine Specific [place] 1.020 Bedside Urine Occult Blood - Negative Bedside Urine pH 6.0 Bedside Urine Protein - Negative Bedside Urine Urobilinogen - Negative Bedside Urine Nitrite - Negative Bedside Urine Leukocytes - Negative Esterase MDM Narrative Medical decision making narrative: The patient is given Valium which he says has helped in usually does help. Told her not take methocarbamol with the Valium. She is going given a few tablets of Valium. She understands that she is not getting narcotic medications. Discharge Plan Departure Patient Disposition: Home Clinical Impression: Thoracic back pain Qualifiers: Chronicity: acute Back pain laterality: right Qualified Code(s): M54.6 - Pain in thoracic spine Discharge Date/Time: 07/07/18 21:14 Interventions: ED Discharge Assessment Last Done: 07/07/18 21:13 Instructions: DI for Thoracic Back Pain Activity Restrictions/Additional Instructions: *You have been diagnosed with acute thoracic back pain *What to do: increase activity as tolerated, heating pad 30 min at a time *Continue to take medications as directed do not take methocarbamol and Valium together Valium 5 mg every 12 hr if needed for severe muscle spasm *Follow up with your primary care provider in 2-3 days *Return to ER if you should have weakness, or any new, worsening or concerning symptoms Prescriptions: New diazepam [Valium] 5 mg tablet 5 mg PO Q12HR PRN (Reason: muscle spasm) Qty: 4 RF: 0 No Action lamotrigine 100 mg tablet 200 mg PO BID MDD 200mg Qty: 60 RF: 2 venlafaxine 37.5 mg capsule,extended release 24hr 37.5 mg PO DAILY MDD 112.5 mg Qty: 30 RF: 2 valacyclovir 500 mg tablet 1,000 mg PO QDAY Qty: 60 RF: 0 ondansetron HCl [Zofran] 4 mg tablet 4 mg PO Q8H Qty: 30 RF: 0 hydroxyzine HCl 25 mg tablet 25 mg PO TID PRN (Reason: nausea and vomiting) Qty: 30 RF: 0 vancomycin 125 mg capsule 125 mg PO QID Qty: 54 RF: 0 oxycodone-acetaminophen [Percocet] 5-325 mg tablet See Rx Instructions PO Q8H PRN (Reason: pain) Qty: 30 RF: 0 hydrocodone-acetaminophen 5-325 mg tablet 1 tab PO Q4-6H PRN (Reason: pain) Qty: 10 RF: 0 prednisone 20 mg tablet 20 mg PO DAILY Qty: 5 RF: 0 quetiapine 25 mg tablet 25 mg PO BEDTIME RF: 0 venlafaxine 75 mg capsule,extended release 24hr 1 cap PO DAILY RF: 0 acetaminophen 325 mg Tablet 650 mg PO Q6HR PRN (Reason: As Needed For Fever/Mild Pain) Qty: 30 RF: 0 diphenhydramine HCl [Allergy (diphenhydramine)] 25 mg Tablet 50 mg PO Q4HR PRN (Reason: Itching) Qty: 30 RF: 0 dicyclomine 10 mg Capsule 10 mg PO Q6HR Qty: 30 RF: 0
[2018-07-07] MEDS: diazePAM 5 MG TABLET PO (20:04)
[2018-07-07 21:13] VITALS: BP 121/79; PULSE 82; RESP 22; O2SAT 95
== END 2018-07-07 21:14 | disposition home or self-care (01) ==
PROVIDERS: Emergency Provider Emergency Medicine
DX: M54.6 Pain in thoracic spine (principal)
CPT/HCPCS: 81003; 81025; 99282; 99283

== ENCOUNTER 2018-07-24 10:31 | Emergency (ER) | payer OTHER, MEDICAID, SELFPAY ==
[2018-01-17 01:41] VITALS: BMI 32.3
[2018-07-24 10:45] VITALS: BP 115/77; PULSE 94; RESP 18; TEMP 37.9; O2SAT 95
--- NOTE | 2018-07-24 11:18 | DI.RAD.S_ITS ---
PROCEDURE: XR CHEST 2V INDICATIONS: ED WR: flu swab pending, cough, URI x 4 days. + smoker. TECHNIQUE: 2 views of the chest were acquired. COMPARISON: [facility], CT, HEAD AND NECK ANGIO, 08/01/2015, 13:12. [facility], CR, CHEST 1 VIEW, 08/01/2015, 11:59. [facility], CT, CT THORACIC SPINE WO CON, 05/24/2018, 18:46. [facility], CT, CT CERVICAL SPINE WO CON, 05/24/2018, 18:46. [facility], CR, XR ABDOMEN 1V, 03/29/2018, 21:25. [facility], CR, CHEST 2 VIEW, 05/24/2017, 20:42. FINDINGS: Surgical changes and devices: The central venous portion of the ventricular thoracic shunt catheter is is unchanged. Lungs and pleura: Lungs are clear. No pleural effusions or pneumothorax. Mediastinum: Mediastinal contours are normal. Heart size is normal. Bones and chest wall: No suspicious bony abnormalities. Soft tissues appear unremarkable. IMPRESSION: No acute cardiopulmonary findings. Dictated by: Salma Myers M.D. on 07/24/2018 at 11:28 Approved by: Salma Myers M.D. on 07/24/2018 at 11:30
--- NOTE | 2018-07-24 12:31 | ED_ITS ---
HPI - URI/Sore Throat <Agueda Salcedomer, PROGRAM ENGAGEMENT DIRECTOR-BC - Last Filed: 07/24/18 14:36> General Chief Complaint: Upper Respiratory Symptoms Stated Complaint: FLU FOR 4 DAYS Time Seen by Provider: 07/24/18 12:31 Source: patient Mode of arrival: ambulatory Limitations: no limitations History of Present Illness HPI Narrative: Patient is a 37-year-old female former smoker who quit two weeks ago presents to the emergency department for requesting a work note. She is but she is here by herself. She states she has flu-like symptoms since Friday and needs a note since she has been over 72 hr. She states that she started having nausea and vomiting yesterday. She states that she has vomited several times today and is having hard time keeping down fluids. She states she is coughing very hard. She states she is worried about pneumonia since she quit smoking very recently. Related Data Home Medications Medication Instructions Recorded Confirmed quetiapine 25 mg PO BEDTIME 01/05/18 07/24/18 venlafaxine 75 mg PO DAILY 01/05/18 07/24/18 acetaminophen-codeine 1 tab PO DAILY PRN 07/24/18 07/24/18 lamotrigine 100 mg PO BID MDD 200mg 07/24/18 07/24/18 valacyclovir 1,000 mg PO DAILY 07/24/18 07/24/18 Previous Rx's Medication Instructions Recorded venlafaxine ER 37.5 mg 37.5 mg PO DAILY #30 cap MDD 112.5 12/30/17 capsule,extended release 24 hr mg acetaminophen 650 mg PO Q6HR PRN #30 tab 01/18/18 dicyclomine 10 mg PO Q6HR #30 cap 01/18/18 diphenhydramine HCl [Allergy 50 mg PO Q4HR PRN #30 tab 01/18/18 (diphenhydramine)] hydroxyzine HCl 25 mg tablet 25 mg PO TID PRN #30 tab 01/23/18 ondansetron HCl 4 mg tablet 4 mg PO Q8H #30 tab 01/23/18 oxycodone-acetaminophen 5 mg-325 See Rx Instructions PO Q8H PRN #30 01/30/18 mg tablet tab vancomycin 125 mg capsule 125 mg PO QID #54 cap 01/30/18 hydrocodone-acetaminophen 1 tab PO Q4-6H PRN #10 tab 05/24/18 prednisone 20 mg PO DAILY #5 tab 05/24/18 diazepam [Valium] 5 mg PO Q12HR PRN #4 tab 07/07/18 codeine-guaifenesin [Guaifenesin 10 ml PO Q4-6H PRN #120 ml 07/24/18 AC] ondansetron 4 mg PO TID-QID PRN #14 tab 07/24/18 Allergies Allergy/AdvReac Type Severity Reaction Status Date / Time coconut [COCONUT] Allergy Severe STOPS Verified 07/24/18 10:49 BREATHS prochlorperazine Allergy Intermediate seizure Verified 07/24/18 10:49 NSAIDS (Non-Steroidal Allergy Mild rash, milner Verified 07/24/18 10:49 Anti-Inflamma [NSAIDS (NON-STEROIDAL ANTI-INFLAMMA] promethazine [From PHENERGAN] Allergy Unknown restless Verified 07/24/18 10:49 legs morphine [MORPHINE] AdvReac Unknown it Verified 07/24/18 10:49 metabolizes in my body too fast, I need a lot of Morphin Review of Systems <YAMIL Patel - Last Filed: 07/24/18 14:36> Review of Systems GENERAL: See HPI HEENT: Denies sinus pain, ear pain, sore throat, difficulty swallowing, dizziness. RESPIRATORY: See HPI CARDIOVASCULAR: See HPI GASTROINTESTINAL: Denies nausea, vomiting, abdominal pain, diarrhea, constipation, melena. : Denies dysuria, frequency, incontinence, hematuria, urinary retention. MUSCULOSKELETAL: denies weakness, joint pain, or bony pain SKIN: Denies rash, skin lesions, or other NEUROLOGIC: Denies weakness, headache, numbness, change in speech, confusion, seizures, incoordination. PSYCHIATRIC: No concerning psychosocial issues. 12 point review of systems is negative except for those stated above PFSH <YAMIL Patel - Last Filed: 07/24/18 14:36> Medical History Anxiety (Chronic) Depression (Chronic) Femoral acetabular impingement (Chronic) Genital herpes (Chronic) Gout (Chronic) Kidney stones (Resolved 12/2016) Ovarian cancer (Resolved) Pseudotumor cerebri (Resolved) Pulmonary embolism (Resolved 2010) Pulmonary embolism (Resolved 2009) Uterine cancer (Resolved) Surgical History History of carpal tunnel repair (Resolved) Status post appendectomy (Resolved) Status post breast reduction (Resolved) Status post cholecystectomy (Resolved) Status post hernia repair (Resolved 2014) Status post hysterectomy with oophorectomy (Resolved 2003) Status post laparoscopy (Resolved) 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 (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) shunt status (Resolved) Family History Father History of kidney cancer Mother Diabetes mellitus Hypertension Hyperlipidemia CAD (coronary artery disease) CVA (cerebral vascular accident) Social History marital status: household members: family lives independently: Yes occupational status: employed Smoking Status: Former smoker alcohol intake: never substance use type: marijuana Social History marital status: household members: family lives independently: Yes occupational status: employed Smoking Status: Former smoker alcohol intake: never substance use type: marijuana Exam <YAMIL Patel - Last Filed: 07/24/18 14:36> Narrative Exam Narrative: GENERAL: This is a well-nourished, well-developed patient, lying on her side on a stretcher HEAD: Atraumatic. Normocephalic. No temporal or scalp tenderness. EYES: Pupils equal round and reactive. Extraocular motions intact. No scleral icterus. No injection or drainage. ENT: Nose without bleeding, purulent drainage or septal hematoma. Throat without erythema, tonsillar hypertrophy or exudate. Uvula midline. Airway patent. NECK: Trachea midline. No JVD or lymphadenopathy. Supple, nontender, no meningeal signs. CARDIOVASCULAR: Regular rate and rhythm without murmurs, gallops, or rubs. RESPIRATORY: Clear to auscultation. Breath sounds equal bilaterally. No wheezes, rales, or rhonchi. Perseverative dry cough during exam. No increased respiratory effort. No accessory muscle use or stridor. GASTROINTESTINAL: Abdomen soft, active bowel sounds all 4 quadrants, nondistended. No hepato-splenomegaly, or palpable masses. No guarding. no palpable pulsatile mass. Diffusely tender to palpation. EXTREMITIES: No clubbing, cyanosis, or edema. No joint tenderness, effusion, or edema noted. BACK: Nontender without deformity or crepitance. No flank tenderness. NEURO: AOx3. SKIN: No rash or erythema. Initial Vital Signs Initial Vital Signs: Vital Signs Temperature 100.3 F H 07/24/18 10:45 Pulse Rate 94 H 07/24/18 10:45 Respiratory Rate 18 07/24/18 10:45 Blood Pressure 115/77 07/24/18 10:45 Pulse Oximetry 95 07/24/18 10:45 <Krystyna Brenner DO - Last Filed: 07/24/18 19:14> Initial Vital Signs Initial Vital Signs: Vital Signs Temperature 100.3 F H 07/24/18 10:45 Pulse Rate 94 H 07/24/18 10:45 Respiratory Rate 18 07/24/18 10:45 Blood Pressure 115/77 07/24/18 10:45 Pulse Oximetry 95 07/24/18 10:45 Course <YAMIL Patel - Last Filed: 07/24/18 14:36> Orders Ordered: ED Orders 07/24/18 10:50 FLU A and B [Influenza A and B by PCR Rapid] Stat 07/24/18 11:18 XR chest 2V Stat Discontinued Medications Acetaminophen (Tylenol) 975 mg PO NOW ONE Stop: 07/24/18 12:41 Last Admin: 07/24/18 13:25 Dose: 975 mg Ondansetron HCl (Zofran Odt) 4 mg SL NOW ONE Stop: 07/24/18 12:41 Last Admin: 07/24/18 13:06 Dose: 4 mg Vital Signs - 8 hr 07/24/18 13:38 07/24/18 13:59 Temperature 102.5 F H 100.8 F H Pulse Rate 89 Respiratory Rate 16 Blood Pressure [Left Arm] 105/63 Pulse Oximetry 94 <Krystyna Brenner DO - Last Filed: 07/24/18 19:14> Orders Ordered: ED Orders 07/24/18 10:50 FLU A and B [Influenza A and B by PCR Rapid] Stat 07/24/18 11:18 XR chest 2V Stat Discontinued Medications Acetaminophen (Tylenol) 975 mg PO NOW ONE Stop: 07/24/18 12:41 Last Admin: 07/24/18 13:25 Dose: 975 mg Ondansetron HCl (Zofran Odt) 4 mg SL NOW ONE Stop: 07/24/18 12:41 Last Admin: 07/24/18 13:06 Dose: 4 mg Vital Signs - 8 hr 07/24/18 13:38 07/24/18 13:59 Temperature 102.5 F H 100.8 F H Pulse Rate 89 Respiratory Rate 16 Blood Pressure [Left Arm] 105/63 Pulse Oximetry 94 MDM - URI/Sore Throat <YAMIL Patel - Last Filed: 07/24/18 14:36> Lab Data Lab Results 07/24/18 Range/Units 10:50 Influenza A & B (PCR) Positive, type a A (Negative) Imaging Data Chest x-ray: Radiologist's impression: [address] [address] XRay Report Signed Patient: Jing Perea GMR#: [id number] : 1980Acct:[id number] Age/Sex: 37 / FDate of Service: 07/24/18 Loc: ED Accession Number: [id number] Procedure: XR chest 2V Ordering Provider: Krystyna Brenner D.O. PROCEDURE: XR CHEST 2V INDICATIONS: ED WR: flu swab pending, cough, URI x 4 days. + smoker. TECHNIQUE: 2 views of the chest were acquired. COMPARISON: [facility], CT, HEAD AND NECK ANGIO, 08/01/2015, 13:12. [facility], CR, CHEST 1 VIEW, 08/01/2015, 11:59. [facility], CT, CT THORACIC SPINE WO CON, 05/24/2018, 18:46. [facility], CT, CT CERVICAL SPINE WO CON, 05/24/2018, 18:46. [facility], CR, XR ABDOMEN 1V, 03/29/2018, 21:25. [facility], CR, CHEST 2 VIEW, 05/24/2017, 20:42. FINDINGS: Surgical changes and devices: The central venous portion of the ventricular thoracic shunt catheter is is unchanged. Lungs and pleura: Lungs are clear. No pleural effusions or pneumothorax. Mediastinum: Mediastinal contours are normal. Heart size is normal. Bones and chest wall: No suspicious bony abnormalities. Soft tissues appear unremarkable. IMPRESSION: No acute cardiopulmonary findings. Dictated by: Salma Myers M.D. on 07/24/2018 at 11:28 Approved by: Salma Myers M.D. on 07/24/2018 at 11:30 [facility] Narrative Medical decision making narrative: The patient is a 37-year-old female who presents with a chief complaint of flu symptoms for several days, requesting a work note upon arrival to the ER. She is positive for flu. Given that she had some nausea and vomiting earlier today, she was given Zofran as well as Tylenol. Given her persistent cough, we discussed Tessalon Perles however her severe allergy to coconut prevent this. She is given Zofran and Tylenol in the emergency department was able tolerate a p.o. trial. I did give her a note off of work. Given her severe cough, give her some Robitussin with codeine to help her sleep. She has normal x-ray today. Given her duration of symptoms, she was out of range of Tamiflu. She was able to tolerate a p.o. trial in the emergency department. I discussed at length return precautions including severe shortness of breath, difficulty breathing or any acute concerns. I encouraged follow-up with primary care provider. <Krystyna Brenner DO - Last Filed: 07/24/18 19:14> Lab Data Lab Results 07/24/18 Range/Units 10:50 Influenza A & B (PCR) Positive, type a A (Negative) Discharge Plan Departure Patient Disposition: Home Clinical Impression: Flu Clinical Impression: (Ruled Out): Recurrent major depressive disorder, in partial remission Discharge Date/Time: 07/24/18 14:25 Interventions: ED Discharge Assessment Last Done: 07/24/18 14:17 Instructions: DI for Influenza -- Adult Activity Restrictions/Additional Instructions: You tested positive for the flu today. Your chest x-ray shows no pneumonia. Care for fluids symptomatic and supportive. I have given her prescription for nausea medication to use as needed. I have also given you cough syrup with codeine to help her get some sleep at night. Please do not take this and drive or combined with any other narcotics. It could also be sedating or constipating. Please put fluids, eat a simple diet. Please come back to the emergency department for any acute concerns including severe work of breathing or inability keep down fluids. Prescriptions: New codeine-guaifenesin [Guaifenesin AC] 10-100 mg/5 mL liquid 10 ml PO Q4-6H PRN (Reason: cough) Qty: 120 RF: 0 ondansetron 4 mg tablet,disintegrating 4 mg PO TID-QID PRN (Reason: nausea and vomiting) Qty: 14 RF: 0 No Action venlafaxine 37.5 mg capsule,extended release 24hr 37.5 mg PO DAILY MDD 112.5 mg Qty: 30 RF: 2 ondansetron HCl [Zofran] 4 mg tablet 4 mg PO Q8H Qty: 30 RF: 0 hydroxyzine HCl 25 mg tablet 25 mg PO TID PRN (Reason: nausea and vomiting) Qty: 30 RF: 0 vancomycin 125 mg capsule 125 mg PO QID Qty: 54 RF: 0 oxycodone-acetaminophen [Percocet] 5-325 mg tablet See Rx Instructions PO Q8H PRN (Reason: pain) Qty: 30 RF: 0 hydrocodone-acetaminophen 5-325 mg tablet 1 tab PO Q4-6H PRN (Reason: pain) Qty: 10 RF: 0 prednisone 20 mg tablet 20 mg PO DAILY Qty: 5 RF: 0 quetiapine 25 mg tablet 25 mg PO BEDTIME RF: 0 venlafaxine 75 mg capsule,extended release 24hr 75 mg PO DAILY RF: 0 acetaminophen 325 mg Tablet 650 mg PO Q6HR PRN (Reason: As Needed For Fever/Mild Pain) Qty: 30 RF: 0 diphenhydramine HCl [Allergy (diphenhydramine)] 25 mg Tablet 50 mg PO Q4HR PRN (Reason: Itching) Qty: 30 RF: 0 dicyclomine 10 mg Capsule 10 mg PO Q6HR Qty: 30 RF: 0 diazepam [Valium] 5 mg tablet 5 mg PO Q12HR PRN (Reason: muscle spasm) Qty: 4 RF: 0 acetaminophen-codeine 300-30 mg tablet 1 tab PO DAILY PRN (Reason: Pain, Moderate) RF: 0 valacyclovir 500 mg tablet 1,000 mg PO DAILY RF: 0 lamotrigine 100 mg tablet 100 mg PO BID MDD 200mg RF: 0 Referrals: Eisaman,Crescencio, PA-C [Non-Staff] - Stand Alone Forms: Work Release Note, Work/School Release <Krystyna Brenner DO - Last Filed: 07/24/18 19:14> Cosign ED Attending Cosignature Attestation: I was immediately available in the department for consultation. Documentation has been reviewed. I agree with assessment and plan.
[2018-07-24] MEDS: ONDANSETRON 4 MG ODT SL (13:06)
[2018-07-24] MEDS: ACETAMINOPHEN 325 MG TABLET 975 MG PO (13:25)
[2018-07-24 13:38] VITALS: BP 105/63; PULSE 89; RESP 16; TEMP 39.2; O2SAT 94
[2018-07-24 13:59] VITALS: TEMP 38.2
== END 2018-07-24 14:25 | disposition home or self-care (01) ==
PROVIDERS: Emergency Medicine; Emergency Provider Nurse Practitioner Family
DX: J11.1 Influenza due to unidentified influenza virus with other respiratory manifestations (principal)
CPT/HCPCS: 71046; 87400; 99282; 99284

== ENCOUNTER 2018-08-22 18:53 | Emergency (ER) | payer OTHER, MEDICAID, SELFPAY ==
[2018-01-17 01:41] VITALS: BMI 32.3
[2018-08-22 18:56] VITALS: BP 141/90; PULSE 99; RESP 18; TEMP 36.7; O2SAT 100; BMI 33.9
[2018-08-22 19:17] LABS: Bacteria Urine None Seen
--- NOTE | 2018-08-22 19:25 | ED.BACK ---
HPI - Back Pain/Injury <Agueda Haynes, [employer]ER-BC - Last Filed: 08/22/18 21:00> General Chief Complaint: Back Pain/Injury Stated Complaint: states kidney pain/back pain Time Seen by Provider: 08/22/18 19:06 Source: patient Mode of arrival: ambulatory Limitations: no limitations History of Present Illness HPI Narrative: Patient is a 37-year-old female well known to this department who presents with a chief complaint of flank pain radiating down to her groin. She states this has been going on for several days. She denies any dysuria urgency or frequency. she has had a complete hysterectomy. She denies any vaginal bleeding or vaginal discharge. She states she called her primary care, who is concerned about something going on with her urine. She denies any gross hematuria. She states she urinated herself twice last week. She denies any trauma. She denies any shortness of breath or chest pain. Related Data Home Medications Medication Instructions Recorded Confirmed quetiapine 25 mg PO BEDTIME 01/05/18 07/24/18 venlafaxine 75 mg PO DAILY 01/05/18 07/24/18 acetaminophen-codeine 1 tab PO DAILY PRN 07/24/18 07/24/18 lamotrigine 100 mg PO BID MDD 200mg 07/24/18 07/24/18 valacyclovir 1,000 mg PO DAILY 07/24/18 07/24/18 Previous Rx's Medication Instructions Recorded venlafaxine ER 37.5 mg 37.5 mg PO DAILY #30 cap MDD 112.5 12/30/17 capsule,extended release 24 hr mg acetaminophen 650 mg PO Q6HR PRN #30 tab 01/18/18 dicyclomine 10 mg PO Q6HR #30 cap 01/18/18 diphenhydramine HCl [Allergy 50 mg PO Q4HR PRN #30 tab 01/18/18 (diphenhydramine)] hydroxyzine HCl 25 mg tablet 25 mg PO TID PRN #30 tab 01/23/18 ondansetron HCl 4 mg tablet 4 mg PO Q8H #30 tab 01/23/18 oxycodone-acetaminophen 5 mg-325 See Rx Instructions PO Q8H PRN #30 01/30/18 mg tablet tab vancomycin 125 mg capsule 125 mg PO QID #54 cap 01/30/18 hydrocodone-acetaminophen 1 tab PO Q4-6H PRN #10 tab 05/24/18 prednisone 20 mg PO DAILY #5 tab 05/24/18 diazepam [Valium] 5 mg PO Q12HR PRN #4 tab 07/07/18 codeine-guaifenesin [Guaifenesin 10 ml PO Q4-6H PRN #120 ml 07/24/18 AC] ondansetron 4 mg PO TID-QID PRN #14 tab 07/24/18 ciprofloxacin HCl 500 mg PO BID #14 tab 08/22/18 sulfamethoxazole-trimethoprim 1 tab PO BID 10 Days #20 tab 08/22/18 [Bactrim DS] Allergies Allergy/AdvReac Type Severity Reaction Status Date / Time coconut [COCONUT] Allergy Severe STOPS Verified 08/22/18 18:59 BREATHS prochlorperazine Allergy Intermediate seizure Verified 08/22/18 18:59 NSAIDS (Non-Steroidal Allergy Mild rash, milner Verified 08/22/18 18:59 Anti-Inflamma [NSAIDS (NON-STEROIDAL ANTI-INFLAMMA] promethazine [From PHENERGAN] Allergy Unknown restless Verified 08/22/18 18:59 legs morphine [MORPHINE] AdvReac Unknown it Verified 08/22/18 18:59 metabolizes in my body too fast, I need a lot of Morphin Review of Systems <TREVOR Patel-BC - Last Filed: 08/22/18 21:00> Constitutional Denies anorexia, Denies body ache(s), Denies chills, Denies fatigue and Denies fever(s) Cardiovascular Denies chest pain, Denies syncope, Denies rapid heart rate, Denies pedal edema and Denies irregular heart rhythm Respiratory Denies chest congestion, Denies cough and Denies wheezing Gastrointestinal Gastrointestinal: Reports abdominal pain, Reports diarrhea, Denies nausea and Denies vomiting Genitourinary Reports as per HPI, Denies hematuria, Denies dysuria, Reports flank pain, Reports urinary incontinence, Denies urinary hesitancy and Denies urinary urgency Musculoskeletal Reports system reviewed and no additional complaints, except as docu Integumentary/Breasts Reports system reviewed and no additional complaints, except as docu Neurologic Reports system reviewed and no additional complaints, except as docu and Denies syncope Endocrine Denies fatigue Allergic/Immunologic Denies wheezing PFSH <YAMIL Patel - Last Filed: 08/22/18 21:00> Family History Father History of kidney cancer Mother Diabetes mellitus Hypertension Hyperlipidemia CAD (coronary artery disease) CVA (cerebral vascular accident) Social History marital status: household members: family lives independently: Yes occupational status: employed Smoking Status: Former smoker alcohol intake: never substance use type: marijuana Exam <YAMIL Patel - Last Filed: 08/22/18 21:00> Narrative Exam Narrative: GENERAL: This is a well-nourished, well-developed patient, sitting upright in chair HEAD: Atraumatic. Normocephalic. No temporal or scalp tenderness. EYES: Pupils equal round and reactive. Extraocular motions intact. No scleral icterus. No injection or drainage. ENT: Nose without bleeding, purulent drainage or septal hematoma. Throat without erythema, tonsillar hypertrophy or exudate. Uvula midline. Airway patent. NECK: Trachea midline. No JVD or lymphadenopathy. Supple, nontender, no meningeal signs. CARDIOVASCULAR: Regular rate and rhythm RESPIRATORY: Clear to auscultation. Breath sounds equal bilaterally. No wheezes, rales, or rhonchi. No cough. No accessory muscle use no increased respiratory effort. GASTROINTESTINAL: Abdomen soft, nondistended. No hepato-splenomegaly, or palpable masses. No guarding. active bowel sounds all 4 quadrants. Generalized pain to palpation bilateral lower quadrants. No guarding noted. EXTREMITIES: No clubbing, cyanosis, or edema. No joint tenderness, effusion, or edema noted. BACK: Nontender without deformity or crepitance. Flank tenderness bilaterally to palpation. NEURO: AOx3. SKIN: No rash or erythema. Initial Vital Signs Initial Vital Signs: Vital Signs Temperature 98.1 F 08/22/18 18:56 Pulse Rate 99 H 08/22/18 18:56 Respiratory Rate 18 08/22/18 18:56 Blood Pressure 141/90 H 08/22/18 18:56 Pulse Oximetry 100 08/22/18 18:56 <Leo Arce DO - Last Filed: 08/22/18 22:52> Initial Vital Signs Initial Vital Signs: Vital Signs Temperature 98.1 F 08/22/18 18:56 Pulse Rate 99 H 08/22/18 18:56 Respiratory Rate 18 08/22/18 18:56 Blood Pressure 141/90 H 08/22/18 18:56 Pulse Oximetry 100 08/22/18 18:56 Course <BJORN PatelP-BC - Last Filed: 08/22/18 21:00> Orders Ordered: ED Orders 08/22/18 18:00 Urine Culture Stat Urine Microscopic Stat 08/22/18 19:28 Amylase Stat Complete Blood Count AUTO DIFF Stat Comprehensive Metabolic Panel Stat Lipase Stat 08/22/18 19:42 CT kidney ureter bladder (KUB) Stat Discontinued Medications Ciprofloxacin (Cipro) 500 mg PO NOW ONE Stop: 08/22/18 20:50 Last Admin: 08/22/18 21:19 Dose: 500 mg Sodium Chloride (Normal Saline 0.9%) 1,000 mls @ 1,000 mls/hr IV BOLUS ONE Stop: 08/22/18 20:15 Last Infusion: 08/22/18 21:14 Dose: 0 mls/hr Infusion: 08/22/18 20:00 Dose: 1,000 mls/hr Infusion: 08/22/18 19:49 Dose: 0 mls/hr Admin: 08/22/18 19:49 Dose: 1,000 mls/hr Ondansetron HCl (Zofran) 4 mg IV NOW ONE Stop: 08/22/18 19:17 Last Admin: 08/22/18 19:49 Dose: 4 mg Vital Signs - 8 hr 08/22/18 18:56 08/22/18 20:27 08/22/18 21:33 Temperature 98.1 F 97.9 F Pulse Rate 99 H 88 85 Respiratory Rate 18 16 16 Blood Pressure 141/90 H 125/78 Blood Pressure [Left Arm] 128/92 H Pulse Oximetry 100 100 100 <Leo Arce DO - Last Filed: 08/22/18 22:52> Orders Ordered: ED Orders 08/22/18 18:00 Urine Culture Stat Urine Microscopic Stat 08/22/18 19:28 Amylase Stat Complete Blood Count AUTO DIFF Stat Comprehensive Metabolic Panel Stat Lipase Stat 08/22/18 19:42 CT kidney ureter bladder (KUB) Stat Discontinued Medications Ciprofloxacin (Cipro) 500 mg PO NOW ONE Stop: 08/22/18 20:50 Last Admin: 08/22/18 21:19 Dose: 500 mg Sodium Chloride (Normal Saline 0.9%) 1,000 mls @ 1,000 mls/hr IV BOLUS ONE Stop: 08/22/18 20:15 Last Infusion: 08/22/18 21:14 Dose: 0 mls/hr Infusion: 08/22/18 20:00 Dose: 1,000 mls/hr Infusion: 08/22/18 19:49 Dose: 0 mls/hr Admin: 08/22/18 19:49 Dose: 1,000 mls/hr Ondansetron HCl (Zofran) 4 mg IV NOW ONE Stop: 08/22/18 19:17 Last Admin: 08/22/18 19:49 Dose: 4 mg Vital Signs - 8 hr 08/22/18 18:56 08/22/18 20:27 08/22/18 21:33 Temperature 98.1 F 97.9 F Pulse Rate 99 H 88 85 Respiratory Rate 18 16 16 Blood Pressure 141/90 H 125/78 Blood Pressure [Left Arm] 128/92 H Pulse Oximetry 100 100 100 MDM - Back Pain/Injury <Agueda Haynes, [employer]ER-BC - Last Filed: 08/22/18 21:00> Lab Data Result diagrams: 08/22/18 19:28 08/22/18 19:28 Lab Results 08/22/18 08/22/18 08/22/18 Range/Units 18:00 19:28 19:28 WBC 10.3 (4.5-11.0) X10^3/uL RBC 4.76 (4.0-5.2) X10^6/uL Hgb 15.3 (12.0-16.0) g/dL Hct 44.4 (36-46) % MCV 93.2 (80-100) fL MCH 32.0 (26-34) PG MCHC 34.4 (30-36) % RDW 14.4 (11.6-14.8) % Plt Count 263 (150-400) X10^3/uL Neut % (Auto) 64.5 (50-75) % Lymph % (Auto) 28.0 (25-40) % Conway % (Auto) 5.5 (3-14) % Eos % (Auto) 1.0 L (2-4) % Baso % (Auto) 1.0 (0-2) % Neut # (Auto) 6600 (2237-9476) /uL Lymph # (Auto) 2900 (8396-1729) /uL [place] # (Auto) 600 (0-900) /uL Eos # (Auto) 100 (0-450) /uL Baso # (Auto) 100 (0-100) /uL Sodium 141 (137-145) mmol/L Potassium 4.0 (3.4-5.1) mmol/L Chloride 105 (98-107) mmol/L Carbon Dioxide 22 (22-32) mmol/L BUN 16 (7-17) mg/dL Creatinine 0.80 (0.52-1.04) mg/dL Estimated GFR > 60.0 (>60) mL/min BUN/Creatinine Ratio 20.0 (6-22) Glucose 86 (70-100) mg/dL Calcium 9.5 (8.4-10.2) mg/dL Total Bilirubin 0.4 (0.2-1.3) mg/dL AST 31 (14-36) IU/L ALT 43 (9-52) IU/L Alkaline Phosphatase 94 (38-126) U/L Total Protein 8.1 (6.3-8.2) g/dL Albumin 5.0 (3.5-5.0) g/dL Globulin 3.1 (1.7-4.1) g/dL Albumin/Globulin Ratio 1.6 (1.0-2.8) Amylase (30-110) U/L Lipase (23-300) U/L Urine RBC 10-30/hpf H (0-5/HPF) Urine WBC 5-10/hpf H (0-5/HPF) Urine Bacteria None seen (None) Ur Culture Indicated? Specimen cultured 08/22/18 Range/Units 19:28 WBC (4.5-11.0) X10^3/uL RBC (4.0-5.2) X10^6/uL Hgb (12.0-16.0) g/dL Hct (36-46) % MCV (80-100) fL MCH (26-34) PG MCHC (30-36) % RDW (11.6-14.8) % Plt Count (150-400) X10^3/uL Neut % (Auto) (50-75) % Lymph % (Auto) (25-40) % Conway % (Auto) (3-14) % Eos % (Auto) (2-4) % Baso % (Auto) (0-2) % Neut # (Auto) (4625-7503) /uL Lymph # (Auto) (7018-8433) /uL Conway # (Auto) (0-900) /uL Eos # (Auto) (0-450) /uL Baso # (Auto) (0-100) /uL Sodium (137-145) mmol/L Potassium (3.4-5.1) mmol/L Chloride (98-107) mmol/L Carbon Dioxide (22-32) mmol/L BUN (7-17) mg/dL Creatinine (0.52-1.04) mg/dL Estimated GFR (>60) mL/min BUN/Creatinine Ratio (6-22) Glucose (70-100) mg/dL Calcium (8.4-10.2) mg/dL Total Bilirubin (0.2-1.3) mg/dL AST (14-36) IU/L ALT (9-52) IU/L Alkaline Phosphatase (38-126) U/L Total Protein (6.3-8.2) g/dL Albumin (3.5-5.0) g/dL Globulin (1.7-4.1) g/dL Albumin/Globulin Ratio (1.0-2.8) Amylase 72 (30-110) U/L Lipase 90 (23-300) U/L Urine RBC (0-5/HPF) Urine WBC (0-5/HPF) Urine Bacteria (None) Ur Culture Indicated? Point of Care Testing Test Results Negative Urine Dip Bedside Urine Glucose Negative Bedside Urine Bilirubin - Negative Bedside Urine Ketone - Negative Urine Specific [place] 1.030 Bedside Urine Occult Blood +++ Bedside Urine pH 5.5 Bedside Urine Protein - Negative Bedside Urine Urobilinogen - Negative Bedside Urine Nitrite - Negative Bedside Urine Leukocytes +/- [address] scan - abdomen: Radiologist's impression: Jing Perea 37 F [address] [address] [address] Scan Report Signed Patient: Jing Perea GMR#: [id number] : 1980Acct:[id number] Age/Sex: 37 / FDate of Service: 08/22/18 Loc: ED Accession Number: [id number] Procedure: CT kidney ureter bladder (KUB) Ordering Provider: Agueda Haynes PROCEDURE: CT KIDNEY URETER BLADDER (KUB) INDICATIONS: flank pain, hematuria TECHNIQUE: Noncontrast 5 mm thick sections acquired from the diaphragms to the symphysis. 5 mm thick coronal and sagittal reformats were then performed. For radiation dose reduction, the following was used: automated exposure control, adjustment of mA and/or kV according to patient size. COMPARISON: [facility], CT, KIDNEY/ URETER/BLADDER, 05/24/2017, 22:11. FINDINGS: Image quality: Excellent. Lung bases: Lung bases are clear. Heart size is normal. Urinary system: Both kidneys are normal in size. No kidney stones. No hydronephrosis or perinephric fat stranding. Both ureters appear non-dilated throughout their expected courses. Bladder wall thickness is normal; no calcified bladder stones. Other solid organs: Liver is normal in size. There is diffuse hepatic steatosis. Gallbladder is surgically absent. Pancreas is normal in contours. Spleen is normal in size. No adrenal nodules. Peritoneum and bowel: Unenhanced bowel loops demonstrate normal wall thickness and caliber. No free fluid or air. Nodes and vessels: No retroperitoneal or mesenteric adenopathy by size criteria. Aorta and inferior vena cava are normal in caliber. Abdominal wall: No ventral hernias. Pelvis: No free pelvic fluid. No inguinal hernias or adenopathy. Remote hysterectomy. Bones: No suspicious bony lesions. No vertebral body compression fractures. IMPRESSION: 1. No evidence renal stone or ureteral stone. 2. Remote cholecystectomy and hysterectomy. 3. Diffuse hepatic steatosis. Dictated by: Ibrahima Short M.D. on 08/22/2018 at 20:21 Approved by: Ibrahima Short M.D. on 08/22/2018 at 20:24 MDM Narrative Medical decision making narrative: Patient is a 37-year-old female who presents with a chief complaint of flank pain. She is hematuria on her urinalysis. The she was given an IV, IV fluid and a CT was done to evaluate for kidney stone. Her CT showed no stones or abnormalities. Her renal function is good on her labs. Thus given the blood and leukocyte esterase in her urine, combined with the flank pain, and would not treat her for a urinary tract infection. Given that she has had symptoms for several days and has flank pain, I fear she is working her way towards pyelonephritis. However she does not have any fever or elevated white blood cell count at this point time. I discussed at length monitoring for fever, inability keep down fluids encouraged her to follow up with primary care provider. Patient states understanding of return precautions as well as importance of follow-up care. She has no questions or concerns upon discharge. <Leo Arce, DO - Last Filed: 08/22/18 22:52> Lab Data Lab Results 08/22/18 08/22/18 08/22/18 Range/Units 18:00 19:28 19:28 WBC 10.3 (4.5-11.0) X10^3/uL RBC 4.76 (4.0-5.2) X10^6/uL Hgb 15.3 (12.0-16.0) g/dL Hct 44.4 (36-46) % MCV 93.2 (80-100) fL MCH 32.0 (26-34) PG MCHC 34.4 (30-36) % RDW 14.4 (11.6-14.8) % Plt Count 263 (150-400) X10^3/uL Neut % (Auto) 64.5 (50-75) % Lymph % (Auto) 28.0 (25-40) % Conway % (Auto) 5.5 (3-14) % Eos % (Auto) 1.0 L (2-4) % Baso % (Auto) 1.0 (0-2) % Neut # (Auto) 6600 (7930-9912) /uL Lymph # (Auto) 2900 (0480-8137) /uL Conway # (Auto) 600 (0-900) /uL Eos # (Auto) 100 (0-450) /uL Baso # (Auto) 100 (0-100) /uL Sodium 141 (137-145) mmol/L Potassium 4.0 (3.4-5.1) mmol/L Chloride 105 (98-107) mmol/L Carbon Dioxide 22 (22-32) mmol/L BUN 16 (7-17) mg/dL Creatinine 0.80 (0.52-1.04) mg/dL Estimated GFR > 60.0 (>60) mL/min BUN/Creatinine Ratio 20.0 (6-22) Glucose 86 (70-100) mg/dL Calcium 9.5 (8.4-10.2) mg/dL Total Bilirubin 0.4 (0.2-1.3) mg/dL AST 31 (14-36) IU/L ALT 43 (9-52) IU/L Alkaline Phosphatase 94 (38-126) U/L Total Protein 8.1 (6.3-8.2) g/dL Albumin 5.0 (3.5-5.0) g/dL Globulin 3.1 (1.7-4.1) g/dL Albumin/Globulin Ratio 1.6 (1.0-2.8) Amylase (30-110) U/L Lipase (23-300) U/L Urine RBC 10-30/hpf H (0-5/HPF) Urine WBC 5-10/hpf H (0-5/HPF) Urine Bacteria None seen (None) Ur Culture Indicated? Specimen cultured 08/22/18 Range/Units 19:28 WBC (4.5-11.0) X10^3/uL RBC (4.0-5.2) X10^6/uL Hgb (12.0-16.0) g/dL Hct (36-46) % MCV (80-100) fL MCH (26-34) PG MCHC (30-36) % RDW (11.6-14.8) % Plt Count (150-400) X10^3/uL Neut % (Auto) (50-75) % Lymph % (Auto) (25-40) % Conway % (Auto) (3-14) % Eos % (Auto) (2-4) % Baso % (Auto) (0-2) % Neut # (Auto) (3135-5389) /uL Lymph # (Auto) (5254-6789) /uL Conway # (Auto) (0-900) /uL Eos # (Auto) (0-450) /uL Baso # (Auto) (0-100) /uL Sodium (137-145) mmol/L Potassium (3.4-5.1) mmol/L Chloride (98-107) mmol/L Carbon Dioxide (22-32) mmol/L BUN (7-17) mg/dL Creatinine (0.52-1.04) mg/dL Estimated GFR (>60) mL/min BUN/Creatinine Ratio (6-22) Glucose (70-100) mg/dL Calcium (8.4-10.2) mg/dL Total Bilirubin (0.2-1.3) mg/dL AST (14-36) IU/L ALT (9-52) IU/L Alkaline Phosphatase (38-126) U/L Total Protein (6.3-8.2) g/dL Albumin (3.5-5.0) g/dL Globulin (1.7-4.1) g/dL Albumin/Globulin Ratio (1.0-2.8) Amylase 72 (30-110) U/L Lipase 90 (23-300) U/L Urine RBC (0-5/HPF) Urine WBC (0-5/HPF) Urine Bacteria (None) Ur Culture Indicated? Point of Care Testing Test Results Negative Urine Dip Bedside Urine Glucose Negative Bedside Urine Bilirubin - Negative Bedside Urine Ketone - Negative Urine Specific [place] 1.030 Bedside Urine Occult Blood +++ Bedside Urine pH 5.5 Bedside Urine Protein - Negative Bedside Urine Urobilinogen - Negative Bedside Urine Nitrite - Negative Bedside Urine Leukocytes +/- 15 Esterase Discharge Plan Departure Patient Disposition: Home Clinical Impression: UTI (urinary tract infection) Qualifiers: Urinary tract infection type: site unspecified Hematuria presence: with hematuria Qualified Code(s): N39.0 - Urinary tract infection, site not specified Discharge Date/Time: 08/22/18 21:34 Interventions: ED Discharge Assessment Last Done: 08/22/18 21:33 Instructions: DI for Urinary Tract Infection (UTI) Activity Restrictions/Additional Instructions: I am starting on a medication to help treat a urinary tract infection. A urine culture is pending at this time to make sure this is a good antibiotic for you given the pain in your kidney area I am choosing ciprofloxacin. Do not combine this with Zofran, Seroquel and hydroxyzine as these medications have too many interactions together. Please monitor for fever, vomiting. Please follow up with primary care provider on Friday. Please come back to emergency department for any acute concerns. Prescriptions: New ciprofloxacin HCl 500 mg tablet 500 mg PO BID Qty: 14 RF: 0 sulfamethoxazole-trimethoprim [Bactrim DS] 800-160 mg tablet 1 tab PO BID 10 Days Qty: 20 RF: 0 No Action venlafaxine 37.5 mg capsule,extended release 24hr 37.5 mg PO DAILY MDD 112.5 mg Qty: 30 RF: 2 ondansetron HCl [Zofran] 4 mg tablet 4 mg PO Q8H Qty: 30 RF: 0 hydroxyzine HCl 25 mg tablet 25 mg PO TID PRN (Reason: nausea and vomiting) Qty: 30 RF: 0 vancomycin 125 mg capsule 125 mg PO QID Qty: 54 RF: 0 oxycodone-acetaminophen [Percocet] 5-325 mg tablet See Rx Instructions PO Q8H PRN (Reason: pain) Qty: 30 RF: 0 hydrocodone-acetaminophen 5-325 mg tablet 1 tab PO Q4-6H PRN (Reason: pain) Qty: 10 RF: 0 prednisone 20 mg tablet 20 mg PO DAILY Qty: 5 RF: 0 quetiapine 25 mg tablet 25 mg PO BEDTIME RF: 0 venlafaxine 75 mg capsule,extended release 24hr 75 mg PO DAILY RF: 0 acetaminophen 325 mg Tablet 650 mg PO Q6HR PRN (Reason: As Needed For Fever/Mild Pain) Qty: 30 RF: 0 diphenhydramine HCl [Allergy (diphenhydramine)] 25 mg Tablet 50 mg PO Q4HR PRN (Reason: Itching) Qty: 30 RF: 0 dicyclomine 10 mg Capsule 10 mg PO Q6HR Qty: 30 RF: 0 diazepam [Valium] 5 mg tablet 5 mg PO Q12HR PRN (Reason: muscle spasm) Qty: 4 RF: 0 acetaminophen-codeine 300-30 mg tablet 1 tab PO DAILY PRN (Reason: Pain, Moderate) RF: 0 valacyclovir 500 mg tablet 1,000 mg PO DAILY RF: 0 lamotrigine 100 mg tablet 100 mg PO BID MDD 200mg RF: 0 codeine-guaifenesin [Guaifenesin AC] 10-100 mg/5 mL liquid 10 ml PO Q4-6H PRN (Reason: cough) Qty: 120 RF: 0 ondansetron 4 mg tablet,disintegrating 4 mg PO TID-QID PRN (Reason: nausea and vomiting) Qty: 14 RF: 0 <Leo [place], DO - Last Filed: 08/22/18 22:52> Cosign ED Attending Cosbrianature Attestation: I was immediately available in the department for consultation. Documentation has been reviewed. I agree with assessment and plan.
[2018-08-22 19:26] LABS: Culture Indicated Urine Specimen Cultured; RBC Urine 10-30/HPF (0-5/HPF); WBC Urine 5-10/HPF (0-5/HPF)
[2018-08-22 19:37] LABS: Add Manual Diff / Slide Review NO; Basophils Absolute Auto 100 /uL (0-100); Eosinophils Absolute Auto 100 /uL (0-450); Hematocrit 44.4 % (36-46); Hemoglobin 15.3 g/dL (12.0-16.0); Lymphocytes Absolute Auto 2900 /uL (1100-4500); Mean Corpuscular HGB Conc 34.4 % (30-36); Mean Corpuscular Volume 93.2 fL (80-100); Monocytes Absolute Auto 600 /uL (0-900); Monocytes Percent Auto 5.5 % (3-14); Neutrophils Absolute Auto 6600 /uL (1500-7000); Neutrophils Percent Auto 64.5 % (50-75); Platelet Count 263 X10^3/uL (150-400); Red Blood Cell Count 4.76 X10^6/uL (4.0-5.2); Red Cell Distribution Width 14.4 % (11.6-14.8); White Blood Cell Count 10.3 X10^3/uL (4.5-11.0)
--- NOTE | 2018-08-22 19:42 | DI.CT.S_ITS ---
PROCEDURE: CT KIDNEY URETER BLADDER (KUB) INDICATIONS: flank pain, hematuria TECHNIQUE: Noncontrast 5 mm thick sections acquired from the diaphragms to the symphysis. 5 mm thick coronal and sagittal reformats were then performed. For radiation dose reduction, the following was used: automated exposure control, adjustment of mA and/or kV according to patient size. COMPARISON: [facility], CT, KIDNEY/ URETER/BLADDER, 05/24/2017, 22:11. FINDINGS: Image quality: Excellent. Lung bases: Lung bases are clear. Heart size is normal. Urinary system: Both kidneys are normal in size. No kidney stones. No hydronephrosis or perinephric fat stranding. Both ureters appear non-dilated throughout their expected courses. Bladder wall thickness is normal; no calcified bladder stones. Other solid organs: Liver is normal in size. There is diffuse hepatic steatosis. Gallbladder is surgically absent. Pancreas is normal in contours. Spleen is normal in size. No adrenal nodules. Peritoneum and bowel: Unenhanced bowel loops demonstrate normal wall thickness and caliber. No free fluid or air. Nodes and vessels: No retroperitoneal or mesenteric adenopathy by size criteria. Aorta and inferior vena cava are normal in caliber. Abdominal wall: No ventral hernias. Pelvis: No free pelvic fluid. No inguinal hernias or adenopathy. Remote hysterectomy. Bones: No suspicious bony lesions. No vertebral body compression fractures. IMPRESSION: 1. No evidence renal stone or ureteral stone. 2. Remote cholecystectomy and hysterectomy. 3. Diffuse hepatic steatosis. Dictated by: Ibrahima Short M.D. on 08/22/2018 at 20:21 Approved by: Ibrahima Short M.D. on 08/22/2018 at 20:24
[2018-08-22 19:46] LABS: Amylase 72 U/L (30-110); Lipase 90 U/L (23-300)
[2018-08-22 19:48] LABS: Alanine Aminotransferase 43 IU/L (9-52); Albumin Globulin Ratio 1.6 (1.0-2.8); Alkaline Phosphatase 94 U/L (38-126); Aspartate Aminotransferase 31 IU/L (14-36); Bilirubin Total 0.4 mg/dL (0.2-1.3); Blood Urea Nitrogen 16 mg/dL (7-17); Calcium 9.5 mg/dL (8.4-10.2); Carbon Dioxide 22 mmol/L (22-32); Chloride 105 mmol/L (98-107); Estimated Glomerular Filt Rate > 60.0 mL/min (>60); Globulin 3.1 g/dL (1.7-4.1); Glucose 86 mg/dL (70-100); HEMOLYSIS 18 (0-50); Sodium 141 mmol/L (137-145); Total Protein 8.1 g/dL (6.3-8.2)
[2018-08-22] MEDS: ONDANSETRON 4 MG/2 ML INJ IV (19:49)
[2018-08-22] MEDS: SODIUM CHLORIDE 0.9% 1,000 ML 1000 ML IV (19:49)
[2018-08-22 20:27] VITALS: BP 128/92; PULSE 88; RESP 16; TEMP 36.6; O2SAT 100
[2018-08-22] MEDS: CIPROFLOXACIN 500 MG TABLET PO (21:19)
[2018-08-22 21:33] VITALS: BP 125/78; PULSE 85; RESP 16; O2SAT 100
== END 2018-08-22 21:34 | disposition home or self-care (01) ==
PROVIDERS: Emergency Provider Nurse Practitioner Family
DX: N39.0 Urinary tract infection, site not specified (principal); R31.9 Hematuria, unspecified; R10.9 Unspecified abdominal pain
CPT/HCPCS: 36591; 74176; 80053; 81003; 81015; 81025; 82150; 83690; 85025; 87086; 96360; 99283; 99284; J2405

== ENCOUNTER 2018-09-08 12:43 | Emergency (ER) | payer OTHER, MEDICAID, SELFPAY ==
[2018-01-17 01:41] VITALS: BMI 32.3
[2018-09-08 12:48] VITALS: BP 132/90; PULSE 88; RESP 18; TEMP 36.8; O2SAT 98; BMI 37.8
--- NOTE | 2018-09-08 13:05 | ED_ITS ---
HPI - Neuro Symptoms/Deficit General Chief Complaint: Neuro Symptoms/Deficit Stated Complaint: Stroke like symptoms Time Seen by Provider: 09/08/18 12:53 Source: patient Limitations: no limitations History of Present Illness HPI Narrative: This is a 37-year-old female who comes to the emergency department with complaint of sudden onset at about 11:15 a.m. today with facial droop, some difficulty with speech and word-finding, weakness of her left upper extremity and leg and some numbness in her arm and leg. Patient states that she has had similar symptoms once before and actually received tPA and was transferred to [facility]. When asked directly if she was diagnosed with a stroke she states she is not sure. She was not discharged home on blood thinners or aspirin. Patient denies headache, she states she has some double vision when looking at the stroke cards for evaluation. She denies any chest pain or shortness of breath. She denies any nausea or vomiting no other GI or urinary symptoms. Her main complaint was numbness on the face and upper and lower extremity on the left. Related Data Home Medications Medication Instructions Recorded Confirmed quetiapine 25 mg PO BEDTIME 01/05/18 09/08/18 venlafaxine 75 mg PO DAILY 01/05/18 09/08/18 acetaminophen-codeine 1 tab PO DAILY PRN 07/24/18 07/24/18 lamotrigine 100 mg PO BID MDD 200mg 07/24/18 07/24/18 valacyclovir 1,000 mg PO DAILY 07/24/18 09/08/18 albuterol sulfate [ProAir HFA] 2 puff INHALATION Q6H PRN 09/08/18 09/08/18 amitriptyline 50 mg PO BEDTIME 09/08/18 09/08/18 Previous Rx's Medication Instructions Recorded venlafaxine ER 37.5 mg 37.5 mg PO DAILY #30 cap MDD 112.5 12/30/17 capsule,extended release 24 hr mg acetaminophen 650 mg PO Q6HR PRN #30 tab 01/18/18 dicyclomine 10 mg PO Q6HR #30 cap 01/18/18 diphenhydramine HCl [Allergy 50 mg PO Q4HR PRN #30 tab 01/18/18 (diphenhydramine)] hydroxyzine HCl 25 mg tablet 25 mg PO TID PRN #30 tab 01/23/18 ondansetron HCl 4 mg tablet 4 mg PO Q8H #30 tab 01/23/18 oxycodone-acetaminophen 5 mg-325 See Rx Instructions PO Q8H PRN #30 01/30/18 mg tablet tab vancomycin 125 mg capsule 125 mg PO QID #54 cap 01/30/18 hydrocodone-acetaminophen 1 tab PO Q4-6H PRN #10 tab 05/24/18 prednisone 20 mg PO DAILY #5 tab 05/24/18 diazepam [Valium] 5 mg PO Q12HR PRN #4 tab 07/07/18 codeine-guaifenesin [Guaifenesin 10 ml PO Q4-6H PRN #120 ml 07/24/18 AC] ondansetron 4 mg PO TID-QID PRN #14 tab 07/24/18 ciprofloxacin HCl 500 mg PO BID #14 tab 08/22/18 Allergies Allergy/AdvReac Type Severity Reaction Status Date / Time coconut [COCONUT] Allergy Severe STOPS Verified 09/08/18 12:48 BREATHS prochlorperazine Allergy Intermediate seizure Verified 09/08/18 12:48 NSAIDS (Non-Steroidal Allergy Mild rash, milner Verified 09/08/18 12:48 Anti-Inflamma [NSAIDS (NON-STEROIDAL ANTI-INFLAMMA] promethazine [From PHENERGAN] Allergy Unknown restless Verified 09/08/18 12:48 legs morphine [MORPHINE] AdvReac Unknown it Verified 09/08/18 12:48 metabolizes in my body too fast, I need a lot of Morphin Review of Systems Review of Systems ROS Unobtainable: All systems reviewed & are unremarkable except as noted in HPI and below Constitutional Denies headache(s) Eyes Reports diplopia ENT Ears, Nose, Mouth, and Throat: Denies dizziness, Denies headache(s) and Reports other (Facial droop) Cardiovascular Denies chest pain, Denies syncope and Denies dyspnea Respiratory Denies dyspnea Musculoskeletal Reports muscle weakness and Reports numbness Integumentary/Breasts Denies rash Neurologic Reports as per HPI, Reports abnormal speech, Denies dizziness, Denies syncope, Denies headache(s), Reports focal weakness (Left upper and lower extremity), Reports numbness and Reports sensory deficit (Numbness/tingling) Psychiatric Reports depression [facility] Medical History Anxiety (Chronic) Depression (Chronic) Femoral acetabular impingement (Chronic) Genital herpes (Chronic) Gout (Chronic) Kidney stones (Resolved 12/2016) Ovarian cancer (Resolved) Pseudotumor cerebri (Resolved) Pulmonary embolism (Resolved 2010) Pulmonary embolism (Resolved 2009) Uterine cancer (Resolved) Surgical History History of carpal tunnel repair (Resolved) Status post appendectomy (Resolved) Status post breast reduction (Resolved) Status post cholecystectomy (Resolved) Status post hernia repair (Resolved 2014) Status post hysterectomy with oophorectomy (Resolved 2003) Status post laparoscopy (Resolved) [employer] (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) shunt status (Resolved) Family History Father History of kidney cancer Mother Diabetes mellitus Hypertension Hyperlipidemia CAD (coronary artery disease) CVA (cerebral vascular accident) Social History marital status: household members: family lives independently: Yes occupational status: employed Smoking Status: Former smoker alcohol intake: never substance use type: marijuana Family History Father History of kidney cancer Mother Diabetes mellitus Hypertension Hyperlipidemia CAD (coronary artery disease) CVA (cerebral vascular accident) Social History marital status: household members: family lives independently: Yes occupational status: employed Smoking Status: Former smoker alcohol intake: never substance use type: marijuana Exam Narrative Exam Narrative: GEN: well nourished, well appearing female, alert and oriented x 3, patient appears to be in a mild distress. HEENT: Atraumatic, pupils are equal round reactive to light, extraocular movements are intact, nares are clear, TMs are clear with no fluid, there is no conjunctival pallor. Throat is clear without any exudates, erythema, tonsillar enlargement or uvular deviation, mild facial droop with smile on the left. Mild dysarthria. HEART: Regular rate and rhythm without murmur, clicks, rubs. Pulses are equal in upper extremities LUNGS:Lungs clear to auscultation, no wheezes, rales, crackles, chest moves symmetrically ABD:bowel sounds normal, soft, non-tender, no guarding, rebound, rigidity, no masses noted, no hepatosplenomegaly :No CVA tenderness MSCL: Non-tender, no muscle atrophy, see NIH scale. NEURO:CN 2-12 intact, sensation normal. finger nose finger test normal normal on right, difficulty on the left. heel jackson test normal on right, difficulty with left. Initial Vital Signs Initial Vital Signs: Vital Signs Temperature 98.3 F 09/08/18 12:48 Pulse Rate 88 09/08/18 12:48 Respiratory Rate 18 09/08/18 12:48 Blood Pressure 132/90 09/08/18 12:48 Pulse Oximetry 98 09/08/18 12:48 Scores NIH Stroke Scale Level of Conciousness: Alert, keenly responsive Ask month/age: Answers both questions correctly. Open/close eyes, close hand: Performs both tasks correctly Best gaze horizontal: Normal Visual santos: No visual loss Facial palsy: Minor paralysis, flattened nasolabial fold, asymmetry on smiling Left arm drift: Drifts down, not to bed Right arm drift: No drift for full 10 sec Left leg drift: Drifts down, not to bed Right leg drift: No drift for full 10 sec Limb ataxia: Present in two limbs Sensory on face/arms/legs: Mild to moderate sensory loss, can tell touch Best language: No aphasia, normal Dysarthria: Mild to mod,some slurring Extinction or inattention: No abnormality Total NIH Stroke scale score: 7 Course Orders Ordered: ED Orders 09/08/18 12:52 Basic Metabolic Panel Stat Complete Blood Count AUTO DIFF Stat Partial Thromboplastin Time Stat Prothrombin Time INR Stat Troponin I Stat 09/08/18 12:53 EKG-12 Lead Stat Vital Signs - 8 hr 09/08/18 12:48 09/08/18 13:06 Temperature 98.3 F Pulse Rate 88 78 Respiratory Rate 18 18 Blood Pressure 132/90 Blood Pressure [Right Arm] 123/82 Pulse Oximetry 98 97 MDM - Neuro Symptoms/Deficit Lab Data Result diagrams: 09/08/18 12:52 09/08/18 12:52 Lab Results 09/08/18 09/08/18 09/08/18 Range/Units 12:52 12:52 12:52 WBC 7.2 (4.5-11.0) X10^3/uL RBC 4.50 (4.0-5.2) X10^6/uL Hgb 14.1 (12.0-16.0) g/dL Hct 42.6 (36-46) % MCV 94.7 (80-100) fL MCH 31.3 (26-34) PG MCHC 33.1 (30-36) % RDW 14.6 (11.6-14.8) % Plt Count 235 (150-400) X10^3/uL Neut % (Auto) 55.9 (50-75) % Lymph % (Auto) 35.7 (25-40) % Stearns % (Auto) 5.7 (3-14) % Eos % (Auto) 2.3 (2-4) % Baso % (Auto) 0.4 (0-2) % Neut # (Auto) 4000 (7374-5167) /uL Lymph # (Auto) 2600 (1785-4770) /uL Stearns # (Auto) 400 (0-900) /uL Eos # (Auto) 200 (0-450) /uL Baso # (Auto) 0 (0-100) /uL PT 11.7 (10.1-12.7) SECONDS INR 1.0 (0.9-1.3) APTT 33 (26.4-36.2) SECONDS Sodium 139 (137-145) mmol/L Potassium 3.7 (3.4-5.1) mmol/L Chloride 106 (98-107) mmol/L Carbon Dioxide 25 (22-32) mmol/L BUN 14 (7-17) mg/dL Creatinine 0.60 (0.52-1.04) mg/dL Estimated GFR > 60.0 (>60) mL/min BUN/Creatinine Ratio 23.3 H (6-22) Glucose 95 (70-100) mg/dL Calcium 8.9 (8.4-10.2) mg/dL Troponin I < 0.012 (0.01-0.034) ng/mL Urine Opiates Screen Ur Oxycodone Screen Urine Methadone Screen Ur Barbiturates Screen U Tricyclic Antidepress Ur Phencyclidine Scrn Ur Amphetamines Screen U Methamphetamines Scrn Ur MDMA Scrn (Ecstasy) U Benzodiazepines Scrn Urine Cocaine Screen U Marijuana (THC) Screen 09/08/18 Range/Units 12:52 WBC (4.5-11.0) X10^3/uL RBC (4.0-5.2) X10^6/uL Hgb (12.0-16.0) g/dL Hct (36-46) % MCV (80-100) fL MCH (26-34) PG MCHC (30-36) % RDW (11.6-14.8) % Plt Count (150-400) X10^3/uL Neut % (Auto) (50-75) % Lymph % (Auto) (25-40) % Stearns % (Auto) (3-14) % Eos % (Auto) (2-4) % Baso % (Auto) (0-2) % Neut # (Auto) (5103-2219) /uL Lymph # (Auto) (1004-2289) /uL Stearns # (Auto) (0-900) /uL Eos # (Auto) (0-450) /uL Baso # (Auto) (0-100) /uL PT (10.1-12.7) SECONDS INR (0.9-1.3) APTT (26.4-36.2) SECONDS Sodium (137-145) mmol/L Potassium (3.4-5.1) mmol/L Chloride (98-107) mmol/L Carbon Dioxide (22-32) mmol/L BUN (7-17) mg/dL Creatinine (0.52-1.04) mg/dL Estimated GFR (>60) mL/min BUN/Creatinine Ratio (6-22) Glucose (70-100) mg/dL Calcium (8.4-10.2) mg/dL Troponin I (0.01-0.034) ng/mL Urine Opiates Screen Cancelled Ur Oxycodone Screen Cancelled Urine Methadone Screen Cancelled Ur Barbiturates Screen Cancelled U Tricyclic Antidepress Cancelled Ur Phencyclidine Scrn Cancelled Ur Amphetamines Screen Cancelled U Methamphetamines Scrn Cancelled Ur MDMA Scrn (Ecstasy) Cancelled U Benzodiazepines Scrn Cancelled Urine Cocaine Screen Cancelled U Marijuana (THC) Screen Cancelled Point of Care Testing Glucose POC 94 ECG Data Attestation: I personally reviewed and interpreted this ECG as follows: Interpretation: Sinus rhythm with a rate of 67, P are 173 QRS of 100 and QTC of 411. No ST elevation or depression. MDM Narrative Medical decision making narrative: Due to CT unavailability contacted [facility] the next closest hospital for transfer for CT of head. Spoke with Dr. Villarreal who is the accepting physician is [facility]. After discussion was decided patient would be transferred there and stay there as she is potentially a candidate for tPA and is still in the window and this is timed sensitive medication. Patient does have the physical exam concerning for stroke. She does have unclear history with history of tPA given and transferred to [facility]. She states she was never discharged on blood thinners and does remember if she was given a formal diagnosis of stroke versus TIA or other. We did attempt to get records from [facility]. Lab work is obtained, EKG and medics were contacted for stat transfer. Patient and I discussed she is aware of reasons for transfer at this time. I did review patient's old chart here in the most recent EMR there is not a present chart available but maybe in the older [employer] EMR. Critical Care Time Critical Care Time: Yes Total Critical Care Time: 25 Attestation: The high probability of a clinically significant, sudden or life threatening deterioration of the [neurologic] system(s) required my full and direct attention, intervention and personal management. The aggregate critical care time was [] minutes. This time is in addition to time spent performing reported procedures but includes the following: [ x] Data Review and interpretation [x] Patient assessment and monitoring of vital signs [x] Documentation [x] Medication orders and management Discharge Plan Departure Patient Disposition: [facility] Clinical Impression: Acute CVA (cerebrovascular accident) Discharge Date/Time: 09/08/18 13:14 Interventions: ED Discharge Assessment Last Done: 09/08/18 13:17 Prescriptions: No Action venlafaxine 37.5 mg capsule,extended release 24hr 37.5 mg PO DAILY MDD 112.5 mg Qty: 30 RF: 2 ondansetron HCl [Zofran] 4 mg tablet 4 mg PO Q8H Qty: 30 RF: 0 hydroxyzine HCl 25 mg tablet 25 mg PO TID PRN (Reason: nausea and vomiting) Qty: 30 RF: 0 vancomycin 125 mg capsule 125 mg PO QID Qty: 54 RF: 0 oxycodone-acetaminophen [Percocet] 5-325 mg tablet See Rx Instructions PO Q8H PRN (Reason: pain) Qty: 30 RF: 0 hydrocodone-acetaminophen 5-325 mg tablet 1 tab PO Q4-6H PRN (Reason: pain) Qty: 10 RF: 0 prednisone 20 mg tablet 20 mg PO DAILY Qty: 5 RF: 0 amitriptyline 50 mg tablet 50 mg PO BEDTIME RF: 0 albuterol sulfate [ProAir HFA] 90 mcg/actuation HFA aerosol inhaler 2 puff Inhalation Q6H PRN (Reason: Wheezing) RF: 0 quetiapine 25 mg tablet 25 mg PO BEDTIME RF: 0 venlafaxine 75 mg capsule,extended release 24hr 75 mg PO DAILY RF: 0 acetaminophen 325 mg Tablet 650 mg PO Q6HR PRN (Reason: As Needed For Fever/Mild Pain) Qty: 30 RF: 0 diphenhydramine HCl [Allergy (diphenhydramine)] 25 mg Tablet 50 mg PO Q4HR PRN (Reason: Itching) Qty: 30 RF: 0 dicyclomine 10 mg Capsule 10 mg PO Q6HR Qty: 30 RF: 0 diazepam [Valium] 5 mg tablet 5 mg PO Q12HR PRN (Reason: muscle spasm) Qty: 4 RF: 0 acetaminophen-codeine 300-30 mg tablet 1 tab PO DAILY PRN (Reason: Pain, Moderate) RF: 0 valacyclovir 500 mg tablet 1,000 mg PO DAILY RF: 0 lamotrigine 100 mg tablet 100 mg PO BID MDD 200mg RF: 0 codeine-guaifenesin [Guaifenesin AC] 10-100 mg/5 mL liquid 10 ml PO Q4-6H PRN (Reason: cough) Qty: 120 RF: 0 ondansetron 4 mg tablet,disintegrating 4 mg PO TID-QID PRN (Reason: nausea and vomiting) Qty: 14 RF: 0 ciprofloxacin HCl 500 mg tablet 500 mg PO BID Qty: 14 RF: 0
[2018-09-08 13:06] VITALS: BP 123/82; PULSE 78; RESP 18; O2SAT 97
[2018-09-08 13:08] LABS: Prothrombin Time 11.7 SECONDS (10.1-12.7)
[2018-09-08 13:10] LABS: Add Manual Diff / Slide Review NO; Basophils Absolute Auto 0 /uL (0-100); Basophils Percent Auto 0.4 % (0-2); Eosinophils Absolute Auto 200 /uL (0-450); Eosinophils Percent Auto 2.3 % (2-4); Hematocrit 42.6 % (36-46); Hemoglobin 14.1 g/dL (12.0-16.0); Lymphocytes Absolute Auto 2600 /uL (1100-4500); Lymphocytes Percent Auto 35.7 % (25-40); Mean Corpuscular HGB Conc 33.1 % (30-36); Mean Corpuscular Hemoglobin 31.3 PG (26-34); Mean Corpuscular Volume 94.7 fL (80-100); Monocytes Absolute Auto 400 /uL (0-900); Monocytes Percent Auto 5.7 % (3-14); Neutrophils Absolute Auto 4000 /uL (1500-7000); Neutrophils Percent Auto 55.9 % (50-75); Platelet Count 235 X10^3/uL (150-400); Red Cell Distribution Width 14.6 % (11.6-14.8); White Blood Cell Count 7.2 X10^3/uL (4.5-11.0)
[2018-09-08 13:11] LABS: PTT Partial Thromboplastin Tim 33 SECONDS (26.4-36.2)
--- NOTE | 2018-09-08 13:18 | PC.NURSE ---
Pt asked me to call her boyfriend (Lalo) and asked him to hand picker her car keys and take possession of the car. Lalo called, updated on patient status per pt request and agreed to hand picker the car. Tse Bonito left at ED front counter attendant for him.
[2018-09-08 13:19] LABS: BUN Creatinine Ratio 23.3 (6-22); Blood Urea Nitrogen 14 mg/dL (7-17); Calcium 8.9 mg/dL (8.4-10.2); Carbon Dioxide 25 mmol/L (22-32); Chloride 106 mmol/L (98-107); Estimated Glomerular Filt Rate > 60.0 mL/min (>60); Glucose 95 mg/dL (70-100); HEMOLYSIS < 15 (0-50); Potassium 3.7 mmol/L (3.4-5.1); Sodium 139 mmol/L (137-145)
[2018-09-08 13:33] LABS: Troponin I < 0.012 ng/mL (0.01-0.034)
== END 2018-09-08 13:14 | disposition short-term general hospital (02) ==
PROVIDERS: Emergency Provider Emergency Medicine
DX: I63.9 Cerebral infarction, unspecified (principal)
CPT/HCPCS: 36591; 80048; 82962; 84484; 85025; 85610; 85730; 93005; 93010; 99283; 99291

== ENCOUNTER 2019-01-06 16:49 | Emergency (ER) | payer OTHER, MEDICAID, SELFPAY ==
[2018-01-17 01:41] VITALS: BMI 32.3
[2019-01-06 16:56] VITALS: BP 124/84; PULSE 99; RESP 18; TEMP 36.7; O2SAT 99
[2019-01-06 17:37] VITALS: BP 121/73; PULSE 90; RESP 17; O2SAT 96
--- NOTE | 2019-01-06 18:06 | DI.CT.S_ITS ---
PROCEDURE: CT HEAD/BRAIN WO CON INDICATIONS: headache, recent shunt revision. TECHNIQUE: Noncontrast 4.5 mm thick angled axial sections acquired from the foramen magnum to the vertex, with coronal and sagittal reformats. For radiation dose reduction, the following was used: automated exposure control, adjustment of mA and/or kV according to patient size. COMPARISON: [facility], CT, CT HEAD WITHOUT CONTRAST, 03/02/2018, 21:27. [facility], CT, CT HEAD TPA, 09/08/2018, 13:44. [facility], CT, CT HEAD WITHOUT CONTRAST, 09/10/2018, 7:30. FINDINGS: Image quality: Excellent. CSF spaces: Basal cisterns are patent. No extra-axial fluid collections. Ventricles are slit like. Intraventricular shunts project into the internal and the lateral ventricles the bifrontal approach are stable compared to prior exam.. Brain: No midline shift. No intracranial masses or hemorrhage. Cage-white matter interface is normal. Skull and face: Calvarium and visualized facial bones are intact, without suspicious lesions. Sinuses: Visualized sinuses and mastoids are clear. IMPRESSION: 1. Slitlike ventricles show progressive interval since prior exam obtained 09/10/18. Over shunting cannot be excluded. 2. No intracranial hemorrhage. Dictated by: Mary Bates MD, PhD on 01/06/2019 at 18:45 Approved by: Mary Bates MD, PhD on 01/06/2019 at 18:48
--- NOTE | 2019-01-06 18:28 | ED.NEUROSD ---
HPI - Neuro Symptoms/Deficit General Chief Complaint: Neuro Symptoms/Deficit Stated Complaint: problems with shunt, blurry vision,nausea Time Seen by Provider: 01/06/19 18:03 Source: patient Mode of arrival: ambulatory Limitations: no limitations History of Present Illness HPI Narrative: Patient comes emergency department complaining of headache, nausea, and blurry vision for the last 6 weeks since having a CANDY SUPERVISOR shunt revision. Patient states she has not been running any fevers or having any neck pain. Patient has been seen by both Neurosurgery and neuroophthalmology for the symptoms since the surgery. She states that the neuro spa associate told her her vision was ?normal? and that she was found to have ?20-20 vision?. However, patient says her vision seems ?blurry? despite the fact that she was able to see the figures on the eye chart clearly. She denies any head injury. She has had a CANDY SUPERVISOR shunt since 2006, secondary to pseudotumor cerebri. Review of the records reveals that the patient had a CT scan of head on 12/15/2018, which revealed slit like bilateral ventricles. Neurosurgery note states that the neurosurgeon was concerned that the patient may be over draining, which could be causing some of her headache nausea vomiting. As such, her shunt was adjusted from 0.5-1.0 on December 30, 2018. The patient is currently scheduled to follow up with neurologist Dr. Guzman Oconnor regarding her pseudotumor cerebri at the end of December. On Anticoagulants: No Related Data Home Medications Medication Instructions Recorded Confirmed quetiapine 25 mg PO BEDTIME 01/05/18 09/08/18 venlafaxine 75 mg PO DAILY 01/05/18 01/06/19 valacyclovir 1,000 mg PO DAILY 07/24/18 01/06/19 albuterol sulfate [ProAir HFA] 2 puff INHALATION Q6H PRN 09/08/18 09/08/18 amitriptyline 50 mg PO BEDTIME 09/08/18 09/08/18 lamotrigine 150 mg PO BID 01/06/19 01/06/19 metoclopramide HCl 10 mg PO TID PRN 01/06/19 01/06/19 oxycodone-acetaminophen 1 - 2 tab PO Q6H PRN MDD 6 01/06/19 01/06/19 sucralfate 1 g PO QID 01/06/19 01/06/19 Previous Rx's Medication Instructions Recorded venlafaxine ER 37.5 mg 37.5 mg PO DAILY #30 cap MDD 112.5 12/30/17 capsule,extended release 24 hr mg acetaminophen 650 mg PO Q6HR PRN #30 tab 01/18/18 dicyclomine 10 mg PO Q6HR #30 cap 01/18/18 diphenhydramine HCl [Allergy 50 mg PO Q4HR PRN #30 tab 01/18/18 (diphenhydramine)] hydroxyzine HCl 25 mg tablet 25 mg PO TID PRN #30 tab 01/23/18 hydrocodone-acetaminophen 1 tab PO Q4-6H PRN #10 tab 05/24/18 prednisone 20 mg PO DAILY #5 tab 05/24/18 hydrocodone-acetaminophen 1 tab PO Q6H PRN #7 tab 01/07/19 ondansetron 4 mg PO Q6H PRN #14 tab 01/07/19 Allergies Allergy/AdvReac Type Severity Reaction Status Date / Time coconut [COCONUT] Allergy Severe STOPS Verified 09/08/18 12:48 BREATHS prochlorperazine Allergy Intermediate seizure Verified 09/08/18 12:48 NSAIDS (Non-Steroidal Allergy Mild rash, milner Verified 09/08/18 12:48 Anti-Inflamma [NSAIDS (NON-STEROIDAL ANTI-INFLAMMA] promethazine [From PHENERGAN] Allergy Unknown restless Verified 09/08/18 12:48 legs morphine [MORPHINE] AdvReac Unknown it Verified 09/08/18 12:48 metabolizes in my body too fast, I need a lot of Morphin Review of Systems Constitutional Denies chills, Denies fever(s), Reports headache(s), Denies lethargy and Denies weakness Eyes Reports blurry vision, Denies eye discharge, Denies irritation and Denies loss of vision ENT Ears, Nose, Mouth, and Throat: Denies change in voice, Reports headache(s), Denies neck pain and Denies sore throat Cardiovascular Denies chest pain, Denies irregular heart rhythm, Denies lightheadedness, Denies palpitations, Denies dyspnea, Denies dyspnea on exertion and Denies orthopnea Respiratory Denies cough, Denies dyspnea, Denies dyspnea on exertion and Denies wheezing Gastrointestinal Gastrointestinal: Denies abdominal pain, Denies change in bowel habits, Denies diarrhea, Reports nausea and Reports vomiting Genitourinary Denies hematuria, Denies flank pain, Denies urinary incontinence and Denies urinary urgency Musculoskeletal Denies neck pain Integumentary/Breasts Denies pruritus, Denies erythema, Denies rash and Denies wounds Neurologic Denies confusion, Reports headache(s), Denies loss of vision and Denies weakness Psychiatric Denies anxiety, Denies confusion, Denies depression, Denies homicidal ideation and Denies suicidal ideation Endocrine Denies palpitations Hematologic/Lymphatic Denies easy bruising Allergic/Immunologic Denies wheezing [facility] Medical History Anxiety (Chronic) Depression (Chronic) Femoral acetabular impingement (Chronic) Genital herpes (Chronic) Gout (Chronic) Kidney stones (Resolved 12/2016) Ovarian cancer (Resolved) Pseudotumor cerebri (Resolved) Pulmonary embolism (Resolved 2010) Pulmonary embolism (Resolved 2009) Uterine cancer (Resolved) Surgical History History of carpal tunnel repair (Resolved) Status post appendectomy (Resolved) Status post breast reduction (Resolved) Status post cholecystectomy (Resolved) Status post hernia repair (Resolved 2014) Status post hysterectomy with oophorectomy (Resolved 2003) Status post laparoscopy (Resolved) CANDY SUPERVISOR (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) shunt status (Resolved) Family History Father History of kidney cancer Mother Diabetes mellitus Hypertension Hyperlipidemia CAD (coronary artery disease) CVA (cerebral vascular accident) Social History marital status: household members: family lives independently: Yes occupational status: employed Smoking Status: Former smoker alcohol intake: never substance use type: marijuana Family History Father History of kidney cancer Mother Diabetes mellitus Hypertension Hyperlipidemia CAD (coronary artery disease) CVA (cerebral vascular accident) Social History marital status: household members: family lives independently: Yes occupational status: employed Smoking Status: Former smoker alcohol intake: never substance use type: marijuana Exam Narrative Exam Narrative: The patient is lying on the stretcher in a darkened room. Shunt tract is palpably intact, and no erythema, fluctuance, drainage, induration noted over the shunt tract. Initial Vital Signs Initial Vital Signs: Vital Signs Temperature 98.1 F 01/06/19 16:56 Pulse Rate 99 H 01/06/19 16:56 Respiratory Rate 18 01/06/19 16:56 Blood Pressure 124/84 01/06/19 16:56 Pulse Oximetry 99 01/06/19 16:56 Const General: cooperative and well developed Nutritional Appearance: well nourished Orientation: alert, awake, oriented x3 and not confused HENAL Head: normocephalic and atraumatic Ears: external ears normal Nose: external nose normal and No nasal discharge Face and sinus: face symmetric and No dry mucous membranes Mouth: oral mucosae normal and moist mucous membranes Teeth and gingiva: dentition normal Throat: tonsils normal and uvula midline Eyes General: appearance normal, both eyes and all related structures Eyelids: eyelids normal Conjunctivae: conjunctivae normal Sclera: sclerae normal Pupils: PERRL EOM: EOM intact bilaterally Neck Neck: normal visual inspection, trachea midline, No lymphadenopathy, No midline deformity and No JVD Lymphatic: No lymphedema Chest Chest: normal inspection of the chest Resp Effort & Inspection: normal respiratory effort, able to speak in complete sentences, no respiratory distress and no use of accessory muscles Auscultation: clear to auscultation bilaterally, no rales, no rhonchi and no wheezes Cardio Rate: regular rate Rhythm: regular rhythm Heart Sounds: no click, no gallops, no murmurs and no rubs Pulses: normal peripheral pulses GI Inspection: non-distended Palpation: soft, no hepatosplenomegaly, No guarding, No pulsatile mass and No tender Auscultation: normal bowel sounds Back/Spine/Pelvis Back: No CVA tenderness Cervical Spine: cervical ROM normal and No pain with cervical ROM Thoracic/Lumbar Spine: thoracic and lumbar spine normal to inspection Skin General: no rashes or lesions noted, No jaundice and No petechiae Neuro General: alert, oriented x3, gait normal and no focal motor deficits Speech: speech normal Extrem General: full ROM, no clubbing, cyanosis or edema, no pedal edema and no calf tenderness Psych Appearance: well kempt Mental Status: mental status grossly normal Attitude: cooperative Thought Content: normal and suicidality Judgment: judgment good Course Course Narrative: I did review the extensive records that came with the patient to get a better sense of the patient's history. The nurse did call from [facility] to report to our staff, prior to the patient's arrival, and she did state that recently, the patient has pain medications have been discontinued. Patient is pending a referral to chronic pain clinic. The patient stated that ?the only thing that helps for her headache is morphine, Benadryl, and Zofran.? She did state that if she does not get all 3 at the same time, they do not work. Patient was treated for her symptoms in the emergency department, with improvement. Labs were unremarkable, including a normal white blood cell count. The patient was afebrile, and did not demonstrate symptoms worrisome for meningitis, particularly since the symptoms had been ongoing for a number of weeks. Her CT scan was read by the radiologist as showing progressive interval of the slit-like ventricles since the prior exam, and the overshunting could not be excluded. As such, I did speak with Dr. Deepak Fontana, [facility], and he did not feel that given the patient's prior CT scan, which he was able to view along with ours, that the patient was in danger at this time. Additionally, she is not showing signs of significant neurologic compromise. He did feel the patient should follow up relatively soon, however, since she has remained symptomatic for an extended period of time. He recommended that the patient call the clinic of Dr. Oconnor, her neurosurgeon, tomorrow and schedule appointment to be re-evaluated with him. This was discussed with the patient, and patient is agreeable to this plan. Overall, patient was improved. Orders Ordered: Discontinued Medications Hydrocodone Bitart/Acetaminophen (Vicodin Prepack) 1 bottle MISC SEEINSTR ONE Stop: 01/07/19 00:33 Last Admin: 01/07/19 00:39 Dose: 1 bottle Diphenhydramine HCl (Benadryl) 25 mg IV NOW ONE Stop: 01/06/19 18:49 Last Admin: 01/06/19 19:32 Dose: 25 mg Sodium Chloride (Normal Saline 0.9%) 1,000 mls @ 1,000 mls/hr IV BOLUS ONE Stop: 01/06/19 19:47 Last Infusion: 01/06/19 21:08 Dose: 0 mls/hr Admin: 01/06/19 19:32 Dose: 1,000 mls/hr Morphine Sulfate (Morphine) 4 mg IV NOW ONE Stop: 01/06/19 18:49 Last Admin: 01/06/19 19:32 Dose: 4 mg Morphine Sulfate (Morphine) 4 mg IV NOW ONE Stop: 01/06/19 23:28 Last Admin: 01/06/19 23:31 Dose: 4 mg Ondansetron HCl (Zofran) 4 mg IV NOW ONE Stop: 01/06/19 18:49 Last Admin: 01/06/19 19:31 Dose: 4 mg Vital Signs - 8 hr 01/06/19 16:56 01/06/19 17:37 Temperature 98.1 F Pulse Rate 99 H 90 Respiratory Rate 18 17 Blood Pressure 124/84 Blood Pressure [Right Arm] 121/73 Pulse Oximetry 99 96 MDM - Neuro Symptoms/Deficit Medical Records Attestation: I reviewed the patient's medical records. Lab Data Attestation: I reviewed the patient's lab results. Result diagrams: 01/06/19 19:25 Lab Results 01/06/19 Range/Units 19:25 WBC 7.7 (4.5-11.0) X10^3/uL RBC 4.48 (4.0-5.2) X10^6/uL Hgb 14.3 (12.0-16.0) g/dL Hct 42.4 (36-46) % MCV 94.5 (80-100) fL MCH 31.9 (26-34) PG MCHC 33.7 (30-36) % RDW 13.8 (11.6-14.8) % Plt Count 222 (150-400) X10^3/uL Neut % (Auto) 55.6 (50-75) % Lymph % (Auto) 36.7 (25-40) % Edwards % (Auto) 5.6 (3-14) % Eos % (Auto) 1.6 L (2-4) % Baso % (Auto) 0.5 (0-2) % Neut # (Auto) 4300 (5337-4144) /uL Lymph # (Auto) 2800 (0628-7991) /uL Edwards # (Auto) 400 (0-900) /uL Eos # (Auto) 100 (0-450) /uL Baso # (Auto) 0 (0-100) /uL Imaging Data CT scan - head: Radiologist's impression: PROCEDURE: CT HEAD/BRAIN WO CON INDICATIONS: headache, recent shunt revision. TECHNIQUE: Noncontrast 4.5 mm thick angled axial sections acquired from the foramen magnum to the vertex, with coronal and sagittal reformats. For radiation dose reduction, the following was used: automated exposure control, adjustment of mA and/or kV according to patient size. COMPARISON: [facility], CT, CT HEAD WITHOUT CONTRAST, 03/02/2018, 21:27. [facility], CT, CT HEAD TPA, 09/08/2018, 13:44. [facility], CT, CT HEAD WITHOUT CONTRAST, 09/10/2018, 7:30. FINDINGS: Image quality: Excellent. CSF spaces: Basal cisterns are patent. No extra-axial fluid collections. Ventricles are slit like. Intraventricular shunts project into the internal and the lateral ventricles the bifrontal approach are stable compared to prior exam.. Brain: No midline shift. No intracranial masses or hemorrhage. Cage-white matter interface is normal. Skull and face: Calvarium and visualized facial bones are intact, without suspicious lesions. Sinuses: Visualized sinuses and mastoids are clear. IMPRESSION: 1. Slitlike ventricles show progressive interval since prior exam obtained 09/10/18. Over shunting cannot be excluded. 2. No intracranial hemorrhage. Dictated by: Mary Bates MD, PhD on 01/06/2019 at 18:45 Approved by: Mary Bates MD, PhD on 01/06/2019 at 18:48 Discharge Plan Departure Patient Disposition: Home Clinical Impression: Headache Qualifiers: Headache type: unspecified Headache chronicity pattern: episodic headache Intractability: not intractable Qualified Code(s): R51 - Headache Vomiting Qualifiers: Vomiting type: unspecified Vomiting Intractability: non-intractable Nausea presence: with nausea Qualified Code(s): R11.2 - Nausea with vomiting, unspecified Discharge Date/Time: 01/07/19 00:42 Interventions: ED Discharge Assessment Last Done: 01/07/19 00:41 Instructions: DI for Vomiting -- Adult, DI for Headache Activity Restrictions/Additional Instructions: Your case was discussed with the on-call neurosurgeon at /[facility]. He has looked at your CT scan from tonight compared with your most recent one, and feels that the findings are stable. He has suggested that you call Dr. Oconnor' neurosurgery clinic at after you get some sleep tonight, to schedule an appointment to be seen as soon as possible since you are still having symptoms. Please use the pain and nausea medication, as needed. Prescriptions: New hydrocodone-acetaminophen 5-325 mg tablet 1 tab PO Q6H PRN (Reason: pain) Qty: 7 RF: 0 ondansetron 4 mg tablet,disintegrating 4 mg PO Q6H PRN (Reason: nausea and vomiting) Qty: 14 RF: 0 No Action venlafaxine 37.5 mg capsule,extended release 24hr 37.5 mg PO DAILY MDD 112.5 mg Qty: 30 RF: 2 hydroxyzine HCl 25 mg tablet 25 mg PO TID PRN (Reason: nausea and vomiting) Qty: 30 RF: 0 hydrocodone-acetaminophen 5-325 mg tablet 1 tab PO Q4-6H PRN (Reason: pain) Qty: 10 RF: 0 prednisone 20 mg tablet 20 mg PO DAILY Qty: 5 RF: 0 amitriptyline 50 mg tablet 50 mg PO BEDTIME RF: 0 albuterol sulfate [ProAir HFA] 90 mcg/actuation HFA aerosol inhaler 2 puff Inhalation Q6H PRN (Reason: Wheezing) RF: 0 lamotrigine 150 mg tablet 150 mg PO BID RF: 0 sucralfate 1 gram tablet 1 g PO QID RF: 0 oxycodone-acetaminophen 5-325 mg tablet 1 - 2 tab PO Q6H MDD 6 PRN (Reason: Pain, Moderate) RF: 0 metoclopramide HCl 10 mg tablet 10 mg PO TID PRN (Reason: Nausea) RF: 0 quetiapine 25 mg tablet 25 mg PO BEDTIME RF: 0 venlafaxine 75 mg capsule,extended release 24hr 75 mg PO DAILY RF: 0 acetaminophen 325 mg Tablet 650 mg PO Q6HR PRN (Reason: As Needed For Fever/Mild Pain) Qty: 30 RF: 0 diphenhydramine HCl [Allergy (diphenhydramine)] 25 mg Tablet 50 mg PO Q4HR PRN (Reason: Itching) Qty: 30 RF: 0 dicyclomine 10 mg Capsule 10 mg PO Q6HR Qty: 30 RF: 0 valacyclovir 500 mg tablet 1,000 mg PO DAILY RF: 0
[2019-01-06 19:00] VITALS: BP 123/73; PULSE 85; O2SAT 97
[2019-01-06 19:31] LABS: Add Manual Diff / Slide Review NO; Basophils Absolute Auto 0 /uL (0-100); Basophils Percent Auto 0.5 % (0-2); Eosinophils Absolute Auto 100 /uL (0-450); Eosinophils Percent Auto 1.6 % (2-4); Hematocrit 42.4 % (36-46); Hemoglobin 14.3 g/dL (12.0-16.0); Lymphocytes Absolute Auto 2800 /uL (1100-4500); Lymphocytes Percent Auto 36.7 % (25-40); Mean Corpuscular HGB Conc 33.7 % (30-36); Mean Corpuscular Hemoglobin 31.9 PG (26-34); Mean Corpuscular Volume 94.5 fL (80-100); Monocytes Absolute Auto 400 /uL (0-900); Monocytes Percent Auto 5.6 % (3-14); Neutrophils Absolute Auto 4300 /uL (1500-7000); Neutrophils Percent Auto 55.6 % (50-75); Platelet Count 222 X10^3/uL (150-400); Red Blood Cell Count 4.48 X10^6/uL (4.0-5.2); Red Cell Distribution Width 13.8 % (11.6-14.8); White Blood Cell Count 7.7 X10^3/uL (4.5-11.0)
[2019-01-06] MEDS: ONDANSETRON 4 MG/2 ML INJ IV (19:31)
[2019-01-06] MEDS: diphenhydrAMINE 50 MG/ML VIAL 25 MG IV (19:32)
[2019-01-06] MEDS: MORPHINE 4 MG/ML INJ IV ×2 (19:32→23:31)
[2019-01-06] MEDS: SODIUM CHLORIDE 0.9% 1,000 ML 1000 ML IV (19:32)
[2019-01-06 20:30] VITALS: BP 124/72; PULSE 88; RESP 17; O2SAT 99
[2019-01-06 21:00] VITALS: BP 101/55; PULSE 86; RESP 17; O2SAT 100
[2019-01-06 23:00] VITALS: BP 113/65; PULSE 70; O2SAT 95
[2019-01-07] MEDS: HYDROCODONE/ACET 5/325 PREPACK 1 BOTTLE MISC (00:39)
== END 2019-01-07 00:42 | disposition home or self-care (01) ==
PROVIDERS: Emergency Provider Emergency Medicine
DX: R51 Headache (principal); R11.2 Nausea with vomiting, unspecified
CPT/HCPCS: 36591; 70450; 85025; 96361; 96374; 96375; 96376; 99283; 99284; J1200; J2270; J2405

== ENCOUNTER 2019-04-28 18:24 | Emergency (ER) | payer OTHER, MEDICAID, SELFPAY ==
[2018-01-17 01:41] VITALS: BMI 32.3
[2019-04-28 18:58] VITALS: BP 142/90; PULSE 85; RESP 18; TEMP 37; O2SAT 99; BMI 32.5
[2019-04-28 19:40] LABS: Add Manual Diff / Slide Review NO; Basophils Absolute Auto 100 /uL (0-100); Basophils Percent Auto 0.6 % (0-2); Eosinophils Absolute Auto 100 /uL (0-450); Eosinophils Percent Auto 0.9 % (2-4); Hematocrit 44.4 % (36-46); Hemoglobin 15.2 g/dL (12.0-16.0); Lymphocytes Absolute Auto 2800 /uL (1100-4500); Lymphocytes Percent Auto 29.5 % (25-40); Mean Corpuscular HGB Conc 34.2 % (30-36); Mean Corpuscular Hemoglobin 32.6 PG (26-34); Mean Corpuscular Volume 95.3 fL (80-100); Monocytes Absolute Auto 500 /uL (0-900); Monocytes Percent Auto 4.8 % (3-14); Neutrophils Absolute Auto 6100 /uL (1500-7000); Neutrophils Percent Auto 64.2 % (50-75); Platelet Count 248 X10^3/uL (150-400); Red Blood Cell Count 4.66 X10^6/uL (4.0-5.2); White Blood Cell Count 9.4 X10^3/uL (4.5-11.0)
[2019-04-28 19:44] LABS: Alanine Aminotransferase 25 IU/L (<35); Albumin Globulin Ratio 1.7 (1.0-2.8); Alkaline Phosphatase 87 U/L (38-126); Aspartate Aminotransferase 22 IU/L (14-36); BUN Creatinine Ratio 18.8 (6-22); Bilirubin Total 0.3 mg/dL (0.2-1.3); Blood Urea Nitrogen 15 mg/dL (7-17); Calcium 9.7 mg/dL (8.4-10.2); Carbon Dioxide 29 mmol/L (22-32); Chloride 103 mmol/L (98-107); Estimated Glomerular Filt Rate > 60.0 mL/min (>60); Globulin 2.9 g/dL (1.7-4.1); Glucose 94 mg/dL (70-100); HEMOLYSIS < 15 (0-50); Potassium 3.5 mmol/L (3.4-5.1); Sodium 141 mmol/L (137-145); Total Protein 7.9 g/dL (6.3-8.2)
[2019-04-28] MEDS: SODIUM CHLORIDE 0.9% 1,000 ML 1000 ML IV (19:50)
[2019-04-28 20:06] LABS: Bacteria Urine Occasional (0-1); Culture Indicated Urine Specimen Cultured; RBC Urine 30-100/HPF (0-5/HPF); Squamous Epithelial Cell Urine 0-1 /HPF (0-5/HPF); WBC Urine 5-10/HPF (0-5/HPF)
--- NOTE | 2019-04-28 20:29 | DI.CT.S_ITS ---
PROCEDURE: CT ABDOMEN PELVIS W CON INDICATIONS: bilateral flank pain and RLQ pain TECHNIQUE: After the administration of intravenous contrast, 5 mm thick sections acquired from the diaphragm to the symphysis. 5 mm coronal and sagittal reformats were acquired. For radiation dose reduction, the following was used: automated exposure control, adjustment of mA and/or kV according to patient size. COMPARISON: [facility], CT, CT KIDNEY URETER BLADDER (KUB), 08/22/2018, 19:46. [facility], CT, CT ABDOMEN PELVIS W CON, 01/22/2018, 19:15. FINDINGS: Image quality: Excellent. ABDOMEN: Lung bases: There is bibasilar dependent atelectasis.. Heart size is normal. Solid organs: Liver is normal in size. Hepatic steatosis is noted. No discrete hepatic lesion. Gallbladder is surgically absent. Biliary system is non dilated. Pancreas enhances normally. Spleen is normal in size and enhancement. No adrenal nodules. Kidneys demonstrate normal size and enhancement, without hydronephrosis. Peritoneum and bowel: Bowel loops demonstrate normal wall thickness and caliber. No free fluid or air. No evidence of acute appendicitis or diverticulitis. Mild to moderate sigmoid diverticulosis is seen. Nodes and vessels: No retroperitoneal or mesenteric adenopathy by size criteria. Aorta and inferior vena cava are normal in size. Miscellaneous: Small metal hernia is seen containing fat only. PELVIS: Genitourinary: Bladder wall thickness is normal. Miscellaneous: No inguinal hernias or adenopathy. Bones: No suspicious bony lesions. No vertebral body compression fractures. IMPRESSION: 1. No finding to explain patient's symptoms. No acute inflammatory process within the abdomen or pelvis. No bowel obstruction. No free fluid or free air. No evidence of acute appendicitis or diverticulitis. 2. Hepatic steatosis. 3. No renal stone or hydronephrosis. Dictated by: Bismark Alicea M.D. on 04/28/2019 at 21:06 Approved by: Bismark Alicea M.D. on 04/28/2019 at 21:11
[2019-04-28] MEDS: ONDANSETRON 4 MG/2 ML INJ IV (20:38)
[2019-04-28] MEDS: HYDROMORPHONE 0.5 MG INJ IV (20:38)
[2019-04-28 21:50] VITALS: BP 137/81; PULSE 90; RESP 17; O2SAT 100
[2019-04-28] MEDS: TRAMADOL 50 MG PREPACK 1 BOTTLE MISC (22:01)
[2019-04-28] MEDS: ONDANSETRON 4 MG ODT PREPACK 1 BOTTLE MISC (22:01)
--- NOTE | 2019-04-29 00:44 | ED.ABDPAIN ---
HPI - Abdominal Pain <AGUILAR Tolentino - Last Filed: 04/29/19 01:02> General Chief Complaint: Abdominal Pain Stated Complaint: kidney pain,frequent urination,groin pain Time Seen by Provider: 04/28/19 20:01 Source: patient Mode of arrival: Ambulatory Limitations: no limitations History of Present Illness HPI narrative: This is a 30-year-old female, to ED with her son with chief complain of bilateral flank pain with right lower quadrant pain. Patient reports urinary frequency which started today without dysuria or urgency. Patient denies fever chills. Patient reports nausea and vomiting for last 3-4 days. Patient denies hematuria. Patient has history of appendectomy, cholecystectomy, urethral lift with complications and had bladder mesh. Patient had completed hysterectomy secondary to ovarian and cervical cancer. Patient states she is able to void spontaneously but has to self cath herself to completely empty the bladder. LMP 2003. Patient was evaluated with similar symptoms in the pasts in ED. Related Data Home Medications Medication Instructions Recorded Confirmed quetiapine 25 mg PO BEDTIME 01/05/18 09/08/18 venlafaxine 75 mg PO DAILY 01/05/18 01/06/19 valacyclovir 1,000 mg PO DAILY 07/24/18 01/06/19 albuterol sulfate [ProAir HFA] 2 puff INHALATION Q6H PRN 09/08/18 09/08/18 amitriptyline 50 mg PO BEDTIME 09/08/18 09/08/18 lamotrigine 150 mg PO BID 01/06/19 01/06/19 metoclopramide HCl 10 mg PO TID PRN 01/06/19 01/06/19 oxycodone-acetaminophen 1 - 2 tab PO Q6H PRN MDD 6 01/06/19 01/06/19 sucralfate 1 g PO QID 01/06/19 01/06/19 Previous Rx's Medication Instructions Recorded venlafaxine 37.5 mg 37.5 mg PO DAILY #30 cap MDD 112.5 12/30/17 capsule,extended release 24 hr mg acetaminophen 650 mg PO Q6HR PRN #30 tab 01/18/18 dicyclomine 10 mg PO Q6HR #30 cap 01/18/18 diphenhydramine HCl [Allergy 50 mg PO Q4HR PRN #30 tab 01/18/18 (diphenhydramine)] hydroxyzine HCl 25 mg tablet 25 mg PO TID PRN #30 tab 01/23/18 hydrocodone-acetaminophen 1 tab PO Q4-6H PRN #10 tab 05/24/18 prednisone 20 mg PO DAILY #5 tab 05/24/18 hydrocodone-acetaminophen 1 tab PO Q6H PRN #7 tab 01/07/19 ondansetron 4 mg PO Q6H PRN #14 tab 01/07/19 Allergies Allergy/AdvReac Type Severity Reaction Status Date / Time coconut [COCONUT] Allergy Severe STOPS Verified 04/28/19 18:58 BREATHS prochlorperazine Allergy Intermediate seizure Verified 04/28/19 18:58 NSAIDS (Non-Steroidal Allergy Mild rash, milner Verified 04/28/19 18:58 Anti-Inflamma [NSAIDS (NON-STEROIDAL ANTI-INFLAMMA] promethazine [From PHENERGAN] Allergy Unknown restless Verified 04/28/19 18:58 legs Review of Systems <AGUILAR Tolentino - Last Filed: 04/29/19 01:02> Review of Systems Narrative: General: Denies fever, chills, fatigue, malaise, sweats. HEENT: Denies sinus pain, ear pain, sore throat, difficulty swallowing, dizziness. Respiratory: Denies dyspnea, cough, wheezing, hemoptysis, sputum. Cardiovascular: Denies chest pain, palpitations, orthopnea, edema. Gastrointestinal: See HPI : See HPI Musculoskeletal: Denies weakness, joint pain or bony pain. Skin: Denies rash, skin lesions, or other. Neurologic: Denies weakness, headache, numbness, change in speech, confusion, seizures, incoordination. Psychiatric: No concerning psychosocial issues. 12-point review of systems is negative except for those stated above. Patient History <AGUILAR Tolentino - Last Filed: 04/29/19 01:02> Medical History (Updated 04/29/19 @ 00:51 by AGUILAR Tolentino) Anxiety (Chronic) Cervical cancer (Acute) Depression (Chronic) Femoral acetabular impingement (Chronic) Genital herpes (Chronic) Gout (Chronic) Kidney stones (Resolved 12/2016) Ovarian cancer (Resolved) Pseudotumor cerebri (Resolved) Pulmonary embolism (Resolved 2010) Pulmonary embolism (Resolved 2009) Uterine cancer (Resolved) Surgical History History of bladder surgery (Acute) History of carpal tunnel repair (Resolved) Status post appendectomy (Resolved) Status post breast reduction (Resolved) Status post cholecystectomy (Resolved) Status post hernia repair (Resolved 2014) Status post hysterectomy with oophorectomy (Resolved 2003) Status post laparoscopy (Resolved) SHEEP STICKER (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) shunt status (Resolved) Family History Father History of kidney cancer Mother Diabetes mellitus Hypertension Hyperlipidemia CAD (coronary artery disease) CVA (cerebral vascular accident) Social History marital status: household members: family lives independently: Yes occupational status: employed Smoking Status: Former smoker alcohol intake: never substance use type: marijuana alcohol intake frequency: holidays/special occasions only Substance Use Type: does not use Exam <AGUILAR Tolentino - Last Filed: 04/29/19 01:02> Narrative Exam Narrative: GEN: Alert, oriented x 3, well appearing and nourished, and in no acute distress. Head: Normal cephalic, atraumatic. No scalp or temporal tenderness, palpable mass or rash. EYES: Pupils are equal, round, and reactive to light and accommodation. Extraocular muscles are intact bilaterally. There is no subconjunctival hemorrhage, exudate and sclera non-icteric. ENT: Bilateral auditory canals and tympanic membranes clear. Hearing grossly intact. Nose without bleeding, purulent discharge or deviation. Facial sinuses nontender to palpate. Mucous membrane moist, no mucosal lesion. Throat without erythema, tonsillar hypertrophy or exudate. Uvula in midline, airway patent. Neck: Trachea in midline. No JVD, non-tender without lymphadenopathy. No masses or thyroid megaly. Supple, non-tender and no meningeal signs. CARDIAC: Normal regular rate and rhythm without murmurs, gallops, or rubs. No chest wall tenderness. No peripheral edema, cyanosis or pallor. Capillary refill is less than 2 seconds. RESPIRATORY: Lungs are clear to auscultate bilaterally. No cough, wheezes, rales, or rhonchi. No stridor, respiratory distress, increase work of breathing, or accessary muscle used. ABD: Abdomen soft and non-distended. No guarding but extremity tenderness to palpate on right lower quadrant. Bowel sounds are normal in all 4 quadrants. There is no palpable masses or organomegaly. EXT: Full painless ROM of all extremities with no loss of sensation, strength, effusion or edema. SKIN: Warm, dry, normal color for patient. No erythema, lesions or rash over visible areas. BACK: Nontender without deformity or crepitance. Significant flank tenderness in bilateral upper and lower back. NEUROLOGICAL: Alert and oriented to place, time and person. Sensation and motor function intact bilaterally. No facial droops, dysphasia. PSYCHIATRIC: Good judgement and reason, without hallucinations, abnormal affect or abnormal behaviors during the examination. Patient is not suicidal. Initial Vital Signs Initial Vital Signs: Vital Signs Temperature 98.6 F 04/28/19 18:58 Pulse Rate 85 04/28/19 18:58 Respiratory Rate 18 04/28/19 18:58 Blood Pressure 142/90 H 04/28/19 18:58 Pulse Oximetry 99 04/28/19 18:58 <Augeda Burger DO - Last Filed: 04/29/19 03:01> Initial Vital Signs Initial Vital Signs: Vital Signs Temperature 98.6 F 04/28/19 18:58 Pulse Rate 85 04/28/19 18:58 Respiratory Rate 18 04/28/19 18:58 Blood Pressure 142/90 H 04/28/19 18:58 Pulse Oximetry 99 04/28/19 18:58 Course <AGUILAR Tolentino - Last Filed: 04/29/19 01:02> Orders Ordered: ED Orders 04/28/19 19:14 Urine Culture Stat Urine Microscopic Stat 04/28/19 19:20 Complete Blood Count AUTO DIFF Stat Comprehensive Metabolic Panel Stat 04/28/19 20:29 CT abdomen pelvis w con Stat Discontinued Medications Hydromorphone HCl (Dilaudid) 0.5 mg IV NOW ONE Stop: 04/28/19 20:33 Last Admin: 04/28/19 20:38 Dose: 0.5 mg Documented by: MMCFARL Sodium Chloride (Normal Saline 0.9%) 1,000 mls @ 1,000 mls/hr IV BOLUS ONE Stop: 04/28/19 20:27 Last Infusion: 04/28/19 21:03 Dose: 1,000 mls/hr Documented by: Admin: 04/28/19 19:50 Dose: 1,000 mls/hr Documented by: RICH Ondansetron HCl (Zofran) 4 mg IV NOW ONE Stop: 04/28/19 20:30 Last Admin: 04/28/19 20:38 Dose: 4 mg Documented by: RICH Ondansetron HCl (Zofran Odt Prepack) 1 bottle MISC SEEINSTR ONE Stop: 04/28/19 21:54 Last Admin: 04/28/19 22:01 Dose: 1 bottle Documented by: RICH Tramadol HCl (Ultram 50mg Prepack) 1 bottle MISC SEEINSTR ONE Stop: 04/28/19 21:54 Last Admin: 04/28/19 22:01 Dose: 1 bottle Documented by: RICH Vital Signs Vital signs: Vital Signs - 8 hr 04/28/19 21:50 Pulse Rate 90 Respiratory Rate 17 Blood Pressure [Left Arm] 137/81 Pulse Oximetry 100 <Agueda Burger DO - Last Filed: 04/29/19 03:01> Orders Ordered: ED Orders 04/28/19 19:14 Urine Culture Stat Urine Microscopic Stat 04/28/19 19:20 Complete Blood Count AUTO DIFF Stat Comprehensive Metabolic Panel Stat 04/28/19 20:29 CT abdomen pelvis w con Stat Discontinued Medications Hydromorphone HCl (Dilaudid) 0.5 mg IV NOW ONE Stop: 04/28/19 20:33 Last Admin: 04/28/19 20:38 Dose: 0.5 mg Documented by: RICH Sodium Chloride (Normal Saline 0.9%) 1,000 mls @ 1,000 mls/hr IV BOLUS ONE Stop: 04/28/19 20:27 Last Infusion: 04/28/19 21:03 Dose: 1,000 mls/hr Documented by: Admin: 04/28/19 19:50 Dose: 1,000 mls/hr Documented by: RICH Ondansetron HCl (Zofran) 4 mg IV NOW ONE Stop: 04/28/19 20:30 Last Admin: 04/28/19 20:38 Dose: 4 mg Documented by: MMCFARL Ondansetron HCl (Zofran Odt Prepack) 1 bottle MISC SEEINSTR ONE Stop: 04/28/19 21:54 Last Admin: 04/28/19 22:01 Dose: 1 bottle Documented by: MMCFARL Tramadol HCl (Ultram 50mg Prepack) 1 bottle MISC SEEINSTR ONE Stop: 04/28/19 21:54 Last Admin: 04/28/19 22:01 Dose: 1 bottle Documented by: MMCFARL Vital Signs Vital signs: Vital Signs - 8 hr 04/28/19 21:50 Pulse Rate 90 Respiratory Rate 17 Blood Pressure [Left Arm] 137/81 Pulse Oximetry 100 MDM - Abdominal Pain <Jerzy AGUILAR Sun - Last Filed: 04/29/19 01:02> Differential Diagnosis Differential diagnosis: Likely abdominal pain, calculus of kidney and other (Bladder infection, bowel obstruction, malignancy) Medical Records Attestation: I reviewed the patient's medical records. Lab Data Attestation: I reviewed the patient's lab results. Result diagrams: 04/28/19 19:20 04/28/19 19:20 Labs: Lab Results 04/28/19 04/28/19 04/28/19 Range/Units 19:14 19:20 19:20 WBC 9.4 (4.5-11.0) X10^3/uL RBC 4.66 (4.0-5.2) X10^6/uL Hgb 15.2 (12.0-16.0) g/dL Hct 44.4 (36-46) % MCV 95.3 (80-100) fL MCH 32.6 (26-34) PG MCHC 34.2 (30-36) % RDW 14.0 (11.6-14.8) % Plt Count 248 (150-400) X10^3/uL Neut % (Auto) 64.2 (50-75) % Lymph % (Auto) 29.5 (25-40) % [place] % (Auto) 4.8 (3-14) % Eos % (Auto) 0.9 L (2-4) % Baso % (Auto) 0.6 (0-2) % Neut # (Auto) 6100 (1142-7885) /uL Lymph # (Auto) 2800 (4641-9689) /uL [place] # (Auto) 500 (0-900) /uL Eos # (Auto) 100 (0-450) /uL Baso # (Auto) 100 (0-100) /uL Sodium 141 (137-145) mmol/L Potassium 3.5 (3.4-5.1) mmol/L Chloride 103 (98-107) mmol/L Carbon Dioxide 29 (22-32) mmol/L BUN 15 (7-17) mg/dL Creatinine 0.80 (0.52-1.04) mg/dL Estimated GFR > 60.0 (>60) mL/min BUN/Creatinine Ratio 18.8 (6-22) Glucose 94 (70-100) mg/dL Calcium 9.7 (8.4-10.2) mg/dL Total Bilirubin 0.3 (0.2-1.3) mg/dL AST 22 (14-36) IU/L ALT 25 (<35) IU/L Alkaline Phosphatase 87 (38-126) U/L Total Protein 7.9 (6.3-8.2) g/dL Albumin 5.0 (3.5-5.0) g/dL Globulin 2.9 (1.7-4.1) g/dL Albumin/Globulin Ratio 1.7 (1.0-2.8) Urine RBC 30-100/hpf H (0-5/HPF) Urine WBC 5-10/hpf H (0-5/HPF) Ur Squamous Epith Cells 0-1 /hpf (0-5/HPF) Urine Bacteria Occasional (0-1) (None) Ur Culture Indicated? Specimen cultured Point of care testing: Urine Dip Bedside Urine Glucose Negative Bedside Urine Bilirubin - Negative Bedside Urine Ketone - Negative Urine Specific [place] 1.010 Bedside Urine Occult Blood +++ Bedside Urine pH 6.5 Bedside Urine Protein - Negative Bedside Urine Urobilinogen - Negative Bedside Urine Nitrite - Negative Bedside Urine Leukocytes - Negative Esterase Imaging Data CT scan - abdomen: Radiologist's impression: [address] [address] [address] Scan Report Signed Patient: Jing Perea GMR#: [id number] : 1980Acct:[id number] Age/Sex: 38 / FDate of Service: 04/28/19 Loc: ED Accession Number: [id number] Procedure: CT abdomen pelvis w con Ordering Provider: Jerzy Sun [facility] PROCEDURE: CT ABDOMEN PELVIS W CON INDICATIONS: bilateral flank pain and RLQ pain TECHNIQUE: After the administration of intravenous contrast, 5 mm thick sections acquired from the diaphragm to the symphysis. 5 mm coronal and sagittal reformats were acquired. For radiation dose reduction, the following was used: automated exposure control, adjustment of mA and/or kV according to patient size. COMPARISON: [facility], CT, CT KIDNEY URETER BLADDER (KUB), 08/22/2018, 19:46. [facility], CT, CT ABDOMEN PELVIS W CON, 01/22/2018, 19:15. FINDINGS: Image quality: Excellent. ABDOMEN: Lung bases: There is bibasilar dependent atelectasis.. Heart size is normal. Solid organs: Liver is normal in size. Hepatic steatosis is noted. No discrete hepatic lesion. Gallbladder is surgically absent. Biliary system is non dilated. Pancreas enhances normally. Spleen is normal in size and enhancement. No adrenal nodules. Kidneys demonstrate normal size and enhancement, without hydronephrosis. Peritoneum and bowel: Bowel loops demonstrate normal wall thickness and caliber. No free fluid or air. No evidence of acute appendicitis or diverticulitis. Mild to moderate sigmoid diverticulosis is seen. Nodes and vessels: No retroperitoneal or mesenteric adenopathy by size criteria. Aorta and inferior vena cava are normal in size. Miscellaneous: Small metal hernia is seen containing fat only. PELVIS: Genitourinary: Bladder wall thickness is normal. Miscellaneous: No inguinal hernias or adenopathy. Bones: No suspicious bony lesions. No vertebral body compression fractures. IMPRESSION: 1. No finding to explain patient's symptoms. No acute inflammatory process within the abdomen or pelvis. No bowel obstruction. No free fluid or free air. No evidence of acute appendicitis or diverticulitis. 2. Hepatic steatosis. 3. No renal stone or hydronephrosis. Dictated by: Bismark Alicea M.D. on 04/28/2019 at 21:06 Approved by: Bismark Alicea M.D. on 04/28/2019 at 21:11 [facility] Narrative Medical decision making narrative: This is a 38-year-old female with chief complain of right lower quadrant pain with bilateral flank pain for about a week with urinary frequency. Patient denies other urinary symptoms for infections. Patient has significant history of abdominal surgeries including appendectomy, complete hysterectomy, bladder mesh surgery with urethra left, history of ovarian cervical cancer. Physical exam appreciated significant tenderness to light palpate on right lower quadrant and bilateral CVA tenderness and upper/mid back pain. Patient has been afebrile with stable vital signs. Blood test for CBC and chemistry were unremarkable. Urine test was negative for urine leuko esterase and nitrites but positive for occult blood. Urine culture is pending for micro test with positive RBC, small amount of the WBC and occasional bacteria. Patient was informed that she will get a phone call if she needs antibiotic medication treatment per culture test. Considered kidney stone with occult hematuria and bilateral flank pain with nausea and vomiting. Abdomen/pelvis CT shows no inflammatory process or bowel obstruction. No renal stones or hydronephrosis was appreciated. Patient was medicated initially with IV fluid of normal saline, Zofran. When toward our was offered patient states she has an allergy reaction get really angry and states Toradol never works for her. Patient was medicated with 0.5 mg of Dilaudid. Before patient discharged home patient reports recurring abdominal pain and nausea. I shared the findings with the patient and unknown etiology of her abdominal pain. Patient offered pre packs of tramadol and Zofran and medicated 1st dose in ED. Patient advised to follow up with her primary care physician and return precautions were discussed with the patient. Patient verbalized understanding and agrees with the treatment plan. <Agueda Burger, DO - Last Filed: 04/29/19 03:01> Lab Data Labs: Lab Results 04/28/19 04/28/19 04/28/19 Range/Units 19:14 19:20 19:20 WBC 9.4 (4.5-11.0) X10^3/uL RBC 4.66 (4.0-5.2) X10^6/uL Hgb 15.2 (12.0-16.0) g/dL Hct 44.4 (36-46) % MCV 95.3 (80-100) fL MCH 32.6 (26-34) PG MCHC 34.2 (30-36) % RDW 14.0 (11.6-14.8) % Plt Count 248 (150-400) X10^3/uL Neut % (Auto) 64.2 (50-75) % Lymph % (Auto) 29.5 (25-40) % [place] % (Auto) 4.8 (3-14) % Eos % (Auto) 0.9 L (2-4) % Baso % (Auto) 0.6 (0-2) % Neut # (Auto) 6100 (0527-4057) /uL Lymph # (Auto) 2800 (3962-7411) /uL [place] # (Auto) 500 (0-900) /uL Eos # (Auto) 100 (0-450) /uL Baso # (Auto) 100 (0-100) /uL Sodium 141 (137-145) mmol/L Potassium 3.5 (3.4-5.1) mmol/L Chloride 103 (98-107) mmol/L Carbon Dioxide 29 (22-32) mmol/L BUN 15 (7-17) mg/dL Creatinine 0.80 (0.52-1.04) mg/dL Estimated GFR > 60.0 (>60) mL/min BUN/Creatinine Ratio 18.8 (6-22) Glucose 94 (70-100) mg/dL Calcium 9.7 (8.4-10.2) mg/dL Total Bilirubin 0.3 (0.2-1.3) mg/dL AST 22 (14-36) IU/L ALT 25 (<35) IU/L Alkaline Phosphatase 87 (38-126) U/L Total Protein 7.9 (6.3-8.2) g/dL Albumin 5.0 (3.5-5.0) g/dL Globulin 2.9 (1.7-4.1) g/dL Albumin/Globulin Ratio 1.7 (1.0-2.8) Urine RBC 30-100/hpf H (0-5/HPF) Urine WBC 5-10/hpf H (0-5/HPF) Ur Squamous Epith Cells 0-1 /hpf (0-5/HPF) Urine Bacteria Occasional (0-1) (None) Ur Culture Indicated? Specimen cultured Point of care testing: Urine Dip Bedside Urine Glucose Negative Bedside Urine Bilirubin - Negative Bedside Urine Ketone - Negative Urine Specific [place] 1.010 Bedside Urine Occult Blood +++ Bedside Urine pH 6.5 Bedside Urine Protein - Negative Bedside Urine Urobilinogen - Negative Bedside Urine Nitrite - Negative Bedside Urine Leukocytes - Negative Esterase Discharge Plan Departure Patient Disposition: Home Clinical Impression: Right sided abdominal pain, Bilateral flank pain Discharge Date/Time: 04/28/19 22:19 Instructions: DI for Abdominal Pain-Adult, DI for Flank Pain Activity Restrictions/Additional Instructions: You have been diagnosed with [bilateral flank pain and right lower quadrant pain with nausea and vomiting. The blood test and abdomen CT tests are looking good today. Your urine is being cultured at this time and no get a phone call if you need a treatment with antibiotic medication.]. What to do: *Take your medications as directed. Please take tramadol for pain as needed. This medication may cause drowsiness so please take precaution such as not driving, drinking alcohol or operating heavy equipments. Also, you can take Zofran as needed for nausea or vomiting. *Follow up with your primary care provider in 2-3 days, call for an appointment. Let them know you were seen in the ED and that we asked you to be seen in follow up. *Return to ED if you have any new, worsening, or concerning symptoms, such as [chest pain, breathing difficulty, unable to tolerate fluids, or any acute concerns]. Prescriptions: No Action venlafaxine 37.5 mg capsule,extended release 24hr 37.5 mg PO DAILY MDD 112.5 mg Qty: 30 RF: 2 hydroxyzine HCl 25 mg tablet 25 mg PO TID PRN (Reason: nausea and vomiting) Qty: 30 RF: 0 hydrocodone-acetaminophen 5-325 mg tablet 1 tab PO Q4-6H PRN (Reason: pain) Qty: 10 RF: 0 prednisone 20 mg tablet 20 mg PO DAILY Qty: 5 RF: 0 amitriptyline 50 mg tablet 50 mg PO BEDTIME RF: 0 albuterol sulfate [ProAir HFA] 90 mcg/actuation HFA aerosol inhaler 2 puff Inhalation Q6H PRN (Reason: Wheezing) RF: 0 lamotrigine 150 mg tablet 150 mg PO BID RF: 0 sucralfate 1 gram tablet 1 g PO QID RF: 0 oxycodone-acetaminophen 5-325 mg tablet 1 - 2 tab PO Q6H MDD 6 PRN (Reason: Pain, Moderate) RF: 0 metoclopramide HCl 10 mg tablet 10 mg PO TID PRN (Reason: Nausea) RF: 0 hydrocodone-acetaminophen 5-325 mg tablet 1 tab PO Q6H PRN (Reason: pain) Qty: 7 RF: 0 ondansetron 4 mg tablet,disintegrating 4 mg PO Q6H PRN (Reason: nausea and vomiting) Qty: 14 RF: 0 quetiapine 25 mg tablet 25 mg PO BEDTIME RF: 0 venlafaxine 75 mg capsule,extended release 24hr 75 mg PO DAILY RF: 0 acetaminophen 325 mg Tablet 650 mg PO Q6HR PRN (Reason: As Needed For Fever/Mild Pain) Qty: 30 RF: 0 diphenhydramine HCl [Allergy (diphenhydramine)] 25 mg Tablet 50 mg PO Q4HR PRN (Reason: Itching) Qty: 30 RF: 0 dicyclomine 10 mg Capsule 10 mg PO Q6HR Qty: 30 RF: 0 valacyclovir 500 mg tablet 1,000 mg PO DAILY RF: 0 Referrals: Crescencio Colón PA-C [Non-Staff] -
== END 2019-04-28 22:19 | disposition home or self-care (01) ==
PROVIDERS: Emergency Medicine; Emergency Provider Nurse Practitioner Family
DX: R10.31 Right lower quadrant pain (principal); R11.2 Nausea with vomiting, unspecified; R35.0 Frequency of micturition
CPT/HCPCS: 36415; 74177; 80053; 81003; 81015; 85025; 87086; 96361; 96374; 96375; 99283; 99284; J1170; J2405; Q9967

== ENCOUNTER 2019-05-14 14:06 | Emergency (ER) | payer OTHER, MEDICAID, SELFPAY ==
[2018-01-17 01:41] VITALS: BMI 32.3
--- NOTE | 2019-05-14 14:15 | DI.RAD.S_ITS ---
PROCEDURE: XR FINGER LT MIN 2V INDICATIONS: cut right thumb while butchering, hit hard TECHNIQUE: AP hand, 2 views of the first finger(s) acquired. COMPARISON: None. FINDINGS: Bones: No fractures or dislocations. No suspicious bony lesions. Soft tissues: No suspicious soft tissue calcifications. IMPRESSION: No fracture or foreign body material found. Dictated by: Cecilio Hernandez M.D. on 05/14/2019 at 14:57 Approved by: Cecilio Hernandez M.D. on 05/14/2019 at 14:57
[2019-05-14 14:16] VITALS: BP 138/95; PULSE 110; RESP 18; TEMP 35.7; O2SAT 96; BMI 33.2
[2019-05-14 15:11] VITALS: BP 134/79; PULSE 102; RESP 18; O2SAT 97
--- NOTE | 2019-05-14 16:15 | ED.UPPEXIN ---
HPI - Extremity Injury (Upper) <Jerzy Sun AGUILAR - Last Filed: 05/14/19 21:16> General Chief Complaint: Extremity Injury, Upper Stated Complaint: left hand thumb 'cut off' Time Seen by Provider: 05/14/19 15:58 Source: patient Mode of arrival: Family Vehicle Limitations: no limitations History of Present Illness HPI narrative: This is a 38-year-old female, smoker, who presents to ED with significant other after she had injured her left thumb by a on car supervisor knife when she was chopping rabbits this afternoon. Patient reports is able to move affected finger but painful. Right dominant hand. Tetanus immunization was updated last year. Patient states cleaned will well after the injury and came in to ED and had taken 1 g of Tylenol prior coming into ED. patient reports has GI sensitivity to NSAIDS and is unable to tolerate it. Related Data Home Medications Medication Instructions Recorded Confirmed quetiapine 25 mg PO BEDTIME 01/05/18 09/08/18 venlafaxine 75 mg PO DAILY 01/05/18 01/06/19 valacyclovir 1,000 mg PO DAILY 07/24/18 05/14/19 albuterol sulfate [ProAir HFA] 2 puff INHALATION Q6H PRN 09/08/18 09/08/18 amitriptyline 50 mg PO BEDTIME 09/08/18 09/08/18 lamotrigine 150 mg PO BID 01/06/19 05/14/19 metoclopramide HCl 10 mg PO TID PRN 01/06/19 01/06/19 oxycodone-acetaminophen 1 - 2 tab PO Q6H PRN MDD 6 01/06/19 01/06/19 sucralfate 1 g PO QID 01/06/19 01/06/19 venlafaxine 37.5 mg PO DAILY 05/14/19 05/14/19 Previous Rx's Medication Instructions Recorded venlafaxine 37.5 mg 37.5 mg PO DAILY #30 cap MDD 112.5 12/30/17 capsule,extended release 24 hr mg acetaminophen 650 mg PO Q6HR PRN #30 tab 01/18/18 dicyclomine 10 mg PO Q6HR #30 cap 01/18/18 diphenhydramine HCl [Allergy 50 mg PO Q4HR PRN #30 tab 08/26/18 (diphenhydramine)] hydroxyzine HCl 25 mg tablet 25 mg PO TID PRN #30 tab 01/23/18 Allergies Allergy/AdvReac Type Severity Reaction Status Date / Time coconut [COCONUT] Allergy Severe STOPS Verified 05/14/19 14:20 BREATHS prochlorperazine Allergy Intermediate seizure Verified 05/14/19 14:20 NSAIDS (Non-Steroidal Allergy Mild rash, milner Verified 05/14/19 14:20 Anti-Inflamma [NSAIDS (NON-STEROIDAL ANTI-INFLAMMA] promethazine [From PHENERGAN] Allergy Unknown restless Verified 05/14/19 14:20 legs Review of Systems <AGUILAR Tolentnio - Last Filed: 05/14/19 21:16> Review of Systems Narrative: General: Denies fever, chills, fatigue, malaise, sweats. HEENT: Denies sinus pain, ear pain, sore throat, difficulty swallowing, dizziness. Respiratory: Denies dyspnea, cough, wheezing, hemoptysis, sputum. Cardiovascular: Denies chest pain, palpitations, orthopnea, edema. Gastrointestinal: Denies nausea, vomiting, abdominal pain, diarrhea, constipation, melena. : Denies dysuria, frequency, incontinence, hematuria, urinary retention. Musculoskeletal: See HPI Skin: Denies rash, skin lesions, or other. Neurologic: Denies weakness, headache, numbness, change in speech, confusion, seizures, incoordination. Psychiatric: No concerning psychosocial issues. 12-point review of systems is negative except for those stated above. Patient History <AGUILAR Tolentino - Last Filed: 05/14/19 21:16> Medical History Anxiety (Chronic) Cervical cancer (Acute) Depression (Chronic) Femoral acetabular impingement (Chronic) Genital herpes (Chronic) Gout (Chronic) Kidney stones (Resolved 12/2016) Ovarian cancer (Resolved) Pseudotumor cerebri (Resolved) Pulmonary embolism (Resolved 2010) Pulmonary embolism (Resolved 2009) Uterine cancer (Resolved) Surgical History History of bladder surgery (Acute) History of carpal tunnel repair (Resolved) Status post appendectomy (Resolved) Status post breast reduction (Resolved) Status post cholecystectomy (Resolved) Status post hernia repair (Resolved 2014) Status post hysterectomy with oophorectomy (Resolved 2003) Status post laparoscopy (Resolved) 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 (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) shunt status (Resolved) Family History Father History of kidney cancer Mother Diabetes mellitus Hypertension Hyperlipidemia CAD (coronary artery disease) CVA (cerebral vascular accident) Social History marital status: household members: family lives independently: Yes occupational status: employed Smoking Status: Current every day smoker alcohol intake: never substance use type: marijuana Smoking Status: Current every day smoker tobacco type: cigarettes alcohol intake frequency: holidays/special occasions only Substance Use Type: marijuana Exam <AGUILAR Tolentino - Last Filed: 05/14/19 21:16> Narrative Exam Narrative: General appearance: well developed, well nourished, appears to be in discomfort. Head: normocephalic, atraumatic, no scalp lesions, non-tender. ENT: Bilateral auditory canals and tympanic membranes clear. Hearing grossly intact. Nose without bleeding, purulent discharge, septal hematoma or deviation. Turbinate without erythema or swelling. Facial sinuses nontender to palpate. Mucous membrane moist, no mucosal lesion. Throat without erythema, tonsillar hypertrophy or exudate. Uvula in midline, airway patent. Neck/Thyroid: neck supple, full range of motion, no visible masses or meningeal signs. No JVD, non-tender without lymphadenopathy. Skin: Superficial appearance laceration on distal phalanx of left thumb and nail. No active bleeding. no suspicious rashes, lesions over other visible areas. Warm and dry and appropriate color for ethnicity. Heart: no clubbing, no cyanosis, no edema. S1 and S2 normal. RRR w/o murmurs, clicks, or bruits. Lungs: Breathing even and unlabored. No stridor. No accessory muscles used. Able to speak in full sentences. Chest: normal shape and expansion. Abdomen: non-obese, non-distended. Neurologic: alert and oriented. 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 Psych: good eye contact, normal affect. Initial Vital Signs Initial Vital Signs: Vital Signs Temperature 96.2 F L 05/14/19 14:16 Pulse Rate 110 H 05/14/19 14:16 Respiratory Rate 18 05/14/19 14:16 Blood Pressure 138/95 H 05/14/19 14:16 Pulse Oximetry 96 05/14/19 14:16 Extrem Left upper extremity: hand Details: neuromotor exam normal Details: thumb opposition normal, thumb IP flexion normal and thumb ADduction normal, neurosensory exam normal Details: radial nerve sensory function normal, tendon exam normal (Able to move the left thumb against resistance with flexion and extension.) Location: of all digits, tenderness Location: of the thumb, vascular exam Details: radial pulse present and normal capillary refill, normal ROM of fingers, no swelling and laceration (Superficial Involving distal left thumb) <Agueda Burger DO - Last Filed: 05/15/19 08:04> Initial Vital Signs Initial Vital Signs: Vital Signs Temperature 96.2 F L 05/14/19 14:16 Pulse Rate 110 H 05/14/19 14:16 Respiratory Rate 18 05/14/19 14:16 Blood Pressure 138/95 H 05/14/19 14:16 Pulse Oximetry 96 05/14/19 14:16 Procedures <AGUILAR Tolentino - Last Filed: 05/14/19 21:16> Laceration Repair Laceration 1: Site: hand (Distal thumb) Side (If applicable): left Size (cm): 1 Description: linear Pre-repair: irrigated extensively (soaked in hibiclens water mixture) Skin layer closed with: steri-strips Scores <AGUILAR Tolentino - Last Filed: 05/14/19 21:16> GCS [place] coma scale eye opening: Spontaneous [place] coma scale verbal response: Orientated [place] coma scale motor response: Obey commands [place] coma scale total score: 15 Course <AGUILAR Tolentino - Last Filed: 05/14/19 21:16> Orders Ordered: ED Orders 05/14/19 14:15 XR finger LT min 2V Stat Vital Signs Vital signs: Vital Signs - 8 hr 05/14/19 14:16 05/14/19 15:11 05/14/19 16:50 Temperature 96.2 F L Pulse Rate 110 H 102 H 94 H Respiratory Rate 18 18 18 Blood Pressure 138/95 H 132/71 Blood Pressure [Right Arm] 134/79 Pulse Oximetry 96 97 98 <Agueda Burger DO - Last Filed: 05/15/19 08:04> Orders Ordered: ED Orders 05/14/19 14:15 XR finger LT min 2V Stat Vital Signs Vital signs: Vital Signs - 8 hr 05/14/19 14:16 05/14/19 15:11 05/14/19 16:50 Temperature 96.2 F L Pulse Rate 110 H 102 H 94 H Respiratory Rate 18 18 18 Blood Pressure 138/95 H 132/71 Blood Pressure [Right Arm] 134/79 Pulse Oximetry 96 97 98 MDM - Extremity Injury (Upper) <Jerzy SixtoAGUILAR gutierrez - Last Filed: 05/14/19 21:16> Differential Diagnosis Differential diagnosis: Likely other (Open Fracture of right thumb, laceration of right thumb, right thumb contusion) Medical Records Attestation: I reviewed the patient's medical records. Imaging Data XR-Finger : Radiologist's impression: [address] [address] XRay Report Signed Patient: Jing Perea GMR#: [id number] : 1980Acct:[id number] Age/Sex: 38 / FDate of Service: 05/14/19 Loc: ED Accession Number: [id number] Procedure: XR finger LT min 2V Ordering Provider: Agueda Burger D.O. PROCEDURE: XR FINGER LT MIN 2V INDICATIONS: cut right thumb while butchering, hit hard TECHNIQUE: AP hand, 2 views of the first finger(s) acquired. COMPARISON: None. FINDINGS: Bones: No fractures or dislocations. No suspicious bony lesions. Soft tissues: No suspicious soft tissue calcifications. IMPRESSION: No fracture or foreign body material found. Dictated by: Cecilio Hernandez M.D. on 05/14/2019 at 14:57 Approved by: Cecilio Hernandez M.D. on 05/14/2019 at 14:57 [facility] Narrative Medical decision making narrative: 38 old female who presents to ED with laceration to left distal thumb when she was put during butchering rabbits this afternoon. X-ray of left thumb does not show acute findings such as fractures or dislocation. Patient had soaked affected finger in Hibiclens mixture water. Superficial laceration on left thumb involving nail was repaired with Dermabond and Steri-Strips. Wound care for laceration at home after Dermabond repair was discussed with patient and spouse and verbalized understanding. Return precautions including signs and symptoms for infection was discussed. Affected finger was splinted to protect laceration repair and advised to stretch affected finger gentle early several times a day. Patient advised to follow up with PCP in a few days to re-evaluate her wound. Patient advised to acetaminophen up to 4000 mg in 24 hour for pain management. Due to patient's significant discomfort, patient offered tramadol but declined stating it interferes with her psych medications. Patient and significant other verbalized understanding and agrees with the treatment plan. Discharge Plan Departure Patient Disposition: Home Clinical Impression: Finger laceration Qualifiers: Encounter type: initial encounter Finger: thumb Damage to nail status: unspecified Foreign body presence: unspecified Laterality: left Qualified Code(s): S61.012A - Laceration without foreign body of left thumb without damage to nail, initial encounter Discharge Date/Time: 05/14/19 16:49 Instructions: DI for Laceration Repair With Dermabond Activity Restrictions/Additional Instructions: You have been diagnosed with [left thumb laceration from a on car supervisor knife. X-ray test does not show fracture or dislocation today. Your laceration has been repaired with Dermabond and Steri-Strips.]. What to do: Please do not get your wound soaked in the water until the laceration has healed. Keep your dressing intact for next 24 hrs. After then, you could remove your dressing, wash with soap and water. Pat dry with clean papertowel and dress it. Please avoid using oil based ointment, cream, lotion and etc since this may make dermabond lose and remove prematurely. Dermabond will come off in 5-7 days on its own. Do not peel this off or pick on it. You can change dressing as needed and daily. Please monitor for signs and symptoms for infection such as increasing redness, swelling, warmth, pain, fever, purulent discharge. If this occurs, please return to ED or follow up with your primary care physician since your wound may be infected. Please follow up with your primary care provider in 2-3 days for recheck wound. Please keep your wound clean, dry and intact all times. *Take your medications as directed. Can continue to take Tylenol up to 4000 mg in 24 hour. Please use splint to prevent bending affected finger for next few days to protect Dermabond and laceration. You can remove splint several times a day for gentle stretching exercises. *Follow up with your primary care provider in 2-3 days for wound check for an infection, call for an appointment. Let them know you were seen in the ED and that we asked you to be seen in follow up. Prescriptions: No Action venlafaxine 37.5 mg capsule,extended release 24hr 37.5 mg PO DAILY MDD 112.5 mg Qty: 30 RF: 2 hydroxyzine HCl 25 mg tablet 25 mg PO TID PRN (Reason: nausea and vomiting) Qty: 30 RF: 0 amitriptyline 50 mg tablet 50 mg PO BEDTIME RF: 0 albuterol sulfate [ProAir HFA] 90 mcg/actuation HFA aerosol inhaler 2 puff Inhalation Q6H PRN (Reason: Wheezing) RF: 0 lamotrigine 150 mg tablet 150 mg PO BID RF: 0 sucralfate 1 gram tablet 1 g PO QID RF: 0 oxycodone-acetaminophen 5-325 mg tablet 1 - 2 tab PO Q6H MDD 6 PRN (Reason: Pain, Moderate) RF: 0 metoclopramide HCl 10 mg tablet 10 mg PO TID PRN (Reason: Nausea) RF: 0 venlafaxine 37.5 mg capsule,extended release 24hr 37.5 mg PO DAILY RF: 0 quetiapine 25 mg tablet 25 mg PO BEDTIME RF: 0 venlafaxine 75 mg capsule,extended release 24hr 75 mg PO DAILY RF: 0 acetaminophen 325 mg Tablet 650 mg PO Q6HR PRN (Reason: As Needed For Fever/Mild Pain) Qty: 30 RF: 0 diphenhydramine HCl [Allergy (diphenhydramine)] 25 mg Tablet 50 mg PO Q4HR PRN (Reason: Itching) Qty: 30 RF: 0 dicyclomine 10 mg Capsule 10 mg PO Q6HR Qty: 30 RF: 0 valacyclovir 500 mg tablet 1,000 mg PO DAILY RF: 0 Referrals: Crescencio Colón PA-C [Non-Staff] -
[2019-05-14 16:50] VITALS: BP 132/71; PULSE 94; RESP 18; O2SAT 98
== END 2019-05-14 16:49 | disposition home or self-care (01) ==
PROVIDERS: Emergency Provider Nurse Practitioner Family
DX: S61.112A Laceration without foreign body of left thumb with damage to nail, initial encounter (principal); W26.0XXA Contact with knife, initial encounter
CPT/HCPCS: 73140; 99282; 99283

== ENCOUNTER 2019-05-24 11:45 | Emergency (ER) | payer OTHER, MEDICAID, SELFPAY ==
[2018-01-17 01:41] VITALS: BMI 32.3
[2019-05-24 11:49] VITALS: BP 139/95; PULSE 106; RESP 24; TEMP 36.1; O2SAT 98
--- NOTE | 2019-05-24 12:03 | DI.RAD.S_ITS ---
PROCEDURE: XR CHEST 1V INDICATIONS: Chest pain TECHNIQUE: One view of the chest was acquired. COMPARISON: [facility], CR, XR CHEST 2V, 07/24/2018, 11:19. FINDINGS: Surgical changes and devices: Right internal jugular central venous catheter with tip projecting at the cavoatrial junction. Lungs and pleura: Lungs are clear. No pleural effusions or pneumothorax. Mediastinum: Mediastinal contours appear normal. Heart size is normal. Bones and chest wall: No suspicious bony lesions. Overlying soft tissues appear unremarkable. IMPRESSION: No acute disease Dictated by: Koko Delgado M.D. on 05/24/2019 at 12:55 Approved by: Koko Delgado M.D. on 05/24/2019 at 12:57
--- NOTE | 2019-05-24 12:06 | ED.CHESTPAIN ---
HPI - Chest Pain <Valentine HoffmanAGUILAR - Last Filed: 05/24/19 20:34> General Chief Complaint: Chest Pain Stated Complaint: thinks she has the flu and a PE Time Seen by Provider: 05/24/19 11:54 Source: patient Mode of arrival: Ambulatory Limitations: no limitations History of Present Illness HPI narrative: 38-year-old female with a history of [place], bipolar, PTSD, presents to the emergency department complaining of body ache and shortness of breath for the past 24 hours. She states she had a fever 102 last night. Patient reports an intermittent mild productive cough with the minute amount of sputum. She denies any long trips or taking any estrogen supplements but reports a history of PEs in the past ( last PE was in 2011). Patient is currently not on blood thinners. Patient does report a dull aching 4/10 R sided chest pain that is worse with cough and movement and better with rest. Patient also reports she noticed cloudy urine starting last night. She denies any vomiting, abdominal pain, syncope, or other concerns. Related Data Home Medications Medication Instructions Recorded Confirmed quetiapine 25 mg PO BEDTIME 01/05/18 09/08/18 venlafaxine 75 mg PO DAILY 01/05/18 05/24/19 valacyclovir 1,000 mg PO DAILY 07/24/18 05/24/19 albuterol sulfate [ProAir HFA] 2 puff INHALATION Q6H PRN 09/08/18 09/08/18 amitriptyline 50 mg PO BEDTIME 09/08/18 09/08/18 lamotrigine 150 mg PO BID 01/06/19 05/24/19 metoclopramide HCl 10 mg PO TID PRN 01/06/19 01/06/19 oxycodone-acetaminophen 1 - 2 tab PO Q6H PRN MDD 6 01/06/19 01/06/19 sucralfate 1 g PO QID 01/06/19 01/06/19 Previous Rx's Medication Instructions Recorded venlafaxine 37.5 mg 37.5 mg PO DAILY #30 cap MDD 112.5 12/30/17 capsule,extended release 24 hr mg acetaminophen 650 mg PO Q6HR PRN #30 tab 01/18/18 dicyclomine 10 mg PO Q6HR #30 cap 01/18/18 diphenhydramine HCl [Allergy 50 mg PO Q4HR PRN #30 tab 01/18/18 (diphenhydramine)] hydroxyzine HCl 25 mg tablet 25 mg PO TID PRN #30 tab 01/23/18 Allergies Allergy/AdvReac Type Severity Reaction Status Date / Time coconut [COCONUT] Allergy Severe STOPS Verified 05/24/19 11:52 BREATHS prochlorperazine Allergy Intermediate seizure Verified 05/24/19 11:52 NSAIDS (Non-Steroidal Allergy Mild rash, milner Verified 05/24/19 11:52 Anti-Inflamma [NSAIDS (NON-STEROIDAL ANTI-INFLAMMA] promethazine [From PHENERGAN] Allergy Unknown restless Verified 05/24/19 11:52 legs Review of Systems <AGUILAR Nunez - Last Filed: 05/24/19 20:34> Review of Systems Narrative: REVIEW OF SYSTEMS: GENERAL: Reports fevers, see HPI.. HENT: No head trauma or hearing loss. EYES: No loss of vision, double vision, eye pain, irritation or discharge. CARDIOVASCULAR: Reports chest pain, see HPI. RESPIRATORY: Reports shortness of breath and cough, see HPI. GASTROINTESTINAL: Reports nausea and diarrhea, no constipation or vomiting. MUSCULOSKELETAL: No weakness or injury. INTEGUMENTARY: No rash, lesions, or pruritus. NEURO: No memory loss, or confusion. Patient History <AGUILAR Nunez - Last Filed: 05/24/19 20:34> Medical History Anxiety (Chronic) Cervical cancer (Acute) Depression (Chronic) Femoral acetabular impingement (Chronic) Genital herpes (Chronic) Gout (Chronic) Kidney stones (Resolved 12/2016) Ovarian cancer (Resolved) Pseudotumor cerebri (Resolved) Pulmonary embolism (Resolved 2010) Pulmonary embolism (Resolved 2009) Uterine cancer (Resolved) Surgical History History of bladder surgery (Acute) History of carpal tunnel repair (Resolved) Status post appendectomy (Resolved) Status post breast reduction (Resolved) Status post cholecystectomy (Resolved) Status post hernia repair (Resolved 2014) Status post hysterectomy with oophorectomy (Resolved 2003) Status post laparoscopy (Resolved) [employer] (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) shunt status (Resolved) Family History Father History of kidney cancer Mother Diabetes mellitus Hypertension Hyperlipidemia CAD (coronary artery disease) CVA (cerebral vascular accident) Social History marital status: household members: family lives independently: Yes occupational status: employed Smoking Status: Current every day smoker alcohol intake: never substance use type: marijuana Smoking Status: Current every day smoker tobacco type: cigarettes alcohol intake frequency: holidays/special occasions only Substance Use Type: marijuana Exam <AGUILAR Nunez - Last Filed: 05/24/19 20:34> Initial Vital Signs Initial Vital Signs: Vital Signs Temperature 97 F L 05/24/19 11:49 Pulse Rate 106 H 05/24/19 11:49 Respiratory Rate 24 05/24/19 11:49 Blood Pressure 139/95 H 05/24/19 11:49 Pulse Oximetry 98 05/24/19 11:49 PHYSICAL EXAMINATION: GENERAL: Well groomed, alert, and cooperative. Answers questions promptly and appropriately. Vital signs noted. HENT: Normocephalic, atraumatic. Ear canals patent. Oral mucosa is pink and moist. Oropharynx with slight erythema, postnasal drip noted. EYES: Conjunctiva pink, sclera white, no periorbital swelling. CHEST: Normal to inspection and without deformities. Tenderness to palpation of right mid costal sternal border. CARDIOVASCULAR: S1 and S2 sounds normal. Regular rate and rhythm, no murmurs, clicks, or bruits. No pedal edema. RESPIRATORY: Normal respiratory rate, trachea midline, airway patent. No stridor, nasal flaring or accessory muscle use. Lungs are clear in all santos without wheeze, rhonchi, or crackles. GASTROINTESTINAL: Bowel sounds normoactive. Abdomen is soft and non-tender. No organomegaly. MUSCULOSKELETAL: Normal gait and coordination. Equal tone and mass bilaterally. EXTREMITIES: CMS intact. Moves all extremities. SKIN: Warm, dry, soft, appropriate color for ethnicity. No lesions, rashes, or wounds. NEURO: Alert and Oriented X 3. Good coordination. No ataxia, or sensory deficits, or cognitive issues. PSYCH: Appropriate affect and mood. <Krystyna Brenner DO - Last Filed: 05/25/19 23:40> Initial Vital Signs Initial Vital Signs: Vital Signs Temperature 97 F L 05/24/19 11:49 Pulse Rate 106 H 05/24/19 11:49 Respiratory Rate 24 05/24/19 11:49 Blood Pressure 139/95 H 05/24/19 11:49 Pulse Oximetry 98 05/24/19 11:49 Scores <AGUILAR Nunez - Last Filed: 05/24/19 20:34> HEART Score Heart Score history: Slightly Suspicious Heart Score EKG: Normal Heart Score Age: < 45 years old Heart Score risk factors: No known risk factors Heart Score troponin: < or = to normal limit Heart Score Total: 0 Wells' Criteria for PE Clinical signs and symptoms of DVT: No PE is #1 Dx or equally likely: No Heart rate > 100: No Immobilization at least 3 days or surg in previous 4 weeks: No History of PE or DVT: Yes Hemoptysis: No Malignancy w/Treatment within 6 months or palliative: No Wells' PE Score total: 1.5 Course <AGUILAR Nunez - Last Filed: 05/24/19 20:34> Course Course Narrative: Patient was given fluids, acetaminophen, and nausea medication. She reports improvement in her symptoms. However, she continued to complain of body aches and discomfort so she was given Percocet upon discharge. Orders Ordered: Discontinued Medications Acetaminophen (Tylenol) 975 mg PO NOW ONE Stop: 05/24/19 12:12 Last Admin: 05/24/19 12:41 Dose: 975 mg Documented by: BRITT Sodium Chloride (Normal Saline 0.9%) 1,000 mls @ 1,000 mls/hr IV BOLUS ONE Stop: 05/24/19 13:01 Last Infusion: 05/24/19 13:50 Dose: 0 mls/hr Documented by: Admin: 05/24/19 12:40 Dose: 1,000 mls/hr Documented by: BRITT Ondansetron HCl (Zofran Odt) 4 mg SL NOW ONE Stop: 05/24/19 12:03 Last Admin: 05/24/19 12:40 Dose: 4 mg Documented by: BRITT Oxycodone/Acetaminophen (Percocet 5/325) 1 tab PO NOW ONE Stop: 05/24/19 13:44 Last Admin: 05/24/19 13:51 Dose: 1 tab Documented by: NEVIN Consultations Consultation #1: Patient staffed with Dr. Brenner. Vital Signs Vital signs: Vital Signs - 8 hr 05/24/19 13:00 05/24/19 13:55 Pulse Rate 87 86 Respiratory Rate 24 17 Blood Pressure 103/90 Blood Pressure [Left Arm] 127/88 Pulse Oximetry 96 98 <Krystyna Brenner DO - Last Filed: 05/25/19 23:40> Orders Ordered: Discontinued Medications Acetaminophen (Tylenol) 975 mg PO NOW ONE Stop: 05/24/19 12:12 Last Admin: 05/24/19 12:41 Dose: 975 mg Documented by: BRITT Sodium Chloride (Normal Saline 0.9%) 1,000 mls @ 1,000 mls/hr IV BOLUS ONE Stop: 05/24/19 13:01 Last Infusion: 05/24/19 13:50 Dose: 0 mls/hr Documented by: Admin: 05/24/19 12:40 Dose: 1,000 mls/hr Documented by: BRITT Ondansetron HCl (Zofran Odt) 4 mg SL NOW ONE Stop: 05/24/19 12:03 Last Admin: 05/24/19 12:40 Dose: 4 mg Documented by: BRITT Oxycodone/Acetaminophen (Percocet 5/325) 1 tab PO NOW ONE Stop: 05/24/19 13:44 Last Admin: 05/24/19 13:51 Dose: 1 tab Documented by: NEVIN Vital Signs Vital signs: Vital Signs - 8 hr 05/24/19 13:00 05/24/19 13:55 Pulse Rate 87 86 Respiratory Rate 24 17 Blood Pressure 103/90 Blood Pressure [Left Arm] 127/88 Pulse Oximetry 96 98 MDM - Chest Pain <AGUILAR Nunez - Last Filed: 05/24/19 20:34> Medical Records Data Attestation: I reviewed the patient's medical records. Lab Data Attestation: I reviewed the patient's lab results. Result diagrams: 05/24/19 12:20 05/24/19 12:20 Labs: Lab Results 05/24/19 05/24/19 05/24/19 Range/Units 12:07 12:20 12:20 WBC 7.9 (4.5-11.0) X10^3/uL RBC 4.98 (4.0-5.2) X10^6/uL Hgb 16.0 (12.0-16.0) g/dL Hct 48.0 H (36-46) % MCV 96.5 (80-100) fL MCH 32.2 (26-34) PG MCHC 33.4 (30-36) % RDW 14.9 H (11.6-14.8) % Plt Count 239 (150-400) X10^3/uL Neut % (Auto) 71.3 (50-75) % Lymph % (Auto) 22.5 L (25-40) % [place] % (Auto) 4.6 (3-14) % Eos % (Auto) 1.2 L (2-4) % Baso % (Auto) 0.4 (0-2) % Neut # (Auto) 5600 (7005-0819) /uL Lymph # (Auto) 1800 (3325-1434) /uL [place] # (Auto) 400 (0-900) /uL Eos # (Auto) 100 (0-450) /uL Baso # (Auto) 0 (0-100) /uL D-Dimer < 200 (<230) ng/mL Sodium (137-145) mmol/L Potassium (3.4-5.1) mmol/L Chloride (98-107) mmol/L Carbon Dioxide (22-32) mmol/L BUN (7-17) mg/dL Creatinine (0.52-1.04) mg/dL Estimated GFR (>60) mL/min BUN/Creatinine Ratio (6-22) Glucose (70-100) mg/dL Calcium (8.4-10.2) mg/dL Total Bilirubin (0.2-1.3) mg/dL AST (14-36) IU/L ALT (<35) IU/L Alkaline Phosphatase (38-126) U/L Total Creatine Kinase (30-135) U/L CK-MB (CK-2) CK-MB (CK-2) Rel Index Troponin I (0.01-0.034) ng/mL Total Protein (6.3-8.2) g/dL Albumin (3.5-5.0) g/dL Globulin (1.7-4.1) g/dL Albumin/Globulin Ratio (1.0-2.8) Lipase (23-300) U/L Influenza A (RT-PCR) Flu a negative (NEGATIVE) Influenza B (RT-PCR) Flu b negative (NEGATIVE) 05/24/19 Range/Units 12:20 WBC (4.5-11.0) X10^3/uL RBC (4.0-5.2) X10^6/uL Hgb (12.0-16.0) g/dL Hct (36-46) % MCV (80-100) fL MCH (26-34) PG MCHC (30-36) % RDW (11.6-14.8) % Plt Count (150-400) X10^3/uL Neut % (Auto) (50-75) % Lymph % (Auto) (25-40) % [place] % (Auto) (3-14) % Eos % (Auto) (2-4) % Baso % (Auto) (0-2) % Neut # (Auto) (8222-9063) /uL Lymph # (Auto) (2373-9485) /uL [place] # (Auto) (0-900) /uL Eos # (Auto) (0-450) /uL Baso # (Auto) (0-100) /uL D-Dimer (<230) ng/mL Sodium 140 (137-145) mmol/L Potassium 4.3 (3.4-5.1) mmol/L Chloride 108 H (98-107) mmol/L Carbon Dioxide 21 L (22-32) mmol/L BUN 12 (7-17) mg/dL Creatinine 0.70 (0.52-1.04) mg/dL Estimated GFR > 60.0 (>60) mL/min BUN/Creatinine Ratio 17.1 (6-22) Glucose 133 H (70-100) mg/dL Calcium 9.7 (8.4-10.2) mg/dL Total Bilirubin 0.6 (0.2-1.3) mg/dL AST 30 (14-36) IU/L ALT 37 H (<35) IU/L Alkaline Phosphatase 73 (38-126) U/L Total Creatine Kinase 53 (30-135) U/L CK-MB (CK-2) TNP CK-MB (CK-2) Rel Index TNP Troponin I < 0.012 (0.01-0.034) ng/mL Total Protein 7.9 (6.3-8.2) g/dL Albumin 5.0 (3.5-5.0) g/dL Globulin 2.9 (1.7-4.1) g/dL Albumin/Globulin Ratio 1.7 (1.0-2.8) Lipase 44 (23-300) U/L Influenza A (RT-PCR) (NEGATIVE) Influenza B (RT-PCR) (NEGATIVE) Urine Dip Bedside Urine Glucose Negative Bedside Urine Bilirubin - Negative Bedside Urine Ketone - Negative Urine Specific [place] 1.010 Bedside Urine Occult Blood - Negative Bedside Urine pH 6.0 Bedside Urine Protein - Negative Bedside Urine Urobilinogen - Negative Bedside Urine Nitrite - Negative Bedside Urine Leukocytes - Negative Esterase Imaging Data Chest x-ray: Radiologist's Impression: [address] [address] XRay Report Signed Patient: Jing Perea GMR#: [id number] : 1980Acct:[id number] Age/Sex: 38 / FDate of Service: 05/24/19 Loc: ED Accession Number: [id number] Procedure: XR chest 1V Ordering Provider: Valentine Hoffman PROCEDURE: XR CHEST 1V INDICATIONS: Chest pain TECHNIQUE: One view of the chest was acquired. COMPARISON: [facility], , XR CHEST 2V, 07/24/2018, 11:19. FINDINGS: Surgical changes and devices: Right internal jugular central venous catheter with tip projecting at the cavoatrial junction. Lungs and pleura: Lungs are clear. No pleural effusions or pneumothorax. Mediastinum: Mediastinal contours appear normal. Heart size is normal. Bones and chest wall: No suspicious bony lesions. Overlying soft tissues appear unremarkable. IMPRESSION: No acute disease Dictated by: Koko Delgado M.D. on 05/24/2019 at 12:55 Approved by: Koko Delgado M.D. on 05/24/2019 at 12:57 ECG Data Interpretation: EKG read by Dr. Brenner [facility] Narrative Medical decision making narrative: 30-year-old female with history of anxiety, depression, bipolar disorder, presents emergency department for body aches and right-sided chest pain that is worse with coughing. Labs are non-remarkable other than mildly elevated liver enzymes which appears to be chronic. Chest x-ray negative for signs of pneumonia. EKG non-remarkable, and influenza tests are negative. Differential includes most likely viral illness due to lack of other findings, reports of body aches, reports fever and cough. Less likely pneumonia due to negative chest x-ray and normal lung examination. Less likely acute abdomen etiology due to lack of vomiting and lack of abdominal pain. Less likely cardiac etiology as patient's heart score is 2, pain is reproducible with palpation, and troponin is negative. Less likely PE as D-dimer is negative and patient's wells criteria score is 1.5. Patient also reported improved symptoms after administration of medication. She was encouraged to follow up with her primary care provider in 1-2 weeks for re-evaluation. Increased fluids and continue monitoring of symptoms were encouraged. Return precautions given. Patient agreed with plan of care verbalized understanding. <Krystyna Brenner, DO - Last Filed: 05/25/19 23:40> Lab Data Attestation: I reviewed the patient's lab results. Labs: Lab Results 05/24/19 05/24/19 05/24/19 Range/Units 12:07 12:20 12:20 WBC 7.9 (4.5-11.0) X10^3/uL RBC 4.98 (4.0-5.2) X10^6/uL Hgb 16.0 (12.0-16.0) g/dL Hct 48.0 H (36-46) % MCV 96.5 (80-100) fL MCH 32.2 (26-34) PG MCHC 33.4 (30-36) % RDW 14.9 H (11.6-14.8) % Plt Count 239 (150-400) X10^3/uL Neut % (Auto) 71.3 (50-75) % Lymph % (Auto) 22.5 L (25-40) % [place] % (Auto) 4.6 (3-14) % Eos % (Auto) 1.2 L (2-4) % Baso % (Auto) 0.4 (0-2) % Neut # (Auto) 5600 (5867-8430) /uL Lymph # (Auto) 1800 (8341-3626) /uL [place] # (Auto) 400 (0-900) /uL Eos # (Auto) 100 (0-450) /uL Baso # (Auto) 0 (0-100) /uL D-Dimer < 200 (<230) ng/mL Sodium (137-145) mmol/L Potassium (3.4-5.1) mmol/L Chloride (98-107) mmol/L Carbon Dioxide (22-32) mmol/L BUN (7-17) mg/dL Creatinine (0.52-1.04) mg/dL Estimated GFR (>60) mL/min BUN/Creatinine Ratio (6-22) Glucose (70-100) mg/dL Calcium (8.4-10.2) mg/dL Total Bilirubin (0.2-1.3) mg/dL AST (14-36) IU/L ALT (<35) IU/L Alkaline Phosphatase (38-126) U/L Total Creatine Kinase (30-135) U/L CK-MB (CK-2) CK-MB (CK-2) Rel Index Troponin I (0.01-0.034) ng/mL Total Protein (6.3-8.2) g/dL Albumin (3.5-5.0) g/dL Globulin (1.7-4.1) g/dL Albumin/Globulin Ratio (1.0-2.8) Lipase (23-300) U/L Influenza A (RT-PCR) Flu a negative (NEGATIVE) Influenza B (RT-PCR) Flu b negative (NEGATIVE) 05/24/19 Range/Units 12:20 WBC (4.5-11.0) X10^3/uL RBC (4.0-5.2) X10^6/uL Hgb (12.0-16.0) g/dL Hct (36-46) % MCV (80-100) fL MCH (26-34) PG MCHC (30-36) % RDW (11.6-14.8) % Plt Count (150-400) X10^3/uL Neut % (Auto) (50-75) % Lymph % (Auto) (25-40) % [place] % (Auto) (3-14) % Eos % (Auto) (2-4) % Baso % (Auto) (0-2) % Neut # (Auto) (0079-5860) /uL Lymph # (Auto) (8842-5134) /uL [place] # (Auto) (0-900) /uL Eos # (Auto) (0-450) /uL Baso # (Auto) (0-100) /uL D-Dimer (<230) ng/mL Sodium 140 (137-145) mmol/L Potassium 4.3 (3.4-5.1) mmol/L Chloride 108 H (98-107) mmol/L Carbon Dioxide 21 L (22-32) mmol/L BUN 12 (7-17) mg/dL Creatinine 0.70 (0.52-1.04) mg/dL Estimated GFR > 60.0 (>60) mL/min BUN/Creatinine Ratio 17.1 (6-22) Glucose 133 H (70-100) mg/dL Calcium 9.7 (8.4-10.2) mg/dL Total Bilirubin 0.6 (0.2-1.3) mg/dL AST 30 (14-36) IU/L ALT 37 H (<35) IU/L Alkaline Phosphatase 73 (38-126) U/L Total Creatine Kinase 53 (30-135) U/L CK-MB (CK-2) TNP CK-MB (CK-2) Rel Index TNP Troponin I < 0.012 (0.01-0.034) ng/mL Total Protein 7.9 (6.3-8.2) g/dL Albumin 5.0 (3.5-5.0) g/dL Globulin 2.9 (1.7-4.1) g/dL Albumin/Globulin Ratio 1.7 (1.0-2.8) Lipase 44 (23-300) U/L Influenza A (RT-PCR) (NEGATIVE) Influenza B (RT-PCR) (NEGATIVE) Urine Dip Bedside Urine Glucose Negative Bedside Urine Bilirubin - Negative Bedside Urine Ketone - Negative Urine Specific [place] 1.010 Bedside Urine Occult Blood - Negative Bedside Urine pH 6.0 Bedside Urine Protein - Negative Bedside Urine Urobilinogen - Negative Bedside Urine Nitrite - Negative Bedside Urine Leukocytes - Negative Esterase ECG Data Attestation: I personally reviewed and interpreted this ECG as follows: Prior ECG tracings: available for review Interpretation: Sinus rhythm rate 102 p.r. interval 157 QRS [address] elevation depression or T-wave inversions similar to previous EKG Discharge Plan Departure Patient Disposition: Home Clinical Impression: Viral illness Discharge Date/Time: 05/24/19 13:55 Instructions: DI for Atypical Chest Pain, DI for Viral Syndrome Activity Restrictions/Additional Instructions: Thank you for entrusting me with your care today. As discussed, chest x-rays negative for pneumonia or any acute process, EKG is non-remarkable, and labs are negative for blood clots, cardiac issues, or any electrolyte abnormalities. Your liver enzymes are very slightly elevated, please follow up with your primary care provider about this as it may be related to a fatty liver or alcohol consumption. Please increase fluid intake over the next few days, you make take Tylenol for fever and body aches. Follow up with your primary care provider in 1-2 weeks if symptoms continue. Return emergency department for new or worsening symptoms. Prescriptions: No Action venlafaxine 37.5 mg capsule,extended release 24hr 37.5 mg PO DAILY MDD 112.5 mg Qty: 30 RF: 2 hydroxyzine HCl 25 mg tablet 25 mg PO TID PRN (Reason: nausea and vomiting) Qty: 30 RF: 0 amitriptyline 50 mg tablet 50 mg PO BEDTIME RF: 0 albuterol sulfate [ProAir HFA] 90 mcg/actuation HFA aerosol inhaler 2 puff Inhalation Q6H PRN (Reason: Wheezing) RF: 0 lamotrigine 150 mg tablet 150 mg PO BID RF: 0 sucralfate 1 gram tablet 1 g PO QID RF: 0 oxycodone-acetaminophen 5-325 mg tablet 1 - 2 tab PO Q6H MDD 6 PRN (Reason: Pain, Moderate) RF: 0 metoclopramide HCl 10 mg tablet 10 mg PO TID PRN (Reason: Nausea) RF: 0 quetiapine 25 mg tablet 25 mg PO BEDTIME RF: 0 venlafaxine 75 mg capsule,extended release 24hr 75 mg PO DAILY RF: 0 acetaminophen 325 mg Tablet 650 mg PO Q6HR PRN (Reason: As Needed For Fever/Mild Pain) Qty: 30 RF: 0 diphenhydramine HCl [Allergy (diphenhydramine)] 25 mg Tablet 50 mg PO Q4HR PRN (Reason: Itching) Qty: 30 RF: 0 dicyclomine 10 mg Capsule 10 mg PO Q6HR Qty: 30 RF: 0 valacyclovir 500 mg tablet 1,000 mg PO DAILY RF: 0
[2019-05-24 12:33] LABS: Add Manual Diff / Slide Review NO; Basophils Absolute Auto 0 /uL (0-100); Basophils Percent Auto 0.4 % (0-2); Eosinophils Absolute Auto 100 /uL (0-450); Eosinophils Percent Auto 1.2 % (2-4); Lymphocytes Absolute Auto 1800 /uL (1100-4500); Lymphocytes Percent Auto 22.5 % (25-40); Mean Corpuscular HGB Conc 33.4 % (30-36); Mean Corpuscular Hemoglobin 32.2 PG (26-34); Mean Corpuscular Volume 96.5 fL (80-100); Monocytes Absolute Auto 400 /uL (0-900); Monocytes Percent Auto 4.6 % (3-14); Neutrophils Absolute Auto 5600 /uL (1500-7000); Neutrophils Percent Auto 71.3 % (50-75); Platelet Count 239 X10^3/uL (150-400); Red Blood Cell Count 4.98 X10^6/uL (4.0-5.2); Red Cell Distribution Width 14.9 % (11.6-14.8); White Blood Cell Count 7.9 X10^3/uL (4.5-11.0)
[2019-05-24] MEDS: SODIUM CHLORIDE 0.9% 1,000 ML 1000 ML IV (12:40)
[2019-05-24] MEDS: ONDANSETRON 4 MG ODT SL (12:40)
[2019-05-24] MEDS: ACETAMINOPHEN 325 MG TABLET 975 MG PO (12:41)
[2019-05-24 12:44] LABS: D Dimer < 200 ng/mL (<230)
[2019-05-24 12:45] LABS: Alanine Aminotransferase 37 IU/L (<35); Albumin Globulin Ratio 1.7 (1.0-2.8); Alkaline Phosphatase 73 U/L (38-126); Aspartate Aminotransferase 30 IU/L (14-36); BUN Creatinine Ratio 17.1 (6-22); Bilirubin Total 0.6 mg/dL (0.2-1.3); Blood Urea Nitrogen 12 mg/dL (7-17); Calcium 9.7 mg/dL (8.4-10.2); Carbon Dioxide 21 mmol/L (22-32); Chloride 108 mmol/L (98-107); Creatine Kinase 53 U/L (30-135); Estimated Glomerular Filt Rate > 60.0 mL/min (>60); Globulin 2.9 g/dL (1.7-4.1); Glucose 133 mg/dL (70-100); HEMOLYSIS 28 (0-50); Lipase 44 U/L (23-300); Potassium 4.3 mmol/L (3.4-5.1); Sodium 140 mmol/L (137-145); Total Protein 7.9 g/dL (6.3-8.2)
[2019-05-24 12:57] LABS: Troponin I < 0.012 ng/mL (0.01-0.034)
[2019-05-24 13:00] VITALS: BP 127/88; PULSE 87; RESP 24; O2SAT 96
[2019-05-24 13:05] LABS: Influenza A - CEPHEID Flu A NEGATIVE (NEGATIVE); Influenza B - CEPHEID Flu B NEGATIVE (NEGATIVE)
[2019-05-24] MEDS: OXYCODONE/ACETAMINOPHEN 5/325 TABLET 1 TAB PO (13:51)
[2019-05-24 13:55] VITALS: BP 103/90; PULSE 86; RESP 17; O2SAT 98
== END 2019-05-24 13:55 | disposition home or self-care (01) ==
PROVIDERS: Emergency Provider Nurse Practitioner
DX: R07.89 Other chest pain (principal); R06.02 Shortness of breath; B34.9 Viral infection, unspecified
CPT/HCPCS: 36415; 71045; 80053; 81003; 82550; 83690; 84484; 85025; 85379; 87502; 93005; 96360; 99284; 99285

== ENCOUNTER 2019-10-29 14:34 | Emergency (ER) | payer OTHER, MEDICAID, SELFPAY ==
[2018-01-17 01:41] VITALS: BMI 32.3
[2019-10-29 15:07] VITALS: BP 123/83; PULSE 93; RESP 16; TEMP 36.7; O2SAT 99
--- NOTE | 2019-10-29 15:21 | DI.RAD.S_ITS ---
PROCEDURE: XR CERVICAL SPINE 1V INDICATIONS: PANIAGUA/ Concern for shunt placement TECHNIQUE: Single lateral view of the cervical spine acquired. COMPARISON: [facility], CR, XR SHUNT SERIES WITHOUT INJECTION, 08/11/2019, 22:11. FINDINGS: Catheter tubing is identified overlying the cervical region is noted to be located along the posterior aspect of the C2 and C1 vertebral bodies and subsequently on the anterior aspect of the C3, C4, C5, and C6 vertebral bodies. The more lower portions of the venous catheter are not evident. There is straightening of the normal cervical lordosis without spondylolisthesis or significant degenerative changes. No compression deformities are evident. The C7 vertebral body is not adequately seen. The prevertebral soft tissues are within normal limits. The overlying soft tissues are otherwise unremarkable. IMPRESSION: Intact 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 catheter tubing along the course of the imaged cervical region. Dictated by: Marcus Dumont M.D. on 10/29/2019 at 15:08 Approved by: Marcus Dumont M.D. on 10/29/2019 at 15:10
--- NOTE | 2019-10-29 15:21 | DI.RAD.S_ITS ---
PROCEDURE: XR CHEST 1V INDICATIONS: PANIAGUA/ concern for shunt placement TECHNIQUE: One view of the chest was acquired. COMPARISON: [facility], CR, XR ABDOMEN 1V, 10/29/2019, 14:42. [facility], CR, XR CHEST 1V, 05/24/2019, 12:15. FINDINGS: Surgical changes and devices: A catheter is identified overlying the right chest, which is not adequately evaluated and may be truncated along the lower aspect of the chest. Lungs and pleura: Lungs are clear. No pleural effusions or pneumothorax. Mediastinum: Mediastinal contours appear normal. Heart size is normal. Bones and chest wall: No suspicious bony lesions. Overlying soft tissues appear unremarkable. IMPRESSION: 1. Right-sided 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 shunt catheter is not adequately seen and is only definitely identified extending into the region of the mid to lower aspect of the chest. 2. No acute cardiopulmonary process. Dictated by: Marcus Dumont M.D. on 10/29/2019 at 15:03 Approved by: Marcus Dumont M.D. on 10/29/2019 at 15:05
--- NOTE | 2019-10-29 15:21 | DI.RAD.S_ITS ---
PROCEDURE: XR ABDOMEN 1V INDICATIONS: shunt placement TECHNIQUE: One view of the abdomen acquired. COMPARISON: [facility], CR, XR ABDOMEN 1V, 03/29/2018, 21:25. FINDINGS: Surgical changes and devices: Through the pelvis a catheter extending from above is not seen. A 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 shunt is not identified.. Bowel: Bowel gas pattern is normal. Soft tissues: No suspicious abdominal calcifications. Visualized solid organ contours appear normal in size. Bones: No suspicious bony lesions. IMPRESSION: No shunt catheter identified over the pelvis. Dictated by: Cecilio Hernandez M.D. on 10/29/2019 at 16:11 Approved by: Cecilio Hernandez M.D. on 10/29/2019 at 16:11
--- NOTE | 2019-10-29 15:21 | DI.RAD.S_ITS ---
PROCEDURE: XR SKULL<4V INDICATIONS: PANIAGUA/ concern for shunt placement TECHNIQUE: 1 lateral view(s) of the skull acquired. COMPARISON: [facility], CR, XR SHUNT SERIES WITHOUT INJECTION, 08/11/2019, 22:11. FINDINGS: 2 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 shunt catheters are identified overlying the calvarium. One of the shunts may be abandoned. The location of the shunts is not apparent on this exam given that only a single lateral view was obtained. However, the imaged portions of the shunts appear to be within normal limits. The overlying bony and soft tissues are grossly unremarkable. IMPRESSION: Ventriculoperitoneal shunt tubing overlying the calvarium is grossly intact, but not adequately evaluated without a frontal image. Dictated by: Marcus Dumont M.D. on 10/29/2019 at 15:10 Approved by: Marcus Dumont M.D. on 10/29/2019 at 15:12
--- NOTE | 2019-10-29 15:39 | PC.NURSE ---
reports neck pain. Difficult moving head. Patient ambulated to restroom without assistance. Patient able to collect urine sample by urianating into cup without using hat. Patient at bedside.
[2019-10-29] MEDS: CYCLOBENZAPRINE 10 MG TABLET PO (16:10)
[2019-10-29] MEDS: diphenhydrAMINE 50 MG/ML VIAL IM (16:10)
[2019-10-29] MEDS: ONDANSETRON 4 MG ODT SL (16:10)
[2019-10-29] MEDS: LIDOCAINE PATCH 1 EACH ADH..PATCH TOP (16:10)
--- NOTE | 2019-10-29 16:53 | DI.RAD.S_ITS ---
PROCEDURE: XR SKULL<4V INDICATIONS: shunt check. frontal view pls TECHNIQUE: 1 view(s) of the skull acquired. COMPARISON: [facility], CR, XR CERVICAL SPINE 1V, 10/29/2019, 14:44. [facility], CR, XR SKULL<4V, 10/29/2019, 14:45. FINDINGS: Bones: No fractures. No suspicious bony lesions. Visualized sinuses appear clear. Bilateral shunt catheters are seen, including an abandoned right frontal approach shunt. There is partial visualization of left-sided 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 shunt catheter tubing. Soft tissues: No soft tissue calcifications. No suspicious soft tissue densities. IMPRESSION: Bilateral shunt catheter tubing, without solis plain film abnormality. Dictated by: Marc Finley M.D. on 10/29/2019 at 16:28 Approved by: Marc Finley M.D. on 10/29/2019 at 16:30
--- NOTE | 2019-10-29 17:33 | ED.NECK ---
HPI - Neck Pain/Injury <Agueda Haynes, INSPECTOR [employer]-BC - Last Filed: 10/29/19 19:55> General Chief Complaint: Neck Pain/Injury Stated Complaint: neck pain Time Seen by Provider: 10/29/19 14:48 Source: patient Mode of arrival: Ambulatory Limitations: no limitations History of Present Illness HPI Narrative: The patient is a 38-year-old female current smoker with history of PTSD, borderline personality disorder, generalized anxiety disorder who presents with a chief complaint of neck pain following a chiropractic session on Friday. She states that her chiro visit was on 10/24. She then presented to an outside facility emergency department on 10/26 with a chief complaint of abdominal pain nausea vomiting. She does have an [facility] report. The patient denies any no incontinence of bowel, incontinence of bladder or numbness in her groin. She denies any numbness or tingling. She states that she leaks urine symptoms, that is related to her bladder mesh. She has taken 1 Tylenol a few times today for pain. She does not have a primary care provider, but states that her chiropractor is her PCP for her L&I case. She states that she did not bring up her neck pain during her at [facility] is in a few days ago. The patient does have a REGISTERED NURSE FLOAT POOL shunt and is concerned about the possibility that her shunt was removed or dislodged during her chiropractic visit. The the patient states that her pain is like shooting electricity and stabbing at times Related Data Home Medications Medication Instructions Recorded Confirmed venlafaxine 75 mg PO DAILY 01/05/18 08/18/19 valacyclovir 1,000 mg PO DAILY 07/24/18 08/18/19 lamotrigine 150 mg PO BID 01/06/19 08/18/19 metoclopramide HCl 10 mg PO TID PRN 01/06/19 08/18/19 Previous Rx's Medication Instructions Recorded venlafaxine 37.5 mg 37.5 mg PO DAILY #30 cap MDD 112.5 12/30/17 capsule,extended release 24 hr mg acetaminophen 650 mg PO Q6HR PRN #30 tab 01/18/18 albuterol sulfate 90 mcg/actuation 2 puff INHALATION Q4-6H PRN #18 08/18/19 aerosol inhaler gram fluticasone propionate 220 1 puff INHALATION BID #12 gram 10/15/19 mcg/actuation HFA aerosol inhaler Allergies Allergy/AdvReac Type Severity Reaction Status Date / Time coconut [COCONUT] Allergy Severe STOPS Verified 10/29/19 15:23 BREATHS prochlorperazine Allergy Intermediate seizure Verified 10/29/19 15:23 NSAIDS (Non-Steroidal Allergy Mild rash, milner Verified 10/29/19 15:23 Anti-Inflamma [NSAIDS (NON-STEROIDAL ANTI-INFLAMMA] promethazine [From PHENERGAN] Allergy Unknown restless Verified 10/29/19 15:23 legs Review of Systems <YAMIL Patel - Last Filed: 10/29/19 19:55> Review of Systems Narrative: GENERAL: Denies chills, fatigue, malaise, fever, sweats. HEENT: Denies sinus pain, ear pain, sore throat, difficulty swallowing, dizziness. RESPIRATORY: Denies dyspnea, cough, wheezing, hemoptysis, sputum. CARDIOVASCULAR: Denies chest pain, palpitations, orthopnea, edema, GASTROINTESTINAL: Denies nausea, vomiting, abdominal pain, diarrhea, constipation, melena. : Denies dysuria, frequency, incontinence, hematuria, urinary retention. MUSCULOSKELETAL: See HPI SKIN: Denies rash, skin lesions, or other NEUROLOGIC: Denies weakness, headache, numbness, change in speech, confusion, seizures, incoordination. PSYCHIATRIC: No concerning psychosocial issues. 12 point review of systems is negative except for those stated above Patient History <YAMIL Patel - Last Filed: 10/29/19 19:55> Medical History Anxiety (Chronic) Cervical cancer (Acute) Depression (Chronic) Femoral acetabular impingement (Chronic) Genital herpes (Chronic) Gout (Chronic) Kidney stones (Resolved 12/2016) Ovarian cancer (Resolved) Pseudotumor cerebri (Resolved) Pulmonary embolism (Resolved 2010) Pulmonary embolism (Resolved 2009) Uterine cancer (Resolved) Surgical History History of bladder surgery (Acute) History of carpal tunnel repair (Resolved) Status post appendectomy (Resolved) Status post breast reduction (Resolved) Status post cholecystectomy (Resolved) Status post hernia repair (Resolved 2014) Status post hysterectomy with oophorectomy (Resolved 2003) Status post laparoscopy (Resolved) REGISTERED NURSE FLOAT POOL (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) shunt status (Resolved) Family History Father History of kidney cancer Mother Diabetes mellitus Hypertension Hyperlipidemia CAD (coronary artery disease) CVA (cerebral vascular accident) Social History marital status: household members: family lives independently: Yes occupational status: employed Smoking Status: Current every day smoker alcohol intake: never substance use type: marijuana Smoking Status: Current every day smoker tobacco type: cigarettes alcohol intake frequency: holidays/special occasions only Substance Use Type: marijuana Exam <YMAIL Patel - Last Filed: 10/29/19 19:55> Narrative Exam Narrative: GENERAL: This is a well-nourished, well-developed patient, appears histrionic HEAD: Atraumatic. Normocephalic. No temporal or scalp tenderness. EYES: Pupils equal round and reactive. Extraocular motions intact. No scleral icterus. No injection or drainage. ENT: Nose without bleeding, purulent drainage or septal hematoma. . Airway patent. NECK: Trachea midline. No JVD or lymphadenopathy. Supple, nontender, no meningeal signs. CARDIOVASCULAR: Regular rate and rhythm without murmurs, gallops, or rubs. RESPIRATORY: Clear to auscultation. Breath sounds equal bilaterally. No wheezes, rales, or rhonchi. No cough. No increased respiratory effort. No accessory muscle use. GASTROINTESTINAL: Abdomen soft, non-tender, nondistended. No hepato-splenomegaly, or palpable masses. No guarding. EXTREMITIES: No clubbing, cyanosis, or edema. No joint tenderness, effusion, or edema noted. BACK: No pain to palpation of thoracic or lumbar spine. Patient cries upon palpation of general C-spine. Is able to from side to side, nod yes and no NEURO: AOx3. Strength is equal upper and lower extremities bilaterally. Patient gets up and goes to the bathroom unassisted, looking around the hallways. SKIN: No rash or erythema. Initial Vital Signs Initial Vital Signs: Vital Signs Temperature 98.1 F 10/29/19 15:07 Pulse Rate 93 H 06/05/20 15:07 Respiratory Rate 16 10/29/19 15:07 Blood Pressure 123/83 10/29/19 15:07 Pulse Oximetry 99 10/29/19 15:07 <Guzman Valadez DO - Last Filed: 11/01/19 07:10> Initial Vital Signs Initial Vital Signs: Vital Signs Temperature 98.1 F 10/29/19 15:07 Pulse Rate 93 H 10/29/19 15:07 Respiratory Rate 16 10/29/19 15:07 Blood Pressure 123/83 10/29/19 15:07 Pulse Oximetry 99 10/29/19 15:07 Course <BJORN PatelP-BC - Last Filed: 10/29/19 19:55> Course Course Narrative: Patient states that she cannot take NSAIDs as she becomes violent. The patient states that she cannot take steroids as she also becomes violent. She also states that she cannot take steroids as she becomes violent. She states that she is allergic to gabapentin and breaks out in hives. I discussed with the patient that since she has so many allergies and might be difficult to control her pain detention. She states that she has seen a pain management physician in the past, but this is not related to her chronic pain. Outside records were reviewed. Per [facility] records, the patient has a history of opioid dependence, drug-seeking behavior, conversion disorder, borderline personality disorder. Orders Ordered: Discontinued Medications Hydrocodone Bitart/Acetaminophen ([place] 5/325) 2 tab PO NOW ONE Stop: 10/29/19 18:14 Last Admin: 10/29/19 18:47 Dose: 2 tab Documented by: MADISON Cyclobenzaprine HCl (Flexeril) 10 mg PO NOW ONE Stop: 10/29/19 15:39 Last Admin: 10/29/19 16:10 Dose: 10 mg Documented by: MADISON Diphenhydramine HCl (Benadryl) 50 mg IM NOW ONE Stop: 10/29/19 15:45 Last Admin: 10/29/19 16:10 Dose: 50 mg Documented by: MADISON Lidocaine (Lidoderm) 1 each TOP NOW ONE Stop: 10/29/19 15:39 Last Admin: 10/29/19 16:10 Dose: 1 each Documented by: MADISON Ondansetron HCl (Zofran Odt) 4 mg SL NOW ONE Stop: 10/29/19 15:45 Last Admin: 10/29/19 16:10 Dose: 4 mg Documented by: MADISON Vital Signs Vital signs: Vital Signs - 8 hr 10/29/19 15:07 Temperature 98.1 F Pulse Rate 93 H Respiratory Rate 16 Blood Pressure 123/83 Pulse Oximetry 99 <Guzman Valadez DO - Last Filed: 11/01/19 07:10> Orders Ordered: Discontinued Medications Hydrocodone Bitart/Acetaminophen ([place] 5/325) 2 tab PO NOW ONE Stop: 10/29/19 18:14 Last Admin: 10/29/19 18:47 Dose: 2 tab Documented by: MADISON Cyclobenzaprine HCl (Flexeril) 10 mg PO NOW ONE Stop: 10/29/19 15:39 Last Admin: 10/29/19 16:10 Dose: 10 mg Documented by: MADISON Diphenhydramine HCl (Benadryl) 50 mg IM NOW ONE Stop: 10/29/19 15:45 Last Admin: 10/29/19 16:10 Dose: 50 mg Documented by: MADISON Lidocaine (Lidoderm) 1 each TOP NOW ONE Stop: 10/29/19 15:39 Last Admin: 10/29/19 16:10 Dose: 1 each Documented by: MADISON Ondansetron HCl (Zofran Odt) 4 mg SL NOW ONE Stop: 10/29/19 15:45 Last Admin: 10/29/19 16:10 Dose: 4 mg Documented by: MADISON Vital Signs Vital signs: Vital Signs - 8 hr 10/29/19 15:07 Temperature 98.1 F Pulse Rate 93 H Respiratory Rate 16 Blood Pressure 123/83 Pulse Oximetry 99 MDM - Neck Pain/Injury <YAMIL Patel - Last Filed: 10/29/19 19:55> Lab Data Labs: Point of Care Testing Test Results Negative Urine Dip Bedside Urine Glucose Negative Bedside Urine Bilirubin - Negative Bedside Urine Ketone - Negative Urine Specific [place] 1.015 Bedside Urine Occult Blood - Negative Bedside Urine pH 6.0 Bedside Urine Protein - Negative Bedside Urine Urobilinogen - Negative Bedside Urine Nitrite - Negative Bedside Urine Leukocytes - Negative Esterase Imaging Data skull xray: Radiologist's Impression: [address] [place] [id number] XRay Report Signed Patient: Jing Perea R#: [id number] : 1980Acct:[id number] Age/Sex: 38 / FDate of Service: 10/29/19 Loc: ED Accession Number: [id number] Procedure: XR skull <4V Ordering Provider: Agueda Haynes PROCEDURE: XR SKULL<4V INDICATIONS: shunt check. frontal view pls TECHNIQUE: 1 view(s) of the skull acquired. COMPARISON: [facility], CR, XR CERVICAL SPINE 1V, 10/29/2019, 14:44. [facility], CR, XR SKULL<4V, 10/29/2019, 14:45. FINDINGS: Bones: No fractures. No suspicious bony lesions. Visualized sinuses appear clear. Bilateral shunt catheters are seen, including an abandoned right frontal approach shunt. There is partial visualization of left-sided 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 shunt catheter tubing. Soft tissues: No soft tissue calcifications. No suspicious soft tissue densities. IMPRESSION: Bilateral shunt catheter tubing, without solis plain film abnormality. Dictated by: Marc Finley M.D. on 10/29/2019 at 16:28 Approved by: Marc Finley M.D. on 10/29/2019 at 16:[address] [place] [id number] XRay Report Signed Patient: Jing Perea GMR#: [id number] : 1980Acct:[id number] Age/Sex: 38 / FDate of Service: 10/29/19 Loc: ED Accession Number: [id number] Procedure: XR skull <4V Ordering Provider: Agueda Haynes PROCEDURE: XR SKULL<4V INDICATIONS: PANIAGUA/ concern for shunt placement TECHNIQUE: 1 lateral view(s) of the skull acquired. COMPARISON: [facility], CR, XR SHUNT SERIES WITHOUT INJECTION, 08/11/2019, 22:11. FINDINGS: 2 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 shunt catheters are identified overlying the calvarium. One of the shunts may be abandoned. The location of the shunts is not apparent on this exam given that only a single lateral view was obtained. However, the imaged portions of the shunts appear to be within normal limits. The overlying bony and soft tissues are grossly unremarkable. IMPRESSION: Ventriculoperitoneal shunt tubing overlying the calvarium is grossly intact, but not adequately evaluated without a frontal image. Dictated by: Marcus Dumont M.D. on 10/29/2019 at 15:10 Approved by: Marcus Dumont M.D. on 10/29/2019 at 15:12 Chest x-ray: Radiologist's Impression: [address] [place] [id number] XRay Report Signed Patient: Jing Perea R#: [id number] : 1980Acct:[id number] Age/Sex: 38 / FDate of Service: 10/29/19 Loc: ED Accession Number: [id number] Procedure: XR chest 1V Ordering Provider: Agueda Haynes PROCEDURE: XR CHEST 1V INDICATIONS: PANIAGUA/ concern for shunt placement TECHNIQUE: One view of the chest was acquired. COMPARISON: [facility], CR, XR ABDOMEN 1V, 10/29/2019, 14:42. [facility], CR, XR CHEST 1V, 05/24/2019, 12:15. FINDINGS: Surgical changes and devices: A catheter is identified overlying the right chest, which is not adequately evaluated and may be truncated along the lower aspect of the chest. Lungs and pleura: Lungs are clear. No pleural effusions or pneumothorax. Mediastinum: Mediastinal contours appear normal. Heart size is normal. Bones and chest wall: No suspicious bony lesions. Overlying soft tissues appear unremarkable. IMPRESSION: 1. Right-sided 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 shunt catheter is not adequately seen and is only definitely identified extending into the region of the mid to lower aspect of the chest. 2. No acute cardiopulmonary process. Dictated by: Marcus Dumont M.D. on 10/29/2019 at 15:03 Approved by: Marcus Dumont M.D. on 10/29/2019 at 15:05 CT - cervical spine: Radiologist's Impression: [address] [id number] XRay Report Signed Patient: Jing Perea GMR#: [id number] : 1980Acct:[id number] Age/Sex: 38 / FDate of Service: 10/29/19 Loc: ED Accession Number: [id number] Procedure: XR cervical spine 1V Ordering Provider: Agueda Haynes PROCEDURE: XR CERVICAL SPINE 1V INDICATIONS: PANIAGUA/ Concern for shunt placement TECHNIQUE: Single lateral view of the cervical spine acquired. COMPARISON: [facility], CR, XR SHUNT SERIES WITHOUT INJECTION, 08/11/2019, 22:11. FINDINGS: Catheter tubing is identified overlying the cervical region is noted to be located along the posterior aspect of the C2 and C1 vertebral bodies and subsequently on the anterior aspect of the C3, C4, C5, and C6 vertebral bodies. The more lower portions of the venous catheter are not evident. There is straightening of the normal cervical lordosis without spondylolisthesis or significant degenerative changes. No compression deformities are evident. The C7 vertebral body is not adequately seen. The prevertebral soft tissues are within normal limits. The overlying soft tissues are otherwise unremarkable. IMPRESSION: Intact 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 catheter tubing along the course of the imaged cervical region. Dictated by: Marcus Dumont M.D. on 10/29/2019 at 15:08 Approved by: Marcus Dumont M.D. on 10/29/2019 at 15:10 Abdominal x-ray: Radiologist's Impression: [address] [place] [address] XRay Report Signed Patient: Jing Perea GMR#: [id number] : 1980Acct:[id number] Age/Sex: 38 / FDate of Service: 10/29/19 Loc: ED Accession Number: [id number] Procedure: XR abdomen 1V Ordering Provider: Agueda Haynes PROCEDURE: XR ABDOMEN 1V INDICATIONS: shunt placement TECHNIQUE: One view of the abdomen acquired. COMPARISON: [facility], CR, XR ABDOMEN 1V, 03/29/2018, 21:25. FINDINGS: Surgical changes and devices: Through the pelvis a catheter extending from above is not seen. A 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 shunt is not identified.. Bowel: Bowel gas pattern is normal. Soft tissues: No suspicious abdominal calcifications. Visualized solid organ contours appear normal in size. Bones: No suspicious bony lesions. IMPRESSION: No shunt catheter identified over the pelvis. Dictated by: Cecilio Hernandez M.D. on 10/29/2019 at 16:11 Approved by: Cecilio Hernandez M.D. on 10/29/2019 at 16:11 [facility] Narrative Medical decision making narrative: The patient is a 38-year-old female who presents with a chief complaint of head and neck pain. She does have a REGISTERED NURSE FLOAT POOL shunt, is concerned that it was dislodged during her chiropractic visit a few days ago. This images were taken to evaluate the placement of REGISTERED NURSE FLOAT POOL shunt and images were discussed and evaluated with Dr Valadez. The patient denies any incontinence of bowel, new incontinence of bladder or numbness in her groin. I discussed that these are return precautions. After the patient Toradol, but she states she becomes violent with NSAIDs. I offered the patient steroids for her headache, but she states that those make her violent. After gabapentin for her neck pain, which she declined as she is allergic to it. The patient did received Benadryl, lidocaine patch, Zofran as well as Flexeril initially. She states that her pain did not improve vital so I did agree to give her a single dose of [place] in the emergency department. However I do not want to give her a prescription given her history and [facility] report. The patient was able to ambulate throughout her stay in the emergency department, looking around. She appeared to be and no acute distress when ambulating in the hallways. Encouraged to follow up with primary care provider. Patient has no questions or concerns upon discharge and states understanding return precautions as well as follow-up care. <Guzman Valadez, DO - Last Filed: 11/01/19 07:10> Lab Data Labs: Point of Care Testing Test Results Negative Urine Dip Bedside Urine Glucose Negative Bedside Urine Bilirubin - Negative Bedside Urine Ketone - Negative Urine Specific [place] 1.015 Bedside Urine Occult Blood - Negative Bedside Urine pH 6.0 Bedside Urine Protein - Negative Bedside Urine Urobilinogen - Negative Bedside Urine Nitrite - Negative Bedside Urine Leukocytes - Negative Esterase Discharge Plan Departure Patient Disposition: Home Clinical Impression: Acute neck pain Discharge Date/Time: 10/29/19 19:20 Instructions: DI for Neck Pain Activity Restrictions/Additional Instructions: Thank you for trusting us with your care today. Regarding your shunt placement, your x-rays were very reassuring. We gave you multiple medications for pain in the emergency department including Benadryl, Zofran for nausea, cyclobenzaprine for muscle spasm, a lidocaine patch for pain as well as [place] for pain. Please try to go home and rest. Please monitor for any incontinence bowel, incontinence of bladder or numbness in your groin. Please follow-up with primary care provider. I have given the contact information [facility] human resources operations specialist. They cannot match with primary care provider. You can also try to follow up with [facility] and [place]. Prescriptions: No Action albuterol sulfate 90 mcg/actuation HFA aerosol inhaler 2 puff INHALATION Q4-6H PRN (Reason: shortness of breath or wheezing) Qty: 18 RF: 0 venlafaxine 37.5 mg capsule,extended release 24hr 37.5 mg PO DAILY MDD 112.5 mg Qty: 30 RF: 2 Flovent HFA 220 mcg/actuation HFA aerosol inhaler 1 puff INHALATION BID Qty: 12 RF: 0 lamotrigine 150 mg tablet 150 mg PO BID RF: 0 metoclopramide HCl 10 mg tablet 10 mg PO TID PRN (Reason: Nausea) RF: 0 venlafaxine 75 mg capsule,extended release 24hr 75 mg PO DAILY RF: 0 acetaminophen 325 mg Tablet 650 mg PO Q6HR PRN (Reason: As Needed For Fever/Mild Pain) Qty: 30 RF: 0 valacyclovir 500 mg tablet 1,000 mg PO DAILY RF: 0 Referrals: [facility] [Outside] <Guzman Valadez, DO - Last Filed: 11/01/19 07:10> Cosign ED Attending Cosignature Attestation: Dr Valadez Co-Sign Statement: I was available for consultation during this patient's emergency department visit. This chart is signed by myself for administrative purposes only. I did not have direct contact with this patient during this visit. They were seen independently by the APC.
--- NOTE | 2019-10-29 18:04 | PC.NURSE ---
pt stating that pain medicine has not decreased pain. DNP Ivy aware
[2019-10-29] MEDS: HYDROCODONE/ACET 5/325 TABLET 2 TAB PO (18:47)
== END 2019-10-29 19:20 | disposition home or self-care (01) ==
PROVIDERS: Emergency Provider Nurse Practitioner Family
DX: M54.2 Cervicalgia (principal); Z98.2 Presence of cerebrospinal fluid drainage device
CPT/HCPCS: 70250; 71045; 72020; 74018; 81003; 81025; 96372; 99283; 99284; J1200

== ENCOUNTER 2020-02-17 17:22 | Emergency (ER) | payer OTHER, MEDICAID, SELFPAY ==
[2018-01-17 01:41] VITALS: BMI 32.3
[2020-02-17 17:50] VITALS: BP 133/87; PULSE 85; RESP 16; TEMP 36.7; O2SAT 97; BMI 31.1
[2020-02-17 18:26] LABS: INR 1.1 (0.9-1.3); Prothrombin Time 12.2 SECONDS (10.1-12.7)
[2020-02-17 18:28] LABS: PTT Partial Thromboplastin Tim 27 SECONDS (26.4-36.2)
[2020-02-17 18:30] LABS: Add Manual Diff / Slide Review NO; Alanine Aminotransferase 29 IU/L (<35); Albumin 4.9 g/dL (3.5-5.0); Albumin Globulin Ratio 1.4 (1.0-2.8); Alkaline Phosphatase 90 U/L (38-126); Aspartate Aminotransferase 31 IU/L (14-36); BUN Creatinine Ratio 16.7 (6-22); Basophils Absolute Auto 100 /uL (0-100); Basophils Percent Auto 0.5 % (0-2); Bilirubin Total 0.7 mg/dL (0.2-1.3); Blood Urea Nitrogen 12 mg/dL (7-17); Calcium 9.6 mg/dL (8.4-10.2); Carbon Dioxide 29 mmol/L (22-32); Chloride 99 mmol/L (98-107); Eosinophils Absolute Auto 100 /uL (0-450); Eosinophils Percent Auto 0.8 % (2-4); Estimated Glomerular Filt Rate > 60.0 mL/min (>60); Globulin 3.4 g/dL (1.7-4.1); Glucose 96 mg/dL (70-100); HEMOLYSIS 28 (0-50); Hemoglobin 15.7 g/dL (12.0-16.0); Lipase 29 U/L (23-300); Lymphocytes Absolute Auto 2500 /uL (1100-4500); Lymphocytes Percent Auto 22.6 % (25-40); Mean Corpuscular HGB Conc 33.4 % (30-36); Mean Corpuscular Volume 95.8 fL (80-100); Monocytes Absolute Auto 400 /uL (0-900); Neutrophils Absolute Auto 8000 /uL (1500-7000); Neutrophils Percent Auto 72.1 % (50-75); Platelet Count 224 X10^3/uL (150-400); Potassium 3.9 mmol/L (3.4-5.1); Red Blood Cell Count 4.91 X10^6/uL (4.0-5.2); Red Cell Distribution Width 13.7 % (11.6-14.8); Sodium 138 mmol/L (137-145); Total Protein 8.3 g/dL (6.3-8.2); White Blood Cell Count 11.1 X10^3/uL (4.5-11.0)
--- NOTE | 2020-02-17 18:36 | ED_ITS ---
HPI - Abdominal Pain General Chief Complaint: Abdominal Pain Stated Complaint: vomiting for last 48 hours Time Seen by Provider: 02/17/20 18:06 Source: patient and family History of Present Illness HPI narrative: Patient brought here by . Complaints 2 days of nausea vomiting no diarrhea. No hematemesis. Complains of diffuse abdominal pain and right lower quadrant pain. Has had Dilaudid for pain medication without any difficulties or reactions. Multiple ER visits in the past for the same complaint. Has had 4 CT scans of the abdomen pelvis in the past 2 years. Patient states had EGD and colonoscopy March 2019 at [facility]. Patient states no significant findings. Never had gastric emptying test. Has been seen by GI in the past. Denies alcohol abuse. No sick contacts. No contaminated foods. No urinary complaints. Patient has had multiple CT scans for other reasons as well. Spoke with patient at this time will hold on CT scan imaging due to life time exposure/radiation. She agrees. Awaiting laboratory results and x-ray results tonight Related Data Home Medications Medication Instructions Recorded Confirmed venlafaxine 75 mg PO DAILY 01/05/18 08/18/19 valacyclovir 1,000 mg PO DAILY 07/24/18 08/18/19 lamotrigine 150 mg PO BID 01/06/19 08/18/19 metoclopramide HCl 10 mg PO TID PRN 01/06/19 08/18/19 Previous Rx's Medication Instructions Recorded venlafaxine 37.5 mg 37.5 mg PO DAILY #30 cap MDD 112.5 12/30/17 capsule,extended release 24 hr mg acetaminophen 650 mg PO Q6HR PRN #30 tab 01/18/18 albuterol sulfate 90 mcg/actuation 2 puff INHALATION Q4-6H PRN #18 08/18/19 aerosol inhaler gram fluticasone propionate 220 1 puff INHALATION BID #12 gram 10/15/19 mcg/actuation HFA aerosol inhaler Allergies Allergy/AdvReac Type Severity Reaction Status Date / Time coconut [COCONUT] Allergy Severe STOPS Verified 10/29/19 15:23 BREATHS prochlorperazine Allergy Intermediate seizure Verified 10/29/19 15:23 NSAIDS (Non-Steroidal Allergy Mild rash, milner Verified 10/29/19 15:23 Anti-Inflamma [NSAIDS (NON-STEROIDAL ANTI-INFLAMMA] promethazine [From PHENERGAN] Allergy Unknown restless Verified 10/29/19 15:23 legs Review of Systems Review of Systems Narrative: GENERAL: Denies chills, fatigue, malaise, fever, sweats. HEENT: Denies sinus pain, ear pain, sore throat, difficulty swallowing, dizziness. RESPIRATORY: Denies dyspnea, cough, wheezing, hemoptysis, sputum. CARDIOVASCULAR: Denies chest pain, palpitations, orthopnea, edema, GASTROINTESTINAL: Complains nausea, vomiting, abdominal pain, denies diarrhea, constipation, melena. : Denies dysuria, frequency, incontinence, hematuria, urinary retention. MUSCULOSKELETAL: denies weakness, joint pain, or bony pain SKIN: Denies rash, skin lesions NEUROLOGIC: Denies weakness, headache, numbness, change in speech, confusion, seizures, incoordination. PSYCHIATRIC: No concerning psychosocial issues. ROS Unobtainable: All systems reviewed & are unremarkable except as noted in HPI and below Patient History Medical History Anxiety (Chronic) Cervical cancer (Acute) Depression (Chronic) Femoral acetabular impingement (Chronic) Genital herpes (Chronic) Gout (Chronic) Kidney stones (Resolved 12/2016) Ovarian cancer (Resolved) Pseudotumor cerebri (Resolved) Pulmonary embolism (Resolved 2010) Pulmonary embolism (Resolved 2009) Uterine cancer (Resolved) Surgical History History of bladder surgery (Acute) History of carpal tunnel repair (Resolved) Status post appendectomy (Resolved) Status post breast reduction (Resolved) Status post cholecystectomy (Resolved) Status post hernia repair (Resolved 2014) Status post hysterectomy with oophorectomy (Resolved 2003) Status post laparoscopy (Resolved) [employer]GER (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) shunt status (Resolved) Family History Father History of kidney cancer Mother Diabetes mellitus Hypertension Hyperlipidemia CAD (coronary artery disease) CVA (cerebral vascular accident) Social History marital status: household members: family lives independently: Yes occupational status: employed Smoking Status: Current every day smoker alcohol intake: never substance use type: marijuana Smoking Status: Current every day smoker tobacco type: cigarettes alcohol intake frequency: holidays/special occasions only Substance Use Type: marijuana Exam Narrative Exam Narrative: GENERAL: patient appears stated age. Well-nourished, well- developed patient, in no distress, not toxic HEAD: Atraumatic. Normocephalic. EYES: Pupils equal round and reactive. Extraocular motions intact. No scleral icterus. No injection or drainage. ENT: Nose without bleeding, purulent drainage. Throat without erythema, tonsillar hypertrophy or exudate. Airway patent. NECK: Trachea midline. Non tender CARDIOVASCULAR: Regular rate and rhythm without murmurs, gallops, or rubs. RESPIRATORY: Clear to auscultation. Breath sounds equal bilaterally. No wheezes, rales, or rhonchi. GASTROINTESTINAL: Abdomen soft, mild diffuse tenderness increased tenderness to the right lower quadrant. History of cholecystectomy as well as appendectomy. No peritoneal signs. Bowel sounds present. EXTREMITIES: No edema or joint tenderness. BACK: Nontender without deformity or crepitance. No flank tenderness. NEURO: AOx4. SKIN: No rash or erythema of visible areas PSYCH: Not anxious, is cooperative Initial Vital Signs Initial Vital Signs: Vital Signs Temperature 98.1 F 02/17/20 17:50 Pulse Rate 85 02/17/20 17:50 Respiratory Rate 16 02/17/20 17:50 Blood Pressure 133/87 02/17/20 17:50 Pulse Oximetry 97 02/17/20 17:50 Course Course Course Narrative: Nausea vomiting improved here abdominal pain improving. IV fluids Zofran and Dilaudid given. Orders Ordered: ED Orders 02/17/20 18:00 EKG-12 Lead Stat 02/17/20 18:12 Complete Blood Count AUTO DIFF Stat Comprehensive Metabolic Panel Stat Lipase Stat Partial Thromboplastin Time Stat Prothrombin Time INR Stat 02/17/20 18:40 XR abdomen 1V Stat 02/17/20 19:00 Ictotest Urine Stat UA Complete [Urinalysis and Microscopic] Stat Urine Drug Screen, Rapid Stat Discontinued Medications Hydromorphone HCl (Dilaudid) 1 mg IV NOW ONE Stop: 02/17/20 18:37 Last Admin: 02/17/20 19:19 Dose: 1 mg Documented by: MMCFARL Hydromorphone HCl (Dilaudid) 0.5 mg IV NOW ONE Stop: 02/17/20 20:16 Last Admin: 02/17/20 20:30 Dose: 0.5 mg Documented by: MMCFARL Sodium Chloride (Normal Saline 0.9%) 1,000 mls @ 1,000 mls/hr IV BOLUS ONE Stop: 02/17/20 19:33 Last Admin: 02/17/20 19:19 Dose: 1,000 mls/hr Documented by: MMCFARL Sodium Chloride (Normal Saline 0.9%) 1,000 mls @ 1,000 mls/hr IV BOLUS ONE Stop: 02/17/20 21:12 Last Admin: 02/17/20 20:30 Dose: 1,000 mls/hr Documented by: MMCFARL Ondansetron HCl (Zofran) 4 mg IV NOW ONE Stop: 02/17/20 18:35 Last Admin: 02/17/20 19:20 Dose: 4 mg Documented by: MMCFARL Reevaluation(s) Reevaluation #1: Patient states feeling better. Nausea vomiting done. At all pain is improving. Will order 0.5 mg Dilaudid. Another L of fluids. Patient states she would be happy to go home Time: 20:17 Vital Signs Vital signs: Vital Signs - 8 hr 02/17/20 17:50 02/17/20 19:27 02/17/20 19:30 Temperature 98.1 F Pulse Rate 85 73 63 Respiratory Rate 16 20 16 Blood Pressure 133/87 121/69 116/68 Pulse Oximetry 97 95 96 02/17/20 20:00 02/17/20 20:30 02/17/20 21:00 Temperature Pulse Rate 62 67 66 Respiratory Rate 19 18 18 Blood Pressure 115/70 111/60 118/67 Pulse Oximetry 96 96 97 MDM - Abdominal Pain Medical Records Attestation: I reviewed the patient's medical records. Lab Data Attestation: I reviewed the patient's lab results. Result diagrams: 02/17/20 18:12 02/17/20 18:12 Labs: Lab Results 02/17/20 02/17/20 02/17/20 Range/Units 18:12 18:12 18:12 WBC 11.1 H (4.5-11.0) X10^3/uL RBC 4.91 (4.0-5.2) X10^6/uL Hgb 15.7 (12.0-16.0) g/dL Hct 47.0 H (36-46) % MCV 95.8 (80-100) fL MCH 32.0 (26-34) PG MCHC 33.4 (30-36) % RDW 13.7 (11.6-14.8) % Plt Count 224 (150-400) X10^3/uL Neut % (Auto) 72.1 (50-75) % Lymph % (Auto) 22.6 L (25-40) % [place] % (Auto) 4.0 (3-14) % Eos % (Auto) 0.8 L (2-4) % Baso % (Auto) 0.5 (0-2) % Neut # (Auto) 8000 H (0432-8910) /uL Lymph # (Auto) 2500 (6679-8759) /uL [place] # (Auto) 400 (0-900) /uL Eos # (Auto) 100 (0-450) /uL Baso # (Auto) 100 (0-100) /uL PT 12.2 (10.1-12.7) SECONDS INR 1.1 (0.9-1.3) APTT 27 D (26.4-36.2) SECONDS Sodium 138 (137-145) mmol/L Potassium 3.9 (3.4-5.1) mmol/L Chloride 99 (98-107) mmol/L Carbon Dioxide 29 (22-32) mmol/L BUN 12 (7-17) mg/dL Creatinine 0.72 (0.52-1.04) mg/dL Estimated GFR > 60.0 (>60) mL/min BUN/Creatinine Ratio 16.7 (6-22) Glucose 96 (70-100) mg/dL Calcium 9.6 (8.4-10.2) mg/dL Total Bilirubin 0.7 (0.2-1.3) mg/dL AST 31 (14-36) IU/L ALT 29 (<35) IU/L Alkaline Phosphatase 90 (38-126) U/L Total Protein 8.3 H (6.3-8.2) g/dL Albumin 4.9 (3.5-5.0) g/dL Globulin 3.4 (1.7-4.1) g/dL Albumin/Globulin Ratio 1.4 (1.0-2.8) Lipase 29 (23-300) U/L Urine Color Urine Appearance Urine pH (4.5-8.0) Ur Specific [place] (1.000-1.035) Urine Protein (Negative) Urine Glucose (UA) (Negative) g/dL Urine Ketones (NEGATIVE) Urine Occult Blood (Negative) Urine Nitrate (Negative) Urine Bilirubin (NEGATIVE) Ur Bilirubin Confirm (Negative) Urine Urobilinogen (0.2) E.U./dL Ur Leukocyte Esterase (NEGATIVE) Urine RBC (0-5/HPF) Urine WBC (0-5/HPF) Ur Squamous Epith Cells (0-5/HPF) Urine Bacteria (None) Urine Mucus (Negative) Ur Culture Indicated? U Opiates 300ng/mL cut (Negative) Ur Oxycodone Screen (Negative) Urine Methadone Screen (Negative) Ur Barbiturates Screen (Negative) U Tricyclic Antidepress (Negative) Ur Phencyclidine Scrn (Negative) Ur Amphetamines Screen (Negative) U Methamphetamines Scrn (Negative) Ur MDMA Scrn (Ecstasy) (Negative) U Benzodiazepines Scrn (Negative) Urine Cocaine Screen (Negative) U Marijuana (THC) Screen (Negative) 02/17/20 02/17/20 Range/Units 19:00 19:00 WBC (4.5-11.0) X10^3/uL RBC (4.0-5.2) X10^6/uL Hgb (12.0-16.0) g/dL Hct (36-46) % MCV (80-100) fL MCH (26-34) PG MCHC (30-36) % RDW (11.6-14.8) % Plt Count (150-400) X10^3/uL Neut % (Auto) (50-75) % Lymph % (Auto) (25-40) % [place] % (Auto) (3-14) % Eos % (Auto) (2-4) % Baso % (Auto) (0-2) % Neut # (Auto) (5540-4670) /uL Lymph # (Auto) (9751-9865) /uL [place] # (Auto) (0-900) /uL Eos # (Auto) (0-450) /uL Baso # (Auto) (0-100) /uL PT (10.1-12.7) SECONDS INR (0.9-1.3) APTT (26.4-36.2) SECONDS Sodium (137-145) mmol/L Potassium (3.4-5.1) mmol/L Chloride (98-107) mmol/L Carbon Dioxide (22-32) mmol/L BUN (7-17) mg/dL Creatinine (0.52-1.04) mg/dL Estimated GFR (>60) mL/min BUN/Creatinine Ratio (6-22) Glucose (70-100) mg/dL Calcium (8.4-10.2) mg/dL Total Bilirubin (0.2-1.3) mg/dL AST (14-36) IU/L ALT (<35) IU/L Alkaline Phosphatase (38-126) U/L Total Protein (6.3-8.2) g/dL Albumin (3.5-5.0) g/dL Globulin (1.7-4.1) g/dL Albumin/Globulin Ratio (1.0-2.8) Lipase (23-300) U/L Urine Color Yellow Urine Appearance Clear Urine pH 6.5 (4.5-8.0) Ur Specific [place] 1.020 (1.000-1.035) Urine Protein Negative (Negative) Urine Glucose (UA) Negative (Negative) g/dL Urine Ketones 1+ H (NEGATIVE) Urine Occult Blood Trace-lysed (Negative) Urine Nitrate Negative (Negative) Urine Bilirubin 1+ H (NEGATIVE) Ur Bilirubin Confirm Negative (Negative) Urine Urobilinogen 0.2 (0.2) E.U./dL Ur Leukocyte Esterase Negative (NEGATIVE) Urine RBC 1-5/hpf D (0-5/HPF) Urine WBC 1-5/hpf (0-5/HPF) Ur Squamous Epith Cells 1-5 /hpf (0-5/HPF) Urine Bacteria Occasional (0-1) (None) Urine Mucus 1+ H (Negative) Ur Culture Indicated? Cult not indicated U Opiates 300ng/mL cut Positive H (Negative) Ur Oxycodone Screen Negative (Negative) Urine Methadone Screen Negative (Negative) Ur Barbiturates Screen Negative (Negative) U Tricyclic Antidepress Negative (Negative) Ur Phencyclidine Scrn Negative (Negative) Ur Amphetamines Screen Negative (Negative) U Methamphetamines Scrn Negative (Negative) Ur MDMA Scrn (Ecstasy) Negative (Negative) U Benzodiazepines Scrn Negative (Negative) Urine Cocaine Screen Negative (Negative) U Marijuana (THC) Screen Positive H (Negative) ECG Data Attestation: I personally reviewed and interpreted this ECG as follows: Interpretation: Normal sinus rhythm. Rate 70. No ST elevation or depression MDM Narrative Medical decision making narrative: Appropriate for discharge home. Patient is awaiting call back from family doctor from 2 days ago. She states she will pursue investigation for gastroparesis. Not toxic. No fever. White cell count normal. No indication for CT scan at this time. X-ray no acute process no obs truction Discharge Plan Departure Patient Disposition: Home Clinical Impression: Abdominal pain, chronic, generalized Nausea & vomiting Qualifiers: Vomiting type: unspecified Vomiting Intractability: non-intractable Qualified Code(s): R11.2 - Nausea with vomiting, unspecified Discharge Date/Time: 02/17/20 21:20 Instructions: DI for Abdominal Pain-Adult, Nausea and Vomiting-Adult Activity Restrictions/Additional Instructions: Keep well hydrated. Continue your antiemetic medication for nausea and vomiting home. See family doctor within a week for recheck and may need referral for g astroparesis evaluation. Return if worse or if any questions or concerns. No driving tonight. No operating machinery tonight Prescriptions: No Action albuterol sulfate 90 mcg/actuation HFA aerosol inhaler 2 puff INHALATION Q4-6H PRN (Reason: shortness of breath or wheezing) Qty: 18 RF: 0 venlafaxine 37.5 mg capsule,extended release 24hr 37.5 mg PO DAILY MDD 112.5 mg Qty: 30 RF: 2 Flovent HFA 220 mcg/actuation HFA aerosol inhaler 1 puff INHALATION BID Qty: 12 RF: 0 lamotrigine 150 mg tablet 150 mg PO BID RF: 0 metoclopramide HCl 10 mg tablet 10 mg PO TID PRN (Reason: Nausea) RF: 0 venlafaxine 75 mg capsule,extended release 24hr 75 mg PO DAILY RF: 0 acetaminophen 325 mg Tablet 650 mg PO Q6HR PRN (Reason: As Needed For Fever/Mild Pain) Qty: 30 RF: 0 valacyclovir 500 mg tablet 1,000 mg PO DAILY RF: 0
--- NOTE | 2020-02-17 18:40 | DI.RAD.S_ITS ---
PROCEDURE: XR ABDOMEN 1V INDICATIONS: Abdominal pain TECHNIQUE: One view of the abdomen acquired. COMPARISON: [facility], CR, XR ABDOMEN 1V, 10/29/2019, 14:42. FINDINGS: Surgical changes and devices: Cholecystectomy clips. Bowel: Nonspecific bowel gas pattern with no evidence of bowel obstruction. Soft tissues: No suspicious abdominal calcifications. Visualized solid organ contours appear normal in size. Bones: No suspicious bony lesions. IMPRESSION: Nonspecific bowel gas pattern with no evidence of bowel obstruction. Dictated by: Ibrahima Short M.D. on 02/17/2020 at 19:00 Approved by: Ibrahima Short M.D. on 02/17/2020 at 19:00
[2020-02-17] MEDS: HYDROMORPHONE 1 MG INJ IV (19:19)
[2020-02-17] MEDS: SODIUM CHLORIDE 0.9% 1,000 ML 1000 ML IV ×2 (19:19→20:30)
[2020-02-17] MEDS: ONDANSETRON 4 MG/2 ML INJ IV (19:20)
[2020-02-17 19:27] VITALS: BP 121/69; PULSE 73; RESP 20; O2SAT 95
[2020-02-17 19:29] LABS: Appearance Urine UA CLEAR; Bilirubin Urine UA 1+ (NEGATIVE); Color Urine UA YELLOW; Glucose Urine UA NEGATIVE (Negative); Ketones Urine UA 1+ (NEGATIVE); Leukocyte Esterase Urine UA NEGATIVE (NEGATIVE); Nitrite Urine UA NEGATIVE (Negative); Occult Blood Urine UA TRACE-LYSED (Negative); Protein Urine UA NEGATIVE (Negative); Urobilinogen Urine UA 0.2 E.U./dL (0.2)
[2020-02-17 19:30] VITALS: BP 116/68; PULSE 63; RESP 16; O2SAT 96
[2020-02-17 19:32] LABS: UR Morphine/Opiate cutoff 300 Positive (Negative); Ur Creatinine Normal (Normal); Ur Specific Gravity Normal (Normal); Urine Amphetamines Negative (Negative); Urine Barbiturates Negative (Negative); Urine Benzodiazepines Negative (Negative); Urine Cocaine Negative (Negative); Urine MDMA Negative (Negative); Urine Methadone Negative (Negative); Urine Methamphetamines Negative (Negative); Urine Oxycodone Negative (Negative); Urine Phencyclidine Negative (Negative); Urine Tetrahydrocannabinol Positive (Negative); Urine Tricyclic Antidepressant Negative (Negative); Urine pH Normal (Normal); pH Urine UA 6.5 (4.5-8.0)
[2020-02-17 19:33] LABS: Ictotest Urine Negative (Negative)
[2020-02-17 19:34] LABS: Bacteria Urine Occasional (0-1); Culture Indicated Urine Cult Not Indicated; Mucus Urine 1+ (Negative); RBC Urine 1-5/HPF (0-5/HPF); Squamous Epithelial Cell Urine 1-5 /HPF (0-5/HPF); WBC Urine 1-5/HPF (0-5/HPF)
[2020-02-17 20:00] VITALS: BP 115/70; PULSE 62; RESP 19; O2SAT 96
[2020-02-17 20:30] VITALS: BP 111/60; PULSE 67; RESP 18; O2SAT 96
[2020-02-17] MEDS: HYDROMORPHONE 1 MG INJ 0.5 MG IV (20:30)
[2020-02-17 21:00] VITALS: BP 118/67; PULSE 66; RESP 18; O2SAT 97
== END 2020-02-17 21:20 | disposition home or self-care (01) ==
PROVIDERS: Emergency Medicine; Emergency Provider Emergency Medicine
DX: R11.2 Nausea with vomiting, unspecified (principal); R10.84 Generalized abdominal pain
CPT/HCPCS: 74018; 80053; 80305; 81001; 83690; 85025; 85610; 85730; 93005; 96361; 96374; 96375; 96376; 99284; J1170; J2405

== ENCOUNTER 2020-05-11 17:11 | Emergency (ER) | payer OTHER, MEDICAID, SELFPAY ==
[2018-01-17 01:41] VITALS: BMI 32.3
[2020-05-11 17:39] VITALS: BP 154/85; PULSE 84; RESP 16; TEMP 36.7; O2SAT 97; BMI 29.8
--- NOTE | 2020-05-11 21:20 | ED.HA ---
HPI - Headache General Chief Complaint: Headache Stated Complaint: states massive Migraine Time Seen by Provider: 05/11/20 21:04 Source: patient Mode of arrival: Ambulatory History of Present Illness HPI Narrative: Patient awoke this morning with her typical headache due to barometric pressure changes due to the weather changes. This is not not not need. We do have cold wet weather currently. 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 Has nausea but no vomiting. Light and sound sensitive. No altered mental status slurred speech facial droop no numbness tingling weakness to the limbs. Again typical of her headaches. Revision of VIDEO SYSTEM REPAIRER shunt 1 year ago. Has been doing well. 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 Patient states her usual headache medications in the emergency department includes intravenous 1 mg Dilaudid, Reglan, 75 mg of Benadryl Complaint: headache and migraine Related Data Home Medications Medication Instructions Recorded Confirmed venlafaxine 75 mg PO DAILY 01/05/18 08/18/19 valacyclovir 1,000 mg PO DAILY 07/24/18 08/18/19 lamotrigine 150 mg PO BID 01/06/19 08/18/19 metoclopramide HCl 10 mg PO TID PRN 01/06/19 08/18/19 Previous Rx's Medication Instructions Recorded venlafaxine 37.5 mg 37.5 mg PO DAILY #30 cap MDD 112.5 12/30/17 capsule,extended release 24 hr mg acetaminophen 650 mg PO Q6HR PRN #30 tab 01/18/18 albuterol sulfate 90 mcg/actuation 2 puff INHALATION Q4-6H PRN #18 08/18/19 aerosol inhaler gram fluticasone propionate 220 1 puff INHALATION BID #12 gram 10/15/19 mcg/actuation HFA aerosol inhaler Allergies Allergy/AdvReac Type Severity Reaction Status Date / Time coconut [COCONUT] Allergy Severe STOPS Verified 10/29/19 15:23 BREATHS prochlorperazine Allergy Intermediate seizure Verified 10/29/19 15:23 NSAIDS (Non-Steroidal Allergy Mild rash, milner Verified 10/29/19 15:23 Anti-Inflamma [NSAIDS (NON-STEROIDAL ANTI-INFLAMMA] promethazine [From PHENERGAN] Allergy Unknown restless Verified 10/29/19 15:23 legs Review of Systems Review of Systems Narrative: GENERAL: Denies chills, fatigue, malaise, fever, sweats. HEENT: Denies sinus pain, ear pain, sore throat, difficulty swallowing RESPIRATORY: Denies dyspnea, cough CARDIOVASCULAR: Denies chest pain, palpitations, edema, GASTROINTESTINAL: Complaint nausea, denies vomiting, abdominal pain, diarrhea, constipation, melena. : Denies dysuria, frequency, hematuria MUSCULOSKELETAL: denies muscle or bony pain SKIN: Denies rash, skin lesions NEUROLOGIC: Denies weakness, complains headache, denies numbness, change in speech, confusion PSYCHIATRIC: No SI or HI or hallucinations ROS Unobtainable: All systems reviewed & are unremarkable except as noted in HPI and below Patient History Medical History (Updated 05/11/20 @ 21:24 by Michael Crook MD) Anxiety Cervical cancer Depression Femoral acetabular impingement Genital herpes Gout Kidney stones (12/2016) Ovarian cancer Pseudotumor cerebri Pulmonary embolism (2010) Pulmonary embolism (2009) Uterine cancer Surgical History History of bladder surgery History of carpal tunnel repair Status post appendectomy Status post breast reduction Status post cholecystectomy Status post hernia repair (2014) Status post hysterectomy with oophorectomy (2003) Status post laparoscopy VIDEO SYSTEM REPAIRER (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) shunt status Family History Father History of kidney cancer Mother Diabetes mellitus Hypertension Hyperlipidemia CAD (coronary artery disease) CVA (cerebral vascular accident) Social History marital status: household members: family lives independently: Yes occupational status: employed Smoking Status: Current every day smoker alcohol intake: never substance use type: marijuana Smoking Status: Current every day smoker tobacco type: cigarettes alcohol intake frequency: holidays/special occasions only Substance Use Type: marijuana Exam Narrative Exam Narrative: GENERAL: patient appears stated age. Well-nourished, well-developed patient, in no distress, not toxic not dyspneic HEAD: Normocephalic. EYES: Pupils equal round and reactive. No scleral icterus. No injection no discharge, no photophobia, no papilledema. ENT: Mucous membranes moist. No drooling no tongue elevation no trismus no malocclusion NECK: Trachea midline. Non tender, no meningeal signs CARDIOVASCULAR: Regular rate and rhythm without murmurs, gallops, or rubs. RESPIRATORY: Clear to auscultation. Breath sounds equal bilaterally. No wheezes, rales, or rhonchi. GASTROINTESTINAL: Abdomen soft, non-tender, nondistended. EXTREMITIES: No gross deformities. BACK: Nontender without deformity or crepitance. No flank tenderness. NEURO: AOx4. Clear speech no facial droop steady self gait no foot drop. Light touch intact to bilateral face hands and feet. 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 Strong bilateral patellar reflexes. Steady Romberg, negative pronator drift SKIN: Warm and dry PSYCH: Not anxious, is cooperative Initial Vital Signs Initial Vital Signs: Vital Signs Temperature 98.0 F 05/11/20 17:39 Pulse Rate 84 05/11/20 17:39 Respiratory Rate 16 05/11/20 17:39 Blood Pressure 154/85 H 05/11/20 17:39 Pulse Oximetry 97 05/11/20 17:39 Course Orders Ordered: Discontinued Medications Diphenhydramine HCl (Diphenhydramine 50 Mg/Ml Vial) 50 mg IV NOW ONE Stop: 05/11/20 21:19 Last Admin: 05/11/20 21:51 Dose: 50 mg Documented by: TALYA Hydromorphone HCl (Hydromorphone 1 Mg Inj) 1 mg IV NOW ONE Stop: 05/11/20 21:19 Last Admin: 05/11/20 21:51 Dose: 1 mg Documented by: TALYA Hydromorphone HCl (Hydromorphone 1 Mg Inj) 1 mg IV NOW ONE Stop: 05/11/20 22:36 Last Admin: 05/11/20 22:39 Dose: 1 mg Documented by: TALYA Metoclopramide HCl (Metoclopramide 10 Mg/2 Ml Inj) 10 mg IV NOW ONE Stop: 05/11/20 21:19 Last Admin: 05/11/20 21:51 Dose: 10 mg Documented by: TALYA Ondansetron HCl (Ondansetron 4 Mg/2 Ml Inj) 4 mg IV NOW ONE Stop: 05/11/20 21:19 Reevaluation(s) Reevaluation #1: Patient feeling much better with headache after medications. Desires discharge home. Calling for ride Time: 22:10 Vital Signs Vital signs: Vital Signs - 8 hr 12/17/20 22:21 Temperature 98.1 F Pulse Rate 87 Blood Pressure 123/81 Pulse Oximetry 96 MDM - Headache Differential Diagnosis Differential diagnosis: Likely migraine MDM Narrative Medical decision making narrative: No labs or indication for imaging at this time. This is recurring headache. No changes in pattern. Bilateral parietal and radiates posteriorly. Discharge Plan Departure Patient Disposition: Home Clinical Impression: Headache Qualifiers: Headache type: unspecified Headache chronicity pattern: acute headache Intractability: not intractable Qualified Code(s): R51.9 - Headache, unspecified Instructions: DI for Headache Activity Restrictions/Additional Instructions: No driving tonight. See family doctor and your neurosurgeon next week for recheck. Return if worsening questions or concerns. Prescriptions: No Action albuterol sulfate 90 mcg/actuation HFA aerosol inhaler 2 puff INHALATION Q4-6H PRN (Reason: shortness of breath or wheezing) Qty: 18 RF: 0 venlafaxine 37.5 mg capsule,extended release 24hr 37.5 mg PO DAILY MDD 112.5 mg Qty: 30 RF: 2 Flovent HFA 220 mcg/actuation HFA aerosol inhaler 1 puff INHALATION BID Qty: 12 RF: 0 lamotrigine 150 mg tablet 150 mg PO BID RF: 0 metoclopramide HCl 10 mg tablet 10 mg PO TID PRN (Reason: Nausea) RF: 0 venlafaxine 75 mg capsule,extended release 24hr 75 mg PO DAILY RF: 0 acetaminophen 325 mg Tablet 650 mg PO Q6HR PRN (Reason: As Needed For Fever/Mild Pain) Qty: 30 RF: 0 valacyclovir 500 mg tablet 1,000 mg PO DAILY RF: 0
[2020-05-11] MEDS: diphenhydrAMINE 50 MG/ML VIAL IV (21:51)
[2020-05-11] MEDS: HYDROMORPHONE 1 MG INJ IV ×2 (21:51→22:39)
[2020-05-11] MEDS: METOCLOPRAMIDE 10 MG/2 ML INJ IV (21:51)
[2020-05-11 22:21] VITALS: BP 123/81; PULSE 87; TEMP 36.7; O2SAT 96
== END 2020-05-11 22:46 | disposition home or self-care (01) ==
PROVIDERS: Emergency Provider Emergency Medicine
DX: R51.9 Headache, unspecified (principal); R11.0 Nausea
CPT/HCPCS: 96374; 96375; 96376; 99281; 99284; J1170; J1200; J2765

== ENCOUNTER 2020-05-16 18:31 | Emergency (ER) | payer OTHER, MEDICAID, SELFPAY ==
[2018-01-17 01:41] VITALS: BMI 32.3
[2020-05-16 18:40] VITALS: BP 163/86; PULSE 96; RESP 16; TEMP 36.4; O2SAT 98; BMI 29.8
--- NOTE | 2020-05-16 18:41 | ED_ITS ---
HPI - Female Genitourinary General Chief complaint: Urogenital-Female Stated complaint: Possible Kidney Infection Time Seen by Provider: 05/16/20 18:32 Source: patient Mode of arrival: Ambulatory Limitations: no limitations History of Present Illness HPI Narrative: 39F smoker with a history of migraines and depression presents with concerns for kidney function. She's had burning, frequency, and urgency and now has back pain and nausea. She's had no measured fever. She frequently has headaches and has the beginning of a headache which she attributes to her urine troubles. She denies any chest pain, shortness of breath or cough. She denies runny nose, sore throat or exposure to persons known to have COVID. She does state that she fell a couple of days ago also MD Complaint: dysuria Onset (ago): day(s) Female Urogenital Radiation: L Flank, R Flank and Suprapubic Severity: moderate Quality: Aching Duration: constant Exacerbating factors: movement Urinary symptoms: Dysuria and Flank Pain Patient : No Related Data Home Medications Medication Instructions Recorded Confirmed venlafaxine 75 mg PO DAILY 01/05/18 08/18/19 valacyclovir 1,000 mg PO DAILY 07/24/18 08/18/19 lamotrigine 150 mg PO BID 01/06/19 08/18/19 metoclopramide HCl 10 mg PO TID PRN 01/06/19 08/18/19 Previous Rx's Medication Instructions Recorded venlafaxine 37.5 mg 37.5 mg PO DAILY #30 cap MDD 112.5 12/30/17 capsule,extended release 24 hr mg acetaminophen 650 mg PO Q6HR PRN #30 tab 01/18/18 albuterol sulfate 90 mcg/actuation 2 puff INHALATION Q4-6H PRN #18 08/18/19 aerosol inhaler gram fluticasone propionate 220 1 puff INHALATION BID #12 gram 10/15/19 mcg/actuation HFA aerosol inhaler diazepam [Valium] 5 mg PO BID-QID PRN #10 tab 05/16/20 Allergies Allergy/AdvReac Type Severity Reaction Status Date / Time coconut [COCONUT] Allergy Severe STOPS Verified 05/16/20 18:42 BREATHS prochlorperazine Allergy Intermediate seizure Verified 05/16/20 18:42 NSAIDS (Non-Steroidal Allergy Mild rash, milner Verified 05/16/20 18:42 Anti-Inflamma [NSAIDS (NON-STEROIDAL ANTI-INFLAMMA] promethazine [From PHENERGAN] Allergy Unknown restless Verified 05/16/20 18:42 legs Review of Systems Constitutional Constitutional: Denies chills, Denies fatigue, Denies fever(s), Denies frequent falls, Denies lethargy and Denies weakness Eyes Eyes: Denies change in vision, Denies eye discharge, Denies irritation and Denies loss of vision ENT Ears, Nose, Mouth, and Throat: Denies change in voice, Denies dizziness, Denies neck pain, Denies sore throat and Denies throat swelling Cardiovascular Cardiovascular: Denies chest pain, Denies irregular heart rhythm, Denies lightheadedness, Denies palpitations, Denies dyspnea, Denies dyspnea on exertion and Denies orthopnea Respiratory Respiratory: Denies cough, Denies dyspnea, Denies dyspnea on exertion and Denies wheezing Gastrointestinal Gastrointestinal: Denies abdominal pain, Denies change in bowel habits, Denies diarrhea, Denies nausea and Denies vomiting Musculoskeletal Musculoskeletal: Denies neck pain and Denies numbness Integumentary/Breasts Skin/Breast: Denies pruritus, Denies erythema, Denies rash and Denies wounds Neurologic Neurologic: Denies behavioral changes, Denies confusion, Denies dizziness, Denies frequent falls, Denies loss of vision, Denies numbness and Denies weakness Psychiatric Psychiatric: Denies anxiety, Denies behavioral changes, Denies confusion, Denies depression, Denies homicidal ideation and Denies suicidal ideation Endocrine Endocrine: Denies fatigue, Denies flushing and Denies palpitations Hematologic/Lymphatic Hematologic/Lymphatic: Denies easy bruising Allergic/Immunologic Allergic/Immunologic: Denies urticaria, Denies throat swelling and Denies wheezing Patient History Medical History (Updated 05/16/20 @ 19:20 by Leo Arce DO) Anxiety Cervical cancer Depression Femoral acetabular impingement Genital herpes Gout Kidney stones (12/2016) Ovarian cancer Pseudotumor cerebri Pulmonary embolism (2010) Pulmonary embolism (2009) Uterine cancer Surgical History History of bladder surgery History of carpal tunnel repair Status post appendectomy Status post breast reduction Status post cholecystectomy Status post hernia repair (2014) Status post hysterectomy with oophorectomy (2003) 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 Extraoccular muscles are intact bilaterally. There is no subconjunctival hemorrhage or exudate. CHEST: Lungs are clear to auscultation bilaterally and free of wheezes, rales, o r rhonchi. Heart rate is regular rhythm, there are no murmurs, clicks, rubs, or gallops. There is no chest wall tenderness. ABD: Abdomen is soft and nontender. There is no guarding or rebound. Bowel sounds are normal in all 4 quadrants. There is no mass or organomegaly. EXT: Full painless ROM of all extremities with no loss of sensation or strength. BACK: no midline bony tenderness. Pain in B/L paraspinal musculature of the lumbar region. NO saddle anesthesia. 5/5 strength in B/L LE. No sensory deficit SKIN: Warm, pink, and dry. No erythema or rash Initial Vital Signs Initial Vital Signs: Vital Signs Temperature 97.6 F 05/16/20 18:40 Pulse Rate 96 H 05/16/20 18:40 Respiratory Rate 16 05/16/20 18:40 Blood Pressure 163/86 H 05/16/20 18:40 Pulse Oximetry 98 05/16/20 18:40 Course Vital Signs Vital signs: Vital Signs - 8 hr 05/16/20 18:40 Temperature 97.6 F Pulse Rate 96 H Respiratory Rate 16 Blood Pressure 163/86 H Pulse Oximetry 98 MDM - Female Genitourinary Lab Data Labs: Point of Care Testing Test Results Negative Urine Dip Bedside Urine Glucose Negative Bedside Urine Bilirubin - Negative Bedside Urine Ketone - Negative Urine Specific [place] 1.015 Bedside Urine Occult Blood - Negative Bedside Urine pH 7.5 Bedside Urine Protein - Negative Bedside Urine Urobilinogen - Negative Bedside Urine Nitrite - Negative Bedside Urine Leukocytes - Negative Esterase MDM Narrative Medical decision making narrative: Initial patient complaining would suggest UTI with possible pyelonephritis, however her urine appears clear. Her exam is most consistent with musculoskeletal pain from a fall she suffered a few days ago. She has no midline bony point tenderness, we discussed x-ray but elected not to perform given lack of classic findings. She has been given return precautions and encouraged to follow up Discharge Plan Departure Patient Disposition: Home Clinical Impression: Back pain Qualifiers: Back pain location: low back pain Chronicity: acute Back pain laterality: bilateral Sciatica presence: without sciatica Qualified Code(s): M54.5 - Low back pain Instructions: DI for Low Back Pain Activity Restrictions/Additional Instructions: *You have been diagnosed with [ back pain, likely from your fall. Your urine would suggest that infection is unlikely] *What to do: *Take medications as directed *Follow up with your primary care provider in 2-3 days, call for an appointment. Let them know you were seen in the Emergency Department and that we ask that you be seen in follow up *Return to ER if you should have any new, worsening or concerning symptoms Prescriptions: New diazepam [Valium] 5 mg tablet 5 mg PO BID-QID PRN (Reason: muscle spasm) Qty: 10 RF: 0 No Action albuterol sulfate 90 mcg/actuation HFA aerosol inhaler 2 puff INHALATION Q4-6H PRN (Reason: shortness of breath or wheezing) Qty: 18 RF: 0 venlafaxine 37.5 mg capsule,extended release 24hr 37.5 mg PO DAILY MDD 112.5 mg Qty: 30 RF: 2 Flovent HFA 220 mcg/actuation HFA aerosol inhaler 1 puff INHALATION BID Qty: 12 RF: 0 lamotrigine 150 mg tablet 150 mg PO BID RF: 0 metoclopramide HCl 10 mg tablet 10 mg PO TID PRN (Reason: Nausea) RF: 0 venlafaxine 75 mg capsule,extended release 24hr 75 mg PO DAILY RF: 0 acetaminophen 325 mg Tablet 650 mg PO Q6HR PRN (Reason: As Needed For Fever/Mild Pain) Qty: 30 RF: 0 valacyclovir 500 mg tablet 1,000 mg PO DAILY RF: 0
== END 2020-05-16 19:47 | disposition home or self-care (01) ==
PROVIDERS: Emergency Provider Emergency Medicine
DX: M54.5 Low back pain (principal); R30.0 Dysuria; R11.0 Nausea; R51.9 Headache, unspecified
CPT/HCPCS: 81003; 81025; 99281; 99282

== ENCOUNTER 2020-12-14 17:51 | Emergency (ER) | payer OTHER, MEDICAID, SELFPAY ==
[2018-01-17 01:41] VITALS: BMI 32.3
[2020-12-14 18:10] VITALS: BP 153/76; PULSE 87; RESP 17; TEMP 36.7; O2SAT 98; BMI 29.8
[2020-12-14 18:44] LABS: Bacteria Urine None Seen; WBC Urine None Seen (0-5/HPF)
[2020-12-14 18:53] LABS: Add Manual Diff / Slide Review NO; Basophils Absolute Auto 100 /uL (0-100); Basophils Percent Auto 0.6 % (0-2); Culture Indicated Urine Cult Not Indicated; Eosinophils Absolute Auto 200 /uL (0-450); Hematocrit 45.3 % (36-46); Hemoglobin 15.2 g/dL (12.0-16.0); Lymphocytes Absolute Auto 3000 /uL (1100-4500); Lymphocytes Percent Auto 34.1 % (25-40); Mean Corpuscular HGB Conc 33.6 % (30-36); Mean Corpuscular Hemoglobin 32.4 PG (26-34); Mean Corpuscular Volume 96.4 fL (80-100); Monocytes Absolute Auto 500 /uL (0-900); Monocytes Percent Auto 5.4 % (3-14); Neutrophils Absolute Auto 5100 /uL (1500-7000); Neutrophils Percent Auto 57.9 % (50-75); Platelet Count 227 X10^3/uL (150-400); RBC Urine 10-30/HPF (0-5/HPF); Red Blood Cell Count 4.71 X10^6/uL (4.0-5.2); Red Cell Distribution Width 13.2 % (11.6-14.8); White Blood Cell Count 8.8 X10^3/uL (4.5-11.0)
[2020-12-14 18:59] LABS: Alanine Aminotransferase 21 IU/L (<35); Albumin 4.7 g/dL (3.5-5.0); Albumin Globulin Ratio 1.6 (1.0-2.8); Alkaline Phosphatase 89 U/L (38-126); Aspartate Aminotransferase 23 IU/L (14-36); BUN Creatinine Ratio 20.5 (6-22); Bilirubin Total 0.3 mg/dL (0.2-1.3); Blood Urea Nitrogen 15 mg/dL (7-17); Calcium 9.6 mg/dL (8.4-10.2); Carbon Dioxide 26 mmol/L (22-32); Chloride 107 mmol/L (98-107); Estimated Glomerular Filt Rate > 60.0 mL/min (>60); Glucose 90 mg/dL (70-100); HEMOLYSIS < 15 (0-50); Lipase 111 U/L (23-300); Sodium 140 mmol/L (137-145); Total Protein 7.7 g/dL (6.3-8.2)
--- NOTE | 2020-12-14 21:50 | DI.CT.S_ITS ---
PROCEDURE: CT KIDNEY URETER BLADDER (KUB) INDICATIONS: L sided flank pain eval for stone TECHNIQUE: Axial sections were acquired from the lung bases to the pubic symphysis. Coronal and sagittal reformats were performed. For radiation dose reduction, the following was used: automated exposure control, adjustment of mA and/or kV according to patient size. COMPARISON: [facility], CT, CT KIDNEY URETER BLADDER (KUB), 08/22/2018, 19:46. FINDINGS: Image quality: Excellent. Evaluation of the solid parenchymal organs is limited without IV contrast. Lung bases: Unremarkable. Heart: No significant findings. URINARY: Right Kidney: No stones or hydronephrosis. Right Ureter: No hydroureter. Left Kidney: No stones or hydronephrosis. Left Ureter: No hydroureter. Bladder: Normal wall thickness. No stones. ABDOMEN: Liver: Hepatic steatosis. Gallbladder: Surgically absent. Biliary ducts: Unremarkable. Pancreas: Unremarkable. Spleen: Unremarkable. Adrenal Glands: No nodule. Stomach and Bowel: Stomach, small bowel loops, and colon are unremarkable. Somewhat prominent stool in the colon. A few colonic diverticuli. Peritoneum: No abnormal intraperitoneal fluid. No free air. Ventral Wall: Small fat containing periumbilical hernia. Abdominal Nodes: No enlarged retroperitoneal or mesenteric lymph nodes. Vessels: Aorta and inferior vena cava are normal in size. PELVIS: Pelvic Organs: Uterus is absent. Pelvic Nodes: Unremarkable. Miscellaneous: No inguinal hernias are seen. Bones: Unremarkable. IMPRESSION: 1. No kidney stones. No hydronephrosis. 2. No bowel obstruction. No free fluid. 3. Hepatic steatosis. This report is concordant with the overnight preliminary interpretation. Dictated by: John Carmona M.D. on 12/15/2020 at 9:20 Approved by: John Carmona M.D. on 12/15/2020 at 9:25
--- NOTE | 2020-12-14 21:50 | ED.GENADULT ---
HPI - General Adult General Chief complaint: Diabetic Problem Stated complaint: blood sugars out of control, pain Time Seen by Provider: 12/14/20 21:29 Source: patient Mode of arrival: Ambulatory Limitations: no limitations History of Present Illness HPI narrative: Patient is a 40-year-old female who reports that over the past couple days she has been sleeping more and having decreased energy. She has taken her blood sugars at home they have been in the 50s and 60s. She does not have a history of diabetes. She started having some nausea and vomiting today. Has bilateral upper abdominal discomfort and left-sided flank discomfort. She has never had a kidney stone before. Has not tried anything for symptoms prior to arrival Related Data Home Medications Medication Instructions Recorded Confirmed venlafaxine 75 mg capsule,extended 75 mg PO DAILY 01/05/18 08/18/19 release 24 hr valacyclovir 500 mg tablet 1,000 mg PO DAILY 07/24/18 08/18/19 lamotrigine 150 mg tablet 150 mg PO BID 01/06/19 08/18/19 metoclopramide HCl 10 mg tablet 10 mg PO TID PRN 01/06/19 08/18/19 Previous Rx's Medication Instructions Recorded venlafaxine 37.5 mg 37.5 mg PO DAILY #30 cap MDD 112.5 12/30/17 capsule,extended release 24 hr mg acetaminophen 325 mg tablet 650 mg PO Q6HR PRN #30 tab 01/18/18 albuterol sulfate 90 mcg/actuation 2 puff INHALATION Q4-6H PRN #18 08/18/19 aerosol inhaler gram fluticasone propionate 220 1 puff INHALATION BID #12 gram 10/15/19 mcg/actuation HFA aerosol inhaler (Flovent HFA) diazepam 5 mg tablet (Valium) 5 mg PO BID-QID PRN #10 tab 05/16/20 Allergies Allergy/AdvReac Type Severity Reaction Status Date / Time coconut [COCONUT] Allergy Severe STOPS Verified 12/14/20 18:10 BREATHS prochlorperazine Allergy Intermediate seizure Verified 12/14/20 18:10 NSAIDS (Non-Steroidal Allergy Mild rash, milner Verified 12/14/20 18:10 Anti-Inflamma [NSAIDS (NON-STEROIDAL ANTI-INFLAMMA] promethazine [From PHENERGAN] Allergy Unknown restless Verified 12/14/20 18:10 legs Review of Systems Constitutional Constitutional: Reports fatigue and Denies fever(s) Cardiovascular Cardiovascular: Denies chest pain and Denies dyspnea Respiratory Respiratory: Denies dyspnea Gastrointestinal Gastrointestinal: Reports as per HPI Genitourinary Genitourinary: Denies hematuria and Denies dysuria Musculoskeletal Comments: Left-sided flank pain Integumentary/Breasts Skin/Breast: Reports system reviewed and no additional complaints, except as documented Neurologic Neurologic: Reports system reviewed and no additional complaints, except as documented Endocrine Endocrine: Reports fatigue Hematologic/Lymphatic On Anticoagulants: No Allergic/Immunologic Allergic/Immunologic: Reports system reviewed and no additional complaints, except as documented Patient History Medical History Anxiety Cervical cancer Depression Femoral acetabular impingement Genital herpes Gout Kidney stones (12/2016) Ovarian cancer Pseudotumor cerebri Pulmonary embolism (2010) Pulmonary embolism (2009) Uterine cancer Surgical History History of bladder surgery History of carpal tunnel repair Status post appendectomy Status post breast reduction Status post cholecystectomy Status post hernia repair (2014) Status post hysterectomy with oophorectomy (2003) Status post laparoscopy CV/CVN 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 status Family History Father History of kidney cancer Mother Diabetes mellitus Hypertension Hyperlipidemia CAD (coronary artery disease) CVA (cerebral vascular accident) Social History marital status: household members: family lives independently: Yes occupational status: employed Smoking Status: Current every day smoker alcohol intake: never substance use type: marijuana Smoking Status: Current every day smoker tobacco type: cigarettes alcohol intake frequency: holidays/special occasions only Substance Use Type: marijuana Exam Initial Vital Signs Initial Vital Signs: Vital Signs Temperature 98.1 F 12/14/20 18:10 Pulse Rate 87 12/14/20 18:10 Respiratory Rate 17 12/14/20 18:10 Blood Pressure 153/76 H 12/14/20 18:10 Pulse Oximetry 98 12/14/20 18:10 Const General: cooperative and healthy appearing HENMT Head: normal to inspection and normocephalic Resp Effort & Inspection: normal respiratory effort Auscultation: clear to auscultation bilaterally Cardio Rate: regular rate GI Inspection: normal to inspection Palpation: tender Back/Spine/Pelvis Back: CVA tenderness left Skin General: no rashes or lesions noted Neuro General: patient alert, patient awake, patient oriented x3 and moves all extremities Extrem General: normal to inspection and capillary refill normal Psych Appearance: grossly normal and well kempt Course Orders Ordered: ED Orders 12/14/20 21:50 CT kidney ureter bladder (KUB) Stat Vital Signs Vital signs: Vital Signs - 8 hr 12/14/20 18:10 Temperature 98.1 F Pulse Rate 87 Respiratory Rate 17 Blood Pressure 153/76 H Pulse Oximetry 98 Medical Decision Making Lab Data Lab results reviewed: Yes I reviewed the patient's lab results. Result diagrams: 12/14/20 18:25 12/14/20 18:25 Labs: Lab Results 12/14/20 12/14/20 12/14/20 Range/Units 18:25 18:25 18:25 WBC 8.8 (4.5-11.0) X10^3/uL RBC 4.71 (4.0-5.2) X10^6/uL Hgb 15.2 (12.0-16.0) g/dL Hct 45.3 (36-46) % MCV 96.4 (80-100) fL MCH 32.4 (26-34) PG MCHC 33.6 (30-36) % RDW 13.2 (11.6-14.8) % Plt Count 227 (150-400) X10^3/uL Neut % (Auto) 57.9 (50-75) % Lymph % (Auto) 34.1 (25-40) % [place] % (Auto) 5.4 (3-14) % Eos % (Auto) 2.0 (2-4) % Baso % (Auto) 0.6 (0-2) % Neut # (Auto) 5100 (6022-0866) /uL Lymph # (Auto) 3000 (2528-1132) /uL [place] # (Auto) 500 (0-900) /uL Eos # (Auto) 200 (0-450) /uL Baso # (Auto) 100 (0-100) /uL Sodium 140 (137-145) mmol/L Potassium 4.0 (3.4-5.1) mmol/L Chloride 107 (98-107) mmol/L Carbon Dioxide 26 (22-32) mmol/L BUN 15 (7-17) mg/dL Creatinine 0.73 (0.52-1.04) mg/dL Estimated GFR > 60.0 (>60) mL/min BUN/Creatinine Ratio 20.5 (6-22) Glucose 90 (70-100) mg/dL Calcium 9.6 (8.4-10.2) mg/dL Total Bilirubin 0.3 (0.2-1.3) mg/dL AST 23 (14-36) IU/L ALT 21 (<35) IU/L Alkaline Phosphatase 89 (38-126) U/L Total Protein 7.7 (6.3-8.2) g/dL Albumin 4.7 (3.5-5.0) g/dL Globulin 3.0 (1.7-4.1) g/dL Albumin/Globulin Ratio 1.6 (1.0-2.8) Lipase 111 (23-300) U/L Urine RBC 10-30/hpf H (0-5/HPF) Urine WBC None seen (0-5/HPF) Urine Bacteria None seen (None) Ur Culture Indicated? Cult not indicated Point of Care Testing Glucose POC 76 Urine Dip Bedside Urine Glucose Negative Bedside Urine Bilirubin - Negative Bedside Urine Ketone - Negative Urine Specific [place] 1.030 Bedside Urine Occult Blood +++ Bedside Urine pH 5.5 Bedside Urine Protein +/- 15 Bedside Urine Urobilinogen - Negative Bedside Urine Nitrite - Negative Bedside Urine Leukocytes - Negative Esterase Point of care testing: Point of Care Testing Glucose POC 76 Urine Dip Bedside Urine Glucose Negative Bedside Urine Bilirubin - Negative Bedside Urine Ketone - Negative Urine Specific [place] 1.030 Bedside Urine Occult Blood +++ Bedside Urine pH 5.5 Bedside Urine Protein +/- 15 Bedside Urine Urobilinogen - Negative Bedside Urine Nitrite - Negative Bedside Urine Leukocytes - Negative Esterase Imaging Data CT scan - abdomen/pelvis: Radiologist's Impression: No findings of kidney stones ECG Data Attestation: I personally reviewed and interpreted this ECG as follows: Interpretation: Sinus rhythm Ventricular rate 85 Normal axis Normal QRS Normal QTC No ST T wave changes MDM Narrative Medical decision making narrative: Vital signs and labs and blood sugar here in the emergency department are unremarkable. She does have blood in her urine but no other signs of infection. Her CT scan does not show any signs of new acute pathology. No indication for antibiotics. Informed her that she should keep food in her pockets of that if she feels like her blood sugars decreasing she could eat something and she needs to contact her primary doctor for further evaluation of this. She was given return precautions and follow-up instructions. She expressed understanding and agreement. Discharge Plan Departure Patient Disposition: Home Clinical Impression: Hypoglycemia, Flank pain Instructions: Hypoglycemia, DI for Abdominal Pain-Adult Activity Restrictions/Additional Instructions: I do recommend that tomorrow you contact your primary doctor to discuss your low blood sugars as you may need further evaluation of this. Until then I recommend that you keep something with you that you can eat if you feel like your blood sugar is dropping. Return to the emergency department for any new or worsening symptoms Prescriptions: No Action albuterol sulfate 90 mcg/actuation HFA aerosol inhaler 2 puff INHALATION Q4-6H PRN (Reason: shortness of breath or wheezing) Qty: 18 RF: 0 venlafaxine 37.5 mg capsule,extended release 24hr 37.5 mg PO DAILY MDD 112.5 mg Qty: 30 RF: 2 Flovent HFA 220 mcg/actuation HFA aerosol inhaler 1 puff INHALATION BID Qty: 12 RF: 0 lamotrigine 150 mg tablet 150 mg PO BID RF: 0 metoclopramide HCl 10 mg tablet 10 mg PO TID PRN (Reason: Nausea) RF: 0 diazepam [Valium] 5 mg tablet 5 mg PO BID-QID PRN (Reason: muscle spasm) Qty: 10 RF: 0 venlafaxine 75 mg capsule,extended release 24hr 75 mg PO DAILY RF: 0 acetaminophen 325 mg Tablet 650 mg PO Q6HR PRN (Reason: As Needed For Fever/Mild Pain) Qty: 30 RF: 0 valacyclovir 500 mg tablet 1,000 mg PO DAILY RF: 0 Stand Alone Forms: Work Release Note
== END 2020-12-14 23:18 | disposition home or self-care (01) ==
PROVIDERS: Emergency Provider Emergency Medicine
DX: E11.649 Type 2 diabetes mellitus with hypoglycemia without coma (principal); R11.2 Nausea with vomiting, unspecified; R10.9 Unspecified abdominal pain
CPT/HCPCS: 74176; 80053; 81003; 81015; 83690; 85025; 93005; 93010; 99283; 99284

== ENCOUNTER → 2021-02-13 16:07 | Outpatient (CLI) | payer OTHER, MEDICAID, SELFPAY ==
[2018-01-17 01:41] VITALS: BMI 32.3
[2021-02-13 16:35] LABS: COVID19 -Nasal RAPID Negative (Negative)
== END ==
PROVIDERS: Visit Provider Physician Assistant
DX: Z20.822 Contact with and (suspected) exposure to COVID-19 (principal)
CPT/HCPCS: 81002; 87635

== ENCOUNTER 2021-04-17 19:04 | Emergency (ER) | payer OTHER, MEDICAID, SELFPAY ==
[2018-01-17 01:41] VITALS: BMI 32.3
[2021-04-17] VITALS (25 sets, daily range): BP systolic 115–143; BP diastolic 60–91; PULSE 73–101; RESP 18–44; TEMP 37.2; O2SAT 96–100; BMI 33.9
--- NOTE | 2021-04-17 19:16 | DI.RAD.S_ITS ---
PROCEDURE: XR CHEST 1V INDICATIONS: chest pain TECHNIQUE: One view of the chest was acquired. COMPARISON: Merged With [facility], CR, XR CHEST 1V, 10/29/2019, 14:41. 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 Lungs and pleura: Lungs are clear. No pleural effusions or pneumothorax. Mediastinum: Mediastinal contours appear normal. Heart size is normal. Bones and chest wall: No suspicious bony lesions. Overlying soft tissues appear unremarkable. IMPRESSION: No acute pulmonary process. Dictated by: Ebony Crooks M.D. on 04/17/2021 at 19:51 Approved by: Ebony Crooks M.D. on 04/17/2021 at 19:52
--- NOTE | 2021-04-17 20:31 | DI.CT.S_ITS ---
PROCEDURE: CT ANGIO CHEST PE PROTOCOL INDICATIONS: crushing chest pain, covid+, history of PE TECHNIQUE: After the administration of intravenous contrast, 2 mm thick sections acquired from the pulmonary apices to the posterior costophrenic angles. 3-dimensional maximum intensity projection (MIP) coronal and sagittal reformats were then acquired through the thorax. For radiation dose reduction, the following was used: automated exposure control, adjustment of mA and/or kV according to patient size. COMPARISON: [facility], CT, CT CHEST ABDOMEN PELVIS WITH TRAUMA, 03/31/2019, 13:29. FINDINGS: Image quality: Excellent. Pulmonary arteries: Pulmonary arteries are normal in size, and demonstrate no intraluminal filling defects to suggest central pulmonary embolism. Lungs and pleura: Lungs are clear. No pleural effusions or pneumothorax. Central and peripheral airways are patent. Mediastinum: Heart size is normal, without pericardial effusion. No mediastinal or hilar adenopathy. Thoracic aorta is normal in caliber and enhancement. Esophagus is normal in caliber, without hiatal hernia. Bones and chest wall: No suspicious bony lesions. Ribs and thoracic spine appear intact throughout. Thyroid gland is unremarkable. No axillary or supraclavicular adenopathy. Abdomen: Visualized upper abdominal solid organs appear normal in the early arterial phase of enhancement. IMPRESSION: No pulmonary embolism. Lungs are clear. Dictated by: Ebony Crooks M.D. on 04/17/2021 at 21:07 Approved by: Ebony Crooks M.D. on 04/17/2021 at 21:08
[2021-04-17 20:32] LABS: COVID19 -Nasal RAPID POSITIVE (Negative)
[2021-04-17 20:33] LABS: Alanine Aminotransferase 21 IU/L (<35); Albumin 4.9 g/dL (3.5-5.0); Albumin Globulin Ratio 1.8 (1.0-2.8); Alkaline Phosphatase 83 U/L (38-126); Aspartate Aminotransferase 25 IU/L (14-36); BUN Creatinine Ratio 18.2 (6-22); Bilirubin Total 0.6 mg/dL (0.2-1.3); Blood Urea Nitrogen 12 mg/dL (7-17); Carbon Dioxide 23 mmol/L (22-32); Chloride 105 mmol/L (98-107); Creatine Kinase 63 U/L (30-135); Estimated Glomerular Filt Rate > 60.0 mL/min (>60); Globulin 2.7 g/dL (1.7-4.1); Glucose 82 mg/dL (70-100); HEMOLYSIS 23 (0-50); Lipase 225 U/L (23-300); Potassium 4.1 mmol/L (3.4-5.1); Sodium 137 mmol/L (137-145); Total Protein 7.6 g/dL (6.3-8.2)
[2021-04-17 20:44] LABS: Troponin I < 0.012 ng/mL (0.01-0.034)
--- NOTE | 2021-04-17 20:59 | ED_ITS ---
HPI - Chest Pain General Chief Complaint: Chest Pain Stated Complaint: chest pain, hard to breathe Time Seen by Provider: 04/17/21 19:49 Source: patient Mode of arrival: Ambulatory History of Present Illness HPI narrative: Patient is a 40-year-old female history of 2 pulmonary embolisms, and a known diagnosis of COVID-19 presenting with crushing chest pain. She says she has chest pressure started at 1:30 p.m. this afternoon. It is constant in nature it does radiate to the left side of her back neck. She says this feels exactly like previous pulmonary embolisms she has had 2 that were due to estrogen therapy. She says she is no longer taking estrogen she is not anticoagulated. She says she gets extremely short of breath with exertion. She has that she is having body aches fever and chills which she expects with COVID but was not expecting crushing like chest pain like she has had previously. Related Data Home Medications Medication Instructions Recorded Confirmed venlafaxine 75 mg capsule,extended 75 mg PO DAILY 01/05/18 08/18/19 release 24 hr valacyclovir 500 mg tablet 1,000 mg PO DAILY 07/24/18 08/18/19 lamotrigine 150 mg tablet 150 mg PO BID 01/06/19 08/18/19 metoclopramide HCl 10 mg tablet 10 mg PO TID PRN 01/06/19 08/18/19 Previous Rx's Medication Instructions Recorded venlafaxine 37.5 mg 37.5 mg PO DAILY #30 cap MDD 112.5 12/30/17 capsule,extended release 24 hr mg acetaminophen 325 mg tablet 650 mg PO Q6HR PRN #30 tab 01/18/18 albuterol sulfate 90 mcg/actuation 2 puff INHALATION Q4-6H PRN #18 08/18/19 aerosol inhaler gram fluticasone propionate 220 1 puff INHALATION BID #12 gram 10/15/19 mcg/actuation HFA aerosol inhaler (Flovent HFA) diazepam 5 mg tablet (Valium) 5 mg PO BID-QID PRN #10 tab 05/16/20 hydrocodone 5 mg-acetaminophen 325 1 tab PO Q6H PRN #10 tab 04/18/21 mg tablet hydrocodone 5 mg-acetaminophen 325 1 tab PO Q6H PRN #10 tab 04/18/21 mg tablet Allergies Allergy/AdvReac Type Severity Reaction Status Date / Time coconut [COCONUT] Allergy Severe STOPS Verified 04/17/21 19:15 BREATHS prochlorperazine Allergy Intermediate seizure Verified 04/17/21 19:15 NSAIDS (Non-Steroidal Allergy Mild rash, milner Verified 04/17/21 19:15 Anti-Inflamma [NSAIDS (NON-STEROIDAL ANTI-INFLAMMA] promethazine [From PHENERGAN] Allergy Unknown restless Verified 04/17/21 19:15 legs Review of Systems Review of Systems Narrative: GENERAL: Denies chills, fatigue, malaise, fever, sweats, travel HEENT: Denies sinus pain, ear pain, sore throat, difficulty swallowing, neck pain RESPIRATORY: Denies dyspnea, cough, wheezing, hemoptysis, sputum. CARDIOVASCULAR: See HPI GASTROINTESTINAL: Denies nausea, vomiting, abdominal pain, diarrhea, constipation, melena. : Denies dysuria, frequency, incontinence, hematuria, urinary retention, flank pain. MUSCULOSKELETAL: Denies weakness, joint pain, or bony pain SKIN: No rash, no erythema, no pruritus NEUROLOGIC: Denies weakness, dizziness, headache, numbness, change in speech, confusion PSYCHIATRIC: No concerning psychosocial issues. 12 point review of systems is negative except for those stated above and HPI Patient History Medical History (Updated 04/18/21 @ 03:45 by Krystyna Brenner DO) Anxiety Cervical cancer Depression Femoral acetabular impingement Genital herpes Gout Kidney stones (12/2016) Ovarian cancer Pseudotumor cerebri Pulmonary embolism (2010) Pulmonary embolism (2009) Uterine cancer Surgical History History of bladder surgery History of carpal tunnel repair Status post appendectomy Status post breast reduction Status post cholecystectomy Status post hernia repair (2014) Status post hysterectomy with oophorectomy (2003) Status post laparoscopy AS400 OPERATOR (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) shunt status Family History Father History of kidney cancer Mother Diabetes mellitus Hypertension Hyperlipidemia CAD (coronary artery disease) CVA (cerebral vascular accident) Social History marital status: household members: family lives independently: Yes occupational status: employed Smoking Status: Current every day smoker alcohol intake: never substance use type: marijuana Smoking Status: Current every day smoker tobacco type: cigarettes alcohol intake frequency: holidays/special occasions only Substance Use Type: marijuana Exam Initial Vital Signs Initial Vital Signs: Vital Signs Temperature 99 F 04/17/21 19:13 Pulse Rate 88 04/17/21 19:13 Respiratory Rate 18 04/17/21 19:13 Blood Pressure 143/91 H 04/17/21 19:13 Pulse Oximetry 100 04/17/21 19:13 GENERAL: Alert 40-year-old female appears to not feel well. In no acute distress. HEENT: Head atraumatic,EOMI, pupils reactive, face symmetric, moist mucous membranes CARDIOVASCULAR: Regular rate and rhythm without murmurs, rubs or gallops. RESPIRATORY: Breath sounds equal bilaterally, no wheezes rales or rhonchi. No tachypnea ABDOMEN: Soft, nontender. Normoactive bowel sounds all 4 quadrants. No guarding or rebound. EXTREMITIES: Normal range of motion, no clubbing or edema. Neurovascularly intact NEUROLOGICAL: Alert and oriented x4.Normal gait and speech. SKIN: Warm, dry, no laceration, no petechiae, no rashes or lesions. Scores HEART Score Heart Score history: Moderately Suspicious Heart Score EKG: Normal Heart Score Age: < 45 years old Heart Score risk factors: No known risk factors Heart Score troponin: < or = to normal limit Heart Score Total: 1 Course Orders Ordered: ED Orders 04/17/21 22:05 Trop I [Troponin I] Stat 04/18/21 EKG-12 Lead Stat 04/18/21 02:55 Troponin & CK Cardiac Panel Stat Discontinued Medications Hydrocodone Bitart/Acetaminophen (Hydrocodone/Acet 5/325 Tablet) 2 tab PO NOW ONE Stop: 04/18/21 01:18 Last Admin: 04/18/21 01:28 Dose: 2 tab Documented by: TESS Hydrocodone Bitart/Acetaminophen (Hydrocodone/Acet 5/325 Prepack) 1 bottle MISC SEEINSTR ONE Stop: 04/18/21 05:50 Last Admin: 04/18/21 05:57 Dose: 1 bottle Documented by: TERESA Hydromorphone HCl (Hydromorphone 0.5 Mg Inj) 0.5 mg IV NOW ONE Stop: 04/17/21 21:53 Last Admin: 04/17/21 22:07 Dose: 0.5 mg Documented by: TESS Hydromorphone HCl (Hydromorphone 0.5 Mg Inj) 0.5 mg IV NOW ONE Stop: 04/17/21 23:11 Last Admin: 04/17/21 23:23 Dose: 0.5 mg Documented by: TESS Lorazepam (Lorazepam 2 Mg/Ml Inj) 0.5 mg IV NOW ONE Stop: 04/17/21 23:11 Last Admin: 04/17/21 23:24 Dose: 0.5 mg Documented by: TESS Nitroglycerin (Nitroglycerin 0.4 Mg Sl Tab) 0.4 mg SL [id number] PRN PRN Reason: Chest Pain Last Admin: 04/17/21 21:35 Dose: 0.4 mg Documented by: Admin: 04/17/21 21:19 Dose: 0.4 mg Documented by: Admin: 04/17/21 21:07 Dose: 0.4 mg Documented by: TESS Ondansetron HCl (Ondansetron 4 Mg/2 Ml Inj) 4 mg IV NOW ONE Stop: 04/17/21 22:09 Last Admin: 04/17/21 22:09 Dose: 4 mg Documented by: TESS Pantoprazole Sodium (Pantoprazole 40 Mg Vial) 40 mg IV NOW ONE Stop: 04/17/21 23:11 Last Admin: 04/17/21 23:24 Dose: 40 mg Documented by: TESS Vital Signs Vital signs: Vital Signs - 8 hr 04/17/21 22:45 04/17/21 23:00 04/17/21 23:15 Pulse Rate 78 76 73 Respiratory Rate 37 H 40 H 40 H Blood Pressure 117/70 121/69 120/66 Pulse Oximetry 98 98 97 04/17/21 23:30 04/17/21 23:45 04/18/21 00:00 Pulse Rate 101 H 74 79 Respiratory Rate 43 H 21 17 Blood Pressure 133/78 131/63 129/62 Pulse Oximetry 96 96 97 04/18/21 00:15 04/18/21 00:30 04/18/21 00:45 Pulse Rate 77 78 77 Respiratory Rate 16 18 17 Blood Pressure 126/58 L 115/57 L 119/57 L Pulse Oximetry 97 97 96 04/18/21 01:00 04/18/21 01:15 04/18/21 01:30 Pulse Rate 79 72 78 Respiratory Rate 16 15 19 Blood Pressure 134/63 117/56 L 129/61 Pulse Oximetry 98 98 98 04/18/21 01:45 04/18/21 02:00 04/18/21 02:15 Pulse Rate 71 73 72 Respiratory Rate 18 16 25 H Blood Pressure 115/58 L 104/64 111/69 Pulse Oximetry 98 97 98 04/18/21 02:30 04/18/21 02:45 04/18/21 03:00 Pulse Rate 70 76 76 Respiratory Rate 14 41 H 21 Blood Pressure 110/66 118/74 117/83 Pulse Oximetry 98 97 98 04/18/21 03:15 04/18/21 03:30 04/18/21 03:45 Pulse Rate 69 69 73 Respiratory Rate 15 12 15 Blood Pressure 101/58 L 111/67 105/63 Pulse Oximetry 98 98 97 04/18/21 04:00 04/18/21 04:16 04/18/21 04:30 Pulse Rate 76 69 65 Respiratory Rate 24 24 13 Blood Pressure 115/58 L 109/61 106/58 L Pulse Oximetry 98 99 98 04/18/21 04:45 04/18/21 05:00 04/18/21 05:15 Pulse Rate 66 67 74 Respiratory Rate 15 14 15 Blood Pressure 100/56 L 104/57 L 96/56 L Pulse Oximetry 97 98 97 MDM - Chest Pain Lab Data Result diagrams: 04/17/21 20:11 04/17/21 20:11 Labs: Lab Results 04/17/21 04/17/21 04/17/21 Range/Units 20:11 20:11 20:11 WBC 9.0 (4.5-11.0) X10^3/uL RBC 4.78 (4.0-5.2) X10^6/uL Hgb 15.2 (12.0-16.0) g/dL Hct 45.0 (36-46) % MCV 94.2 (80-100) fL MCH 31.7 (26-34) PG MCHC 33.7 (30-36) % RDW 13.1 (11.6-14.8) % Plt Count 242 (150-400) X10^3/uL Neut % (Auto) 57.0 (50-75) % Lymph % (Auto) 36.8 (25-40) % [place]rick % (Auto) 4.9 (3-14) % Eos % (Auto) 0.7 L (2-4) % Baso % (Auto) 0.6 (0-2) % Neut # (Auto) 5200 (4438-8152) /uL Lymph # (Auto) 3300 (1877-7618) /uL Merrick # (Auto) 400 (0-900) /uL Eos # (Auto) 100 (0-450) /uL Baso # (Auto) 100 (0-100) /uL D-Dimer < 200 (<230) ng/mL Sodium 137 (137-145) mmol/L Potassium 4.1 (3.4-5.1) mmol/L Chloride 105 (98-107) mmol/L Carbon Dioxide 23 (22-32) mmol/L BUN 12 (7-17) mg/dL Creatinine 0.66 (0.52-1.04) mg/dL Estimated GFR > 60.0 (>60) mL/min BUN/Creatinine Ratio 18.2 (6-22) Glucose 82 (70-100) mg/dL Calcium 10.0 (8.4-10.2) mg/dL Total Bilirubin 0.6 (0.2-1.3) mg/dL AST 25 (14-36) IU/L ALT 21 (<35) IU/L Alkaline Phosphatase 83 (38-126) U/L Total Creatine Kinase 63 (30-135) U/L CK-MB (CK-2) TNP CK-MB (CK-2) Rel Index TNP Troponin I < 0.012 (0.01-0.034) ng/mL Total Protein 7.6 (6.3-8.2) g/dL Albumin 4.9 (3.5-5.0) g/dL Globulin 2.7 (1.7-4.1) g/dL Albumin/Globulin Ratio 1.8 (1.0-2.8) Lipase 225 (23-300) U/L SARS-CoV-2 (PCR) (Negative) 04/17/21 04/17/21 04/18/21 Range/Units 20:15 22:05 02:55 WBC (4.5-11.0) X10^3/uL RBC (4.0-5.2) X10^6/uL Hgb (12.0-16.0) g/dL Hct (36-46) % MCV (80-100) fL MCH (26-34) PG MCHC (30-36) % RDW (11.6-14.8) % Plt Count (150-400) X10^3/uL Neut % (Auto) (50-75) % Lymph % (Auto) (25-40) % Merrick % (Auto) (3-14) % Eos % (Auto) (2-4) % Baso % (Auto) (0-2) % Neut # (Auto) (1547-8034) /uL Lymph # (Auto) (6972-0229) /uL Merrick # (Auto) (0-900) /uL Eos # (Auto) (0-450) /uL Baso # (Auto) (0-100) /uL D-Dimer (<230) ng/mL Sodium (137-145) mmol/L Potassium (3.4-5.1) mmol/L Chloride (98-107) mmol/L Carbon Dioxide (22-32) mmol/L BUN (7-17) mg/dL Creatinine (0.52-1.04) mg/dL Estimated GFR (>60) mL/min BUN/Creatinine Ratio (6-22) Glucose (70-100) mg/dL Calcium (8.4-10.2) mg/dL Total Bilirubin (0.2-1.3) mg/dL AST (14-36) IU/L ALT (<35) IU/L Alkaline Phosphatase (38-126) U/L Total Creatine Kinase 51 (30-135) U/L CK-MB (CK-2) TNP CK-MB (CK-2) Rel Index TNP Troponin I < 0.012 < 0.012 (0.01-0.034) ng/mL Total Protein (6.3-8.2) g/dL Albumin (3.5-5.0) g/dL Globulin (1.7-4.1) g/dL Albumin/Globulin Ratio (1.0-2.8) Lipase (23-300) U/L SARS-CoV-2 (PCR) Positive H (Negative) Imaging Data Chest x-ray: Radiologist's Impression: PROCEDURE:? XR CHEST 1V ? INDICATIONS:? chest pain ? TECHNIQUE:? One view of the chest was acquired.? ? COMPARISON:? [facility], CR, XR CHEST 1V, 10/29/2019, 14:41. ? FINDINGS:? ? Surgical changes and devices:? Tubing is noted along the right neck and thorax possibly AS400 OPERATOR shunt..? ? Lungs and pleura:? Lungs are clear.? No pleural effusions or pneumothorax.? ? Mediastinum:? Mediastinal contours appear normal.? Heart size is normal.? ? Bones and chest wall:? No suspicious bony lesions.? Overlying soft tissues appear unremarkable.? ? IMPRESSION:? No acute pulmonary process. ? ? Dictated by: Ebony Crooks M.D. on 04/17/2021 at 19:51 ? ? CT scan - chest: Radiologist's Impression: PROCEDURE:? CT ANGIO CHEST PE PROTOCOL ? INDICATIONS:? crushing chest pain, covid+, history of PE ? TECHNIQUE:? After the administration of intravenous contrast, 2 mm thick sections acquired from the pulmonary apices to the posterior costophrenic angles.? 3-dimensional maximum intensity projection (MIP) coronal and sagittal reformats were then acquired through the thorax.? For radiation dose reduction, the following was used:? automated exposure control, adjustment of mA and/or kV according to patient size.? ? COMPARISON:? [facility], CT, CT CHEST ABDOMEN PELVIS WITH TRAUMA, 019, 13:29. ? FINDINGS:? Image quality:? Excellent.? ? Pulmonary arteries:? Pulmonary arteries are normal in size, and demonstrate no intraluminal filling defects to suggest central pulmonary embolism.? ? Lungs and pleura:? Lungs are clear.? No pleural effusions or pneumothorax.? Central and peripheral airways are patent.? ? Mediastinum:? Heart size is normal, without pericardial effusion.? No med iastinal or hilar adenopathy.? Thoracic aorta is normal in caliber and enhancement.? Esophagus is normal in caliber, without hiatal hernia.? ? Bones and chest wall:? No suspicious bony lesions.? Ribs and thoracic spine appear intact throughout.? Thyroid gland is unremarkable.? No axillary or supraclavicular adenopathy.? ? Abdomen:? Visualized upper abdominal solid organs appear normal in the early arterial phase of enhancement.? ? IMPRESSION:? ? No pulmonary embolism. ? Lungs are clear. ? ? Dictated by: Ebony Crooks M.D. on 04/17/2021 at 21:07 ECG Data Interpretation: EKG 1. Normal sinus rhythm rate 82 IA interval 160 QRS [address] changes no T-wave inversion EKG 2. Sinus rhythm rate 71 no changes EKG 3. Normal sinus rhythm rate 64 IA interval 176 QRS [address] changes similar to all previous EKG MDM Narrative Medical decision making narrative: The patient has no known coronary artery disease she has history of pulmonary embolisms CT does not show any PE and D-dimer is negative. EKGs do not show any thing concerning. She complains of significant chest pressure radiating to the left side is constant in nature. Nitroglycerin is has not helped. She only dilaudid helped for a brief period of time. She has actually been ambulatory to the restroom without difficulty. Requesting more pain medicine. She has known COVID. She has 3- troponins. Significant bed shortage in this state. I discussed with her cannot completely rule out coronary artery disease however based on EKGs, heart score and 3 troponins it is unlikely that this is cardiac in nature although COVID can cause complications. Vicodin and Dilaudid are the only medications that seem to help. Unlikely to get stress test tomorrow. Discussion with her about home with pain medication because I do think this is asthma related to COVID rather than cardiac. CT also does not show any evidence of dissection. Long discussion with her. At this time she is opting to go home which I think is reasonable. She has no signs of myocarditis, or other possible complications. Recommend she return to the emergency department if needed It appears the patient has received multiple prescriptions for oxycodone last month. When confronted about this she states it was due to her stimulator being placed. She has not received any narcotic prescriptions in this month. She is given a few tablets of hydrocodone. Discharge Plan Departure Patient Disposition: Home Clinical Impression: COVID-19, Atypical chest pain Instructions: DI for Atypical Chest Pain, DI for COVID-19 (Suspected or Confirmed ) Activity Restrictions/Additional Instructions: At this time I think her chest pain is likely related to COVID. However he still will like we need further cardiac testing such as stress test and/or echocardiogram. You do not have pulmonary embolism at this time. Please call your primary care provider tomorrow to schedule follow-up appointment STAR MEDICATION: [place] 1 tablet every 6 hours if needed for severe pain * if you have not yet been vaccinated is still recommended and encouraged that you do so once your infection has passed At home: -Monitor oxygen with pulse oximeter. If less than 90% for more than 1 hour please return to emergency department -I recommend lying on stomach for side rather than back, it has been proven to increase oxygen levels -Wash hands frequently. -Stay isolated at home please follow the isolation instructions below. -Increase fluid intake. -you may take Tylenol as directed if needed for pain or fever Emergency warning signs for COVID-19: - Difficulty breathing or shortness of breath, oxygen less than 90% - Persistent pain or pressure in the chest - New confusion or inability to arouse - Bluish lips or face CDC Guidelines for home isolation: - Stay away from others - Limit contact with pets and animals: If you must care for a pet, wash your hands before and after interacting with them - Wear a mask while in public all places - Cover your mouth and nose with a tissue when you cough or sneeze. Dispose of tissues in a lined trash can and wash your hands immediately with soap and water for at least 20 seconds. If soap and water are not available, clean hands with alcohol-based hand environmental health aide that contains at least 60% alcohol. - Clean your hands often with soap and water for at least 20 seconds - Avoid touching your eyes, nose and mouth with unwashed hands - Do not share dishes, drinking glasses, cups, eating utensils, towels, or bedding with other people in your home. After using these items, wash them thoroughly with soap and water or put in the psychometrist. - Clean high-touch surfaces in your isolation area (?sick room? and bathroom) every day; let a caregiver clean and disinfect high-touch surfaces in other areas of the home. Clean the area or item with soap and water or another d etergent if it is dirty. Then, use a household disinfectant. CONTROLLED SUBSTANCE DISCHARGE (Narcotoic/benzodiazepine/Flexeril/Phenergan) 1. You have been prescribed narcotic medications, it does have acetaminophen/Tylenol/paracetamol in it, DO NOT TAKE MORE THAN 4,00mg in 24 hours of Tylenol. TRAMADOL DOES NOT CONTAIN TYLENOL 2. Please understand that we cannot provide further refills of narcotics, benzodiazepines or controlled substances through the ED and her pain management will need to be through your provider. 3. While on these medications you cannot drive or operate heavy machinery. 4. You cannot sign legal documents or perform any duties such as this. 5. As long as you're taking opiate pain medications he should also be taking a stool softener such as Colace, Dulcolax, MiraLAX or prune juice, to help avoid constipation. Prescriptions: New hydrocodone-acetaminophen 5-325 mg tablet 1 tab PO Q6H PRN (Reason: pain) Qty: 10 0RF hydrocodone-acetaminophen 5-325 mg tablet 1 tab PO Q6H PRN (Reason: pain) Qty: 10 0RF No Action albuterol sulfate 90 mcg/actuation HFA aerosol inhaler 2 puff INHALATION Q4-6H PRN (Reason: shortness of breath or wheezing) Qty: 18 0RF venlafaxine 37.5 mg capsule,extended release 24hr 37.5 mg PO DAILY MDD 112.5 mg Qty: 30 2RF Rx Instructions: Take in combination with 75 mg tab (112.5 mg daily) Flovent HFA 220 mcg/actuation HFA aerosol inhaler 1 puff INHALATION BID Qty: 12 0RF Rx Instructions: MUST ESTABLISH WITH NEW PRIMARY CARE PHYSICIAN PRIOR TO FURTHER REFILLS. lamotrigine 150 mg tablet 150 mg PO BID 0RF metoclopramide HCl 10 mg tablet 10 mg PO TID PRN (Reason: Nausea) 0RF Label Comments: take 1 tablet by mouth three times a day if needed diazepam [Valium] 5 mg tablet 5 mg PO BID-QID PRN (Reason: muscle spasm) Qty: 10 0RF venlafaxine 75 mg capsule,extended release 24hr 75 mg PO DAILY 0RF Label Comments: TAKE 1 CAPSULE BY MOUTH EVERY DAY IN COMBINATION WITH 37.5MG CAPSULE FOR DEPRESSION AND ANXIETY acetaminophen 325 mg Tablet 650 mg PO Q6HR PRN (Reason: As Needed For Fever/Mild Pain) Qty: 30 0RF valacyclovir 500 mg tablet 1,000 mg PO DAILY 0RF Referrals: [facility] [Outside]
[2021-04-17 21:04] LABS: Add Manual Diff / Slide Review NO; Basophils Absolute Auto 100 /uL (0-100); Basophils Percent Auto 0.6 % (0-2); Eosinophils Absolute Auto 100 /uL (0-450); Eosinophils Percent Auto 0.7 % (2-4); Hemoglobin 15.2 g/dL (12.0-16.0); Lymphocytes Absolute Auto 3300 /uL (1100-4500); Lymphocytes Percent Auto 36.8 % (25-40); Mean Corpuscular HGB Conc 33.7 % (30-36); Mean Corpuscular Hemoglobin 31.7 PG (26-34); Mean Corpuscular Volume 94.2 fL (80-100); Monocytes Absolute Auto 400 /uL (0-900); Monocytes Percent Auto 4.9 % (3-14); Neutrophils Absolute Auto 5200 /uL (1500-7000); Platelet Count 242 X10^3/uL (150-400); Red Blood Cell Count 4.78 X10^6/uL (4.0-5.2); Red Cell Distribution Width 13.1 % (11.6-14.8)
[2021-04-17] MEDS: NITROGLYCERIN 0.4 MG SL TAB SL ×3 (21:07→21:35)
[2021-04-17 21:20] LABS: D Dimer < 200 ng/mL (<230)
[2021-04-17] MEDS: HYDROMORPHONE 0.5 MG INJ IV ×2 (22:07→23:23)
[2021-04-17] MEDS: ONDANSETRON 4 MG/2 ML INJ IV (22:09)
[2021-04-17 22:39] LABS: Troponin I < 0.012 ng/mL (0.01-0.034)
[2021-04-17] MEDS: LORazepam 2 MG/ML INJ 0.5 MG IV (23:24)
[2021-04-17] MEDS: PANTOPRAZOLE 40 MG VIAL IV (23:24)
[2021-04-18] VITALS (22 sets, daily range): BP systolic 96–134; BP diastolic 56–83; PULSE 65–79; RESP 12–41; O2SAT 96–99
[2021-04-18] MEDS: HYDROCODONE/ACET 5/325 TABLET 2 TAB PO (01:28)
[2021-04-18 03:15] LABS: Creatine Kinase 51 U/L (30-135)
[2021-04-18 03:28] LABS: Troponin I < 0.012 ng/mL (0.01-0.034)
--- NOTE | 2021-04-18 04:08 | PC.NURSE ---
She c/o her c/p coming back,DR Brenner notified and will repeat an EKG.
[2021-04-18] MEDS: HYDROCODONE/ACET 5/325 PREPACK 1 BOTTLE MISC (05:57)
== END 2021-04-18 06:15 | disposition home or self-care (01) ==
PROVIDERS: Emergency Provider Emergency Medicine
DX: U07.1 COVID-19 (principal); Z86.711 Personal history of pulmonary embolism; R07.89 Other chest pain
CPT/HCPCS: 36415; 71045; 71275; 80053; 82550; 83690; 84484; 85025; 85379; 87635; 93005; 96374; 96375; 96376; 99284; C9803; C9113; J1170; J2060; J2405; Q9967

== ENCOUNTER 2021-05-03 10:37 | Emergency (ER) | payer OTHER, MEDICAID, SELFPAY ==
[2018-01-17 01:41] VITALS: BMI 32.3
[2021-05-03] VITALS (7 sets, daily range): BP systolic 114–124; BP diastolic 62–91; PULSE 67–79; RESP 16; TEMP 36.3; O2SAT 95–100; BMI 31.8
--- NOTE | 2021-05-03 12:39 | ED.HA ---
HPI - Headache General Chief Complaint: Headache Stated Complaint: massive migraine Time Seen by Provider: 05/03/21 12:39 Source: patient Mode of arrival: Ambulatory Limitations: no limitations History of Present Illness HPI Narrative: This is a 40-year-old female with known idiopathic intracranial hypertension. She states weather changes often worsen her symptoms and cause headaches. She this is her typical headache pattern. She states there was pressure change overnight with the weather changes. She denies any other new symptoms. She has been trying Tylenol home for symptoms without relief. She has had some nausea and vomiting as well. She denies any fevers. She has photophobia. She denies numbness, tingling or weakness, difficulty with walking or gait, no chest pain or shortness of breath. No other urinary or GI symptoms. Patient states she often responds well to fluids, Reglan, Benadryl and narcotic pain medication is often helpful. She states NSAIDs particularly Toradol make her ?violent? she gets very milner and angry. Related Data Home Medications Medication Instructions Recorded Confirmed venlafaxine 75 mg capsule,extended 75 mg PO DAILY 01/05/18 08/18/19 release 24 hr valacyclovir 500 mg tablet 1,000 mg PO DAILY 07/24/18 08/18/19 lamotrigine 150 mg tablet 150 mg PO BID 01/06/19 08/18/19 metoclopramide HCl 10 mg tablet 10 mg PO TID PRN 01/06/19 08/18/19 Previous Rx's Medication Instructions Recorded venlafaxine 37.5 mg 37.5 mg PO DAILY #30 cap MDD 112.5 12/30/17 capsule,extended release 24 hr mg acetaminophen 325 mg tablet 650 mg PO Q6HR PRN #30 tab 01/18/18 albuterol sulfate 90 mcg/actuation 2 puff INHALATION Q4-6H PRN #18 08/18/19 aerosol inhaler gram fluticasone propionate 220 1 puff INHALATION BID #12 gram 10/15/19 mcg/actuation HFA aerosol inhaler (Flovent HFA) diazepam 5 mg tablet (Valium) 5 mg PO BID-QID PRN #10 tab 05/16/20 hydrocodone 5 mg-acetaminophen 325 1 tab PO Q6H PRN #10 tab 04/18/21 mg tablet hydrocodone 5 mg-acetaminophen 325 1 tab PO Q6H PRN #10 tab 04/18/21 mg tablet Allergies Allergy/AdvReac Type Severity Reaction Status Date / Time coconut [COCONUT] Allergy Severe STOPS Verified 04/17/21 19:15 BREATHS prochlorperazine Allergy Intermediate seizure Verified 04/17/21 19:15 NSAIDS (Non-Steroidal Allergy Mild rash, milner Verified 04/17/21 19:15 Anti-Inflamma [NSAIDS (NON-STEROIDAL ANTI-INFLAMMA] promethazine [From PHENERGAN] Allergy Unknown restless Verified 04/17/21 19:15 legs Review of Systems Review of Systems ROS Unobtainable: All systems reviewed & are unremarkable except as noted in HPI and below Patient History Medical History (Updated 05/03/21 @ 13:22 by Agueda Burger DO) Anxiety Cervical cancer Depression Femoral acetabular impingement Genital herpes Gout Kidney stones (12/2016) Ovarian cancer Pseudotumor cerebri Pulmonary embolism (2010) Pulmonary embolism (2009) Uterine cancer Surgical History History of bladder surgery History of carpal tunnel repair Status post appendectomy Status post breast reduction Status post cholecystectomy Status post hernia repair (2014) Status post hysterectomy with oophorectomy (2003) Status post laparoscopy [employer] (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) shunt status Family History Father History of kidney cancer Mother Diabetes mellitus Hypertension Hyperlipidemia CAD (coronary artery disease) CVA (cerebral vascular accident) Social History marital status: household members: family lives independently: Yes occupational status: employed Smoking Status: Current every day smoker alcohol intake: never substance use type: marijuana Smoking Status: Current every day smoker tobacco type: cigarettes alcohol intake frequency: holidays/special occasions only Substance Use Type: marijuana Exam Narrative Exam Narrative: GEN: well nourished, well appearing female, alert and oriented x 3, patient appears to be in mild to moderate distress. HEENT: Atraumatic, pupils are equal round reactive to light, extraocular movements are intact, no photophobia, nares are clear. Throat is clear without any exudates, erythema, tonsillar enlargement or uvular deviation, no facial droop. HEART: Regular rate and rhythm without murmur, clicks, rubs. LUNGS:Lungs clear to auscultation, no wheezes, rales, crackles, chest moves symmetrically ABD:bowel sounds normal, soft, non-tender, no guarding, rebound, rigidity, no masses noted, no hepatosplenomegaly :No CVA tenderness MSCL: Non-tender, no muscle atrophy, muscles strength 5/5 upper and lower extremities, full range of motion, normal gait NEURO:CN 2-12 intact, sensation normal SKIN: Rash, erythema or skin changes. Initial Vital Signs Initial Vital Signs: Vital Signs Temperature 97.3 F L 05/03/21 11:21 Scores GCS Leny coma scale eye opening: Spontaneous Exline coma scale verbal response: Orientated Exline coma scale motor response: Obey commands Exline coma scale total score: 15 Course Orders Ordered: Discontinued Medications Diphenhydramine HCl (Diphenhydramine 50 Mg/Ml Vial) 50 mg IV NOW ONE Stop: 05/03/21 13:16 Last Admin: 05/03/21 13:29 Dose: 50 mg Documented by: ATAYLOR Hydromorphone HCl (Hydromorphone 1 Mg Inj) 1 mg IV NOW ONE Stop: 05/03/21 14:28 Last Admin: 05/03/21 14:42 Dose: 1 mg Documented by: ATAYLOR Hydromorphone HCl (Hydromorphone 0.5 Mg Inj) 0.5 mg IV NOW ONE Stop: 05/03/21 15:53 Last Admin: 05/03/21 15:55 Dose: 0.5 mg Documented by: ATAYLOR Sodium Chloride (Normal Saline 0.9%) 1,000 mls @ 1,000 mls/hr IV BOLUS ONE Stop: 05/03/21 14:14 Last Infusion: 05/03/21 15:50 Dose: 0 mls/hr Documented by: Admin: 05/03/21 13:28 Dose: 1,000 mls/hr Documented by: ATAYLOR Metoclopramide HCl (Metoclopramide 10 Mg/2 Ml Inj) 10 mg IV NOW ONE Stop: 05/03/21 13:16 Last Admin: 05/03/21 13:28 Dose: 10 mg Documented by: ATAYLOR Oxycodone HCl (Oxycodone Ir 5 Mg Tablet) 10 mg PO NOW ONE Stop: 05/03/21 16:37 Last Admin: 05/03/21 16:41 Dose: 10 mg Documented by: ENA Reevaluation(s) Reevaluation #1: Patient headache still present but improved with medications. Plan for dose of oral pain medication. She has follow up with her physicians on Friday morning and reiterates that this feels similar to her usual headaches. Vital Signs Vital signs: Vital Signs - 8 hr 05/03/21 14:10 05/03/21 14:30 05/03/21 15:00 Pulse Rate 79 73 69 Respiratory Rate 16 Blood Pressure 119/82 124/72 123/62 Pulse Oximetry 100 98 96 05/03/21 15:30 05/03/21 16:00 05/03/21 16:30 Pulse Rate 67 76 72 Respiratory Rate Blood Pressure 114/65 124/77 121/91 H Pulse Oximetry 95 95 96 MDM - Headache MDM Narrative Medical decision making narrative: This is a 40-year-old female with history of idiopathic intracranial hypertension. Patient states she typically gets worsening headaches with weather changes pressure systems moving through the area patient states she has not had any new changes or atypical features with this episode. She states she does not tolerate NSAIDs well but often benefits from Reglan, Benadryl and narcotic pain medication. She states fluids are often helpful to as well. She received fluids, Reglan Benadryl with minimal to no improvement, 2 doses of IV pain medication followed by dose of oral pain medication with improvement but not complete resolution. She does have follow-up with her medical team on Friday. Discharge Plan Departure Patient Disposition: Home Clinical Impression: Headache Instructions: DI for Headache Activity Restrictions/Additional Instructions: Follow-up with your physician for recheck. You may continue home medications as prescribed. Please return for fevers, rapidly worsening headaches, new vision changes, persistent vomiting, numbness, tingling or weakness, difficulty with walking, new chest pain or shortness of breath or other new or concerning symptoms. Prescriptions: No Action albuterol sulfate 90 mcg/actuation HFA aerosol inhaler 2 puff INHALATION Q4-6H PRN (Reason: shortness of breath or wheezing) Qty: 18 0RF venlafaxine 37.5 mg capsule,extended release 24hr 37.5 mg PO DAILY MDD 112.5 mg Qty: 30 2RF Rx Instructions: Take in combination with 75 mg tab (112.5 mg daily) Flovent HFA 220 mcg/actuation HFA aerosol inhaler 1 puff INHALATION BID Qty: 12 0RF Rx Instructions: MUST ESTABLISH WITH NEW PRIMARY CARE PHYSICIAN PRIOR TO FURTHER REFILLS. lamotrigine 150 mg tablet 150 mg PO BID 0RF metoclopramide HCl 10 mg tablet 10 mg PO TID PRN (Reason: Nausea) 0RF Label Comments: take 1 tablet by mouth three times a day if needed diazepam [Valium] 5 mg tablet 5 mg PO BID-QID PRN (Reason: muscle spasm) Qty: 10 0RF hydrocodone-acetaminophen 5-325 mg tablet 1 tab PO Q6H PRN (Reason: pain) Qty: 10 0RF hydrocodone-acetaminophen 5-325 mg tablet 1 tab PO Q6H PRN (Reason: pain) Qty: 10 0RF venlafaxine 75 mg capsule,extended release 24hr 75 mg PO DAILY 0RF Label Comments: TAKE 1 CAPSULE BY MOUTH EVERY DAY IN COMBINATION WITH 37.5MG CAPSULE FOR DEPRESSION AND ANXIETY acetaminophen 325 mg Tablet 650 mg PO Q6HR PRN (Reason: As Needed For Fever/Mild Pain) Qty: 30 0RF valacyclovir 500 mg tablet 1,000 mg PO DAILY 0RF Stand Alone Forms: Work Release Note
[2021-05-03] MEDS: SODIUM CHLORIDE 0.9% 1,000 ML 1000 ML IV (13:28)
[2021-05-03] MEDS: METOCLOPRAMIDE 10 MG/2 ML INJ IV (13:28)
[2021-05-03] MEDS: diphenhydrAMINE 50 MG/ML VIAL IV (13:29)
[2021-05-03] MEDS: HYDROMORPHONE 1 MG INJ IV (14:42)
[2021-05-03] MEDS: HYDROMORPHONE 0.5 MG INJ IV (15:55)
[2021-05-03] MEDS: OXYCODONE IR 5 MG TABLET 10 MG PO (16:41)
== END 2021-05-03 16:56 | disposition home or self-care (01) ==
PROVIDERS: Emergency Provider Emergency Medicine
DX: R51.9 Headache, unspecified (principal); G93.2 Benign intracranial hypertension; F17.210 Nicotine dependence, cigarettes, uncomplicated
CPT/HCPCS: 36415; 96361; 96374; 96375; 96376; 99284; J1170; J1200; J2765

== ENCOUNTER 2021-05-26 07:59 | Emergency (ER) | payer OTHER, MEDICAID, SELFPAY ==
[2018-01-17 01:41] VITALS: BMI 32.3
[2021-05-26] VITALS (7 sets, daily range): BP systolic 126–137; BP diastolic 81–89; PULSE 75–93; RESP 16–18; TEMP 36.8; O2SAT 94–99; BMI 31.1
--- NOTE | 2021-05-26 08:11 | ED.BACK ---
HPI - Back Pain/Injury General Chief Complaint: Back Pain/Injury Stated Complaint: Threw out back yesterday Time Seen by Provider: 05/26/21 08:11 History of Present Illness HPI Narrative: 40-year-old woman with a medical history complicated by the tumor cerebri with a [employer] shunt, history of ovarian uterine cancer, pulmonary emboli in 2009 and 2010 no longer anticoagulated, and history of depression comes in with acute back pain. She describes bending and sneezing in a slightly rotated position and having acute pain in the lumbar area that is radiating across the lower back not radiating into her legs, no paresthesia no spinal anesthetic no change to bowel or bladder habits. This happened about 330 in the afternoon yesterday. Last night being new 's Breanna. She drank a significant amount of Tequila which is unusual for her. She wakes this morning with complaints of severe back pain and spasm as well as significant hangover symptoms consisting of headache, nausea and dehydration. She has not been vomiting she is having no diarrhea. She describes no fever cough chills no specific abdominal pain, chest pain, palpitations. She has no lower extremity edema. There are no other injuries or trauma. Related Data Home Medications Medication Instructions Recorded Confirmed venlafaxine 75 mg capsule,extended 75 mg PO DAILY 01/05/18 08/18/19 release 24 hr valacyclovir 500 mg tablet 1,000 mg PO DAILY 07/24/18 08/18/19 lamotrigine 150 mg tablet 150 mg PO BID 01/06/19 08/18/19 metoclopramide HCl 10 mg tablet 10 mg PO TID PRN 01/06/19 08/18/19 Previous Rx's Medication Instructions Recorded venlafaxine 37.5 mg 37.5 mg PO DAILY #30 cap MDD 112.5 12/30/17 capsule,extended release 24 hr mg acetaminophen 325 mg tablet 650 mg PO Q6HR PRN #30 tab 01/18/18 albuterol sulfate 90 mcg/actuation 2 puff INHALATION Q4-6H PRN #18 08/18/19 aerosol inhaler gram fluticasone propionate 220 1 puff INHALATION BID #12 gram 10/15/19 mcg/actuation HFA aerosol inhaler (Flovent HFA) diazepam 5 mg tablet (Valium) 5 mg PO BID-QID PRN #10 tab 05/16/20 hydrocodone 5 mg-acetaminophen 325 1 tab PO Q6H PRN #10 tab 04/18/21 mg tablet hydrocodone 5 mg-acetaminophen 325 1 tab PO Q6H PRN #10 tab 04/18/21 mg tablet oxycodone-acetaminophen 5 mg-325 1 - 2 tab PO Q6H PRN #16 tab 05/26/21 mg tablet Allergies Allergy/AdvReac Type Severity Reaction Status Date / Time coconut [COCONUT] Allergy Severe STOPS Verified 04/17/21 19:15 BREATHS prochlorperazine Allergy Intermediate seizure Verified 04/17/21 19:15 NSAIDS (Non-Steroidal Allergy Mild rash, milner Verified 04/17/21 19:15 Anti-Inflamma [NSAIDS (NON-STEROIDAL ANTI-INFLAMMA] promethazine [From PHENERGAN] Allergy Unknown restless Verified 04/17/21 19:15 legs Review of Systems Review of Systems Narrative: Remainder of complete review of systems is otherwise unremarkable except for that included in the HPI. Patient History Medical History (Updated 05/26/21 @ 08:45 by Alycia Priest MD) Anxiety Cervical cancer Depression Femoral acetabular impingement Genital herpes Gout Kidney stones (12/2016) Ovarian cancer Pseudotumor cerebri Pulmonary embolism (2010) Pulmonary embolism (2009) Uterine cancer Surgical History History of bladder surgery History of carpal tunnel repair Status post appendectomy Status post breast reduction Status post cholecystectomy Status post hernia repair (2014) Status post hysterectomy with oophorectomy (2003) Status post laparoscopy [employer] (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) shunt status Family History Father History of kidney cancer Mother Diabetes mellitus Hypertension Hyperlipidemia CAD (coronary artery disease) CVA (cerebral vascular accident) Social History marital status: household members: family lives independently: Yes occupational status: employed Smoking Status: Current every day smoker alcohol intake: never substance use type: marijuana Smoking Status: Current every day smoker tobacco type: cigarettes alcohol intake frequency: holidays/special occasions only Substance Use Type: marijuana Exam Narrative Exam Narrative: General: Healthy appearing, appears significantly uncomfortable. Able to give a complete and coherent history. HEENT: Dry mucous membranes, normal sclera with reactive pupils, Respiratory: No respiratory distress with Full and symmetrical air movement Cardiac: Mild tachycardia but Regular rate and rhythm no murmurs no bruits Abdomen: Soft, nontender, good bowel tones, no flank pain Skin: Warm and dry, minor telangiectasias over her upper chest Spine: Significant paraspinous spasm from L1-L4 bilaterally with no midline tenderness and no skin changes over the area Neurologic: Grossly neurologically intact with no obvious asymmetries or abnormalities, lower extremities are neurovascularly intact Extremities: No trauma, well perfused Psych: Cooperative, appropriate insight and affect Initial Vital Signs Initial Vital Signs: Vital Signs Temperature 98.2 F 05/26/21 08:11 Pulse Rate 93 H 05/26/21 08:11 Respiratory Rate 18 05/26/21 08:11 Blood Pressure 134/85 05/26/21 08:11 Pulse Oximetry 99 05/26/21 08:11 Course Orders Ordered: Discontinued Medications Diazepam (Diazepam 10 Mg/2 Ml Syringe) 2 mg IV NOW ONE Stop: 05/26/21 08:19 Last Admin: 05/26/21 08:36 Dose: 2 mg Documented by: CALI Hydromorphone HCl (Hydromorphone 0.5 Mg Inj) 0.5 mg IV NOW ONE Stop: 05/26/21 08:19 Last Admin: 05/26/21 08:36 Dose: 0.5 mg Documented by: CALI Sodium Chloride (Normal Saline 0.9%) 1,000 mls @ 1,000 mls/hr IV BOLUS ONE Stop: 05/26/21 09:17 Last Infusion: 05/26/21 09:53 Dose: 0 mls/hr Documented by: Admin: 05/26/21 08:36 Dose: 1,000 mls/hr Documented by: CALI Ondansetron HCl (Ondansetron 4 Mg/2 Ml Inj) 4 mg IV NOW ONE Stop: 05/26/21 08:19 Last Admin: 05/26/21 08:36 Dose: 4 mg Documented by: CALI Oxycodone/Acetaminophen (Oxycodone/Acetaminophen 5/325 Tablet) 1 tab PO NOW ONE Stop: 05/26/21 09:06 Last Admin: 05/26/21 09:16 Dose: 1 tab Documented by: MACKENZIE Vital Signs Vital signs: Vital Signs - 8 hr 05/26/21 08:11 Temperature 98.2 F Pulse Rate 93 H Respiratory Rate 18 Blood Pressure 134/85 Pulse Oximetry 99 MDM - Back Pain/Injury MDM Narrative Medical decision making narrative: 40-year-old woman with complex medical history with acute low back pain without any red flags or radicular symptoms. The fluids, Dilaudid, Valium have helped significantly with the hangover and have made a minor improvement with overall pain. She has adverse reactions to nonsteroidals and muscle relaxants have not been particularly effective for her in the past. Will discharge her home with a prescription for Percocet to help with the acute pain over the next 2-3 days. Anticipated course of recovery is reviewed with her. Questions are answered and she is safe for home discharge Discharge Plan Departure Patient Disposition: Home Clinical Impression: Acute low back pain, Acute dehydration Instructions: DI for Back Spasm Activity Restrictions/Additional Instructions: Thank you for coming in today Your having classic lower back pain with muscle spasm. There does not seem to be any suggestion of more acute pathology like abdominal infections, epidural abscess, acute vertebral compression, acute nerve impingement or cauda equinus syndrome. The 1st 48 hours after the injury are always the worst. Things will continue to improve after that but may take up to a week or more. Being active actually helps so I would encourage you not to simply lying in bed even though that feels like the right thing to do. Using ice and heat in the low back to alternate can help break up the muscle spasm. For moderate pain use 2 Tylenol, for worsening pain that use 1 Tylenol and 1 Percocet and for severe pain use 2 Percocet. Any time that you use Percocet, make sure that you are taking a stool softener or laxative as this will cause constipation. If you have new symptoms or worsening findings, please feel free to return to the ER Prescriptions: New oxycodone-acetaminophen 5-325 mg tablet 1 - 2 tab PO Q6H PRN (Reason: pain) Qty: 16 0RF No Action albuterol sulfate 90 mcg/actuation HFA aerosol inhaler 2 puff INHALATION Q4-6H PRN (Reason: shortness of breath or wheezing) Qty: 18 0RF venlafaxine 37.5 mg capsule,extended release 24hr 37.5 mg PO DAILY MDD 112.5 mg Qty: 30 2RF Rx Instructions: Take in combination with 75 mg tab (112.5 mg daily) Flovent HFA 220 mcg/actuation HFA aerosol inhaler 1 puff INHALATION BID Qty: 12 0RF Rx Instructions: MUST ESTABLISH WITH NEW PRIMARY CARE PHYSICIAN PRIOR TO FURTHER REFILLS. lamotrigine 150 mg tablet 150 mg PO BID 0RF metoclopramide HCl 10 mg tablet 10 mg PO TID PRN (Reason: Nausea) 0RF Label Comments: take 1 tablet by mouth three times a day if needed diazepam [Valium] 5 mg tablet 5 mg PO BID-QID PRN (Reason: muscle spasm) Qty: 10 0RF hydrocodone-acetaminophen 5-325 mg tablet 1 tab PO Q6H PRN (Reason: pain) Qty: 10 0RF hydrocodone-acetaminophen 5-325 mg tablet 1 tab PO Q6H PRN (Reason: pain) Qty: 10 0RF venlafaxine 75 mg capsule,extended release 24hr 75 mg PO DAILY 0RF Label Comments: TAKE 1 CAPSULE BY MOUTH EVERY DAY IN COMBINATION WITH 37.5MG CAPSULE FOR DEPRESSION AND ANXIETY acetaminophen 325 mg Tablet 650 mg PO Q6HR PRN (Reason: As Needed For Fever/Mild Pain) Qty: 30 0RF valacyclovir 500 mg tablet 1,000 mg PO DAILY 0RF
[2021-05-26] MEDS: ONDANSETRON 4 MG/2 ML INJ IV (08:36)
[2021-05-26] MEDS: HYDROMORPHONE 0.5 MG INJ IV (08:36)
[2021-05-26] MEDS: SODIUM CHLORIDE 0.9% 1,000 ML 1000 ML IV (08:36)
[2021-05-26] MEDS: diazePAM 10 MG/2 ML SYRINGE 2 MG IV (08:36)
[2021-05-26] MEDS: OXYCODONE/ACETAMINOPHEN 5/325 TABLET 1 TAB PO (09:16)
== END 2021-05-26 10:24 | disposition home or self-care (01) ==
PROVIDERS: Emergency Provider Emergency Medicine
DX: M62.830 Muscle spasm of back (principal); E86.0 Dehydration; R51.9 Headache, unspecified; R11.0 Nausea
CPT/HCPCS: 96361; 96374; 96375; 99284; J1170; J2405; J3360

== ENCOUNTER 2021-06-12 20:14 | Emergency (ER) | payer OTHER, MEDICAID, SELFPAY ==
[2018-01-17 01:41] VITALS: BMI 32.3
[2021-06-12 20:17] VITALS: BP 126/78; PULSE 88; RESP 16; TEMP 36.7; O2SAT 98
--- NOTE | 2021-06-12 20:19 | DI.RAD.S_ITS ---
PROCEDURE: XR HAND RT MIN 3V INDICATIONS: slammed in a car door TECHNIQUE: 3 views of the hand(s) acquired. COMPARISON: None. FINDINGS: Bones: No fractures or dislocations. Carpal bones are normally aligned. No suspicious bony lesions. Soft tissues: No suspicious soft tissue calcifications. IMPRESSION: No gross acute right hand fracture or dislocation is seen. Dictated by: Bismark Alicea M.D. on 06/12/2021 at 20:39 Approved by: Bismark Alicea M.D. on 06/12/2021 at 20:40
--- NOTE | 2021-06-12 21:28 | ED_ITS ---
HPI - Extremity Injury (Upper) General Chief Complaint: Extremity Injury, Upper Stated Complaint: rt hand injury Time Seen by Provider: 06/12/21 21:23 Source: patient Mode of arrival: Ambulatory History of Present Illness HPI narrative: Patient is a 40-year-old female who presents with right hand pain. She states the got slammed his pain her band door. The dog came and ran and the door slammed. It is quite tender to touch. No numbness or tingling. She does have decreased range of motion in some of her fingers. It appears that it got most of the metacarpals. No wrist pain. Related Data Home Medications Medication Instructions Recorded Confirmed venlafaxine 75 mg capsule,extended 75 mg PO DAILY 01/05/18 08/18/19 release 24 hr valacyclovir 500 mg tablet 1,000 mg PO DAILY 07/24/18 08/18/19 lamotrigine 150 mg tablet 150 mg PO BID 01/06/19 08/18/19 metoclopramide HCl 10 mg tablet 10 mg PO TID PRN 01/06/19 08/18/19 Previous Rx's Medication Instructions Recorded venlafaxine 37.5 mg 37.5 mg PO DAILY #30 cap MDD 112.5 12/30/17 capsule,extended release 24 hr mg acetaminophen 325 mg tablet 650 mg PO Q6HR PRN #30 tab 01/18/18 albuterol sulfate 90 mcg/actuation 2 puff INHALATION Q4-6H PRN #18 08/18/19 aerosol inhaler gram fluticasone propionate 220 1 puff INHALATION BID #12 gram 10/15/19 mcg/actuation HFA aerosol inhaler (Flovent HFA) diazepam 5 mg tablet (Valium) 5 mg PO BID-QID PRN #10 tab 05/16/20 hydrocodone 5 mg-acetaminophen 325 1 tab PO Q6H PRN #10 tab 21 mg tablet hydrocodone 5 mg-acetaminophen 325 1 tab PO Q6H PRN #10 tab 04/18/21 mg tablet oxycodone-acetaminophen 5 mg-325 1 - 2 tab PO Q6H PRN #16 tab 05/26/21 mg tablet Allergies Allergy/AdvReac Type Severity Reaction Status Date / Time coconut [COCONUT] Allergy Severe STOPS Verified 04/17/21 19:15 BREATHS prochlorperazine Allergy Intermediate seizure Verified 04/17/21 19:15 NSAIDS (Non-Steroidal Allergy Mild rash, milner Verified 04/17/21 19:15 Anti-Inflamma [NSAIDS (NON-STEROIDAL ANTI-INFLAMMA] promethazine [From PHENERGAN] Allergy Unknown restless Verified 04/17/21 19:15 legs Review of Systems Review of Systems Narrative: GENERAL: Denies chills,fever HEENT: Denies throat pain RESPIRATORY: Denies dyspnea, cough, wheezing CARDIOVASCULAR: Denies chest pain, palpitations GASTROINTESTINAL: Denies nausea, vomiting MUSCULOSKELETAL: See HPI SKIN: No rash, no laceration, no pruritus NEUROLOGIC: Denies weakness, dizziness, headache, numbness 8 point review of systems is negative except for those stated above and HPI Patient History Medical History Anxiety Cervical cancer Depression Femoral acetabular impingement Genital herpes Gout Kidney stones (12/2016) Ovarian cancer Pseudotumor cerebri Pulmonary embolism (2010) Pulmonary embolism (2009) Uterine cancer Surgical History History of bladder surgery History of carpal tunnel repair Status post appendectomy Status post breast reduction Status post cholecystectomy Status post hernia repair (2014) Status post hysterectomy with oophorectomy (2003) Status post laparoscopy 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 DEVELOPER (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) shunt status Family History Father History of kidney cancer Mother Diabetes mellitus Hypertension Hyperlipidemia CAD (coronary artery disease) CVA (cerebral vascular accident) Social History marital status: household members: family lives independently: Yes occupational status: employed Smoking Status: Current every day smoker alcohol intake: never substance use type: marijuana Smoking Status: Current every day smoker tobacco type: cigarettes alcohol intake frequency: holidays/special occasions only Substance Use Type: marijuana Exam Initial Vital Signs Initial Vital Signs: Vital Signs Temperature 98.0 F 06/12/21 20:17 Pulse Rate 88 06/12/21 20:17 Respiratory Rate 16 06/12/21 20:17 Blood Pressure 126/78 06/12/21 20:17 Pulse Oximetry 98 06/12/21 20:17 GENERAL: Well-appearing, well-nourished and in no acute distress. CARDIOVASCULAR: peripheral pulses in tact, cap refill <2 sec RESPIRATORY: No respiratory distress, speaks in full sentences without difficulty EXTREMITIES: Normal range of motion, no clubbing or edema. Neurovascularly intact Right hand some contusion noted over metacarpals no significant swelling tender to touch. Able to make an okay sign with thumb and index finger but not with her pinky finger. No gross bony deformity strong radial pulse. No lacerations. NEUROLOGICAL: Cranial nerves II through XII grossly intact. Normal gait and speech. SKIN: Warm, dry, no petechiae, no rashes or lesions. Course Orders Ordered: ED Orders 06/12/21 20:19 XR hand RT min 3V Stat Discontinued Medications Hydrocodone Bitart/Acetaminophen (Hydrocodone/Acet 5/325 Prepack) 1 bottle MISC SEEINSTR ONE Stop: 06/12/21 21:30 Last Admin: 06/12/21 21:45 Dose: 1 bottle Documented by: JULIO Vital Signs Vital signs: Vital Signs - 8 hr 06/12/21 20:17 Temperature 98.0 F Pulse Rate 88 Respiratory Rate 16 Blood Pressure 126/78 Pulse Oximetry 98 [facility] - Extremity Injury (Upper) Imaging Data Extremity x-ray #1: Radiologist's Impression: PROCEDURE:? XR HAND RT MIN 3V ? INDICATIONS:? slammed in a car door ? TECHNIQUE:? 3 views of the hand(s) acquired.? ? COMPARISON:? None. ? FINDINGS:? ? Bones:? No fractures or dislocations.? Carpal bones are normally aligned.? No suspicious bony lesions.? ? Soft tissues:? No suspicious soft tissue calcifications.? ? ? IMPRESSION:? No gross acute right hand fracture or dislocation is seen. ? ? Dictated by: Bismark Alicea M.D. on 06/12/2021 at 20:39 ? [facility] Narrative Medical decision making narrative: Patient is given a Velcro splint for hand and wrist. She is given a prepack of hydrocodone she was previously given oxycodone on May 26 for back pain, she has an Brianda report. He is given a prepack only of [place]. She has already taken for 1000 g of Tylenol today. I instructed her not to take this in till morning. Discharge Plan Departure Patient Disposition: Home Clinical Impression: Contusion of hand, right Instructions: DI for Hand Injury Activity Restrictions/Additional Instructions: *You have been diagnosed with right hand contusion *What to do: Wear splint as needed. Elevate and ice. *Continue to take medications as directed [place] 1 tablet every 6 hours only if needed for pain. If you should need more pain medication need to talk with her primary care type. You body max out on Tylenol today start taking this tomorrow if needed *Follow up with your primary care provider in 2-3 days or call [phone] *Return to ER if you should have increasing pain numbness tingling or weakness or any new, worsening or concerning symptoms Prescriptions: No Action albuterol sulfate 90 mcg/actuation HFA aerosol inhaler 2 puff INHALATION Q4-6H PRN (Reason: shortness of breath or wheezing) Qty: 18 0RF venlafaxine 37.5 mg capsule,extended release 24hr 37.5 mg PO DAILY MDD 112.5 mg Qty: 30 2RF Rx Instructions: Take in combination with 75 mg tab (112.5 mg daily) Flovent HFA 220 mcg/actuation HFA aerosol inhaler 1 puff INHALATION BID Qty: 12 0RF Rx Instructions: MUST ESTABLISH WITH NEW PRIMARY CARE PHYSICIAN PRIOR TO FURTHER REFILLS. lamotrigine 150 mg tablet 150 mg PO BID 0RF metoclopramide HCl 10 mg tablet 10 mg PO TID PRN (Reason: Nausea) 0RF Label Comments: take 1 tablet by mouth three times a day if needed diazepam [Valium] 5 mg tablet 5 mg PO BID-QID PRN (Reason: muscle spasm) Qty: 10 0RF hydrocodone-acetaminophen 5-325 mg tablet 1 tab PO Q6H PRN (Reason: pain) Qty: 10 0RF hydrocodone-acetaminophen 5-325 mg tablet 1 tab PO Q6H PRN (Reason: pain) Qty: 10 0RF venlafaxine 75 mg capsule,extended release 24hr 75 mg PO DAILY 0RF Label Comments: TAKE 1 CAPSULE BY MOUTH EVERY DAY IN COMBINATION WITH 37.5MG CAPSULE FOR DEPRESSION AND ANXIETY acetaminophen 325 mg Tablet 650 mg PO Q6HR PRN (Reason: As Needed For Fever/Mild Pain) Qty: 30 0RF valacyclovir 500 mg tablet 1,000 mg PO DAILY 0RF oxycodone-acetaminophen 5-325 mg tablet 1 - 2 tab PO Q6H PRN (Reason: pain) Qty: 16 0RF
[2021-06-12] MEDS: HYDROCODONE/ACET 5/325 PREPACK 1 BOTTLE MISC (21:45)
== END 2021-06-12 21:54 | disposition home or self-care (01) ==
PROVIDERS: Emergency Provider Emergency Medicine
DX: S60.221A Contusion of right hand, initial encounter (principal); F17.210 Nicotine dependence, cigarettes, uncomplicated; X58.XXXA Exposure to other specified factors, initial encounter
CPT/HCPCS: 73130; 99282; 99283

== ENCOUNTER 2021-06-24 09:29 | Emergency (ER) | payer OTHER, MEDICAID, SELFPAY ==
[2018-01-17 01:41] VITALS: BMI 32.3
[2021-06-24 10:00] VITALS: BP 121/76; PULSE 83; RESP 18; TEMP 36.7; O2SAT 97; BMI 33.3
--- NOTE | 2021-06-24 10:08 | ED_ITS ---
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 She describes no trauma there is no obvious skin disruption, she has had no prior problems with gout she has excruciating pain with both extension and flexion at the wrist that appears to be more tendon related than intra-articular. She describes no fevers. She has no chest pain cough no rashes over the involved area no abdominal pain vomiting or diarrhea Related Data Home Medications Medication Instructions Recorded Confirmed venlafaxine 75 mg capsule,extended 75 mg PO DAILY 01/05/18 08/18/19 release 24 hr valacyclovir 500 mg tablet 1,000 mg PO DAILY 07/24/18 08/18/19 lamotrigine 150 mg tablet 150 mg PO BID 01/06/19 08/18/19 metoclopramide HCl 10 mg tablet 10 mg PO TID PRN 01/06/19 08/18/19 Previous Rx's Medication Instructions Recorded venlafaxine 37.5 mg 37.5 mg PO DAILY #30 cap MDD 112.5 12/30/17 capsule,extended release 24 hr mg acetaminophen 325 mg tablet 650 mg PO Q6HR PRN #30 tab 01/18/18 albuterol sulfate 90 mcg/actuation 2 puff INHALATION Q4-6H PRN #18 08/18/19 aerosol inhaler gram fluticasone propionate 220 1 puff INHALATION BID #12 gram 10/15/19 mcg/actuation HFA aerosol inhaler (Flovent HFA) diazepam 5 mg tablet (Valium) 5 mg PO BID-QID PRN #10 tab 05/16/20 hydrocodone 5 mg-acetaminophen 325 1 tab PO Q6H PRN #10 tab 04/18/21 mg tablet hydrocodone 5 mg-acetaminophen 325 1 tab PO Q6H PRN #10 tab 21 mg tablet oxycodone-acetaminophen 5 mg-325 1 - 2 tab PO Q6H PRN #16 tab 05/26/21 mg tablet cephalexin 500 mg capsule 500 mg PO TID #21 cap 06/24/21 oxycodone-acetaminophen 5 mg-325 1 tab PO Q6H PRN #14 tab 06/24/21 mg tablet Allergies Allergy/AdvReac Type Severity Reaction Status Date / Time coconut [COCONUT] Allergy Severe STOPS Verified 06/24/21 10:03 BREATHS prochlorperazine Allergy Intermediate seizure Verified 06/24/21 10:03 NSAIDS (Non-Steroidal Allergy Mild rash, milner Verified 06/24/21 10:03 Anti-Inflamma [NSAIDS (NON-STEROIDAL ANTI-INFLAMMA] promethazine [From PHENERGAN] Allergy Unknown restless Verified 06/24/21 10:03 legs Review of Systems Review of Systems Narrative: Remainder of complete review of systems is otherwise unremarkable except for that included in the HPI. 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 DESIGN INTERN (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) shunt status Family History Father History of kidney cancer Mother Diabetes mellitus Hypertension Hyperlipidemia CAD (coronary artery disease) CVA (cerebral vascular accident) Social History marital status: household members: family lives independently: Yes occupational status: employed Smoking Status: Current every day smoker alcohol intake: never substance use type: marijuana Smoking Status: Current every day smoker tobacco type: cigarettes alcohol intake frequency: holidays/special occasions only Substance Use Type: marijuana Exam Initial Vital Signs Initial Vital Signs: Vital Signs Temperature 98.1 F 06/24/21 10:00 Pulse Rate 83 06/24/21 10:00 Respiratory Rate 18 06/24/21 10:00 Blood Pressure 121/76 06/24/21 10:00 Pulse Oximetry 97 06/24/21 10:00 General: Alert appropriate in no acute distress Respiratory: Able to speak in full sentences, no obvious respiratory distress Skin: No obvious rashes, warm and dry Neurologic: Grossly intact no obvious asymmetries or abnormalities Psych: appropriate insight and affect, cooperative Extremity: Left wrist has some mild erythema ventral surface, ulnar side, flexor tendons seem to be involved. There is no obvious abscess trauma or skin defect to suggest a source for infection. The area is slightly warm with concern for a developing cellulitis. There is no tenderness in or around the carpal bones specifically. Course Vital Signs Vital signs: Vital Signs - 8 hr 06/24/21 10:00 Temperature 98.1 F Pulse Rate 83 Respiratory Rate 18 Blood Pressure 121/76 Pulse Oximetry 97 MDM - Extremity (Nontraumatic) MDM Narrative Medical decision making narrative: 40-year-old woman with multiple medical issues who presents with acute onset left wrist pain that seems to be flexor tendon pain with concern for developing cellulitis and no evidence of abscess or other systemic infection. She is neur ovascularly intact. wrist splint is placed for comfort. Tylenol has been ineffective in controlling pain. She is allergic to nonsteroidals. She is given a Percocet for pain control and a prescription for Percocet as well as Keflex given the concern for developing cellulitis. Recommended 24 hours of observation symptoms are localizing or changing asked her to return to the emergency department. At this point this does not appear to be trauma related, gout, intra-articular infection or other abnormality. Discharge Plan Departure Patient Disposition: Home Clinical Impression: Left wrist tendonitis Instructions: DI for Cellulitis -- Adult, DI for Tendinitis Activity Restrictions/Additional Instructions: Thank you for coming in today I suspect this is an acute tendinitis however I am concerned with the slightly increased redness and warmth. There is no obvious explanation for why you might also be developing a cellulitis however with the dramatic pain your experiencing I am going to choose to be cautious and also start you on Keflex. Use the wrist splint for comfort. You can use Tylenol for moderate pain and a single Tylenol puts Percocet for more severe pain. Prescriptions were electronically transmitted to [employer] Give this 24 hours and if you are not improving or your developing new or localizing specific symptoms you do need to be re-evaluated I hope you feel better Prescriptions: New oxycodone-acetaminophen 5-325 mg tablet 1 tab PO Q6H PRN (Reason: pain) Qty: 14 0RF cephalexin 500 mg capsule 500 mg PO TID Qty: 21 0RF No Action albuterol sulfate 90 mcg/actuation HFA aerosol inhaler 2 puff INHALATION Q4-6H PRN (Reason: shortness of breath or wheezing) Qty: 18 0RF venlafaxine 37.5 mg capsule,extended release 24hr 37.5 mg PO DAILY MDD 112.5 mg Qty: 30 2RF Rx Instructions: Take in combination with 75 mg tab (112.5 mg daily) Flovent HFA 220 mcg/actuation HFA aerosol inhaler 1 puff INHALATION BID Qty: 12 0RF Rx Instructions: MUST ESTABLISH WITH NEW PRIMARY CARE PHYSICIAN PRIOR TO FURTHER REFILLS. lamotrigine 150 mg tablet 150 mg PO BID 0RF metoclopramide HCl 10 mg tablet 10 mg PO TID PRN (Reason: Nausea) 0RF Label Comments: take 1 tablet by mouth three times a day if needed diazepam [Valium] 5 mg tablet 5 mg PO BID-QID PRN (Reason: muscle spasm) Qty: 10 0RF hydrocodone-acetaminophen 5-325 mg tablet 1 tab PO Q6H PRN (Reason: pain) Qty: 10 0RF hydrocodone-acetaminophen 5-325 mg tablet 1 tab PO Q6H PRN (Reason: pain) Qty: 10 0RF venlafaxine 75 mg capsule,extended release 24hr 75 mg PO DAILY 0RF Label Comments: TAKE 1 CAPSULE BY MOUTH EVERY DAY IN COMBINATION WITH 37.5MG CAPSULE FOR DEPRESSION AND ANXIETY acetaminophen 325 mg Tablet 650 mg PO Q6HR PRN (Reason: As Needed For Fever/Mild Pain) Qty: 30 0RF valacyclovir 500 mg tablet 1,000 mg PO DAILY 0RF oxycodone-acetaminophen 5-325 mg tablet 1 - 2 tab PO Q6H PRN (Reason: pain) Qty: 16 0RF
[2021-06-24] MEDS: OXYCODONE/ACETAMINOPHEN 5/325 TABLET 1 TAB PO (10:33)
[2021-06-24] MEDS: cephALEXin 250 MG CAPSULE 500 MG PO (10:33)
== END 2021-06-24 11:10 | disposition home or self-care (01) ==
PROVIDERS: Emergency Provider Emergency Medicine
DX: M77.8 Other enthesopathies, not elsewhere classified (principal)
CPT/HCPCS: 99283

== ENCOUNTER 2021-07-01 18:10 | Emergency (ER) | payer OTHER, MEDICAID, SELFPAY ==
[2018-01-17 01:41] VITALS: BMI 32.3
[2021-07-01 18:16] VITALS: BP 147/87; PULSE 85; RESP 18; TEMP 37.1; O2SAT 100
[2021-07-01 19:04] VITALS: BP 138/72; PULSE 84; RESP 18; O2SAT 98
--- NOTE | 2021-07-01 19:32 | ED_ITS ---
HPI - General Adult General Chief complaint: Recheck/Abnormal Lab/Rx Stated complaint: Lt. 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 The dorsum of the wrist was slightly erythematous she was placed in an immobilizer and started on antibiotics. She can not take nonsteroidals but has been taking quite a bit of Tylenol with no relief. With a week of rest and icing she notes that the swelling is a bit less, the redness is entirely resolved but she is still significantly tender with hyperesthesias in an ulnar distribution. Related Data Home Medications Medication Instructions Recorded Confirmed venlafaxine 75 mg capsule,extended 75 mg PO DAILY 01/05/18 08/18/19 release 24 hr valacyclovir 500 mg tablet 1,000 mg PO DAILY 07/24/18 08/18/19 lamotrigine 150 mg tablet 150 mg PO BID 01/06/19 08/18/19 metoclopramide HCl 10 mg tablet 10 mg PO TID PRN 01/06/19 08/18/19 Previous Rx's Medication Instructions Recorded venlafaxine 37.5 mg 37.5 mg PO DAILY #30 cap MDD 112.5 12/30/17 capsule,extended release 24 hr mg acetaminophen 325 mg tablet 650 mg PO Q6HR PRN #30 tab 01/18/18 albuterol sulfate 90 mcg/actuation 2 puff INHALATION Q4-6H PRN #18 08/18/19 aerosol inhaler gram fluticasone propionate 220 1 puff INHALATION BID #12 gram 10/15/19 mcg/actuation HFA aerosol inhaler (Flovent HFA) diazepam 5 mg tablet (Valium) 5 mg PO BID-QID PRN #10 tab 05/16/20 hydrocodone 5 mg-acetaminophen 325 1 tab PO Q6H PRN #10 tab 04/18/21 mg tablet hydrocodone 5 mg-acetaminophen 325 1 tab PO Q6H PRN #10 tab 04/18/21 mg tablet oxycodone-acetaminophen 5 mg-325 1 - 2 tab PO Q6H PRN #16 tab 05/26/21 mg tablet cephalexin 500 mg capsule 500 mg PO TID #21 cap 06/24/21 oxycodone-acetaminophen 5 mg-325 1 tab PO Q6H PRN #14 tab 06/24/21 mg tablet lidocaine 5 % topical patch 1 patch TOPICAL DAILY #15 ea 07/01/21 (Lidoderm) Allergies Allergy/AdvReac Type Severity Reaction Status Date / Time coconut [COCONUT] Allergy Severe STOPS Verified 06/24/21 10:03 BREATHS prochlorperazine Allergy Intermediate seizure Verified 06/24/21 10:03 NSAIDS (Non-Steroidal Allergy Mild rash, milner Verified 06/24/21 10:03 Anti-Inflamma [NSAIDS (NON-STEROIDAL ANTI-INFLAMMA] promethazine [From PHENERGAN] Allergy Unknown restless Verified 06/24/21 10:03 legs Review of Systems Review of Systems Narrative: Pertinent positive and negative findings as per HPI Remainder of review of systems is otherwise unremarkable for Constitutional: Fevers, chills, weakness ENT: No sore throat, neck pain, ear pain CV: Chest pain, palpitations, Respiratory: Cough, wheeze, dyspnea GI: Nausea, vomiting, diarrhea, Patient History Medical History (Updated 07/01/21 @ 19:41 by Alycia Priest MD) Anxiety Cervical cancer Depression Femoral acetabular impingement Genital herpes Gout Kidney stones (12/2016) Ovarian cancer Pseudotumor cerebri Pulmonary embolism (2010) Pulmonary embolism (2009) Uterine cancer Surgical History History of bladder surgery History of carpal tunnel repair Status post appendectomy Status post breast reduction Status post cholecystectomy Status post hernia repair (2014) Status post hysterectomy with oophorectomy (2003) Status post laparoscopy WHITING 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 (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) shunt status Family History Father History of kidney cancer Mother Diabetes mellitus Hypertension Hyperlipidemia CAD (coronary artery disease) CVA (cerebral vascular accident) Social History marital status: household members: family lives independently: Yes occupational status: employed Smoking Status: Current every day smoker alcohol intake: never substance use type: marijuana Smoking Status: Current every day smoker tobacco type: cigarettes alcohol intake frequency: holidays/special occasions only Substance Use Type: marijuana Exam Initial Vital Signs Initial Vital Signs: Vital Signs Temperature 98.7 F 07/01/21 18:16 Pulse Rate 85 07/01/21 18:16 Respiratory Rate 18 07/01/21 18:16 Blood Pressure 147/87 H 07/01/21 18:16 Pulse Oximetry 100 07/01/21 18:16 General: In no acute distress able to give a complete coherent history Respiratory: Able to speak in full sentences, no obvious respiratory distress Skin: No obvious rashes, warm and dry Neurologic: Easily moving all extremities no obvious asymmetries or abnormalities Psych: appropriate insight and affect, cooperative Extremity: Left wrist is examined. She is tender the ulnar side of her wrist proximal to the wrist approximately 5 cm and extending over the dorsum of the hand and including the 4th and 5th fingers. She has full but somewhat tender range of motion at the wrist. Full sensation to all fingers. There is no swelling, warmth or erythema to suggest any type of infection. No skin breakdown. Course Orders Ordered: Discontinued Medications Lidocaine (Lidocaine Patch 1 Each Adh..Patch) 1 each TOP NOW ONE Stop: 07/01/21 19:31 Vital Signs Vital signs: Vital Signs - 8 hr 07/01/21 18:16 07/01/21 19:04 Temperature 98.7 F Pulse Rate 85 84 Respiratory Rate 18 18 Blood Pressure 147/87 H 138/72 Pulse Oximetry 100 98 Medical Decision Making [facility] Narrative Medical decision making narrative: 40-year-old woman presents with left wrist pain that is been present now for 7 days has not improved with immobilization and Tylenol. She did complete a brief course of antibiotics and the initial redness that had been appreciated on June 24 has completely resolved. There does not appear to be any abscess, deep her tissue infection, recurrent ganglion cyst and there has been no trauma no specific overuse injury she simply awoke with the pain a week ago. This all very much seems musculoskeletal. X-rays do not seem indicated in the absence of any trauma. Will have her continue with immobilization and will try some topical lidocaine patches to the mid forearm and see if this helps influence her pain. Will ask her to follow-up with orthopedics Discharge Plan Departure Patient Disposition: Home Clinical Impression: Left wrist tendonitis Activity Restrictions/Additional Instructions: Thank you for coming back I am sorry I am not able to help much further with this left wrist tendinitis. At this time it does not look like it is infected, you have described no trauma, the minimal swelling and redness noticed on the 30 have resolved nicely I suspect that this is going to get better with time no matter what we do. I appreciate that you have been using Tylenol because it is the only thing you can use however if it is not working, it still is not working, and I would encourage you to stop. Please do continue the immobilization is the sounds like it is helping. A place a lidocaine patch why your in the emergency department. If this does seem to help please feel free to fill the prescription that I electronically transmitted to [facility] I would encourage you to schedule a follow-up with the orthopedics office. Please call [facility] at [phone] to schedule appointment within the next 1-2 weeks Prescriptions: New lidocaine [Lidoderm] 5 % adhesive patch,medicated 1 patch topical DAILY Qty: 15 1RF Rx Instructions: leave on most painful area for up to 12 hrs No Action albuterol sulfate 90 mcg/actuation HFA aerosol inhaler 2 puff INHALATION Q4-6H PRN (Reason: shortness of breath or wheezing) Qty: 18 0RF venlafaxine 37.5 mg capsule,extended release 24hr 37.5 mg PO DAILY MDD 112.5 mg Qty: 30 2RF Rx Instructions: Take in combination with 75 mg tab (112.5 mg daily) Flovent HFA 220 mcg/actuation HFA aerosol inhaler 1 puff INHALATION BID Qty: 12 0RF Rx Instructions: MUST ESTABLISH WITH NEW PRIMARY CARE PHYSICIAN PRIOR TO FURTHER REFILLS. lamotrigine 150 mg tablet 150 mg PO BID 0RF metoclopramide HCl 10 mg tablet 10 mg PO TID PRN (Reason: Nausea) 0RF Label Comments: take 1 tablet by mouth three times a day if needed diazepam [Valium] 5 mg tablet 5 mg PO BID-QID PRN (Reason: muscle spasm) Qty: 10 0RF hydrocodone-acetaminophen 5-325 mg tablet 1 tab PO Q6H PRN (Reason: pain) Qty: 10 0RF hydrocodone-acetaminophen 5-325 mg tablet 1 tab PO Q6H PRN (Reason: pain) Qty: 10 0RF venlafaxine 75 mg capsule,extended release 24hr 75 mg PO DAILY 0RF Label Comments: TAKE 1 CAPSULE BY MOUTH EVERY DAY IN COMBINATION WITH 37.5MG CAPSULE FOR DEPRESSION AND ANXIETY acetaminophen 325 mg Tablet 650 mg PO Q6HR PRN (Reason: As Needed For Fever/Mild Pain) Qty: 30 0RF valacyclovir 500 mg tablet 1,000 mg PO DAILY 0RF oxycodone-acetaminophen 5-325 mg tablet 1 - 2 tab PO Q6H PRN (Reason: pain) Qty: 16 0RF oxycodone-acetaminophen 5-325 mg tablet 1 tab PO Q6H PRN (Reason: pain) Qty: 14 0RF cephalexin 500 mg capsule 500 mg PO TID Qty: 21 0RF
[2021-07-01] MEDS: LIDOCAINE PATCH 1 EACH ADH..PATCH TOP (19:47)
== END 2021-07-01 19:53 | disposition home or self-care (01) ==
PROVIDERS: Emergency Provider Emergency Medicine
DX: M77.8 Other enthesopathies, not elsewhere classified (principal)
CPT/HCPCS: 99282

== ENCOUNTER 2021-07-14 10:29 | Emergency (ER) | payer OTHER, MEDICAID, SELFPAY ==
[2018-01-17 01:41] VITALS: BMI 32.3
[2021-07-14] VITALS (11 sets, daily range): BP systolic 96–124; BP diastolic 63–89; PULSE 66–87; RESP 14–16; TEMP 36.7; O2SAT 95–100; BMI 32.5
--- NOTE | 2021-07-14 12:30 | ED.HA ---
HPI - Headache <Crystal De La Rosa Iggykathleen, [facility] - Last Filed: 07/14/21 15:57> General Chief Complaint: Headache Stated Complaint: Massive Migraine dizzy Time Seen by Provider: 07/14/21 12:24 History of Present Illness HPI Narrative: This is a 40-year-old female with known idiopathic intracranial hypertension who presents to the emergency department complaining of typical migraine which started last night.? She states weather changes often worsen her symptoms and cause headaches.? She this is her typical headache pattern.? She states there was pressure change overnight with the weather changes.? She denies any other new symptoms.? She has been trying Tylenol home for symptoms without relief.? She denies any trauma, new changes to medications or home regimen, she denies any abortive medication use at home other than Tylenol, she denies any triptan use for migraines. Patient states she is followed by neurology and neurosurgery and is awaiting IM migraine medication available at the headache clinic. Patient states the recommendation from neurology and neurosurgery is to go to the ER when she has a migraine which does not go with with Tylenol.? Patient has WELDER PLASMA ARC shunt.? Has nausea but no vomiting.? Light and sound sensitive.? No altered mental status slurred speech facial droop no numbness tingling weakness to the limbs.? Again typical of her headaches.? Revision of WELDER PLASMA ARC shunt 1 year ago.? Has been doing well.? 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 Patient states her usual headache medications in the emergency department include intravenous Dilaudid, Reglan,?and Benadryl. Patient states she knows this is not indicated for migraines but is still only thing that works. Patient denies any illness, fever, shortness of breath, difficulty breathing. Patient states that she is allergic to all NSAIDs. MD Complaint: headache and migraine Onset (ago): unknown (last night) Severity scale (1-10): 10 Relieving factors: nothing Related Data Home Medications Medication Instructions Recorded Confirmed venlafaxine 75 mg capsule,extended 75 mg PO DAILY 01/05/18 08/18/19 release 24 hr valacyclovir 500 mg tablet 1,000 mg PO DAILY 07/24/18 08/18/19 lamotrigine 150 mg tablet 150 mg PO BID 01/06/19 08/18/19 metoclopramide HCl 10 mg tablet 10 mg PO TID PRN 01/06/19 08/18/19 Previous Rx's Medication Instructions Recorded venlafaxine 37.5 mg 37.5 mg PO DAILY #30 cap MDD 112.5 12/30/17 capsule,extended release 24 hr mg acetaminophen 325 mg tablet 650 mg PO Q6HR PRN #30 tab 01/18/18 albuterol sulfate 90 mcg/actuation 2 puff INHALATION Q4-6H PRN #18 08/18/19 aerosol inhaler gram fluticasone propionate 220 1 puff INHALATION BID #12 gram 10/15/19 mcg/actuation HFA aerosol inhaler (Flovent HFA) diazepam 5 mg tablet (Valium) 5 mg PO BID-QID PRN #10 tab 05/16/20 hydrocodone 5 mg-acetaminophen 325 1 tab PO Q6H PRN #10 tab 04/18/21 mg tablet hydrocodone 5 mg-acetaminophen 325 1 tab PO Q6H PRN #10 tab 04/18/21 mg tablet oxycodone-acetaminophen 5 mg-325 1 - 2 tab PO Q6H PRN #16 tab 05/26/21 mg tablet cephalexin 500 mg capsule 500 mg PO TID #21 cap 06/24/21 oxycodone-acetaminophen 5 mg-325 1 tab PO Q6H PRN #14 tab 06/24/21 mg tablet lidocaine 5 % topical patch 1 patch TOPICAL DAILY #15 ea 07/01/21 (Lidoderm) Allergies Allergy/AdvReac Type Severity Reaction Status Date / Time coconut [COCONUT] Allergy Severe STOPS Verified 06/24/21 10:03 BREATHS prochlorperazine Allergy Intermediate seizure Verified 06/24/21 10:03 NSAIDS (Non-Steroidal Allergy Mild rash, milner Verified 06/24/21 10:03 Anti-Inflamma [NSAIDS (NON-STEROIDAL ANTI-INFLAMMA] promethazine [From PHENERGAN] Allergy Unknown restless Verified 06/24/21 10:03 legs Review of Systems <AGIULAR Mendes - Last Filed: 07/14/21 15:57> Review of Systems Narrative: General: denies fever, chills, malaise, sweats, fatigue Head/Neck: Endorses severe headache, denies neck pain trauma, denies altered gait or mentation Eyes: denies visual changes, eye pain Cardio: denies chest pain, palpitations, edema Respiratory: denies dyspnea, cough, orthopnea GI: denies abdominal pain, nausea, vomiting, or diarrhea : denies dysuria, hematuria, urinary retention, frequency or incontinence MSK: denies joint pain, muscle weakness Skin: denies rash, itching, skin lesions or other Neuro: denies numbness, tingling Patient History <AGUILAR Mendes - Last Filed: 07/14/21 15:57> Medical History (Updated 07/14/21 @ 15:10 by AGUILAR Mendes) Anxiety Cervical cancer Depression Femoral acetabular impingement Genital herpes Gout Kidney stones (12/2016) Ovarian cancer Pseudotumor cerebri Pulmonary embolism (2010) Pulmonary embolism (2009) Uterine cancer Surgical History History of bladder surgery History of carpal tunnel repair Status post appendectomy Status post breast reduction Status post cholecystectomy Status post hernia repair (2014) Status post hysterectomy with oophorectomy (2003) Status post laparoscopy WELDER PLASMA ARC (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) shunt status Family History Father History of kidney cancer Mother Diabetes mellitus Hypertension Hyperlipidemia CAD (coronary artery disease) CVA (cerebral vascular accident) Social History marital status: household members: family lives independently: Yes occupational status: employed Smoking Status: Current every day smoker alcohol intake: never substance use type: marijuana Smoking Status: Current every day smoker tobacco type: cigarettes alcohol intake frequency: holidays/special occasions only Substance Use Type: marijuana Exam <AGUILAR Mendes - Last Filed: 07/14/21 15:57> Narrative Exam Narrative: Independently reviewed vitals signs and nursing notes. General: Cooperative, in no acute distress, well developed and well groomed Head/Neck: Normal visual inspection and supple, atraumatic, no JVD or lymphadenopathy. Normal facial exam Eyes: Pupils equal round and reactive, EOMI, conjunctiva normal, no scleral icterus or injections, no nystagmus, Nose: External nose normal, nares patent, no rhinorrhea, without purulent drainage Mouth/Throat: uvula midline, moist mucus membranes Cardio: Regular rate and rhythm, no peripheral edema, warm extremities Respiratory: Normal respiratory effort, able to speak in complete sentences without audible wheezing, stridor, or rales. No retractions. GI: Abdomen soft, nontender to palpation x4 quadrants, nondistended, no masses or exquisite tenderness with exam, no flank tenderness MSK: Moves all extremities, neurovascularly intact Skin: Normal capillary refill, no rash Neuro: Normal speech and cognition, normal gait, A&O x3, tone normal, moves all extremities Psych: Mental status is grossly normal, speech is clear, congruent mood, normal affect Initial Vital Signs Initial Vital Signs: Vital Signs Pulse Rate 78 07/14/21 10:38 Pulse Oximetry 99 07/14/21 10:38 <Agueda Burger DO - Last Filed: 07/14/21 18:59> Initial Vital Signs Initial Vital Signs: Vital Signs Pulse Rate 78 07/14/21 10:38 Pulse Oximetry 99 07/14/21 10:38 Course <AGUILAR Mendes - Last Filed: 07/14/21 15:57> Orders Ordered: Discontinued Medications Diphenhydramine HCl (Diphenhydramine 50 Mg/Ml Vial) 50 mg IV NOW ONE Stop: 07/14/21 12:32 Last Admin: 07/14/21 12:41 Dose: 50 mg Documented by: FRANCISCA Hydromorphone HCl (Hydromorphone 1 Mg Inj) 1 mg IV NOW ONE Stop: 07/14/21 12:32 Last Admin: 07/14/21 12:40 Dose: 1 mg Documented by: FRANCISCA Hydromorphone HCl (Hydromorphone 1 Mg Inj) 1 mg IV NOW ONE Stop: 07/14/21 14:22 Last Admin: 07/14/21 14:40 Dose: 1 mg Documented by: RAJI Sodium Chloride (Normal Saline 0.9%) 1,000 mls @ 1,000 mls/hr IV BOLUS ONE Stop: 07/14/21 13:30 Last Infusion: 07/14/21 14:46 Dose: 0 mls/hr Documented by: Admin: 07/14/21 12:41 Dose: 1,000 mls/hr Documented by: FRANCISCA Metoclopramide HCl (Metoclopramide 10 Mg/2 Ml Inj) 10 mg IV NOW ONE Stop: 07/14/21 12:32 Last Admin: 07/14/21 12:41 Dose: 10 mg Documented by: FRANCISCA Ondansetron HCl (Ondansetron 4 Mg/2 Ml Inj) 4 mg IV NOW ONE Stop: 07/14/21 12:32 Last Admin: 07/14/21 12:41 Dose: 4 mg Documented by: FRANCISCA Oxycodone HCl (Oxycodone Ir 5 Mg Tablet) 5 mg PO NOW ONE Stop: 07/14/21 14:28 Last Admin: 07/14/21 14:40 Dose: 5 mg Documented by: RAJI Reevaluation(s) Reevaluation #1: Patient received hydromorphone, Reglan, Benadryl, 1 L of normal saline with improvement in her symptoms to a pain of 7/10. She was given another mg of Dilaudid for this. Time: 14:26 Vital Signs Vital signs: Vital Signs - 8 hr 07/14/21 11:00 07/14/21 11:30 07/14/21 12:49 Pulse Rate 70 72 77 Respiratory Rate Blood Pressure 124/82 121/89 Pulse Oximetry 96 95 100 07/14/21 12:50 07/14/21 13:00 07/14/21 13:30 Pulse Rate 73 66 73 Respiratory Rate Blood Pressure 109/76 110/74 96/63 Pulse Oximetry 100 100 98 07/14/21 14:00 07/14/21 14:30 07/14/21 15:22 Pulse Rate 69 74 87 Respiratory Rate 14 Blood Pressure 112/72 98/69 112/64 Pulse Oximetry 98 98 96 <Agueda Burger DO - Last Filed: 07/14/21 18:59> Orders Ordered: Discontinued Medications Diphenhydramine HCl (Diphenhydramine 50 Mg/Ml Vial) 50 mg IV NOW ONE Stop: 07/14/21 12:32 Last Admin: 07/14/21 12:41 Dose: 50 mg Documented by: FRANCISCA Hydromorphone HCl (Hydromorphone 1 Mg Inj) 1 mg IV NOW ONE Stop: 07/14/21 12:32 Last Admin: 07/14/21 12:40 Dose: 1 mg Documented by: KSWANSO Hydromorphone HCl (Hydromorphone 1 Mg Inj) 1 mg IV NOW ONE Stop: 07/14/21 14:22 Last Admin: 07/14/21 14:40 Dose: 1 mg Documented by: RAJI Sodium Chloride (Normal Saline 0.9%) 1,000 mls @ 1,000 mls/hr IV BOLUS ONE Stop: 07/14/21 13:30 Last Infusion: 07/14/21 14:46 Dose: 0 mls/hr Documented by: Admin: 07/14/21 12:41 Dose: 1,000 mls/hr Documented by: FRANCISCA Metoclopramide HCl (Metoclopramide 10 Mg/2 Ml Inj) 10 mg IV NOW ONE Stop: 07/14/21 12:32 Last Admin: 07/14/21 12:41 Dose: 10 mg Documented by: FRANCISCA Ondansetron HCl (Ondansetron 4 Mg/2 Ml Inj) 4 mg IV NOW ONE Stop: 07/14/21 12:32 Last Admin: 07/14/21 12:41 Dose: 4 mg Documented by: FRANCISCA Oxycodone HCl (Oxycodone Ir 5 Mg Tablet) 5 mg PO NOW ONE Stop: 07/14/21 14:28 Last Admin: 07/14/21 14:40 Dose: 5 mg Documented by: RAJI Vital Signs Vital signs: Vital Signs - 8 hr 07/14/21 11:00 07/14/21 11:30 07/14/21 12:49 Pulse Rate 70 72 77 Respiratory Rate Blood Pressure 124/82 121/89 Pulse Oximetry 96 95 100 07/14/21 12:50 07/14/21 13:00 07/14/21 13:30 Pulse Rate 73 66 73 Respiratory Rate Blood Pressure 109/76 110/74 96/63 Pulse Oximetry 100 100 98 07/14/21 14:00 07/14/21 14:30 07/14/21 15:22 Pulse Rate 69 74 87 Respiratory Rate 14 Blood Pressure 112/72 98/69 112/64 Pulse Oximetry 98 98 96 MDM - Headache <AGUILAR Mendes - Last Filed: 07/14/21 15:57> Lab Data Labs: Urine Dip Bedside Urine Glucose Negative Bedside Urine Bilirubin - Negative Bedside Urine Ketone - Negative Urine Specific [place] 1.020 Bedside Urine Occult Blood - Negative Bedside Urine pH 6.0 Bedside Urine Protein - Negative Bedside Urine Urobilinogen - Negative Bedside Urine Nitrite - Negative Bedside Urine Leukocytes - Negative Esterase MDM Narrative Medical decision making narrative: This is a 40-year-old female with history of idiopathic intracranial hypertension.? Patient states she typically gets worsening headaches with weather changes pressure systems moving through the area patient states she has not had any new changes or atypical features with this episode.? She states she does not tolerate NSAIDs well but often benefits from Reglan, Benadryl and Dilaudid pain medication.? She states fluids are often helpful to as well.? She received fluids, Reglan Benadryl with minimal to no improvement, 2 doses of IV pain medication followed by dose of oral pain medication with improvement but not complete resolution.? No indications for new imaging today patient is without any focal neuro deficits, no nystagmus, cranial nerves 2-12 are grossly intact. Patient understands to follow up with her Neurology and her PCP. Strict return precautions were discussed, patient overall feels better and wishes to discharge. Patient is appropriate and amenable to discharge home. Vital signs are stable on repeat examination is unremarkable. Patient has been informed of results. Patient has been given strict return to ER precautions for any new or worsening symptoms. Patient understands to follow up closely with outpatient providers as instructed. Patient understands plan and agrees to discharge home. All questions and concerns answered at this time. <Agueda Burger, DO - Last Filed: 07/14/21 18:59> Lab Data Labs: Urine Dip Bedside Urine Glucose Negative Bedside Urine Bilirubin - Negative Bedside Urine Ketone - Negative Urine Specific [place] 1.020 Bedside Urine Occult Blood - Negative Bedside Urine pH 6.0 Bedside Urine Protein - Negative Bedside Urine Urobilinogen - Negative Bedside Urine Nitrite - Negative Bedside Urine Leukocytes - Negative Esterase Discharge Plan Departure Patient Disposition: Home Clinical Impression: Migraine Qualifiers: Migraine type: chronic without aura Status migrainosus presence: with status migrainosus Intractability: intractable Qualified Code(s): G43.711 - Chronic migraine without aura, intractable, with status migrainosus Instructions: DI for Migraine Activity Restrictions/Additional Instructions: *You have been diagnosed with an intractable migraine similar to your previous. Please follow-up with your primary care provider as well as Neurology and your following providers to let them know about your emergency department visit for your migraine. Please continue to try improvement migraine at home by staying hydrated, taking Tylenol if you developed an aura, and other prescribed medications which were for you. I hope you feel better soon, thank you for trusting us with your care, please make sure that you follow-up with them so that you can get on top of your migraine management. *What to do: *Please continue to take your regular medications as directed. [ ] New medication prescriptions sent to your pharmacy: [ ] [ ] New medication written as a paper prescription [x] No new medications given *Please follow up with your primary care provider in 2-3 days, call for an appointment. Let them know you were seen in the Emergency Department and that we ask that you be seen in follow up. We will electronically transmit a record of today's note if your PCP is in our system *If you do not have a primary care provider please contact the [facility] Resource line at [phone]. They will ask some questions about your medical history and help get you set up with a doctor in the community. *Return to Emergency Department if you should have any new, worsening or concerning symptoms, such as [fever greater than 101F, chills, worsening pain, persistent vomiting or other bothersome symptoms] Prescriptions: No Action albuterol sulfate 90 mcg/actuation HFA aerosol inhaler 2 puff INHALATION Q4-6H PRN (Reason: shortness of breath or wheezing) Qty: 18 0RF venlafaxine 37.5 mg capsule,extended release 24hr 37.5 mg PO DAILY MDD 112.5 mg Qty: 30 2RF Rx Instructions: Take in combination with 75 mg tab (112.5 mg daily) Flovent HFA 220 mcg/actuation HFA aerosol inhaler 1 puff INHALATION BID Qty: 12 0RF Rx Instructions: MUST ESTABLISH WITH NEW PRIMARY CARE PHYSICIAN PRIOR TO FURTHER REFILLS. lamotrigine 150 mg tablet 150 mg PO BID 0RF metoclopramide HCl 10 mg tablet 10 mg PO TID PRN (Reason: Nausea) 0RF Label Comments: take 1 tablet by mouth three times a day if needed diazepam [Valium] 5 mg tablet 5 mg PO BID-QID PRN (Reason: muscle spasm) Qty: 10 0RF hydrocodone-acetaminophen 5-325 mg tablet 1 tab PO Q6H PRN (Reason: pain) Qty: 10 0RF hydrocodone-acetaminophen 5-325 mg tablet 1 tab PO Q6H PRN (Reason: pain) Qty: 10 0RF venlafaxine 75 mg capsule,extended release 24hr 75 mg PO DAILY 0RF Label Comments: TAKE 1 CAPSULE BY MOUTH EVERY DAY IN COMBINATION WITH 37.5MG CAPSULE FOR DEPRESSION AND ANXIETY acetaminophen 325 mg Tablet 650 mg PO Q6HR PRN (Reason: As Needed For Fever/Mild Pain) Qty: 30 0RF valacyclovir 500 mg tablet 1,000 mg PO DAILY 0RF oxycodone-acetaminophen 5-325 mg tablet 1 - 2 tab PO Q6H PRN (Reason: pain) Qty: 16 0RF oxycodone-acetaminophen 5-325 mg tablet 1 tab PO Q6H PRN (Reason: pain) Qty: 14 0RF cephalexin 500 mg capsule 500 mg PO TID Qty: 21 0RF lidocaine [Lidoderm] 5 % adhesive patch,medicated 1 patch topical DAILY Qty: 15 1RF Rx Instructions: leave on most painful area for up to 12 hrs <Agueda Burger, DO - Last Filed: 07/14/21 18:59> Cosign ED Attending Jewelsature Attestation: I was immediately available in the department for consultation. Documentation has been reviewed.
[2021-07-14] MEDS: HYDROMORPHONE 1 MG INJ IV ×2 (12:40→14:40)
[2021-07-14] MEDS: METOCLOPRAMIDE 10 MG/2 ML INJ IV (12:41)
[2021-07-14] MEDS: diphenhydrAMINE 50 MG/ML VIAL IV (12:41)
[2021-07-14] MEDS: ONDANSETRON 4 MG/2 ML INJ IV (12:41)
[2021-07-14] MEDS: SODIUM CHLORIDE 0.9% 1,000 ML 1000 ML IV (12:41)
[2021-07-14] MEDS: OXYCODONE IR 5 MG TABLET PO (14:40)
--- NOTE | 2021-07-14 14:45 | PC.NURSE ---
inserted by another nurse
== END 2021-07-14 15:23 | disposition home or self-care (01) ==
PROVIDERS: Emergency Provider Nurse Practitioner Critical Care Medicine
DX: G43.711 Chronic migraine without aura, intractable, with status migrainosus (principal)
CPT/HCPCS: 36415; 81003; 96361; 96374; 96375; 96376; 99284; J1170; J1200; J2405; J2765

== ENCOUNTER 2021-08-23 15:36 | Emergency (ER) | payer OTHER, MEDICAID, SELFPAY ==
[2018-01-17 01:41] VITALS: BMI 32.3
[2021-08-23 15:38] VITALS: BP 145/78; PULSE 92; RESP 20; TEMP 36.6; O2SAT 98; BMI 31.1
--- NOTE | 2021-08-23 17:32 | DI.CT.S_ITS ---
PROCEDURE: CT HEAD/BRAIN WO CON INDICATIONS: migraine TECHNIQUE: Noncontrast 4.5 mm thick angled axial sections acquired from the foramen magnum to the vertex, with coronal and sagittal reformats. For radiation dose reduction, the following was used: automated exposure control, adjustment of mA and/or kV according to patient size. COMPARISON: [facility], CT, CT HEAD/BRAIN WO CON, 01/06/2019, 18:25. [facility], CT, HEAD WITHOUT CONTRAST, 12/05/2016, 16:31. FINDINGS: Image quality: Excellent. CSF spaces: Basal cisterns are patent. No extra-axial fluid collections. Ventricles are stable in size and shape with persistent slit like appearance. Brain: No midline shift. No intracranial masses or hemorrhage. Cage-white matter interface is normal. Redemonstration of bifrontal approach intraventricular shunt with the distal tip projecting within the lateral ventricles bilaterally. Skull and face: Calvarium and visualized facial bones are intact, without suspicious lesions. Sinuses: Visualized sinuses and mastoids are clear. IMPRESSION: CT head without acute intracranial abnormalities. Persistent slit-like ventricles with stable positioning of bifrontal approach intraventricular shunt. Findings may again represent over shunting. Dictated by: Lester Preston M.D. on 08/23/2021 at 18:07 Approved by: Lester Preston M.D. on 08/23/2021 at 18:08
--- NOTE | 2021-08-23 17:33 | ED_ITS ---
HPI - Headache <Wilder Jay PA-C - Last Filed: 08/23/21 19:34> General Chief Complaint: Headache Stated Complaint: dizzzy,migraine, blurred vision, lethargic Time Seen by Provider: 08/23/21 17:18 Mode of arrival: Ambulatory History of Present Illness HPI Narrative: Patient is a 40-year-old female presents to the ED with migraine type symptoms that started approximately 4 hours ago. She took 1000 mg of Tylenol with no relief. She has been treated in the past for migraine headaches she describes the headache to be on the left side of her head she does have some changes in vision. The main concern that is different today is that dizziness and problems with gait. She describes her gait problem to be more related to weakness. She denies any paresthesia no reported paralysis. No recent trauma or fall reported. No loss of conscious no seizure activity reported. She is not currently on any migraine medications. Related Data Home Medications Medication Instructions Recorded Confirmed venlafaxine 75 mg capsule,extended 75 mg PO DAILY 01/05/18 08/18/19 release 24 hr valacyclovir 500 mg tablet 1,000 mg PO DAILY 07/24/18 08/18/19 lamotrigine 150 mg tablet 150 mg PO BID 01/06/19 08/18/19 metoclopramide HCl 10 mg tablet 10 mg PO TID PRN 01/06/19 08/18/19 Previous Rx's Medication Instructions Recorded venlafaxine 37.5 mg 37.5 mg PO DAILY #30 cap MDD 112.5 12/30/17 capsule,extended release 24 hr mg acetaminophen 325 mg tablet 650 mg PO Q6HR PRN #30 tab 01/18/18 albuterol sulfate 90 mcg/actuation 2 puff INHALATION Q4-6H PRN #18 08/18/19 aerosol inhaler gram fluticasone propionate 220 1 puff INHALATION BID #12 gram 10/15/19 mcg/actuation HFA aerosol inhaler (Flovent HFA) diazepam 5 mg tablet (Valium) 5 mg PO BID-QID PRN #10 tab 05/16/20 hydrocodone 5 mg-acetaminophen 325 1 tab PO Q6H PRN #10 tab 04/18/21 mg tablet hydrocodone 5 mg-acetaminophen 325 1 tab PO Q6H PRN #10 tab 21 mg tablet oxycodone-acetaminophen 5 mg-325 1 - 2 tab PO Q6H PRN #16 tab 05/26/21 mg tablet cephalexin 500 mg capsule 500 mg PO TID #21 cap 06/24/21 oxycodone-acetaminophen 5 mg-325 1 tab PO Q6H PRN #14 tab 06/24/21 mg tablet lidocaine 5 % topical patch 1 patch TOPICAL DAILY #15 ea 07/01/21 (Lidoderm) Allergies Allergy/AdvReac Type Severity Reaction Status Date / Time coconut [COCONUT] Allergy Severe STOPS Verified 06/24/21 10:03 BREATHS prochlorperazine Allergy Intermediate seizure Verified 06/24/21 10:03 NSAIDS (Non-Steroidal Allergy Mild rash, milner Verified 06/24/21 10:03 Anti-Inflamma [NSAIDS (NON-STEROIDAL ANTI-INFLAMMA] promethazine [From PHENERGAN] Allergy Unknown restless Verified 06/24/21 10:03 legs Review of Systems <Wilder aJy PA-C - Last Filed: 08/23/21 19:34> Review of Systems ROS Unobtainable: All systems reviewed & are unremarkable except as noted in HPI and below Constitutional Constitutional: Denies chills, Denies fatigue, Denies fever(s), Denies frequent falls, Reports headache(s), Denies lethargy and Reports weakness Eyes Eyes: Denies change in vision, Denies eye discharge, Denies irritation and Denies loss of vision ENT Ears, Nose, Mouth, and Throat: Denies change in voice, Denies dizziness, Reports headache(s), Denies neck pain, Denies sore throat and Denies throat swelling Cardiovascular Cardiovascular: Denies chest pain, Denies irregular heart rhythm, Denies lightheadedness, Denies palpitations, Denies dyspnea, Denies dyspnea on exertion and Denies orthopnea Respiratory Respiratory: Denies cough, Denies dyspnea, Denies dyspnea on exertion and Denies wheezing Gastrointestinal Gastrointestinal: Denies abdominal pain, Denies change in bowel habits, Denies diarrhea, Denies nausea and Denies vomiting Genitourinary Genitourinary: Denies hematuria, Denies flank pain, Denies urinary incontinence and Denies urinary urgency Musculoskeletal Musculoskeletal: Denies back pain, Denies muscle weakness, Denies neck pain, Denies numbness and Denies tingling Integumentary/Breasts Skin/Breast: Denies pruritus, Denies erythema, Denies rash and Denies wounds Neurologic Neurologic: Denies behavioral changes, Denies confusion, Denies dizziness, Denies frequent falls, Reports headache(s), Denies loss of vision, Denies numbness, Denies tingling and Reports weakness Psychiatric Psychiatric: Denies anxiety, Denies behavioral changes, Denies confusion, Denies depression, Denies homicidal ideation and Denies suicidal ideation Endocrine Endocrine: Denies fatigue, Denies flushing and Denies palpitations Hematologic/Lymphatic Hematologic/Lymphatic: Denies easy bruising Allergic/Immunologic Allergic/Immunologic: Denies urticaria, Denies throat swelling and Denies wheezi ng Patient History <Wilder Jay PA-C - Last Filed: 08/23/21 19:34> Medical History (Updated 08/23/21 @ 18:40 by Wilder Jay PA-C) Anxiety Cervical cancer Depression Femoral acetabular impingement Genital herpes Gout Kidney stones (12/2016) Ovarian cancer Pseudotumor cerebri Pulmonary embolism (2010) Pulmonary embolism (2009) Uterine cancer Surgical History History of bladder surgery History of carpal tunnel repair Status post appendectomy Status post breast reduction Status post cholecystectomy Status post hernia repair (2014) Status post hysterectomy with oophorectomy (2003) Status post laparoscopy [employer] (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) shunt status Family History Father History of kidney cancer Mother Diabetes mellitus Hypertension Hyperlipidemia CAD (coronary artery disease) CVA (cerebral vascular accident) Social History marital status: household members: family lives independently: Yes occupational status: employed Smoking Status: Current every day smoker alcohol intake: never substance use type: marijuana Smoking Status: Current every day smoker tobacco type: cigarettes alcohol intake frequency: holidays/special occasions only Substance Use Type: marijuana Exam <Wilder Jay PA-C - Last Filed: 08/23/21 19:34> Initial Vital Signs Initial Vital Signs: Vital Signs Temperature 97.8 F 08/23/21 15:38 Pulse Rate 92 H 08/23/21 15:38 Respiratory Rate 20 08/23/21 15:38 Blood Pressure 145/78 H 08/23/21 15:38 Pulse Oximetry 98 08/23/21 15:38 Const General: cooperative, healthy appearing, well developed and in distress Nutritional Appearance: average body habitus Orientation: Orientation [facility] Head: normal to inspection and normocephalic Ears: hearing grossly normal bilaterally, external ears normal and TM's normal bilaterally Nose: external nose normal, nares normal and nasal mucous membranes and turbinates normal Face and sinus: normal facial exam, sinuses nontender and face symmetric Mouth: oral mucosae normal Teeth and gingiva: dentition normal Throat: posterior oropharynx normal Neck Neck: normal visual inspection, full ROM and no meningeal signs Resp Effort & Inspection: normal respiratory effort and able to speak in complete sentences Neuro General: patient alert, patient awake, patient oriented x3, gait normal, tone normal, moves all extremities and CN's II-XI intact bilaterally Cranial Nerves: CN's II-XI intact bilaterally Cognition: normal cognition Speech: speech normal Gait: normal gait Motor: muscle tone normal throughout, strength 5/5 throughout, no pronator drift and no movement abnormalities noted Sensory Exam: no sensory deficits noted Coordination: [id number] test normal <Alycia Priest MD - Last Filed: 08/24/21 01:48> Initial Vital Signs Initial Vital Signs: Vital Signs Temperature 97.8 F 08/23/21 15:38 Pulse Rate 92 H 08/23/21 15:38 Respiratory Rate 20 08/23/21 15:38 Blood Pressure 145/78 H 08/23/21 15:38 Pulse Oximetry 98 08/23/21 15:38 Course <Wilder Jay PA-C - Last Filed: 08/23/21 19:34> Orders Ordered: ED Orders 08/23/21 17:32 CT head/brain wo con Stat Discontinued Medications Diphenhydramine HCl (Diphenhydramine 50 Mg/Ml Vial) 25 mg IV NOW ONE Stop: 08/23/21 17:32 Last Admin: 08/23/21 18:11 Dose: 25 mg Documented by: DAISHA Hydromorphone HCl (Hydromorphone 1 Mg Inj) 0.5 mg IV NOW ONE Stop: 08/23/21 17:32 Last Admin: 08/23/21 18:12 Dose: 0.5 mg Documented by: DAISHA Hydromorphone HCl (Hydromorphone 0.5 Mg Inj) 0.5 mg IV NOW ONE Stop: 08/23/21 18:58 Last Admin: 08/23/21 19:09 Dose: 0.5 mg Documented by: DAISHA Sodium Chloride (Normal Saline 0.9%) 1,000 mls @ 1,000 mls/hr IV BOLUS ONE Stop: 08/23/21 18:30 Last Infusion: 08/23/21 18:52 Dose: 0 mls/hr Documented by: Admin: 08/23/21 17:50 Dose: 1,000 mls/hr Documented by: DAISHA Metoclopramide HCl (Metoclopramide 10 Mg/2 Ml Inj) 10 mg IV NOW ONE Stop: 08/23/21 17:32 Last Admin: 08/23/21 18:11 Dose: 10 mg Documented by: DAISHA Reevaluation(s) Reevaluation #1: Patient reports the medication was effective for treating her headache and is requesting to be discharged. Vital Signs Vital signs: Vital Signs - 8 hr 08/23/21 19:10 Pulse Rate 75 Respiratory Rate 18 Blood Pressure 123/68 Pulse Oximetry 98 <Alycia Priest MD - Last Filed: 08/24/21 01:48> Orders Ordered: ED Orders 08/23/21 17:32 CT head/brain wo con Stat Discontinued Medications Diphenhydramine HCl (Diphenhydramine 50 Mg/Ml Vial) 25 mg IV NOW ONE Stop: 08/23/21 17:32 Last Admin: 08/23/21 18:11 Dose: 25 mg Documented by: DAISHA Hydromorphone HCl (Hydromorphone 1 Mg Inj) 0.5 mg IV NOW ONE Stop: 08/23/21 17:32 Last Admin: 08/23/21 18:12 Dose: 0.5 mg Documented by: DAISHA Hydromorphone HCl (Hydromorphone 0.5 Mg Inj) 0.5 mg IV NOW ONE Stop: 08/23/21 18:58 Last Admin: 08/23/21 19:09 Dose: 0.5 mg Documented by: DAIHSA Sodium Chloride (Normal Saline 0.9%) 1,000 mls @ 1,000 mls/hr IV BOLUS ONE Stop: 08/23/21 18:30 Last Infusion: 08/23/21 18:52 Dose: 0 mls/hr Documented by: Admin: 08/23/21 17:50 Dose: 1,000 mls/hr Documented by: DAISHA Metoclopramide HCl (Metoclopramide 10 Mg/2 Ml Inj) 10 mg IV NOW ONE Stop: 08/23/21 17:32 Last Admin: 08/23/21 18:11 Dose: 10 mg Documented by: DAISHA Vital Signs Vital signs: Vital Signs - 8 hr 08/23/21 19:10 Pulse Rate 75 Respiratory Rate 18 Blood Pressure 123/68 Pulse Oximetry 98 MDM - Headache <Wilder Jay PA-C - Last Filed: 08/23/21 19:34> Differential Diagnosis Differential diagnosis: Likely headache Imaging Data CT scan - head: Radiologist's Impression: PROCEDURE:? CT HEAD/BRAIN WO CON ? INDICATIONS:? migraine ? TECHNIQUE:? Noncontrast 4.5 mm thick angled axial sections acquired from the foramen magnum to the vertex, with coronal and sagittal reformats.? For radiation dose reduction, the following was used:? automated exposure control, adjustment of mA and/or kV according to patient size.? ? COMPARISON:? [facility], CT, CT HEAD/BRAIN WO CON, 01/06/2019, 18:25.? [facility], CT, HEAD WITHOUT CONTRAST, 12/05/2016, 16:31. ? FINDINGS:? Image quality:? Excellent.? ? CSF spaces:? Basal cisterns are patent.? No extra-axial fluid collections.? Ventricles are stable in size and shape with persistent slit like appearance.? ? Brain:? No midline shift.? No intracranial masses or hemorrhage.? Cage-white matter interface is normal.? Redemonstration of bifrontal approach intraventricular shunt with the distal tip projecting within the lateral ventricles bilaterally. ? Skull and face:? Calvarium and visualized facial bones are intact, without suspicious lesions.? ? Sinuses:? Visualized sinuses and mastoids are clear.? ? IMPRESSION:? CT head without acute intracranial abnormalities. ? Persistent slit-like ventricles with stable positioning of bifrontal approach intraventricular shunt.? Findings may again represent over shunting. ? ? Dictated by: Lester Preston M.D. on 08/23/2021 at 18:07 ? ? Approved by: Lester Preston M.D. on 08/23/2021 at 18:08?? [facility] Narrative Medical decision making narrative: Patient is 40-year-old female who was treated today for headache. She describes the headache starting 4 hours prior to arrival he describes the pain to be on the left side of the head. Patient took Tylenol prior to arrival without any relief. Patient has been seen in the past for migraine headache in June of this year. Patient admits to some photophobia like symptoms. CT of the head was ordered which was essentially negative medications to treat the migraine were given which seemed to be effective. IV fluids was also given. Patient responded well and be discharged home. Discharge Plan Departure Patient Disposition: Home Clinical Impression: Headache Instructions: DI for Headache Activity Restrictions/Additional Instructions: You were treated today for your headache symptoms. It would be my suggestion that you establish herself with a neurologist and have him migraine medications prescribed to prevent any further outbreaks of headache attacks. Your CT scan today was negative and the medications that she received should be effective for treating her migraine. Continue to hydrate drink plenty of water and you may return to the ED if her symptoms worsen or you can follow-up with her PCP. Thank you for the opportunity to care for you today. Prescriptions: No Action albuterol sulfate 90 mcg/actuation HFA aerosol inhaler 2 puff INHALATION Q4-6H PRN (Reason: shortness of breath or wheezing) Qty: 18 0RF venlafaxine 37.5 mg capsule,extended release 24hr 37.5 mg PO DAILY MDD 112.5 mg Qty: 30 2RF Rx Instructions: Take in combination with 75 mg tab (112.5 mg daily) Flovent HFA 220 mcg/actuation HFA aerosol inhaler 1 puff INHALATION BID Qty: 12 0RF Rx Instructions: MUST ESTABLISH WITH NEW PRIMARY CARE PHYSICIAN PRIOR TO FURTHER REFILLS. lamotrigine 150 mg tablet 150 mg PO BID 0RF metoclopramide HCl 10 mg tablet 10 mg PO TID PRN (Reason: Nausea) 0RF Label Comments: take 1 tablet by mouth three times a day if needed diazepam [Valium] 5 mg tablet 5 mg PO BID-QID PRN (Reason: muscle spasm) Qty: 10 0RF hydrocodone-acetaminophen 5-325 mg tablet 1 tab PO Q6H PRN (Reason: pain) Qty: 10 0RF hydrocodone-acetaminophen 5-325 mg tablet 1 tab PO Q6H PRN (Reason: pain) Qty: 10 0RF venlafaxine 75 mg capsule,extended release 24hr 75 mg PO DAILY 0RF Label Comments: TAKE 1 CAPSULE BY MOUTH EVERY DAY IN COMBINATION WITH 37.5MG CAPSULE FOR DEPRESSION AND ANXIETY acetaminophen 325 mg Tablet 650 mg PO Q6HR PRN (Reason: As Needed For Fever/Mild Pain) Qty: 30 0RF valacyclovir 500 mg tablet 1,000 mg PO DAILY 0RF oxycodone-acetaminophen 5-325 mg tablet 1 - 2 tab PO Q6H PRN (Reason: pain) Qty: 16 0RF oxycodone-acetaminophen 5-325 mg tablet 1 tab PO Q6H PRN (Reason: pain) Qty: 14 0RF cephalexin 500 mg capsule 500 mg PO TID Qty: 21 0RF lidocaine [Lidoderm] 5 % adhesive patch,medicated 1 patch topical DAILY Qty: 15 1RF Rx Instructions: leave on most painful area for up to 12 hrs <Alycia Priest MD - Last Filed: 08/24/21 01:48> Cosign ED Attending Cosignature Attestation: I was immediately available in the department for consultation throughout this patient's visit. I agree with documentation as above. Alycia Priest MD
[2021-08-23] MEDS: SODIUM CHLORIDE 0.9% 1,000 ML 1000 ML IV (17:50)
[2021-08-23] MEDS: diphenhydrAMINE 50 MG/ML VIAL 25 MG IV (18:11)
[2021-08-23] MEDS: METOCLOPRAMIDE 10 MG/2 ML INJ IV (18:11)
[2021-08-23] MEDS: HYDROMORPHONE 1 MG INJ 0.5 MG IV (18:12)
[2021-08-23] MEDS: HYDROMORPHONE 0.5 MG INJ IV (19:09)
[2021-08-23 19:10] VITALS: BP 123/68; PULSE 75; RESP 18; O2SAT 98
== END 2021-08-23 20:23 | disposition home or self-care (01) ==
PROVIDERS: Emergency Provider Physician Assistant
DX: G43.909 Migraine, unspecified, not intractable, without status migrainosus (principal)
CPT/HCPCS: 70450; 96374; 96375; 96376; 99284; J1170; J1200; J2765

== ENCOUNTER 2021-10-31 15:13 | Emergency (ER) | payer OTHER, MEDICAID, SELFPAY ==
[2018-01-17 01:41] VITALS: BMI 32.3
[2021-10-31 15:34] VITALS: BP 143/84; PULSE 93; RESP 22; TEMP 36.6; O2SAT 97
[2021-10-31] MEDS: LIDO 1%/SOD BICARB 8.4% (10ML) 10 ML SYRINGE INJ (16:39)
[2021-10-31] MEDS: ACETAMINOPHEN 325 MG TABLET 975 MG PO (16:42)
[2021-10-31 17:38] VITALS: BP 145/85; PULSE 81; RESP 16; O2SAT 99
--- NOTE | 2021-10-31 18:36 | ED_ITS ---
HPI - Wound/Laceration <Crystal Ospina, [facility] - Last Filed: 10/31/21 18:46> General Chief Complaint: Wound/Laceration Stated Complaint: CUT TO MIDDLE LEFT FINGER Time Seen by Provider: 10/31/21 16:09 Source: patient Mode of arrival: Ambulatory History of Present Illness HPI narrative: This is a 40-year-old female with history of anxiety, personality disorder, and depression who presents to the emergency department with a left 3rd digit injury from a pruning tool involving the nail bed. She has a small laceration which is vertical in the distal tip of her 3rd digit, she does have acrylic nail in it has fractured the acrylic nail and removed part of her comanche fingernail with a small laceration underneath it. Patient states that her pain is a 10/10, she states that she has poor pain tolerance, and it is causing nerve pain upper whole arm. Patient states her tetanus is up-to-date, denies any other injuries. She denies any sensation changes in the distal to her finger states. Related Data Home Medications Medication Instructions Recorded Confirmed venlafaxine 75 mg capsule,extended 75 mg PO DAILY 01/05/18 08/18/19 release 24 hr valacyclovir 500 mg tablet 1,000 mg PO DAILY 07/24/18 08/18/19 lamotrigine 150 mg tablet 150 mg PO BID 01/06/19 08/18/19 metoclopramide HCl 10 mg tablet 10 mg PO TID PRN Nausea 01/06/19 08/18/19 Previous Rx's Medication Instructions Recorded venlafaxine 37.5 mg 37.5 mg PO DAILY Depression and 12/30/17 capsule,extended release 24 hr anxiety #30 caps acetaminophen 325 mg tablet 650 mg PO Q6HR PRN As Needed For 01/18/18 Fever/Mild Pain #30 tabs albuterol sulfate 90 mcg/actuation 2 puff inhalation Q4-6H PRN 08/18/19 aerosol inhaler shortness of breath or wheezing #18 grams fluticasone propionate 220 1 puff inhalation BID #12 grams 10/15/19 mcg/actuation HFA aerosol inhaler (Flovent HFA) diazepam 5 mg tablet (Valium) 5 mg PO BID-QID PRN muscle spasm 05/16/20 #10 tabs hydrocodone 5 mg-acetaminophen 325 1 tab PO Q6H PRN pain #10 tabs 11/24/21 mg tablet hydrocodone 5 mg-acetaminophen 325 1 tab PO Q6H PRN pain #10 tabs 04/18/21 mg tablet oxycodone-acetaminophen 5 mg-325 1 - 2 tab PO Q6H PRN pain #16 tabs 05/26/21 mg tablet cephalexin 500 mg capsule 500 mg PO TID #21 caps 06/24/21 oxycodone-acetaminophen 5 mg-325 1 tab PO Q6H PRN pain #14 tabs 06/24/21 mg tablet lidocaine 5 % topical patch 1 patch topical DAILY #15 ea 07/01/21 (Lidoderm) hydrocodone 5 mg-acetaminophen 325 1 tab PO BID PRN pain #10 tabs 10/31/21 mg tablet mupirocin 2 % topical ointment 1 applic topical BID #15 grams 10/31/21 Allergies Allergy/AdvReac Type Severity Reaction Status Date / Time coconut [COCONUT] Allergy Severe STOPS Verified 06/24/21 10:03 BREATHS prochlorperazine Allergy Intermediate seizure Verified 06/24/21 10:03 NSAIDS (Non-Steroidal Allergy Mild rash, minler Verified 06/24/21 10:03 Anti-Inflamma [NSAIDS (NON-STEROIDAL ANTI-INFLAMMA] promethazine [From PHENERGAN] Allergy Unknown restless Verified 06/24/21 10:03 legs Review of Systems <AGUILAR Mendes - Last Filed: 10/31/21 18:46> Review of Systems Narrative: General: denies fever, chills, malaise, sweats, fatigue Head/Neck: denies headache, neck pain, dizziness Eyes: denies visual changes, eye pain Cardio: denies chest pain, palpitations, edema Respiratory: denies dyspnea, cough, orthopnea GI: denies abdominal pain, nausea, vomiting, or diarrhea MSK: denies joint pain, muscle weakness, endorses a left 3rd digit injury with laceration causing pain Skin: denies rash, itching, laceration to distal tip of 3rd digit left hand Neuro: denies numbness, tingling Patient History <AGUILAR Mendes - Last Filed: 10/31/21 18:46> Medical History Anxiety Cervical cancer Depression Femoral acetabular impingement Genital herpes Gout Kidney stones (12/2016) Ovarian cancer Pseudotumor cerebri Pulmonary embolism (2010) Pulmonary embolism (2009) Uterine cancer Surgical History History of bladder surgery History of carpal tunnel repair Status post appendectomy Status post breast reduction Status post cholecystectomy Status post hernia repair (2014) Status post hysterectomy with oophorectomy (2003) Status post laparoscopy [employer] (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) shunt status Family History Father History of kidney cancer Mother Diabetes mellitus Hypertension Hyperlipidemia CAD (coronary artery disease) CVA (cerebral vascular accident) Social History marital status: household members: family lives independently: Yes occupational status: employed Smoking Status: Current every day smoker alcohol intake: never substance use type: marijuana Smoking Status: Current every day smoker tobacco type: cigarettes alcohol intake frequency: holidays/special occasions only Substance Use Type: marijuana Exam <AGUILAR Mendes - Last Filed: 10/31/21 18:46> Narrative Exam Narrative: Independently reviewed vitals signs and nursing notes. General: cooperative, comfortable, in no acute distress, well groomed Head: atraumatic, symmetrical facial expressions Neck: supple Eyes: equal round and reactive, EOMI, conjunctiva normal Nose: nares patent, no rhinorrhea Mouth/Throat: moist mucus membranes Cardiovascular: regular rate and rhythm, no peripheral edema, warm extremities MSK: moves all extremities, neurovascularly intact, no weakness, normal tone, left distal 3rd digit with a 1 cm laceration involving the nail bed and acrylic nail. The acrylic nail was fractured, the distal 3 mm of her fingernail was removed during this injury, with a midline vertical laceration in the distal to her finger. Bleeding is controlled, no medications given prior to arrival Skin: brisk capillary refill, no rash, no erythema Neuro: normal speech and cognition, A&O x3 Psych: mental status is grossly normal, congruent mood, normal affect, pleasant and cooperative Initial Vital Signs Initial Vital Signs: Vital Signs Temperature 97.9 F 10/31/21 15:34 Pulse Rate 93 H 10/31/21 15:34 Respiratory Rate 22 10/31/21 15:34 Blood Pressure 143/84 H 10/31/21 15:34 Pulse Oximetry 97 10/31/21 15:34 Oxygen Delivery Method 10/31/21 15:34 <Agueda Burger DO - Last Filed: 11/03/21 18:17> Initial Vital Signs Initial Vital Signs: Vital Signs Temperature 97.9 F 10/31/21 15:34 Pulse Rate 93 H 10/31/21 15:34 Respiratory Rate 22 10/31/21 15:34 Blood Pressure 143/84 H 10/31/21 15:34 Pulse Oximetry 97 10/31/21 15:34 Oxygen Delivery Method 10/31/21 15:34 Procedures <AGUILAR Mendes - Last Filed: 10/31/21 18:46> Laceration Repair Laceration 1: Site: hand Side (If applicable): left (Third digit distal tip) Size (cm): 1 Description: linear Depth: simple, single layer (Injury fractured the acrylic nail, laceration to the distal tip of the nail bed involving the nail bed. Acrylic nail was removed and tolerated well, this was from the comanche nail and pulled off without any further injury.) Local Anesthetic: lidocaine 1% (A digital block at the DIP joint) and with bicarb Pre-repair: wound explored, irrigated extensively and deep structures intact Skin layer closed with: nylon (And chromic gut was used for the nail bed) Skin layer suture size: 5-0 Number of sutures: 2 Technique: simple, interrupted Subcutaneous layer closed with: chromic gut Subcutaneous layer suture size: 5-0 Number of sutures: 2 Technique: simple, interrupted Course <AGUILAR Mendes - Last Filed: 10/31/21 18:46> Orders Ordered: Discontinued Medications Acetaminophen (Acetaminophen 325 Mg Tablet) 975 mg PO NOW ONE Stop: 10/31/21 16:10 Last Admin: 10/31/21 16:42 Dose: 975 mg Documented By: NR Lidocaine/Sodium Bicarbonate (Lido 1%/Sod Bicarb 8.4% (10ml) 10 Ml Syringe) 10 ml INJ NOW ONE Stop: 10/31/21 16:10 Last Admin: 10/31/21 16:39 Dose: 10 ml Documented By: NR Vital Signs Vital signs: Vital Signs - 8 hr 10/31/21 15:34 10/31/21 17:38 Temperature 97.9 F Pulse Rate 93 H 81 Respiratory Rate 22 16 Blood Pressure 143/84 H 145/85 H Pulse Oximetry 97 99 <Agueda Burger DO - Last Filed: 11/03/21 18:17> Orders Ordered: Discontinued Medications Acetaminophen (Acetaminophen 325 Mg Tablet) 975 mg PO NOW ONE Stop: 10/31/21 16:10 Last Admin: 10/31/21 16:42 Dose: 975 mg Documented By: NR Lidocaine/Sodium Bicarbonate (Lido 1%/Sod Bicarb 8.4% (10ml) 10 Ml Syringe) 10 ml INJ NOW ONE Stop: 10/31/21 16:10 Last Admin: 10/31/21 16:39 Dose: 10 ml Documented By: NR Vital Signs Vital signs: Vital Signs - 8 hr 10/31/21 15:34 10/31/21 17:38 Temperature 97.9 F Pulse Rate 93 H 81 Respiratory Rate 22 16 Blood Pressure 143/84 H 145/85 H Pulse Oximetry 97 99 MDM - Wound/Laceration <AGUILAR Mendes - Last Filed: 10/31/21 18:46> [facility] Narrative Medical decision making narrative: This is a 40-year-old female with history personality disorder, anxiety and depression who presents to the emergency department complaining of a left 3rd digit injury while pruning roses in her garden just prior to arrival. She sustained a laceration to the distal tip of her left 3rd digit involving the nail bed and fracturing the acrylic nail glued on. The growth nail was fully removed, the nail bed was sutured with chromic gut, two non dissolvable sutures were used to the approximate wound edges. Suture repair was tolerated well, tetanus is up-to-date, patient understands to have her sutures removed in 10 days, only two of them are non dissolvable, she is aware of which ones. She is instructed to keep her wound clean, dry, covered while she is sutures in place, she was prescribed mupirocin ointment, and hydrocodone for her pain she has multiple allergies and was emotional in the emergency department stating that her pain is severe. She was driving, and was not given anything stronger than Tylenol in the emergency department due to this. Patient is appropriate and amenable to discharge home. Vital signs are stable on repeat examination is unremarkable. Patient has been informed of results. Patient has been given strict return to ER precautions for any new or worsening symptoms. Patient understands to follow up closely with outpatient providers as instructed. Patient understands plan and agrees to discharge home. All questions and concerns answered at this time. Discharge Plan Departure Patient Disposition: Home Clinical Impression: Laceration of finger of left hand with damage to nail Qualifiers: Encounter type: initial encounter Finger: middle finger Foreign body presence: without foreign body Qualified Code(s): S61.313A - Laceration without foreign body of left middle finger with damage to nail, initial encounter Instructions: DI for Laceration Repair Activity Restrictions/Additional Instructions: *You have been diagnosed with A left hand 3rd digit fingernail and finger tip injury. You were given two dissolvable sutures and two non dissolvable sutures for a total of four. Please have the to non dissolvable black sutures removed in 10 days. please keep your finger covered with a Band-Aid until it heals or until the sutures are out. Please take Tylenol and hydrocodone as needed. Please remember that hydrocodone has 325 mg of Tylenol in it, please do not take more than 975 mg of Tylenol 4 times in 24 hours. Please stay hydrated, eat food while taking medication, please keep your finger clean, dry, and covered. If you notice any streaking up your hand, worsening swelling with redness, please return for another evaluation. I hope you feel better soon. Please call the number below to establish care with a primary care provider or go to the walk-in clinic in 10 days for suture removal. *What to do: *Please continue to take your regular medications as directed. [ x] New medication prescriptions sent to your pharmacy: [[facility]] [ ] New medication written as a paper prescription [ ] No new medications given *Please follow up with your primary care provider in 2-3 days, call for an appointment. Let them know you were seen in the Emergency Department and that we asked that you be seen for follow-up. We will electronically transmit a record of today's note if your PCP is in our system *If you do not have a primary care provider please contact [phone] to establish care with one of the [facility] primary care providers. *Return to Emergency Department if you should have any new, worsening or concerning symptoms, such as [fever greater than 101F, chills, worsening pain, persistent vomiting or other bothersome symptoms] Prescriptions: New hydrocodone-acetaminophen 5-325 mg tablet 1 tab PO BID PRN (Reason: pain) Qty: 10 0RF mupirocin 2 % ointment 1 applic topical BID Qty: 15 0RF No Action albuterol sulfate 90 mcg/actuation HFA aerosol inhaler 2 puff INHALATION Q4-6H PRN (Reason: shortness of breath or wheezing) Qty: 18 0RF venlafaxine 37.5 mg capsule,extended release 24hr 37.5 mg PO DAILY MDD 112.5 mg Qty: 30 2RF Rx Instructions: Take in combination with 75 mg tab (112.5 mg daily) Flovent HFA 220 mcg/actuation HFA aerosol inhaler 1 puff INHALATION BID Qty: 12 0RF Rx Instructions: MUST ESTABLISH WITH NEW PRIMARY CARE PHYSICIAN PRIOR TO FURTHER REFILLS. lamotrigine 150 mg tablet 150 mg PO BID metoclopramide HCl 10 mg tablet 10 mg PO TID PRN (Reason: Nausea) Label Comments: take 1 tablet by mouth three times a day if needed diazepam [Valium] 5 mg tablet 5 mg PO BID-QID PRN (Reason: muscle spasm) Qty: 10 0RF hydrocodone-acetaminophen 5-325 mg tablet 1 tab PO Q6H PRN (Reason: pain) Qty: 10 0RF hydrocodone-acetaminophen 5-325 mg tablet 1 tab PO Q6H PRN (Reason: pain) Qty: 10 0RF venlafaxine 75 mg capsule,extended release 24hr 75 mg PO DAILY Label Comments: TAKE 1 CAPSULE BY MOUTH EVERY DAY IN COMBINATION WITH 37.5MG CAPSULE FOR DEPRESSION AND ANXIETY acetaminophen 325 mg Tablet 650 mg PO Q6HR PRN (Reason: As Needed For Fever/Mild Pain) Qty: 30 0RF valacyclovir 500 mg tablet 1,000 mg PO DAILY oxycodone-acetaminophen 5-325 mg tablet 1 - 2 tab PO Q6H PRN (Reason: pain) Qty: 16 0RF oxycodone-acetaminophen 5-325 mg tablet 1 tab PO Q6H PRN (Reason: pain) Qty: 14 0RF cephalexin 500 mg capsule 500 mg PO TID Qty: 21 0RF lidocaine [Lidoderm] 5 % adhesive patch,medicated 1 patch topical DAILY Qty: 15 1RF Rx Instructions: leave on most painful area for up to 12 hrs Visit Report Forms: Patient Portal/API <Agueda Burger DO - Last Filed: 11/03/21 18:17> Cosign ED Attending Cosignature Attestation: I was immediately available in the department for consultation. Documentation has been reviewed.
== END 2021-10-31 17:39 | disposition home or self-care (01) ==
PROVIDERS: Emergency Provider Nurse Practitioner Critical Care Medicine
DX: S61.313A Laceration without foreign body of left middle finger with damage to nail, initial encounter (principal); W29.8XXA Contact with other powered hand tools and household machinery, initial encounter
CPT/HCPCS: 12001; 99283

== ENCOUNTER 2021-11-10 16:54 | Emergency (ER) | payer OTHER, MEDICAID, SELFPAY ==
[2018-01-17 01:41] VITALS: BMI 32.3
[2021-11-10 17:10] VITALS: BP 122/78; PULSE 86; RESP 20; TEMP 36.6; O2SAT 98; BMI 32.3
--- NOTE | 2021-11-10 18:57 | ED_ITS ---
HPI - Headache <Silver Loomis PA-C - Last Filed: 11/12/21 12:23> General Chief Complaint: Headache Stated Complaint: nasty migraines- for last 7 days Time Seen by Provider: 11/10/21 18:30 Mode of arrival: Family Vehicle History of Present Illness HPI Narrative: Patient is a 40-year-old female with history of migraines and idiopathic intracranial hypertension who presents to the emergency department today for evaluation of a migraine. Patient states that she has been experiencing a gradually worsening migraine over the past 7 days, stating that she has also been experiencing gait disturbances, photophobia, and ?seeing spots?. Of note, she denies any closed head injuries or recent falls. She states she has taken Tylenol, Zofran, peppermint oil, and a peppermint bath home without any improvement in her condition. She denies any fever, chills, chest pain, cough, shortness of breath, nausea, vomiting, diarrhea, constipation, abdominal pain, dysuria, hematuria, or any other concerning symptoms. No further concerns were voiced at this time. Related Data Home Medications Medication Instructions Recorded Confirmed venlafaxine 75 mg capsule,extended 75 mg PO DAILY 01/05/18 08/18/19 release 24 hr valacyclovir 500 mg tablet 1,000 mg PO DAILY 07/24/18 08/18/19 lamotrigine 150 mg tablet 150 mg PO BID 01/06/19 08/18/19 metoclopramide HCl 10 mg tablet 10 mg PO TID PRN Nausea 01/06/19 08/18/19 Previous Rx's Medication Instructions Recorded venlafaxine 37.5 mg 37.5 mg PO DAILY Depression and 12/30/17 capsule,extended release 24 hr anxiety #30 caps acetaminophen 325 mg tablet 650 mg PO Q6HR PRN As Needed For 01/18/18 Fever/Mild Pain #30 tabs albuterol sulfate 90 mcg/actuation 2 puff inhalation Q4-6H PRN 08/18/19 aerosol inhaler shortness of breath or wheezing #18 grams fluticasone propionate 220 1 puff inhalation BID #12 grams 10/15/19 mcg/actuation HFA aerosol inhaler (Flovent HFA) diazepam 5 mg tablet (Valium) 5 mg PO BID-QID PRN muscle spasm 05/16/20 #10 tabs hydrocodone 5 mg-acetaminophen 325 1 tab PO Q6H PRN pain #10 tabs 04/18/21 mg tablet hydrocodone 5 mg-acetaminophen 325 1 tab PO Q6H PRN pain #10 tabs 04/18/21 mg tablet oxycodone-acetaminophen 5 mg-325 1 - 2 tab PO Q6H PRN pain #16 tabs 05/26/21 mg tablet cephalexin 500 mg capsule 500 mg PO TID #21 caps 06/24/21 oxycodone-acetaminophen 5 mg-325 1 tab PO Q6H PRN pain #14 tabs 06/24/21 mg tablet lidocaine 5 % topical patch 1 patch topical DAILY #15 ea 07/01/21 (Lidoderm) hydrocodone 5 mg-acetaminophen 325 1 tab PO BID PRN pain #10 tabs 10/31/21 mg tablet mupirocin 2 % topical ointment 1 applic topical BID #15 grams 10/31/21 Allergies Allergy/AdvReac Type Severity Reaction Status Date / Time coconut [COCONUT] Allergy Severe STOPS Verified 11/10/21 17:32 BREATHS prochlorperazine Allergy Intermediate seizure Verified 11/10/21 17:32 NSAIDS (Non-Steroidal Allergy Mild rash, milner Verified 11/10/21 17:32 Anti-Inflamma [NSAIDS (NON-STEROIDAL ANTI-INFLAMMA] promethazine [From PHENERGAN] Allergy Unknown restless Verified 11/10/21 17:32 legs Review of Systems <Silver Loomis PA-C - Last Filed: 11/12/21 12:23> Constitutional Constitutional: Denies chills, Denies fatigue, Denies fever(s), Denies frequent falls, Reports headache(s), Denies lethargy and Denies weakness ENT Ears, Nose, Mouth, and Throat: Reports headache(s) and Denies neck pain Cardiovascular Cardiovascular: Denies chest pain, Denies irregular heart rhythm, Denies lightheadedness, Denies palpitations, Denies dyspnea, Denies dyspnea on exertion and Denies orthopnea Respiratory Respiratory: Denies dyspnea and Denies dyspnea on exertion Gastrointestinal Gastrointestinal: Denies abdominal pain, Denies change in bowel habits, Denies diarrhea, Reports nausea and Denies vomiting Genitourinary Genitourinary: Denies hematuria, Denies flank pain, Denies urinary incontinence and Denies urinary urgency Musculoskeletal Musculoskeletal: Denies back pain, Denies muscle weakness, Denies neck pain, Denies numbness and Denies tingling Integumentary/Breasts Skin/Breast: Denies pruritus, Denies erythema, Denies rash and Denies wounds Neurologic Neurologic: Denies frequent falls, Reports headache(s), Denies numbness, Denies tingling and Denies weakness Endocrine Endocrine: Denies fatigue and Denies palpitations Patient History <Silver Loomis PA-C - Last Filed: 11/12/21 12:23> Medical History (Updated 11/10/21 @ 20:12 by Silver Loomis PA-C) Anxiety Cervical cancer Depression Femoral acetabular impingement Genital herpes Gout Kidney stones (12/2016) Ovarian cancer Pseudotumor cerebri Pulmonary embolism (2010) Pulmonary embolism (2009) Uterine cancer Surgical History History of bladder surgery History of carpal tunnel repair Status post appendectomy Status post breast reduction Status post cholecystectomy Status post hernia repair (2014) Status post hysterectomy with oophorectomy (2003) 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 (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) shunt status Family History Father History of kidney cancer Mother Diabetes mellitus Hypertension Hyperlipidemia CAD (coronary artery disease) CVA (cerebral vascular accident) Social History marital status: household members: family lives independently: Yes occupational status: employed Smoking Status: Current every day smoker alcohol intake: never substance use type: marijuana Smoking Status: Current every day smoker tobacco type: cigarettes alcohol intake frequency: holidays/special occasions only Substance Use Type: marijuana Exam <Silver Loomis PA-C - Last Filed: 11/12/21 12:23> Narrative Exam Narrative: GENERAL: 40 year old patient appears stated age. Well-developed patient, in no acute distress. Appears uncomfortable HEAD: Atraumatic. Normocephalic. EYES: Pupils equal round and reactive. Extraocular motions intact. No scleral ic terus. No injection or drainage. Wearing sunglasses indoors. ENT: Nose without bleeding, purulent drainage. Throat without erythema, tonsillar hypertrophy or exudate. Airway patent. NECK: Trachea midline. Non tender CARDIOVASCULAR: Regular rate and rhythm without murmurs, gallops, or rubs. RESPIRATORY: Clear to auscultation. Breath sounds equal bilaterally. No wheezes, rales, or rhonchi. GASTROINTESTINAL: Abdomen soft, non-tender, nondistended. EXTREMITIES: No edema or joint tenderness. BACK: Nontender without deformity or crepitance. No flank tenderness. NEURO: AOx3. Answered questions appropriately. Moving all extremities well. Cranial nerves 2-12 grossly intact. SKIN: No rash or erythema of visible areas Initial Vital Signs Initial Vital Signs: Vital Signs Temperature 97.9 F 11/10/21 17:10 Pulse Rate 86 11/10/21 17:10 Respiratory Rate 20 11/10/21 17:10 Blood Pressure 122/78 11/10/21 17:10 Pulse Oximetry 98 11/10/21 17:10 Oxygen Delivery Method 11/10/21 17:10 <Krystyna Brenner DO - Last Filed: 11/12/21 22:06> Initial Vital Signs Initial Vital Signs: Vital Signs Temperature 97.9 F 11/10/21 17:10 Pulse Rate 86 11/10/21 17:10 Respiratory Rate 20 11/10/21 17:10 Blood Pressure 122/78 11/10/21 17:10 Pulse Oximetry 98 11/10/21 17:10 Oxygen Delivery Method 11/10/21 17:10 Course <Silver Loomis PA-C - Last Filed: 11/12/21 12:23> Course Course Narrative: Patient provided normal saline, Dilaudid, Benadryl, Zofran. Had discussion with patient that this is and uncommon migraine cocktail as there is no evidence that opioid pain management is appropriate for migraines. However patient states that this cocktail works for her. Orders Ordered: Discontinued Medications Diphenhydramine HCl (Diphenhydramine 50 Mg/Ml Vial) 50 mg IV NOW ONE Stop: 11/10/21 18:56 Last Admin: 11/10/21 19:39 Dose: 50 mg Documented By: MEAGAN Hydromorphone HCl (Hydromorphone 1 Mg Inj) 1 mg IV NOW ONE Stop: 11/10/21 18:56 Last Admin: 11/10/21 19:42 Dose: 1 mg Documented By: MEAGAN Sodium Chloride (Normal Saline 0.9%) 1,000 mls @ 1,000 mls/hr IV BOLUS ONE Stop: 11/10/21 20:35 Last Infusion: 11/10/21 20:54 Dose: 0 mls/hr Documented By: MEAGAN(2) Admin: 11/10/21 19:38 Dose: 1,000 mls/hr Documented By: MEAGAN Ondansetron HCl (Ondansetron 4 Mg/2 Ml Inj) 4 mg IV NOW ONE Stop: 11/10/21 18:56 Last Admin: 11/10/21 19:34 Dose: 4 mg Documented By: MEAGAN Vital Signs Vital signs: Vital Signs - 8 hr 11/10/21 17:10 Temperature 97.9 F Pulse Rate 86 Respiratory Rate 20 Blood Pressure 122/78 Pulse Oximetry 98 Oxygen Delivery Method Room Air <Krystyna Brenner DO - Last Filed: 11/12/21 22:06> Orders Ordered: Discontinued Medications Diphenhydramine HCl (Diphenhydramine 50 Mg/Ml Vial) 50 mg IV NOW ONE Stop: 11/10/21 18:56 Last Admin: 11/10/21 19:39 Dose: 50 mg Documented By: MEAGAN Hydromorphone HCl (Hydromorphone 1 Mg Inj) 1 mg IV NOW ONE Stop: 11/10/21 18:56 Last Admin: 11/10/21 19:42 Dose: 1 mg Documented By: MEAGAN Sodium Chloride (Normal Saline 0.9%) 1,000 mls @ 1,000 mls/hr IV BOLUS ONE Stop: 11/10/21 20:35 Last Infusion: 11/10/21 20:54 Dose: 0 mls/hr Documented By: MEAGAN(2) Admin: 11/10/21 19:38 Dose: 1,000 mls/hr Documented By: MEAGAN Ondansetron HCl (Ondansetron 4 Mg/2 Ml Inj) 4 mg IV NOW ONE Stop: 11/10/21 18:56 Last Admin: 11/10/21 19:34 Dose: 4 mg Documented By: MEAGAN Vital Signs Vital signs: Vital Signs - 8 hr 11/10/21 17:10 Temperature 97.9 F Pulse Rate 86 Respiratory Rate 20 Blood Pressure 122/78 Pulse Oximetry 98 Oxygen Delivery Method Room Air MDM - Headache <Silver Loomis PA-C - Last Filed: 11/12/21 12:23> MDM Narrative Medical decision making narrative: Differential diagnosis to consider but not limited to migraine headache versus tension headache versus cluster headache. Patient's symptoms improved following administration of medications. I urged patient to follow-up with primary care as it would be appropriate for her to be on an abortive medication for migraines. I discussed with patient the importance of following up with primary care as it is not appropriate to continue receiving this treatment for migraine headaches in the emergency department. Patient expresses understanding and agrees to plan. Strict return precautions were discussed with the patient prior to discharge. Discharge Plan Departure Patient Disposition: Home Clinical Impression: Migraine Instructions: DI for Migraine Activity Restrictions/Additional Instructions: *You have been diagnosed with migraine *What to do: *Please continue to take your regular medications as directed. [ ] New medication prescriptions sent to your pharmacy: [ ] [ ] New medication written as a paper prescription [X] No new medications given You were evaluated in the emergency department today for migraine. I am glad we were able to get her symptoms under control. It is important to follow-up with the primary care provider to discuss the option of beginning an abortive medication for migraine headaches. Use of opioid pain medications for migraines has not been proven to be effective for and has been linked to rebound headaches. Do not hesitate to return to the emergency department if you experience fever, loss of consciousness, loss of sensation in the extremities, or any other concerning symptoms. *Please follow up with your primary care provider in 2-3 days, call for an appointment. Let them know you were seen in the Emergency Department and that we ask that you be seen in follow up. We will electronically transmit a record of today's note if your PCP is in our system *If you do not have a primary care provider please contact [facility] Resource line at [phone]. They will ask some questions about your medical history and help get you set up with a doctor in the community. *Return to Emergency Department if you should have any new, worsening or concerning symptoms, such as fever greater than 101 F, shaking chills, worsening pain, persistent vomiting or other bothersome symptoms. Prescriptions: No Action albuterol sulfate 90 mcg/actuation HFA aerosol inhaler 2 puff INHALATION Q4-6H PRN (Reason: shortness of breath or wheezing) Qty: 18 0RF venlafaxine 37.5 mg capsule,extended release 24hr 37.5 mg PO DAILY MDD 112.5 mg Qty: 30 2RF Rx Instructions: Take in combination with 75 mg tab (112.5 mg daily) Flovent HFA 220 mcg/actuation HFA aerosol inhaler 1 puff INHALATION BID Qty: 12 0RF Rx Instructions: MUST ESTABLISH WITH NEW PRIMARY CARE PHYSICIAN PRIOR TO FURTHER REFILLS. lamotrigine 150 mg tablet 150 mg PO BID metoclopramide HCl 10 mg tablet 10 mg PO TID PRN (Reason: Nausea) Label Comments: take 1 tablet by mouth three times a day if needed diazepam [Valium] 5 mg tablet 5 mg PO BID-QID PRN (Reason: muscle spasm) Qty: 10 0RF hydrocodone-acetaminophen 5-325 mg tablet 1 tab PO Q6H PRN (Reason: pain) Qty: 10 0RF hydrocodone-acetaminophen 5-325 mg tablet 1 tab PO Q6H PRN (Reason: pain) Qty: 10 0RF hydrocodone-acetaminophen 5-325 mg tablet 1 tab PO BID PRN (Reason: pain) Qty: 10 0RF mupirocin 2 % ointment 1 applic topical BID Qty: 15 0RF venlafaxine 75 mg capsule,extended release 24hr 75 mg PO DAILY Label Comments: TAKE 1 CAPSULE BY MOUTH EVERY DAY IN COMBINATION WITH 37.5MG CAPSULE FOR DEPRESSION AND ANXIETY acetaminophen 325 mg Tablet 650 mg PO Q6HR PRN (Reason: As Needed For Fever/Mild Pain) Qty: 30 0RF valacyclovir 500 mg tablet 1,000 mg PO DAILY oxycodone-acetaminophen 5-325 mg tablet 1 - 2 tab PO Q6H PRN (Reason: pain) Qty: 16 0RF oxycodone-acetaminophen 5-325 mg tablet 1 tab PO Q6H PRN (Reason: pain) Qty: 14 0RF cephalexin 500 mg capsule 500 mg PO TID Qty: 21 0RF lidocaine [Lidoderm] 5 % adhesive patch,medicated 1 patch topical DAILY Qty: 15 1RF Rx Instructions: leave on most painful area for up to 12 hrs Visit Report Forms: Patient Portal/API <Krystyna Brenner DO - Last Filed: 11/12/21 22:06> Cosign ED Attending Cosbrianature Attestation: I was immediately available in the department for consultation. Documentation has been reviewed. I agree with assessment and plan.
[2021-11-10] MEDS: ONDANSETRON 4 MG/2 ML INJ IV (19:34)
[2021-11-10] MEDS: SODIUM CHLORIDE 0.9% 1,000 ML 1000 ML IV (19:38)
[2021-11-10] MEDS: diphenhydrAMINE 50 MG/ML VIAL IV (19:39)
[2021-11-10] MEDS: HYDROMORPHONE 1 MG INJ IV (19:42)
[2021-11-10 21:00] VITALS: BP 120/78; PULSE 71; RESP 18; O2SAT 99
== END 2021-11-10 21:01 | disposition home or self-care (01) ==
PROVIDERS: Emergency Provider Physician Assistant
DX: G43.909 Migraine, unspecified, not intractable, without status migrainosus (principal)
CPT/HCPCS: 96361; 96374; 96375; 99283; 99284; J1170; J1200; J2405

== ENCOUNTER 2021-11-29 10:12 | Emergency (ER) | payer OTHER, MEDICAID, SELFPAY ==
[2018-01-17 01:41] VITALS: BMI 32.3
[2021-11-29 10:18] VITALS: BP 117/77; PULSE 81; RESP 16; TEMP 36.8; O2SAT 98; BMI 29.8
[2021-11-29 10:59] LABS: RBC Urine 0-1/HPF (0-5/HPF)
[2021-11-29 11:00] LABS: Amorphous Sediment Urine 1+; Bacteria Urine Many (>30); Squamous Epithelial Cell Urine 0-1 /HPF (0-5/HPF); WBC Urine 1-5/HPF (0-5/HPF)
[2021-11-29 11:33] VITALS: PULSE 76; O2SAT 98
[2021-11-29 11:35] VITALS: BP 105/55; PULSE 76; RESP 20; O2SAT 98
--- NOTE | 2021-11-29 13:01 | DI.CT.S_ITS ---
PROCEDURE: CT KIDNEY URETER BLADDER (KUB) INDICATIONS: right flank pain TECHNIQUE: Axial sections were acquired from the lung bases to the pubic symphysis. Coronal and sagittal reformats were performed. For radiation dose reduction, the following was used: automated exposure control, adjustment of mA and/or kV according to patient size. COMPARISON: [facility], CR, XR LUMBAR SPINE 2 OR 3 VIEWS, 05/30/2021, 9:40. [facility], CT, CT KUB, 05/17/2020, 17:17. [facility], CT, CT KIDNEY URETER BLADDER (KUB), 12/14/2020, 22:01. FINDINGS: Image quality: Excellent. Lung bases: Lung bases are clear. Tiny hiatal hernia.. Heart: No significant findings. URINARY: Right Kidney: No stones or hydronephrosis. Right Ureter: No hydroureter. Left Kidney: No stones or hydronephrosis. Left Ureter: No hydroureter. Bladder: Normal wall thickness. No stones. ABDOMEN: Liver: Normal size. There is mild hepatic steatosis. Gallbladder: Surgically removed. Biliary ducts: Unremarkable. Pancreas: Unremarkable. Spleen: Unremarkable. Adrenal Glands: Unremarkable. Stomach and Bowel: Stomach, small bowel loops, and colon are normal in caliber. There are a few colonic diverticula. No diverticulitis. Peritoneum: No abnormal intraperitoneal fluid. No free air. Ventral Wall: There is a small fat containing umbilical hernia. Abdominal Nodes: No enlarged retroperitoneal or mesenteric lymph nodes. Vessels: Aorta and inferior vena cava are normal in size. PELVIS: Pelvic Organs: Unremarkable. Pelvic Nodes: Unremarkable. Miscellaneous: No inguinal hernias are seen. A electronic device is noted in the posterior lower back. Bones: Unremarkable. There is a trans sacral electrode. IMPRESSION: 1. No renal stone or hydronephrosis. 2. Hepatic steatosis. 3. Cholecystectomy. Dictated by: Salina Martin M.D. on 11/29/2021 at 13:59 Approved by: Salina Martin M.D. on 11/29/2021 at 14:06
--- NOTE | 2021-11-29 13:20 | ED.ABDPAIN ---
HPI - Abdominal Pain General Chief Complaint: Urogenital-Female Stated Complaint: Right side flank pain x a week, vomiting Time Seen by Provider: 11/29/21 11:42 Source: patient Mode of arrival: Ambulatory History of Present Illness HPI narrative: Patient is a 40-year-old female history of kidney migraines, idiopathic intracranial hypertension presents today with 1 week of right flank pain. She states she feels nauseous she denies any chest pain. It radiates around to her front. She has no vomiting. She is not sure if she has had fever. She has quite a bit of pain in her right flank very sensitive. She denies any painful or frequent urination. Related Data Home Medications Medication Instructions Recorded Confirmed venlafaxine 75 mg capsule,extended 75 mg PO DAILY 01/05/18 08/18/19 release 24 hr valacyclovir 500 mg tablet 1,000 mg PO DAILY 07/24/18 08/18/19 lamotrigine 150 mg tablet 150 mg PO BID 01/06/19 08/18/19 metoclopramide HCl 10 mg tablet 10 mg PO TID PRN Nausea 01/06/19 08/18/19 Previous Rx's Medication Instructions Recorded venlafaxine 37.5 mg 37.5 mg PO DAILY Depression and 12/30/17 capsule,extended release 24 hr anxiety #30 caps acetaminophen 325 mg tablet 650 mg PO Q6HR PRN As Needed For 01/18/18 Fever/Mild Pain #30 tabs albuterol sulfate 90 mcg/actuation 2 puff inhalation Q4-6H PRN 08/18/19 aerosol inhaler shortness of breath or wheezing #18 grams fluticasone propionate 220 1 puff inhalation BID #12 grams 10/15/19 mcg/actuation HFA aerosol inhaler (Flovent HFA) diazepam 5 mg tablet (Valium) 5 mg PO BID-QID PRN muscle spasm 05/16/20 #10 tabs hydrocodone 5 mg-acetaminophen 325 1 tab PO Q6H PRN pain #10 tabs 04/18/21 mg tablet hydrocodone 5 mg-acetaminophen 325 1 tab PO Q6H PRN pain #10 tabs 21 mg tablet oxycodone-acetaminophen 5 mg-325 1 - 2 tab PO Q6H PRN pain #16 tabs 05/26/21 mg tablet cephalexin 500 mg capsule 500 mg PO TID #21 caps 06/24/21 oxycodone-acetaminophen 5 mg-325 1 tab PO Q6H PRN pain #14 tabs 06/24/21 mg tablet lidocaine 5 % topical patch 1 patch topical DAILY #15 ea 07/01/21 (Lidoderm) hydrocodone 5 mg-acetaminophen 325 1 tab PO BID PRN pain #10 tabs 10/31/21 mg tablet mupirocin 2 % topical ointment 1 applic topical BID #15 grams 10/31/21 hydrocodone 5 mg-acetaminophen 325 1 tab PO Q6H PRN pain #5 tabs 11/29/21 mg tablet Allergies Allergy/AdvReac Type Severity Reaction Status Date / Time coconut [COCONUT] Allergy Severe STOPS Verified 11/29/21 10:21 BREATHS prochlorperazine Allergy Intermediate seizure Verified 11/29/21 10:21 NSAIDS (Non-Steroidal Allergy Mild rash, milner Verified 11/29/21 10:21 Anti-Inflamma [NSAIDS (NON-STEROIDAL ANTI-INFLAMMA] promethazine [From PHENERGAN] Allergy Unknown restless Verified 11/29/21 10:21 legs Review of Systems Review of Systems Narrative: GENERAL: Denies chills, fatigue, malaise, fever, sweats, travel HEENT: Denies sinus pain, ear pain, sore throat, difficulty swallowing, neck pain RESPIRATORY: Denies dyspnea, cough, wheezing, hemoptysis, sputum. CARDIOVASCULAR: Denies chest pain, palpitations, orthopnea, edema GASTROINTESTINAL: Denies nausea, vomiting, abdominal pain, diarrhea, constipation, melena. : See HPI MUSCULOSKELETAL: Denies weakness, joint pain, or bony pain SKIN: No rash, no erythema, no pruritus NEUROLOGIC: Denies weakness, dizziness, headache, numbness, change in speech, confusion PSYCHIATRIC: No concerning psychosocial issues. 12 point review of systems is negative except for those stated above and HPI Patient History Medical History (Updated 11/29/21 @ 15:39 by Krystyna Brenner DO) Anxiety Cervical cancer Depression Femoral acetabular impingement Genital herpes Gout Kidney stones (12/2016) Ovarian cancer Pseudotumor cerebri Pulmonary embolism (2010) Pulmonary embolism (2009) Uterine cancer Surgical History History of bladder surgery History of carpal tunnel repair Status post appendectomy Status post breast reduction Status post cholecystectomy Status post hernia repair (2014) Status post hysterectomy with oophorectomy (2003) Status post laparoscopy ACQUISITION ANALYST (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) shunt status Family History Father History of kidney cancer Mother Diabetes mellitus Hypertension Hyperlipidemia CAD (coronary artery disease) CVA (cerebral vascular accident) Social History marital status: household members: family lives independently: Yes occupational status: employed Smoking Status: Current every day smoker alcohol intake: never substance use type: marijuana Smoking Status: Current every day smoker tobacco type: cigarettes alcohol intake frequency: holidays/special occasions only Substance Use Type: marijuana Exam Initial Vital Signs Initial Vital Signs: Vital Signs Temperature 98.2 F 11/29/21 10:18 Pulse Rate 81 11/29/21 10:18 Respiratory Rate 16 11/29/21 10:18 Blood Pressure 117/77 11/29/21 10:18 Pulse Oximetry 98 11/29/21 10:18 Oxygen Delivery Method 11/29/21 10:18 GENERAL: 40-year-old female appears uncomfortable and in no acute distress. HEENT: Head atraumatic,EOMI, pupils reactive, face symmetric, moist mucous membranes CARDIOVASCULAR: Regular rate and rhythm without murmurs, rubs or gallops. RESPIRATORY: Breath sounds equal bilaterally, no wheezes rales or rhonchi. ABDOMEN: Soft, tender right lower quadrant no guarding no rebound negative Casper's : Sensitive right CVA tenderness EXTREMITIES: Normal range of motion, no clubbing or edema. Neurovascularly intact NEUROLOGICAL: Alert and oriented x4.Normal gait and speech. SKIN: Warm, dry, no laceration, no petechiae, no rashes or lesions. Course Orders Ordered: Discontinued Medications Acetaminophen (Acetaminophen 325 Mg Tablet) 975 mg PO NOW ONE Stop: 11/29/21 14:58 Last Admin: 11/29/21 15:17 Dose: 975 mg Documented By: NR Hydromorphone HCl (Hydromorphone 1 Mg Inj) 1 mg IV NOW ONE Stop: 11/29/21 13:02 Last Admin: 11/29/21 13:45 Dose: 1 mg Documented By: AT Hydromorphone HCl (Hydromorphone 1 Mg Inj) 1 mg IV NOW ONE Stop: 11/29/21 14:58 Last Admin: 11/29/21 15:17 Dose: 1 mg Documented By: NR Vital Signs Vital signs: Vital Signs - 8 hr 11/29/21 10:18 11/29/21 11:33 11/29/21 11:35 Temperature 98.2 F Pulse Rate 81 76 Respiratory Rate 16 20 Blood Pressure 117/77 105/55 L Pulse Oximetry 98 98 Oxygen Delivery Method Room Air 11/29/21 11:35 Temperature Pulse Rate 76 Respiratory Rate Blood Pressure Pulse Oximetry 98 Oxygen Delivery Method MDM - Abdominal Pain Lab Data Result diagrams: 11/29/21 13:40 11/29/21 14:44 Labs: Lab Results 11/29/21 11/29/21 11/29/21 Range/Units 10:41 13:40 14:44 WBC 9.2 (4.5-11.0) X10^3/uL RBC 4.64 (4.0-5.2) X10^6/uL Hgb 14.9 (12.0-16.0) g/dL Hct 44.1 (36-46) % MCV 95.0 (80-100) fL MCH 32.2 (26-34) PG MCHC 33.8 (30-36) % RDW 13.3 (11.6-14.8) % Plt Count 208 (150-400) X10^3/uL Neut % (Auto) 65.7 (50-75) % Lymph % (Auto) 27.7 (25-40) % Pike % (Auto) 4.5 (3-14) % Eos % (Auto) 1.5 L (2-4) % Baso % (Auto) 0.6 (0-2) % Neut # (Auto) 6000 (8929-2616) /uL Lymph # (Auto) 2500 (6307-8729) /uL Pike # (Auto) 400 (0-900) /uL Eos # (Auto) 100 (0-450) /uL Baso # (Auto) 100 (0-100) /uL Sodium 140 (137-145) mmol/L Potassium 4.1 (3.4-5.1) mmol/L Chloride 108 H (98-107) mmol/L Carbon Dioxide 25 (22-32) mmol/L BUN 12 (7-17) mg/dL Creatinine 0.70 (0.52-1.04) mg/dL Estimated GFR > 60 (>60) mL/min BUN/Creatinine Ratio 17.1 (6-22) Glucose 89 (70-100) mg/dL Calcium 8.5 (8.4-10.2) mg/dL Total Bilirubin 0.4 (0.2-1.3) mg/dL AST 24 (14-36) IU/L ALT 19 (<35) IU/L Alkaline Phosphatase 80 (38-126) U/L Total Protein 6.6 (6.3-8.2) g/dL Albumin 4.1 (3.5-5.0) g/dL Globulin 2.5 (1.7-4.1) g/dL Albumin/Globulin Ratio 1.6 (1.0-2.8) Lipase 55 (23-300) U/L Urine RBC 0-1/hpf D (0-5/HPF) Urine WBC 1-5/hpf (0-5/HPF) Ur Squamous Epith Cells 0-1 /hpf (0-5/HPF) Amorphous Sediment 1+ Urine Bacteria Many (>30) H (None) Ur Culture Indicated? Culture not indicate Point of care testing: Urine Dip Bedside Urine Glucose Negative Bedside Urine Bilirubin - Negative Bedside Urine Ketone - Negative Urine Specific [place] 1.020 Bedside Urine Occult Blood +/- Bedside Urine pH 6.0 Bedside Urine Protein - Negative Bedside Urine Urobilinogen - Negative Bedside Urine Nitrite - Negative Bedside Urine Leukocytes - Negative Esterase Imaging Data CT scan - abdomen/pelvis: Radiologist's Impression: [facility] [place] [id number] CT Scan Report Signed Patient: Jing Lindo MR#: [id number] : 1980 Acct:[id number] Age/Sex: 40 / F Date of Service: 11/29/21 Loc: ED Accession Number: [id number] ?? Procedure: CT kidney ureter bladder (KUB) Ordering Provider: Krystyna Brenner D.O. PROCEDURE:? CT KIDNEY URETER BLADDER (KUB) ? INDICATIONS:? right flank pain ? TECHNIQUE:? Axial sections were acquired from the lung bases to the pubic symphysis.? Coronal and sagittal reformats were performed.? For radiation dose reduction, the following was used: ?automated exposure control, adjustment of mA and/or kV according to patient size.? ? COMPARISON:? [facility], CR, XR LUMBAR SPINE 2 OR 3 VIEWS, 05/30/2021, 9:40.? [facility], CT, CT KUB, 05/17/2020, 17:17.? [facility], CT, CT KIDNEY URETER BLADDER (KUB), 12/14/2020, 22:01. ? FINDINGS:? Image quality:? Excellent.? ? Lung bases:? Lung bases are clear.? Tiny hiatal hernia..? ? Heart:? No significant findings. ? URINARY: Right Kidney: ? No stones or hydronephrosis.? Right Ureter:? No hydroureter.? ? Left Kidney: ? No stones or hydronephrosis. Left Ureter:? No hydroureter.? ? Bladder:? Normal wall thickness. No stones. ? ? ? ABDOMEN: Liver:? Normal size.? There is mild hepatic steatosis.? ? Gallbladder:? Surgically removed.? ? Biliary ducts:? Unremarkable.? ? Pancreas:? Unremarkable.? ? Spleen:? Unremarkable.? ? Adrenal Glands:? Unremarkable.? ? ? Stomach and Bowel:? Stomach, small bowel loops, and colon are normal in caliber.? There are a few colonic diverticula.? No diverticulitis. Peritoneum:? No abnormal intraperitoneal fluid.? No free air.? ? Ventral Wall: ? There is a small fat containing umbilical hernia.? Abdominal Nodes:? No enlarged retroperitoneal or mesenteric lymph nodes.? Vessels:? Aorta and inferior vena cava are normal in size.? ? PELVIS: Pelvic Organs:? Unremarkable.? ? Pelvic Nodes: Unremarkable. Miscellaneous: No inguinal hernias are seen.? A electronic device is noted in the posterior lower back. ? Bones:? Unremarkable.? There is a trans sacral electrode. ? IMPRESSION:? ? 1. No renal stone or hydronephrosis. 2. Hepatic steatosis. 3. Cholecystectomy.? Dictated by: Salina Martin M.D. on 11/29/2021 at 13:59 ? ? MDM Narrative Medical decision making narrative: Patient presented with some right-sided flank pain. Initially thought to be kidney stone versus pyelonephritis. However urinalysis is negative. She has no leukocytosis. Blood work and CT are negative. She has a history of cholecystectomy she has no evidence of choledocholithiasis he has also had an appendectomy. At this time unknown what is causing her pain. She is anaphylaxis to NSAIDs she has been given Dilaudid here in the ED. After looking at prescription monitoring program. It is noted that patient had 2 narcotic prescriptions month for a small amount 10 tablets and 12 tablets. Will give her a couple but hesitant to give her any more. Discharge Plan Departure Patient Disposition: Home Clinical Impression: Abdominal pain Instructions: DI for Abdominal Pain-Adult Activity Restrictions/Additional Instructions: *You have been diagnosed with abdominal pain *What to do: At this time there is no cause for your abdominal pain. You may need further evaluation and treatment with her primary care provider *Continue to take medications as directed [place] 1 tablet every 6 hours if needed for severe pain--> SENT TO [facility] *Follow up with your primary care provider in 2-3 days or call [phone] *Return to ER if you should have increased abdominal pain fever persistent vomiting or any new, worsening or concerning symptoms CONTROLLED SUBSTANCE DISCHARGE (Narcotoic/benzodiazepine/Flexeril/Phenergan) 1. You have been prescribed narcotic medications, it does have acetaminophen/Tylenol/paracetamol in it, DO NOT TAKE MORE THAN 4,00mg in 24 hours of Tylenol. TRAMADOL DOES NOT CONTAIN TYLENOL 2. Please understand that we cannot provide further refills of narcotics, benzodiazepines or controlled substances through the ED and her pain management will need to be through your provider. 3. While on these medications you cannot drive or operate heavy machinery. 4. You cannot sign legal documents or perform any duties such as this. 5. As long as you're taking opiate pain medications he should also be taking a stool softener such as Colace, Dulcolax, MiraLAX or prune juice, to help avoid constipation. Prescriptions: New hydrocodone-acetaminophen 5-325 mg tablet 1 tab PO Q6H PRN (Reason: pain) Qty: 5 0RF No Action albuterol sulfate 90 mcg/actuation HFA aerosol inhaler 2 puff INHALATION Q4-6H PRN (Reason: shortness of breath or wheezing) Qty: 18 0RF venlafaxine 37.5 mg capsule,extended release 24hr 37.5 mg PO DAILY MDD 112.5 mg Qty: 30 2RF Rx Instructions: Take in combination with 75 mg tab (112.5 mg daily) Flovent HFA 220 mcg/actuation HFA aerosol inhaler 1 puff INHALATION BID Qty: 12 0RF Rx Instructions: MUST ESTABLISH WITH NEW PRIMARY CARE PHYSICIAN PRIOR TO FURTHER REFILLS. lamotrigine 150 mg tablet 150 mg PO BID metoclopramide HCl 10 mg tablet 10 mg PO TID PRN (Reason: Nausea) Label Comments: take 1 tablet by mouth three times a day if needed diazepam [Valium] 5 mg tablet 5 mg PO BID-QID PRN (Reason: muscle spasm) Qty: 10 0RF hydrocodone-acetaminophen 5-325 mg tablet 1 tab PO Q6H PRN (Reason: pain) Qty: 10 0RF hydrocodone-acetaminophen 5-325 mg tablet 1 tab PO Q6H PRN (Reason: pain) Qty: 10 0RF hydrocodone-acetaminophen 5-325 mg tablet 1 tab PO BID PRN (Reason: pain) Qty: 10 0RF mupirocin 2 % ointment 1 applic topical BID Qty: 15 0RF venlafaxine 75 mg capsule,extended release 24hr 75 mg PO DAILY Label Comments: TAKE 1 CAPSULE BY MOUTH EVERY DAY IN COMBINATION WITH 37.5MG CAPSULE FOR DEPRESSION AND ANXIETY acetaminophen 325 mg Tablet 650 mg PO Q6HR PRN (Reason: As Needed For Fever/Mild Pain) Qty: 30 0RF valacyclovir 500 mg tablet 1,000 mg PO DAILY oxycodone-acetaminophen 5-325 mg tablet 1 - 2 tab PO Q6H PRN (Reason: pain) Qty: 16 0RF oxycodone-acetaminophen 5-325 mg tablet 1 tab PO Q6H PRN (Reason: pain) Qty: 14 0RF cephalexin 500 mg capsule 500 mg PO TID Qty: 21 0RF lidocaine [Lidoderm] 5 % adhesive patch,medicated 1 patch topical DAILY Qty: 15 1RF Rx Instructions: leave on most painful area for up to 12 hrs Stand Alone Forms: Work Release Note Visit Report Forms: Patient Portal/API
[2021-11-29] MEDS: HYDROMORPHONE 1 MG INJ IV ×2 (13:45→15:17)
[2021-11-29 13:50] LABS: Add Manual Diff / Slide Review NO; Basophils Absolute Auto 100 /uL (0-100); Basophils Percent Auto 0.6 % (0-2); Eosinophils Absolute Auto 100 /uL (0-450); Eosinophils Percent Auto 1.5 % (2-4); Hematocrit 44.1 % (36-46); Hemoglobin 14.9 g/dL (12.0-16.0); Lymphocytes Absolute Auto 2500 /uL (1100-4500); Lymphocytes Percent Auto 27.7 % (25-40); Mean Corpuscular HGB Conc 33.8 % (30-36); Mean Corpuscular Hemoglobin 32.2 PG (26-34); Monocytes Absolute Auto 400 /uL (0-900); Monocytes Percent Auto 4.5 % (3-14); Neutrophils Absolute Auto 6000 /uL (1500-7000); Neutrophils Percent Auto 65.7 % (50-75); Platelet Count 208 X10^3/uL (150-400); Red Blood Cell Count 4.64 X10^6/uL (4.0-5.2); Red Cell Distribution Width 13.3 % (11.6-14.8); White Blood Cell Count 9.2 X10^3/uL (4.5-11.0)
[2021-11-29 15:05] LABS: Alanine Aminotransferase 19 IU/L (<35); Albumin 4.1 g/dL (3.5-5.0); Albumin Globulin Ratio 1.6 (1.0-2.8); Alkaline Phosphatase 80 U/L (38-126); Aspartate Aminotransferase 24 IU/L (14-36); BUN Creatinine Ratio 17.1 (6-22); Bilirubin Total 0.4 mg/dL (0.2-1.3); Blood Urea Nitrogen 12 mg/dL (7-17); Calcium 8.5 mg/dL (8.4-10.2); Carbon Dioxide 25 mmol/L (22-32); Chloride 108 mmol/L (98-107); Estimated Glomerular Filt Rate > 60 mL/min (>60); Globulin 2.5 g/dL (1.7-4.1); Glucose 89 mg/dL (70-100); HEMOLYSIS < 15 (0-50); Lipase 55 U/L (23-300); Potassium 4.1 mmol/L (3.4-5.1); Sodium 140 mmol/L (137-145); Total Protein 6.6 g/dL (6.3-8.2)
[2021-11-29] MEDS: ACETAMINOPHEN 325 MG TABLET 975 MG PO (15:17)
== END 2021-11-29 15:51 | disposition home or self-care (01) ==
PROVIDERS: Emergency Provider Emergency Medicine
DX: R10.9 Unspecified abdominal pain (principal)
CPT/HCPCS: 36415; 74176; 80053; 81003; 81015; 83690; 85025; 87086; 96374; 96376; 99284; J1170

== ENCOUNTER 2021-12-04 06:37 | Emergency (ER) | payer OTHER, MEDICAID, SELFPAY ==
[2018-01-17 01:41] VITALS: BMI 32.3
[2021-12-04 06:45] VITALS: BP 125/68; PULSE 79; RESP 18; TEMP 36.6; O2SAT 97; BMI 29.8
--- NOTE | 2021-12-04 07:17 | ED_ITS ---
HPI - Skin/Abscess/Foreign Bdy General Chief complaint: Skin/Abscess/Foreign Body Stated complaint: lump in gential area Time Seen by Provider: 12/04/21 06:38 Source: patient Mode of arrival: Ambulatory Limitations: no limitations History of Present Illness HPI narrative: Patient is a 40-year-old female history kidney stones, migraines, idiopathic intra cranial hypertension presents today with abscess in her buttock rectal region. She says she just woke up this morning and noticed it is extremely painful tender to touch cannot sit. No fever or chills. Related Data Home Medications Medication Instructions Recorded Confirmed venlafaxine 75 mg capsule,extended 75 mg PO DAILY 01/05/18 08/18/19 release 24 hr valacyclovir 500 mg tablet 1,000 mg PO DAILY 07/24/18 08/18/19 lamotrigine 150 mg tablet 150 mg PO BID 01/06/19 08/18/19 metoclopramide HCl 10 mg tablet 10 mg PO TID PRN Nausea 01/06/19 08/18/19 Previous Rx's Medication Instructions Recorded venlafaxine 37.5 mg 37.5 mg PO DAILY Depression and 12/30/17 capsule,extended release 24 hr anxiety #30 caps acetaminophen 325 mg tablet 650 mg PO Q6HR PRN As Needed For 01/18/18 Fever/Mild Pain #30 tabs albuterol sulfate 90 mcg/actuation 2 puff inhalation Q4-6H PRN 08/18/19 aerosol inhaler shortness of breath or wheezing #18 grams fluticasone propionate 220 1 puff inhalation BID #12 grams 10/15/19 mcg/actuation HFA aerosol inhaler (Flovent HFA) diazepam 5 mg tablet (Valium) 5 mg PO BID-QID PRN muscle spasm 05/16/20 #10 tabs hydrocodone 5 mg-acetaminophen 325 1 tab PO Q6H PRN pain #10 tabs 21 mg tablet hydrocodone 5 mg-acetaminophen 325 1 tab PO Q6H PRN pain #10 tabs 21 mg tablet oxycodone-acetaminophen 5 mg-325 1 - 2 tab PO Q6H PRN pain #16 tabs 05/26/21 mg tablet cephalexin 500 mg capsule 500 mg PO TID #21 caps 06/24/21 oxycodone-acetaminophen 5 mg-325 1 tab PO Q6H PRN pain #14 tabs 06/24/ mg tablet lidocaine 5 % topical patch 1 patch topical DAILY #15 ea 07/01/21 (Lidoderm) hydrocodone 5 mg-acetaminophen 325 1 tab PO BID PRN pain #10 tabs 10/31/21 mg tablet mupirocin 2 % topical ointment 1 applic topical BID #15 grams 10/31/21 hydrocodone 5 mg-acetaminophen 325 1 tab PO Q6H PRN pain #5 tabs 11/29/21 mg tablet hydrocodone 5 mg-acetaminophen 325 1 tab PO Q6H PRN pain #8 tabs 12/04/21 mg tablet sulfamethoxazole 800 1 tab PO BID 7 days #14 tabs 12/04/21 mg-trimethoprim 160 mg tablet (Bactrim DS) Allergies Allergy/AdvReac Type Severity Reaction Status Date / Time coconut [COCONUT] Allergy Severe STOPS Verified 11/29/21 10:21 BREATHS prochlorperazine Allergy Intermediate seizure Verified 11/29/21 10:21 NSAIDS (Non-Steroidal Allergy Mild rash, milner Verified 11/29/21 10:21 Anti-Inflamma [NSAIDS (NON-STEROIDAL ANTI-INFLAMMA] promethazine [From PHENERGAN] Allergy Unknown restless Verified 11/29/21 10:21 legs Review of Systems Review of Systems Narrative: GENERAL: Denies chills, fatigue, malaise, fever, sweats, travel HEENT: Denies sinus pain, ear pain, sore throat, difficulty swallowing, neck pain RESPIRATORY: Denies dyspnea, cough, wheezing, hemoptysis, sputum. CARDIOVASCULAR: Denies chest pain, palpitations, orthopnea, edema GASTROINTESTINAL: Denies nausea, vomiting, abdominal pain, diarrhea, constipation, melena. : Denies dysuria, frequency, incontinence, hematuria, urinary retention, flank pain. MUSCULOSKELETAL: Denies weakness, joint pain, or bony pain SKIN: See HPI NEUROLOGIC: Denies weakness, dizziness, headache, numbness, change in speech, confusion PSYCHIATRIC: No concerning psychosocial issues. 12 point review of systems is negative except for those stated above and HPI Patient History Medical History (Updated 12/04/21 @ 08:25 by Krystyna Brenner DO) Anxiety Cervical cancer Depression Femoral acetabular impingement Genital herpes Gout Kidney stones (12/2016) Ovarian cancer Pseudotumor cerebri Pulmonary embolism (2011) Pulmonary embolism (2010) Uterine cancer Surgical History History of bladder surgery History of carpal tunnel repair Status post appendectomy Status post breast reduction Status post cholecystectomy Status post hernia repair (2014) Status post hysterectomy with oophorectomy (2003) Status post laparoscopy TIER AND DETONATOR (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) shunt status Family History Father History of kidney cancer Mother Diabetes mellitus Hypertension Hyperlipidemia CAD (coronary artery disease) CVA (cerebral vascular accident) Social History marital status: household members: family lives independently: Yes occupational status: employed Smoking Status: Current every day smoker alcohol intake: never substance use type: marijuana Smoking Status: Current every day smoker tobacco type: cigarettes alcohol intake frequency: holidays/special occasions only Substance Use Type: marijuana Exam Initial Vital Signs Initial Vital Signs: Vital Signs Temperature 97.8 F 12/04/21 06:45 Pulse Rate 79 12/04/21 06:45 Respiratory Rate 18 12/04/21 06:45 Blood Pressure 125/68 12/04/21 06:45 Pulse Oximetry 97 12/04/21 06:45 Oxygen Delivery Method 12/04/21 06:45 GENERAL: Alert 40-year-old female appears uncomfortable HEENT: Head atraumatic,EOMI, pupils reactive, face symmetric, [moist] mucous membranes CARDIOVASCULAR: Regular rate and rhythm without murmurs, rubs or gallops. RESPIRATORY: Breath sounds equal bilaterally, no wheezes rales or rhonchi. ABDOMEN: Soft, nontender. Normoactive bowel sounds all 4 quadrants. No guarding or rebound. EXTREMITIES: Normal range of motion, no clubbing or edema. Neurovascularly intact NEUROLOGICAL: Alert and oriented x4 SKIN: The left buttock and perineum abscess 2 cm right 1 cm fluctuant area with surrounding erythema does not involve rectum itself. The is quite close about 5 cm away Procedures Abscess I/D I&D #1: Site: gonzalo-rectal Side (if applicable): left Local Anesthetic: lidocaine 2% Amount of anesthesia used (mL): 5 Technique: incised with #11 blade Amount of fluid expressed (mL): 3 Course Orders Ordered: ED Orders 12/04/21 08:30 Wound Culture and Gram Stain Stat Discontinued Medications Hydromorphone HCl (Hydromorphone 2 Mg Inj) 1 mg SUBCUT Q4H PRN PRN Reason: Pain, Severe (7-10) Last Admin: 12/04/21 07:29 Dose: 1 mg Documented By: VIDA Lidocaine HCl (Lidocaine 2% Inj Mdv) 1 ml SUBCUT NOW ONE Stop: 12/04/21 07:22 Last Admin: 12/04/21 07:28 Dose: 1 ml Documented By: VIDA Vital Signs Vital signs: Vital Signs - 8 hr 12/04/21 06:45 Temperature 97.8 F Pulse Rate 79 Respiratory Rate 18 Blood Pressure 125/68 Pulse Oximetry 97 Oxygen Delivery Method Room Air MDM - Skin/Abscess/Foreign Bdy MDM Narrative Medical decision making narrative: Patient does have quite a painful abscess on her left buttock he does not recall her rectum but is quite close. I did easily drained she tolerated procedure well. Culture is sent. She is started on Bactrim. Recommend close monitoring. Discharge Plan Departure Patient Disposition: Home Clinical Impression: Abscess of skin Instructions: DI for Incision and Drainage of a Skin Abscess Activity Restrictions/Additional Instructions: *You have been diagnosed with skin abscess with incision and drainage *What to do: Keep area clean and dry as best you can. Recommend warm bath. Antibiotics should help as well. *Continue to take medications as directed Bactrim 1 tablet twice a day for 7 days [place] 1 tablet every 6 hours only if needed for severe pain *Follow up with your primary care provider in 2-3 days or call [phone] *Return to ER if you should have increasing redness pain swelling fever or any new, worsening or concerning symptoms CONTROLLED SUBSTANCE DISCHARGE (Narcotoic/benzodiazepine/Flexeril/Phenergan) 1. You have been prescribed narcotic medications, it does have acetaminophen/Tylenol/paracetamol in it, DO NOT TAKE MORE THAN 4,00mg in 24 hours of Tylenol. TRAMADOL DOES NOT CONTAIN TYLENOL 2. Please understand that we cannot provide further refills of narcotics, benzodiazepines or controlled substances through the ED and her pain management will need to be through your provider. 3. While on these medications you cannot drive or operate heavy machinery. 4. You cannot sign legal documents or perform any duties such as this. 5. As long as you're taking opiate pain medications he should also be taking a stool softener such as Colace, Dulcolax, MiraLAX or prune juice, to help avoid constipation. Prescriptions: New hydrocodone-acetaminophen 5-325 mg tablet 1 tab PO Q6H PRN (Reason: pain) Qty: 8 0RF sulfamethoxazole-trimethoprim [Bactrim DS] 800-160 mg tablet 1 tab PO BID 7 Days Qty: 14 0RF No Action albuterol sulfate 90 mcg/actuation HFA aerosol inhaler 2 puff INHALATION Q4-6H PRN (Reason: shortness of breath or wheezing) Qty: 18 0RF venlafaxine 37.5 mg capsule,extended release 24hr 37.5 mg PO DAILY MDD 112.5 mg Qty: 30 2RF Rx Instructions: Take in combination with 75 mg tab (112.5 mg daily) Flovent HFA 220 mcg/actuation HFA aerosol inhaler 1 puff INHALATION BID Qty: 12 0RF Rx Instructions: MUST ESTABLISH WITH NEW PRIMARY CARE PHYSICIAN PRIOR TO FURTHER REFILLS. lamotrigine 150 mg tablet 150 mg PO BID metoclopramide HCl 10 mg tablet 10 mg PO TID PRN (Reason: Nausea) Label Comments: take 1 tablet by mouth three times a day if needed diazepam [Valium] 5 mg tablet 5 mg PO BID-QID PRN (Reason: muscle spasm) Qty: 10 0RF hydrocodone-acetaminophen 5-325 mg tablet 1 tab PO Q6H PRN (Reason: pain) Qty: 10 0RF hydrocodone-acetaminophen 5-325 mg tablet 1 tab PO Q6H PRN (Reason: pain) Qty: 10 0RF hydrocodone-acetaminophen 5-325 mg tablet 1 tab PO BID PRN (Reason: pain) Qty: 10 0RF mupirocin 2 % ointment 1 applic topical BID Qty: 15 0RF venlafaxine 75 mg capsule,extended release 24hr 75 mg PO DAILY Label Comments: TAKE 1 CAPSULE BY MOUTH EVERY DAY IN COMBINATION WITH 37.5MG CAPSULE FOR DEPRESSION AND ANXIETY acetaminophen 325 mg Tablet 650 mg PO Q6HR PRN (Reason: As Needed For Fever/Mild Pain) Qty: 30 0RF valacyclovir 500 mg tablet 1,000 mg PO DAILY oxycodone-acetaminophen 5-325 mg tablet 1 - 2 tab PO Q6H PRN (Reason: pain) Qty: 16 0RF oxycodone-acetaminophen 5-325 mg tablet 1 tab PO Q6H PRN (Reason: pain) Qty: 14 0RF cephalexin 500 mg capsule 500 mg PO TID Qty: 21 0RF lidocaine [Lidoderm] 5 % adhesive patch,medicated 1 patch topical DAILY Qty: 15 1RF Rx Instructions: leave on most painful area for up to 12 hrs hydrocodone-acetaminophen 5-325 mg tablet 1 tab PO Q6H PRN (Reason: pain) Qty: 5 0RF Stand Alone Forms: Work Release Note Visit Report Forms: Patient Portal/API
[2021-12-04] MEDS: LIDOCAINE 2% INJ MDV 1 ML SUBCUT (07:28)
[2021-12-04] MEDS: HYDROMORPHONE 2 MG INJ 1 MG SUBCUT (07:29)
== END 2021-12-04 08:42 | disposition home or self-care (01) ==
PROVIDERS: Emergency Provider Emergency Medicine
DX: L02.31 Cutaneous abscess of buttock (principal)
CPT/HCPCS: 10060; 87070; 87077; 87205; 99281; 99283; J1170

== ENCOUNTER 2021-12-06 18:59 | Emergency (ER) | payer OTHER, MEDICAID, SELFPAY ==
[2018-01-17 01:41] VITALS: BMI 32.3
[2021-12-06 19:20] VITALS: BP 135/71; PULSE 79; RESP 16; TEMP 36.9; O2SAT 97; BMI 29.8
[2021-12-06 20:06] LABS: Add Manual Diff / Slide Review NO; Basophils Absolute Auto 0 /uL (0-100); Basophils Percent Auto 0.7 % (0-2); Eosinophils Absolute Auto 100 /uL (0-450); Hematocrit 39.7 % (36-46); Lymphocytes Absolute Auto 1900 /uL (1100-4500); Lymphocytes Percent Auto 29.7 % (25-40); Mean Corpuscular HGB Conc 35.3 % (30-36); Mean Corpuscular Hemoglobin 33.3 PG (26-34); Mean Corpuscular Volume 94.4 fL (80-100); Monocytes Absolute Auto 400 /uL (0-900); Monocytes Percent Auto 5.8 % (3-14); Neutrophils Absolute Auto 3900 /uL (1500-7000); Neutrophils Percent Auto 61.8 % (50-75); Platelet Count 204 X10^3/uL (150-400); Red Cell Distribution Width 13.1 % (11.6-14.8); White Blood Cell Count 6.3 X10^3/uL (4.5-11.0)
[2021-12-06 20:14] LABS: Lactate (Lactic Acid) 0.8 mmol/L (0.7-2.1)
[2021-12-06 20:15] LABS: Alanine Aminotransferase 19 IU/L (<35); Albumin 4.3 g/dL (3.5-5.0); Albumin Globulin Ratio 1.6 (1.0-2.8); Alkaline Phosphatase 77 U/L (38-126); Aspartate Aminotransferase 21 IU/L (14-36); Bilirubin Total 0.2 mg/dL (0.2-1.3); Blood Urea Nitrogen 12 mg/dL (7-17); Calcium 8.7 mg/dL (8.4-10.2); Carbon Dioxide 24 mmol/L (22-32); Chloride 109 mmol/L (98-107); Estimated Glomerular Filt Rate > 60 mL/min (>60); Globulin 2.7 g/dL (1.7-4.1); Glucose 94 mg/dL (70-100); HEMOLYSIS < 15 (0-50); Sodium 140 mmol/L (137-145)
--- NOTE | 2021-12-06 20:23 | ED.SKABFB ---
HPI - Skin/Abscess/Foreign Bdy General Chief complaint: Skin/Abscess/Foreign Body Stated complaint: cyst drained yesterday, not feeling well Time Seen by Provider: 12/06/21 19:42 Source: patient Mode of arrival: Ambulatory Limitations: no limitations History of Present Illness HPI narrative: This is a 40-year-old female on multiple medications for mood disorder who comes to the emergency department for increasing pain and feeling generally worse after having and perirectal abscess drained on 12/04/2021. Patient states in the last day she is just felt general malaise, she has not had fevers but felt punky, she denies active chest pain or shortness of breath currently, no cold cough or congestion. She is had nausea and vomiting. She states she is had some diarrhea but bowel movements have been nonpainful. Patient denies any black or bloody stools. No dysuria urgency or frequency. No vaginal discharge. She is continuing to have drainage that she describes as purulent from the site. She states it is quite painful and that the pain has been spreading more into her abdomen and into the pudendal vaginal region. She is had 1 prior abscess in the past in the sternal area which did not require any intervention. She is not had skin issues otherwise. Patient has had multiple intra-abdominal surgeries including hysterectomy, cholecystectomy, appendectomy. She does use tobacco, occasional alcohol, occasional THC but no other illicit. Related Data Home Medications Medication Instructions Recorded Confirmed venlafaxine 75 mg capsule,extended 75 mg PO DAILY 01/05/18 08/18/19 release 24 hr valacyclovir 500 mg tablet 1,000 mg PO DAILY 07/24/18 08/18/19 lamotrigine 150 mg tablet 150 mg PO BID 01/06/19 08/18/19 metoclopramide HCl 10 mg tablet 10 mg PO TID PRN Nausea 01/06/19 08/18/19 Previous Rx's Medication Instructions Recorded venlafaxine 37.5 mg 37.5 mg PO DAILY Depression and 12/30/17 capsule,extended release 24 hr anxiety #30 caps acetaminophen 325 mg tablet 650 mg PO Q6HR PRN As Needed For 01/18/18 Fever/Mild Pain #30 tabs albuterol sulfate 90 mcg/actuation 2 puff inhalation Q4-6H PRN 08/18/19 aerosol inhaler shortness of breath or wheezing #18 grams fluticasone propionate 220 1 puff inhalation BID #12 grams 10/15/19 mcg/actuation HFA aerosol inhaler (Flovent HFA) diazepam 5 mg tablet (Valium) 5 mg PO BID-QID PRN muscle spasm 05/16/20 #10 tabs hydrocodone 5 mg-acetaminophen 325 1 tab PO Q6H PRN pain #10 tabs 04/18/21 mg tablet hydrocodone 5 mg-acetaminophen 325 1 tab PO Q6H PRN pain #10 tabs 04/18/21 mg tablet oxycodone-acetaminophen 5 mg-325 1 - 2 tab PO Q6H PRN pain #16 tabs 05/26/21 mg tablet cephalexin 500 mg capsule 500 mg PO TID #21 caps 06/24/21 oxycodone-acetaminophen 5 mg-325 1 tab PO Q6H PRN pain #14 tabs 06/24/21 mg tablet lidocaine 5 % topical patch 1 patch topical DAILY #15 ea 07/01/21 (Lidoderm) hydrocodone 5 mg-acetaminophen 325 1 tab PO BID PRN pain #10 tabs 10/31/21 mg tablet mupirocin 2 % topical ointment 1 applic topical BID #15 grams 10/31/21 hydrocodone 5 mg-acetaminophen 325 1 tab PO Q6H PRN pain #5 tabs 11/29/21 mg tablet hydrocodone 5 mg-acetaminophen 325 1 tab PO Q6H PRN pain #8 tabs 12/04/21 mg tablet clindamycin HCl 300 mg capsule 300 mg PO QID #28 caps 12/06/21 (Cleocin HCl) fluconazole 150 mg tablet 150 mg PO Q3D 2 doses #2 tabs 12/06/21 (Diflucan) hydrocodone 5 mg-acetaminophen 325 1 tab PO Q6H PRN pain #10 tabs 12/06/21 mg tablet Allergies Allergy/AdvReac Type Severity Reaction Status Date / Time coconut [COCONUT] Allergy Severe STOPS Verified 11/29/21 10:21 BREATHS prochlorperazine Allergy Intermediate seizure Verified 11/29/21 10:21 NSAIDS (Non-Steroidal Allergy Mild rash, milner Verified 11/29/21 10:21 Anti-Inflamma [NSAIDS (NON-STEROIDAL ANTI-INFLAMMA] promethazine [From PHENERGAN] Allergy Unknown restless Verified 11/29/21 10:21 legs Review of Systems Review of Systems ROS Unobtainable: All systems reviewed & are unremarkable except as noted in HPI and below Patient History Medical History (Updated 12/06/21 @ 22:28 by Agueda Burger DO) Anxiety Cervical cancer Depression Femoral acetabular impingement Genital herpes Gout Kidney stones (12/2016) Ovarian cancer Pseudotumor cerebri Pulmonary embolism (2010) Pulmonary embolism (2009) Uterine cancer Surgical History History of bladder surgery History of carpal tunnel repair Status post appendectomy Status post breast reduction Status post cholecystectomy Status post hernia repair (2014) Status post hysterectomy with oophorectomy (2003) Status post laparoscopy [employer]RI[employer]GE[employer] (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) shunt status Family History Father History of kidney cancer Mother Diabetes mellitus Hypertension Hyperlipidemia CAD (coronary artery disease) CVA (cerebral vascular accident) Social History marital status: household members: family lives independently: Yes occupational status: employed Smoking Status: Current every day smoker alcohol intake: never substance use type: marijuana Smoking Status: Current every day smoker tobacco type: cigarettes alcohol intake frequency: holidays/special occasions only Substance Use Type: marijuana Exam Narrative Exam Narrative: GENERAL: Alert and oriented x three, obese female in [id number] distress. HEENT: Head normocephalic, atraumatic, EOMI, pupils reactive, face symmetric, moist mucous membranes NECK: Supple, full range of motion CARDIOVASCULAR: Regular rate and rhythm without murmurs, rubs or gallops. RESPIRATORY: Breath sounds equal bilaterally, no wheezes rales or rhonchi. ABDOMEN: Soft, suprapubic and lower abdominal tenderness. Normoactive bowel sounds all 4 quadrants. No guarding or rebound, rigidity, no mass, patient has healing incision that is not actively draining at the 7 o'clock position (left buttock) about 1.5cm from the rectum, there is some swelling it is quite tender tenderness extends out into the left buttock but no obvious induration or erythema. Patient is quite tender on rectal exam. : No CVA tenderness EXTREMITIES: Normal range of motion, no clubbing or edema. Neurovascularly intact NEUROLOGICAL: Cranial nerves II through XII grossly intact. Moving all extremities SKIN: Warm, dry, no petechiae, no rashes or lesions. Initial Vital Signs Initial Vital Signs: Vital Signs Temperature 98.5 F 12/06/21 19:20 Pulse Rate 79 12/06/21 19:20 Respiratory Rate 16 12/06/21 19:20 Blood Pressure 135/71 12/06/21 19:20 Pulse Oximetry 97 12/06/21 19:20 Oxygen Delivery Method 12/06/21 19:20 Course Orders Ordered: Discontinued Medications Hydrocodone Bitart/Acetaminophen (Hydrocodone/Acet 5/325 Prepack) 1 bottle MISC SEEINSTR ONE Stop: 12/06/21 22:50 Last Admin: 12/06/21 22:54 Dose: 1 bottle Documented By: AT Hydromorphone HCl (Hydromorphone 0.5 Mg Inj) 0.5 mg IV NOW ONE Stop: 12/06/21 20:45 Last Admin: 12/06/21 20:58 Dose: 0.5 mg Documented By: AT Hydromorphone HCl (Hydromorphone 0.5 Mg Inj) 0.5 mg IV NOW ONE Stop: 12/06/21 21:48 Last Admin: 12/06/21 21:59 Dose: 0.5 mg Documented By: AT Sodium Chloride (Normal Saline 0.9%) 1,000 mls @ 1,000 mls/hr IV BOLUS ONE Stop: 12/06/21 21:43 Last Infusion: 12/06/21 22:54 Dose: 0 mls/hr Documented By: Admin: 12/06/21 20:57 Dose: 1,000 mls/hr Documented By: AT Clindamycin Phosphate (Cleocin) 600 mg in 50 mls @ 50 mls/hr IV Q8H YULIANA Last Infusion: 12/06/21 22:54 Dose: 0 mls/hr Documented By: Admin: 12/06/21 20:58 Dose: 50 mls/hr Documented By: AT Ondansetron HCl (Ondansetron 4 Mg/2 Ml Inj) 4 mg IV NOW ONE Stop: 12/06/21 20:45 Last Admin: 12/06/21 20:58 Dose: 4 mg Documented By: AT Reevaluation(s) Reevaluation #1: Recheck patient is doing well in the room. We reviewed recommendations from General surgery her CT findings and labs. Patient is comfortable with recommendations and is okay with deferring additional I and D at this time. Her sensitivities are still pending so discussed changing her antibiotic, prescription for additional pain medication and return for recheck in 24-48 hours which patient feels comfortable less unless her symptoms have significantly improved. Consultations Consultation #1: Dr. Hernandez, general surgery recommends continue antibiotics, sitz baths and no additional I&D at this time. Patient to have return precautions. Vital Signs Vital signs: Vital Signs - 8 hr 12/06/21 19:20 Temperature 98.5 F Pulse Rate 79 Respiratory Rate 16 Blood Pressure 135/71 Pulse Oximetry 97 Oxygen Delivery Method Room Air MDM - Skin/Abscess/Foreign Bdy Lab Data Result diagrams: 12/06/21 19:40 12/06/21 19:40 Labs: Lab Results 12/06/21 12/06/21 12/06/21 Range/Units 19:40 19:40 19:40 WBC 6.3 (4.5-11.0) X10^3/uL RBC 4.20 (4.0-5.2) X10^6/uL Hgb 14.0 (12.0-16.0) g/dL Hct 39.7 (36-46) % MCV 94.4 (80-100) fL MCH 33.3 (26-34) PG MCHC 35.3 (30-36) % RDW 13.1 (11.6-14.8) % Plt Count 204 (150-400) X10^3/uL Neut % (Auto) 61.8 (50-75) % Lymph % (Auto) 29.7 (25-40) % [place] % (Auto) 5.8 (3-14) % Eos % (Auto) 2.0 (2-4) % Baso % (Auto) 0.7 (0-2) % Neut # (Auto) 3900 (6492-7180) /uL Lymph # (Auto) 1900 (4680-8550) /uL [place] # (Auto) 400 (0-900) /uL Eos # (Auto) 100 (0-450) /uL Baso # (Auto) 0 (0-100) /uL Sodium 140 (137-145) mmol/L Potassium 4.0 (3.4-5.1) mmol/L Chloride 109 H (98-107) mmol/L Carbon Dioxide 24 (22-32) mmol/L BUN 12 (7-17) mg/dL Creatinine 0.92 (0.52-1.04) mg/dL Estimated GFR > 60 (>60) mL/min BUN/Creatinine Ratio 13.0 (6-22) Glucose 94 (70-100) mg/dL Lactate 0.8 (0.7-2.1) mmol/L Calcium 8.7 (8.4-10.2) mg/dL Total Bilirubin 0.2 (0.2-1.3) mg/dL AST 21 (14-36) IU/L ALT 19 (<35) IU/L Alkaline Phosphatase 77 (38-126) U/L Total Protein 7.0 (6.3-8.2) g/dL Albumin 4.3 (3.5-5.0) g/dL Globulin 2.7 (1.7-4.1) g/dL Albumin/Globulin Ratio 1.6 (1.0-2.8) SARS-CoV-2 (PCR) (Negative) 12/06/21 Range/Units 21:11 WBC (4.5-11.0) X10^3/uL RBC (4.0-5.2) X10^6/uL Hgb (12.0-16.0) g/dL Hct (36-46) % MCV (80-100) fL MCH (26-34) PG MCHC (30-36) % RDW (11.6-14.8) % Plt Count (150-400) X10^3/uL Neut % (Auto) (50-75) % Lymph % (Auto) (25-40) % [place] % (Auto) (3-14) % Eos % (Auto) (2-4) % Baso % (Auto) (0-2) % Neut # (Auto) (7022-5823) /uL Lymph # (Auto) (4940-0210) /uL [place] # (Auto) (0-900) /uL Eos # (Auto) (0-450) /uL Baso # (Auto) (0-100) /uL Sodium (137-145) mmol/L Potassium (3.4-5.1) mmol/L Chloride (98-107) mmol/L Carbon Dioxide (22-32) mmol/L BUN (7-17) mg/dL Creatinine (0.52-1.04) mg/dL Estimated GFR (>60) mL/min BUN/Creatinine Ratio (6-22) Glucose (70-100) mg/dL Lactate (0.7-2.1) mmol/L Calcium (8.4-10.2) mg/dL Total Bilirubin (0.2-1.3) mg/dL AST (14-36) IU/L ALT (<35) IU/L Alkaline Phosphatase (38-126) U/L Total Protein (6.3-8.2) g/dL Albumin (3.5-5.0) g/dL Globulin (1.7-4.1) g/dL Albumin/Globulin Ratio (1.0-2.8) SARS-CoV-2 (PCR) Negative (Negative) Imaging Data CT scan - abdomen/pelvis: Radiologist's Impression: Close Abdomen/Pelvis CT (Signed) Denys Turcios - 12/06/21 [place] [address] CT Scan Report Signed Patient: Jing Lindo MR#: [id number] : 1980 Acct:[id number] Age/Sex: 40 / F Date of Service: 12/06/21 Loc: Accession Number: [id number] ?? Procedure: CT abdomen pelvis w con Ordering Provider: Agueda Burger D.O. PROCEDURE:? CT ABDOMEN PELVIS W CON ? INDICATIONS:? perirectal abscess drained 12/04, spreading pain ? TECHNIQUE:? After the administration of IV contrast, axial sections were acquired from the lung bases to the pubic symphysis.? Coronal and sagittal reformats were performed.? For radiation dose reduction, the following was used:? automated exposure control, adjustment of mA and/or kV according to patient size. ? COMPARISON:[facility], CT, CT ABDOMEN PELVIS W CON, 04/28/2019, 20:49. ? FINDINGS:? Image quality:? Excellent.? ? Lung bases:? Unremarkable.? ? Heart:? Heart is normal in size. ? ? ABDOMEN: Liver:? No mass lesion. Gallbladder:? Surgically absent. Biliary ducts:? No biliary ductal dilatation.? ? Pancreas:? Unremarkable.? ? Spleen:? Normal in size.? ? Adrenal Glands:? No adrenal nodules.? ? Kidneys and Ureters:? No hydronephrosis.? ? ? Stomach and Bowel:? Stomach, small bowel loops, and colon are normal in caliber and wall thickness.? No pericecal inflammatory changes to suggest appendicitis.? There is colonic diverticulosis without acute diverticulitis.? Peritoneum:? No abnormal intraperitoneal fluid.? No free air.? ? Ventral Wall: ? No hernia.? Abdominal Nodes:? No retroperitoneal or mesenteric adenopathy by size criteria.? Vessels:? Aorta and inferior vena cava are normal in size.? ? PELVIS: Pelvic Organs:? Uterus is surgically absent.? ? Bladder:? Unremarkable.? ? Pelvic Nodes: No enlarged lymph nodes.? Miscellaneous: No inguinal hernias are seen.? There is a right gluteal numerous similar device with the lead extending into the posterior right pelvis. ? There is a small loculated left posterior perianal collection measuring approximately 1.3 x 0.9 x 1.7 cm with adjacent subcutaneous fat stranding suggestive of a small perianal abscess. ? ? Bones:? Visualized osseous structures demonstrate no suspicious focal lesions. ? IMPRESSION:? ? 1. Left posterior perianal thick-walled collection consistent with a small abscess. ? 2. Elsewhere, no acute intra-abdominal abnormality. ? ? ? Dictated by: Denys Turcios M.D. on 12/06/2021 at 22:14 ? ? Approved by: Denys Turcios M.D. on 12/06/2021 at 22:19?? [facility] Narrative Medical decision making narrative: This is a 40-year-old female with history of mood disorder who was seen for perirectal abscess had I and D with drainage of purulent fluid which shows Gram-positive cocci on micro. Patient has had increasing pain and generally felt unwell and has movement of the pain into her lower abdomen which is new and on exam is quite tender within the rectum as well. There is not a easily palpable fluid collection it is not actively draining on exam. Patient does not appear septic, labs are reassuring but CT abdomen pelvis was obtained for further evaluation. Patient has a 1.3 cm abscess on imaging, discussed with Dr. Hernandez as I am not able to clearly palpate where it is she is not discretely expressing fluid from the incision site. This time she recommends not additional I and D or surgery continuing antibiotics, Sitz bath and that should continue to improve. Discussed these recommendations with the patient who feels comfortable with this plan and we discussed short-term return precautions plan for recheck in 24-48 hours with us and changing her antibiotics at this time. Discharge Plan Departure Patient Disposition: Home Clinical Impression: Abscess, perianal Instructions: DI for Anal Abscess Activity Restrictions/Additional Instructions: Return in 24-48 hours for recheck if the area is not continuing to improve. I did speak with our general surgeon today do not recommend additional I and D today and feel it will likely continue to improve with warm compresses and antibiotics. Continue with antibiotics, your culture and sensitivities are still pending some going to change your antibiotics. Stop your current antibiotic and start the new one tomorrow. Also included is a prescription for additional narcotic pain medication. This medication can make you sleepy do not drive, perform hazardous activities or make any major decisions while taking it. This medication will make you constipated please take a stool softener once to twice daily until stools are soft and regular. Prescription sent to [facility] in [place] Continue with Sitz bath or warm compresses 3-4 times daily You may take pain medication as prescribed. This medication can make you sleepy do not drive, perform hazardous activities or make any major decisions while taking it. This medication will make you constipated please take a stool softener once to twice daily until stools are soft and regular. Prescription sent to Please return for fevers, increasing abdominal, back, flank or rectal pain. New or worsening drainage or other new or concerning symptoms. Prescriptions: New clindamycin HCl [Cleocin HCl] 300 mg capsule 300 mg PO QID Qty: 28 0RF hydrocodone-acetaminophen 5-325 mg tablet 1 tab PO Q6H PRN (Reason: pain) Qty: 10 0RF fluconazole [Diflucan] 150 mg tablet 150 mg PO Q3D Qty: 2 0RF Rx Instructions: may repeat second dose 72 hrs after first dose if symptoms persist No Action albuterol sulfate 90 mcg/actuation HFA aerosol inhaler 2 puff INHALATION Q4-6H PRN (Reason: shortness of breath or wheezing) Qty: 18 0RF venlafaxine 37.5 mg capsule,extended release 24hr 37.5 mg PO DAILY MDD 112.5 mg Qty: 30 2RF Rx Instructions: Take in combination with 75 mg tab (112.5 mg daily) Flovent HFA 220 mcg/actuation HFA aerosol inhaler 1 puff INHALATION BID Qty: 12 0RF Rx Instructions: MUST ESTABLISH WITH NEW PRIMARY CARE PHYSICIAN PRIOR TO FURTHER REFILLS. lamotrigine 150 mg tablet 150 mg PO BID metoclopramide HCl 10 mg tablet 10 mg PO TID PRN (Reason: Nausea) Label Comments: take 1 tablet by mouth three times a day if needed diazepam [Valium] 5 mg tablet 5 mg PO BID-QID PRN (Reason: muscle spasm) Qty: 10 0RF hydrocodone-acetaminophen 5-325 mg tablet 1 tab PO Q6H PRN (Reason: pain) Qty: 10 0RF hydrocodone-acetaminophen 5-325 mg tablet 1 tab PO Q6H PRN (Reason: pain) Qty: 10 0RF hydrocodone-acetaminophen 5-325 mg tablet 1 tab PO BID PRN (Reason: pain) Qty: 10 0RF mupirocin 2 % ointment 1 applic topical BID Qty: 15 0RF hydrocodone-acetaminophen 5-325 mg tablet 1 tab PO Q6H PRN (Reason: pain) Qty: 8 0RF venlafaxine 75 mg capsule,extended release 24hr 75 mg PO DAILY Label Comments: TAKE 1 CAPSULE BY MOUTH EVERY DAY IN COMBINATION WITH 37.5MG CAPSULE FOR DEPRESSION AND ANXIETY acetaminophen 325 mg Tablet 650 mg PO Q6HR PRN (Reason: As Needed For Fever/Mild Pain) Qty: 30 0RF valacyclovir 500 mg tablet 1,000 mg PO DAILY oxycodone-acetaminophen 5-325 mg tablet 1 - 2 tab PO Q6H PRN (Reason: pain) Qty: 16 0RF oxycodone-acetaminophen 5-325 mg tablet 1 tab PO Q6H PRN (Reason: pain) Qty: 14 0RF cephalexin 500 mg capsule 500 mg PO TID Qty: 21 0RF lidocaine [Lidoderm] 5 % adhesive patch,medicated 1 patch topical DAILY Qty: 15 1RF Rx Instructions: leave on most painful area for up to 12 hrs hydrocodone-acetaminophen 5-325 mg tablet 1 tab PO Q6H PRN (Reason: pain) Qty: 5 0RF Referrals: Carlos Mercado MD [Primary Care Provider] - Visit Report Forms: Patient Portal/API
--- NOTE | 2021-12-06 20:44 | DI.CT.S_ITS ---
PROCEDURE: CT ABDOMEN PELVIS W CON INDICATIONS: perirectal abscess drained 12/04, spreading pain TECHNIQUE: After the administration of IV contrast, axial sections were acquired from the lung bases to the pubic symphysis. Coronal and sagittal reformats were performed. For radiation dose reduction, the following was used: automated exposure control, adjustment of mA and/or kV according to patient size. COMPARISON: [facility], CT, CT ABDOMEN PELVIS W CON, 04/28/2019, 20:49. FINDINGS: Image quality: Excellent. Lung bases: Unremarkable. Heart: Heart is normal in size. ABDOMEN: Liver: No mass lesion. Gallbladder: Surgically absent. Biliary ducts: No biliary ductal dilatation. Pancreas: Unremarkable. Spleen: Normal in size. Adrenal Glands: No adrenal nodules. Kidneys and Ureters: No hydronephrosis. Stomach and Bowel: Stomach, small bowel loops, and colon are normal in caliber and wall thickness. No pericecal inflammatory changes to suggest appendicitis. There is colonic diverticulosis without acute diverticulitis. Peritoneum: No abnormal intraperitoneal fluid. No free air. Ventral Wall: No hernia. Abdominal Nodes: No retroperitoneal or mesenteric adenopathy by size criteria. Vessels: Aorta and inferior vena cava are normal in size. PELVIS: Pelvic Organs: Uterus is surgically absent. Bladder: Unremarkable. Pelvic Nodes: No enlarged lymph nodes. Miscellaneous: No inguinal hernias are seen. There is a right gluteal numerous similar device with the lead extending into the posterior right pelvis. There is a small loculated left posterior perianal collection measuring approximately 1.3 x 0.9 x 1.7 cm with adjacent subcutaneous fat stranding suggestive of a small perianal abscess. Bones: Visualized osseous structures demonstrate no suspicious focal lesions. IMPRESSION: 1. Left posterior perianal thick-walled collection consistent with a small abscess. 2. Elsewhere, no acute intra-abdominal abnormality. Dictated by: Denys Turcios M.D. on 12/06/2021 at 22:14 Approved by: Denys Turcios M.D. on 12/06/2021 at 22:19
[2021-12-06] MEDS: SODIUM CHLORIDE 0.9% 1,000 ML 1000 ML IV (20:57)
[2021-12-06] MEDS: ONDANSETRON 4 MG/2 ML INJ IV (20:58)
[2021-12-06] MEDS: CLINDAMYCIN 600 MG/50 ML PIGGYBACK 50 MG IV (20:58)
[2021-12-06] MEDS: HYDROMORPHONE 0.5 MG INJ IV ×2 (20:58→21:59)
[2021-12-06 21:39] LABS: COVID19 -Nasal RAPID Negative (Negative)
[2021-12-06] MEDS: HYDROCODONE/ACET 5/325 PREPACK 1 BOTTLE MISC (22:54)
== END 2021-12-06 23:02 | disposition home or self-care (01) ==
PROVIDERS: Emergency Provider Emergency Medicine; PCP Family Medicine
DX: K61.0 Anal abscess (principal); Z20.822 Contact with and (suspected) exposure to COVID-19
CPT/HCPCS: 36415; 74177; 80053; 83605; 85025; 87040; 87635; 96365; 96366; 96375; 96376; 99284; C9803; J1170; J2405; Q9967

== ENCOUNTER 2021-12-17 17:52 | Emergency (ER) | payer OTHER, MEDICAID, SELFPAY ==
[2018-01-17 01:41] VITALS: BMI 32.3
[2021-12-17 17:57] VITALS: BP 120/76; PULSE 89; RESP 18; TEMP 36.7; O2SAT 97
--- NOTE | 2021-12-17 20:23 | ED.SKABFB ---
HPI - Skin/Abscess/Foreign Bdy General Chief complaint: Skin/Abscess/Foreign Body Stated complaint: abscess labia Time Seen by Provider: 12/17/21 20:19 Source: patient Mode of arrival: Ambulatory History of Present Illness HPI narrative: 41-year-old female smoker with history of depression and anxiety as well as recent visits for drainage of a mild left-sided buttock and perirectal abscess returns with a chief complaint of severe left buttock pain. She is not dizzy nor weak or lightheaded. She denies any chest pain or shortness of breath. She denies any fever or chills. She denies abdominal pain but has severe pain in her left buttock when sitting or palpating. She is been seen and evaluated and had extensive labs, incision drainage in CT scans. She is been taking antibiotics as directed. Related Data Home Medications Medication Instructions Recorded Confirmed venlafaxine 75 mg capsule,extended 75 mg PO DAILY 01/05/18 08/18/19 release 24 hr valacyclovir 500 mg tablet 1,000 mg PO DAILY 07/24/18 08/18/19 lamotrigine 150 mg tablet 150 mg PO BID 01/06/19 08/18/19 metoclopramide HCl 10 mg tablet 10 mg PO TID PRN Nausea 01/06/19 08/18/19 Previous Rx's Medication Instructions Recorded venlafaxine 37.5 mg 37.5 mg PO DAILY Depression and 12/30/17 capsule,extended release 24 hr anxiety #30 caps acetaminophen 325 mg tablet 650 mg PO Q6HR PRN As Needed For 01/18/18 Fever/Mild Pain #30 tabs albuterol sulfate 90 mcg/actuation 2 puff inhalation Q4-6H PRN 08/18/19 aerosol inhaler shortness of breath or wheezing #18 grams fluticasone propionate 220 1 puff inhalation BID #12 grams 10/15/19 mcg/actuation HFA aerosol inhaler (Flovent HFA) diazepam 5 mg tablet (Valium) 5 mg PO BID-QID PRN muscle spasm 05/16/20 #10 tabs hydrocodone 5 mg-acetaminophen 325 1 tab PO Q6H PRN pain #10 tabs 04/18/21 mg tablet hydrocodone 5 mg-acetaminophen 325 1 tab PO Q6H PRN pain #10 tabs 04/18/21 mg tablet oxycodone-acetaminophen 5 mg-325 1 - 2 tab PO Q6H PRN pain #16 tabs 05/26/21 mg tablet cephalexin 500 mg capsule 500 mg PO TID #21 caps 06/24/21 oxycodone-acetaminophen 5 mg-325 1 tab PO Q6H PRN pain #14 tabs 06/24/21 mg tablet lidocaine 5 % topical patch 1 patch topical DAILY #15 ea 07/01/21 (Lidoderm) hydrocodone 5 mg-acetaminophen 325 1 tab PO BID PRN pain #10 tabs 10/31/21 mg tablet mupirocin 2 % topical ointment 1 applic topical BID #15 grams 10/31/21 hydrocodone 5 mg-acetaminophen 325 1 tab PO Q6H PRN pain #5 tabs 11/29/21 mg tablet hydrocodone 5 mg-acetaminophen 325 1 tab PO Q6H PRN pain #8 tabs 12/04/21 mg tablet clindamycin HCl 300 mg capsule 300 mg PO QID #28 caps 12/06/21 (Cleocin HCl) fluconazole 150 mg tablet 150 mg PO Q3D 2 doses #2 tabs 12/06/21 (Diflucan) hydrocodone 5 mg-acetaminophen 325 1 tab PO Q6H PRN pain #10 tabs 12/06/21 mg tablet Allergies Allergy/AdvReac Type Severity Reaction Status Date / Time coconut [COCONUT] Allergy Severe STOPS Verified 11/29/21 10:21 BREATHS prochlorperazine Allergy Intermediate seizure Verified 11/29/21 10:21 NSAIDS (Non-Steroidal Allergy Mild rash, milner Verified 11/29/21 10:21 Anti-Inflamma [NSAIDS (NON-STEROIDAL ANTI-INFLAMMA] promethazine [From PHENERGAN] Allergy Unknown restless Verified 11/29/21 10:21 legs Review of Systems Review of Systems Narrative: GENERAL: Denies chills, fatigue, malaise, fever, sweats. HEENT: Denies sinus pain, ear pain, sore throat, difficulty swallowing, dizziness. RESPIRATORY: Denies dyspnea, cough, wheezing, hemoptysis, sputum. CARDIOVASCULAR: Denies chest pain, palpitations, orthopnea, edema, GASTROINTESTINAL: See HPI. : Denies dysuria, frequency, incontinence, hematuria, urinary retention. MUSCULOSKELETAL: denies weakness, joint pain, or bony pain SKIN: See HPI NEUROLOGIC: Denies weakness, headache, numbness, change in speech, confusion, seizures, incoordination. PSYCHIATRIC: No concerning psychosocial issues. 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 status Family History Father History of kidney cancer Mother Diabetes mellitus Hypertension Hyperlipidemia CAD (coronary artery disease) CVA (cerebral vascular accident) Social History marital status: household members: family lives independently: Yes occupational status: employed Smoking Status: Current every day smoker alcohol intake: never substance use type: marijuana Smoking Status: Current every day smoker tobacco type: cigarettes alcohol intake frequency: holidays/special occasions only Substance Use Type: marijuana Exam Narrative Exam Narrative: GENERAL: [41] year old patient appears stated age. Well-developed patient, in mild distress. HEAD: Atraumatic. Normocephalic. EYES: Pupils equal round and reactive. Extraocular motions intact. No scleral icterus. No injection or drainage. ENT: Nose without bleeding, purulent drainage. Throat without erythema, tonsillar hypertrophy or exudate. Airway patent. NECK: Trachea midline. Non tender CARDIOVASCULAR: Regular rate and rhythm without murmurs, gallops, or rubs. RESPIRATORY: Clear to auscultation. Breath sounds equal bilaterally. No wheezes, rales, or rhonchi. GASTROINTESTINAL: Abdomen soft, non-tender, nondistended. : Left medial buttock examined with patient permission and female nursing yoke setter at the bedside. There is a very small almost imperceptible indurated region a few cm lateral to her anus without obvious external manifestation such as erythema, warmth or fluctuance. There is certainly no significant finding and nothing worthy of drainage EXTREMITIES: No edema or joint tenderness. BACK: Nontender without deformity or crepitance. No flank tenderness. NEURO: AOx3. SKIN: No rash or erythema of visible areas Initial Vital Signs Initial Vital Signs: Vital Signs Temperature 98.0 F 12/17/21 17:57 Pulse Rate 89 12/17/21 17:57 Respiratory Rate 18 12/17/21 17:57 Blood Pressure 120/76 12/17/21 17:57 Pulse Oximetry 97 12/17/21 17:57 Oxygen Delivery Method 12/17/21 17:57 Course Orders Ordered: ED Orders 12/17/21 22:18 CT abdomen pelvis w con Stat 12/17/21 22:50 Blood Culture Stat COVID19 -Nasal RAPID/Pre-Proc Stat Complete Blood Count AUTO DIFF Stat Comprehensive Metabolic Panel Stat Lactate (Lactic Acid) Stat Discontinued Medications Hydrocodone Bitart/Acetaminophen (Hydrocodone/Acet 5/325 Prepack) 1 bottle MISC SEEINSTR ONE Stop: 12/18/21 00:38 Last Admin: 12/18/21 00:45 Dose: 1 bottle Documented By: RUMA Hydromorphone HCl (Hydromorphone 0.5 Mg Inj) 0.5 mg IV NOW ONE Stop: 12/17/21 22:19 Last Admin: 12/17/21 23:02 Dose: 0.5 mg Documented By: AASHISH Sodium Chloride (Normal Saline 0.9%) 1,000 mls @ 1,000 mls/hr IV BOLUS ONE Stop: 12/17/21 23:17 Last Infusion: 12/18/21 00:49 Dose: 0 mls/hr Documented By: Admin: 12/17/21 23:03 Dose: 1,000 mls/hr Documented By: AASHISH Ondansetron HCl (Ondansetron 4 Mg/2 Ml Inj) 4 mg IV NOW ONE Stop: 12/17/21 22:19 Last Admin: 12/17/21 23:02 Dose: 4 mg Documented By: AASHISH Vital Signs Vital signs: Vital Signs - 8 hr 12/17/21 21:16 12/17/21 21:16 12/18/21 00:32 Pulse Rate 70 Blood Pressure 113/64 Pulse Oximetry 97 96 Oxygen Delivery Method 12/18/21 00:33 12/18/21 00:33 Pulse Rate 78 Blood Pressure 106/58 L Pulse Oximetry 97 Oxygen Delivery Method Room Air MDM - Skin/Abscess/Foreign Bdy Lab Data Result diagrams: 12/17/21 22:50 12/17/21 22:50 Labs: Lab Results 12/17/21 12/17/21 12/17/21 Range/Units 22:50 22:50 22:50 WBC 10.4 (4.5-11.0) X10^3/uL RBC 4.40 (4.0-5.2) X10^6/uL Hgb 14.0 (12.0-16.0) g/dL Hct 41.2 (36-46) % MCV 93.6 (80-100) fL MCH 31.8 (26-34) PG MCHC 34.0 (30-36) % RDW 13.4 (11.6-14.8) % Plt Count 220 (150-400) X10^3/uL Neut % (Auto) 62.4 (50-75) % Lymph % (Auto) 30.7 (25-40) % Culberson % (Auto) 4.9 (3-14) % Eos % (Auto) 1.4 L (2-4) % Baso % (Auto) 0.6 (0-2) % Neut # (Auto) 6500 (0997-5342) /uL Lymph # (Auto) 3200 (1137-5219) /uL Culberson # (Auto) 500 (0-900) /uL Eos # (Auto) 100 (0-450) /uL Baso # (Auto) 100 (0-100) /uL Sodium 139 (137-145) mmol/L Potassium 3.8 (3.4-5.1) mmol/L Chloride 107 (98-107) mmol/L Carbon Dioxide 25 (22-32) mmol/L BUN 11 (7-17) mg/dL Creatinine 0.74 (0.52-1.04) mg/dL Estimated GFR > 60 (>60) mL/min BUN/Creatinine Ratio 14.9 (6-22) Glucose 80 (70-100) mg/dL Lactate 1.2 (0.7-2.1) mmol/L Calcium 9.0 (8.4-10.2) mg/dL Total Bilirubin 0.4 (0.2-1.3) mg/dL AST 24 (14-36) IU/L ALT 20 (<35) IU/L Alkaline Phosphatase 68 (38-126) U/L Total Protein 7.1 (6.3-8.2) g/dL Albumin 4.5 (3.5-5.0) g/dL Globulin 2.6 (1.7-4.1) g/dL Albumin/Globulin Ratio 1.7 (1.0-2.8) SARS-CoV-2 (PCR) (Negative) 12/17/21 Range/Units 22:50 WBC (4.5-11.0) X10^3/uL RBC (4.0-5.2) X10^6/uL Hgb (12.0-16.0) g/dL Hct (36-46) % MCV (80-100) fL MCH (26-34) PG MCHC (30-36) % RDW (11.6-14.8) % Plt Count (150-400) X10^3/uL Neut % (Auto) (50-75) % Lymph % (Auto) (25-40) % Culberson % (Auto) (3-14) % Eos % (Auto) (2-4) % Baso % (Auto) (0-2) % Neut # (Auto) (1854-9910) /uL Lymph # (Auto) (8723-8896) /uL Culberson # (Auto) (0-900) /uL Eos # (Auto) (0-450) /uL Baso # (Auto) (0-100) /uL Sodium (137-145) mmol/L Potassium (3.4-5.1) mmol/L Chloride (98-107) mmol/L Carbon Dioxide (22-32) mmol/L BUN (7-17) mg/dL Creatinine (0.52-1.04) mg/dL Estimated GFR (>60) mL/min BUN/Creatinine Ratio (6-22) Glucose (70-100) mg/dL Lactate (0.7-2.1) mmol/L Calcium (8.4-10.2) mg/dL Total Bilirubin (0.2-1.3) mg/dL AST (14-36) IU/L ALT (<35) IU/L Alkaline Phosphatase (38-126) U/L Total Protein (6.3-8.2) g/dL Albumin (3.5-5.0) g/dL Globulin (1.7-4.1) g/dL Albumin/Globulin Ratio (1.0-2.8) SARS-CoV-2 (PCR) Negative (Negative) Imaging Data CT scan - abdomen/pelvis: Radiologist's Impression: Jing Lindo??41??F??1980 ? Allergy/Adv: coconut, prochlorperazine, NSAIDS (Non-Steroidal Anti-Inflamma, promethazine (More??) Close Abdomen/Pelvis CT (Signed) Obi Kent - 12/17/21 Abdomen/Pelvis CT (Signed) Denys Turcios - 12/06/21 Abdomen/Pelvis CT (Signed) Annalise Martin - 11/29/[address] (Signed) Lester Preston - 08/23/21 Hand X-Ray (Signed) Bismark Alicea - 06/12/21 Chest CTA (Signed) Ebony Crooks - 04/17/21 Chest X-Ray (Signed) Ebony Crooks - 04/17/21 EKG Rpt. 04/17/21 Abdomen/Pelvis CT (Signed) John Carmona - 12/14/20 Abdomen X-Ray (Signed) Ibrahima Short - 02/17/20 Skull X-Ray (Signed) Marc Finley - 10/29/19 Skull X-Ray (Signed) Marcus Dumont - 10/29/19 Chest X-Ray (Signed) Marcus Dumont - 10/29/19 Cervical Spine X-Ray (Signed) Marcus Dumont - 10/29/19 Abdomen X-Ray (Signed) Cecilio Hernandez - 10/29/19 Chest X-Ray (Signed) Koko Delgado - 05/24/19 Finger X-Ray (Signed) Cecilio Hernandez - 05/14/19 Abdomen/Pelvis CT (Signed) Bism[place] Alicea - 04/28/[address] (Signed) Mary Bates - 01/06/19 Abdomen/Pelvis CT (Signed) Ibrahima Short - 08/22/18 Chest X-Ray (Signed) Salma Myers - 07/24/[address] (Signed) Gasper Marcelino - 05/24/[address] (Signed) Gasper Marcelino - 05/24/18 Abdomen X-Ray (Signed) Koko Delgado - 03/29/18 Abdomen/Pelvis CT (Signed) Gasper Marcelino - 01/22/18 Outside DI 01/07/18 Outside DI 01/07/18 Abdomen/Pelvis CT (Signed) Ebony Crooks - 01/05/18 Launch?Image [address] [address] [address] Scan Report Signed Patient: Jing Lindo MR#: [id number] : 1980 Acct:[id number] Age/Sex: 41 / F Date of Service: 12/17/21 Loc: ED Accession Number: [id number] ?? Procedure: CT abdomen pelvis w con Ordering Provider: Leo Arce D.O. PROCEDURE:? CT ABDOMEN PELVIS W CON ? INDICATIONS:? worsening rectal pain, fever, chills, can't have BM ? TECHNIQUE:? After the administration of intravenous contrast, axial sections acquired from the lung bases to the pubic symphysis.? Coronal and sagittal reformats were performed.? For radiation dose reduction, the following was used:? automated exposure control, adjustment of mA and/or kV according to patient size.? ? COMPARISON:? [facility], CT, CT KIDNEY URETER BLADDER (KUB), 11/29/2021, 13:29.? [facility], CT, CT ABDOMEN PELVIS W CON, 12/06/2021, 20:52. ? FINDINGS:? No organized fluid collection.? No pelvic or inguinal lymphadenopathy.? Fluid in the abdomen or pelvis.? Scattered sigmoid diverticula without findings of diverticulitis.? No dilated or thickened loop of bowel.? No pericolonic or mesenteric inflammatory changes.? Cholecystectomy.? Normal CT appearance of liver, spleen, pancreas adrenal glands, kidneys.? Included portions of lung bases are clear.? No acute or suspicious osseous lesion.? Nerve stimulator noted. ? ? IMPRESSION: ? No acute finding identified. ? Trans sacral electrode which traverses the right S3-S4 neural foramen adjacent to the right S3 nerve roots.? Correlate with the patient's pain distribution. ? ? ? Dictated by: Obi Kent M.D. on 12/17/2021 at 23:22 ? ? Approved by: Obi Kent M.D. on 12/17/2021 at 23:30? MDM Narrative Medical decision making narrative: Patient has a very reassuring physical exam, labs and set of images. Though she is recently been seen and evaluated for that and drainage of abscess there is no indication of the need for recurrent procedure. No fluid collection on imaging, very minimal if any palpable lesion on exam. Return precautions given and questions answered to her apparent satisfaction Discharge Plan Departure Patient Disposition: Home Clinical Impression: Acute buttock pain Activity Restrictions/Additional Instructions: *You have been diagnosed with [ Acute on Chronic Left buttock pain. Thankfully your exam, labs, and CT scan today are very reassuring and there is no evidence of abscess to drain or other significant abnormality which would require specific or immediate intervention] *What to do: *Please continue to take your regular medications as directed. *Please follow up with your primary care provider in 2-3 days, call for an appointment. Let them know you were seen in the Emergency Department and that we ask that you be seen in follow up. We will electronically transmit a record of today's note if your PCP is in our system *If you do not have a primary care provider please contact the [facility] Resource line at [phone]. They will ask some questions about your medical history and help get you set up with a doctor in the community. As we discussed, please consider getting a hemorrhoid pillow at the drug store which you can sit on and will allow you to take pressure off of the painful area of your buttock *Return to Emergency Department if you should have any new, worsening or concerning symptoms, such as [fever greater than 101 F, shaking chills, worsening pain, persistent vomiting or other bothersome symptoms] Prescriptions: No Action albuterol sulfate 90 mcg/actuation HFA aerosol inhaler 2 puff INHALATION Q4-6H PRN (Reason: shortness of breath or wheezing) Qty: 18 0RF venlafaxine 37.5 mg capsule,extended release 24hr 37.5 mg PO DAILY MDD 112.5 mg Qty: 30 2RF Rx Instructions: Take in combination with 75 mg tab (112.5 mg daily) Flovent HFA 220 mcg/actuation HFA aerosol inhaler 1 puff INHALATION BID Qty: 12 0RF Rx Instructions: MUST ESTABLISH WITH NEW PRIMARY CARE PHYSICIAN PRIOR TO FURTHER REFILLS. lamotrigine 150 mg tablet 150 mg PO BID metoclopramide HCl 10 mg tablet 10 mg PO TID PRN (Reason: Nausea) Label Comments: take 1 tablet by mouth three times a day if needed diazepam [Valium] 5 mg tablet 5 mg PO BID-QID PRN (Reason: muscle spasm) Qty: 10 0RF hydrocodone-acetaminophen 5-325 mg tablet 1 tab PO Q6H PRN (Reason: pain) Qty: 10 0RF hydrocodone-acetaminophen 5-325 mg tablet 1 tab PO Q6H PRN (Reason: pain) Qty: 10 0RF hydrocodone-acetaminophen 5-325 mg tablet 1 tab PO BID PRN (Reason: pain) Qty: 10 0RF mupirocin 2 % ointment 1 applic topical BID Qty: 15 0RF hydrocodone-acetaminophen 5-325 mg tablet 1 tab PO Q6H PRN (Reason: pain) Qty: 8 0RF venlafaxine 75 mg capsule,extended release 24hr 75 mg PO DAILY Label Comments: TAKE 1 CAPSULE BY MOUTH EVERY DAY IN COMBINATION WITH 37.5MG CAPSULE FOR DEPRESSION AND ANXIETY acetaminophen 325 mg Tablet 650 mg PO Q6HR PRN (Reason: As Needed For Fever/Mild Pain) Qty: 30 0RF valacyclovir 500 mg tablet 1,000 mg PO DAILY oxycodone-acetaminophen 5-325 mg tablet 1 - 2 tab PO Q6H PRN (Reason: pain) Qty: 16 0RF oxycodone-acetaminophen 5-325 mg tablet 1 tab PO Q6H PRN (Reason: pain) Qty: 14 0RF cephalexin 500 mg capsule 500 mg PO TID Qty: 21 0RF lidocaine [Lidoderm] 5 % adhesive patch,medicated 1 patch topical DAILY Qty: 15 1RF Rx Instructions: leave on most painful area for up to 12 hrs hydrocodone-acetaminophen 5-325 mg tablet 1 tab PO Q6H PRN (Reason: pain) Qty: 5 0RF clindamycin HCl [Cleocin HCl] 300 mg capsule 300 mg PO QID Qty: 28 0RF hydrocodone-acetaminophen 5-325 mg tablet 1 tab PO Q6H PRN (Reason: pain) Qty: 10 0RF fluconazole [Diflucan] 150 mg tablet 150 mg PO Q3D Qty: 2 0RF Rx Instructions: may repeat second dose 72 hrs after first dose if symptoms persist Referrals: aCrlos Mercado MD [Primary Care Provider] - Visit Report Forms: Patient Portal/API
[2021-12-17 21:16] VITALS: BP 113/64; PULSE 70; O2SAT 97
--- NOTE | 2021-12-17 22:18 | DI.CT.S_ITS ---
PROCEDURE: CT ABDOMEN PELVIS W CON INDICATIONS: worsening rectal pain, fever, chills, can't have BM TECHNIQUE: After the administration of intravenous contrast, axial sections acquired from the lung bases to the pubic symphysis. Coronal and sagittal reformats were performed. For radiation dose reduction, the following was used: automated exposure control, adjustment of mA and/or kV according to patient size. COMPARISON: [facility], CT, CT KIDNEY URETER BLADDER (KUB), 11/29/2021, 13:29. [facility], CT, CT ABDOMEN PELVIS W CON, 12/06/2021, 20:52. FINDINGS: No organized fluid collection. No pelvic or inguinal lymphadenopathy. Fluid in the abdomen or pelvis. Scattered sigmoid diverticula without findings of diverticulitis. No dilated or thickened loop of bowel. No pericolonic or mesenteric inflammatory changes. Cholecystectomy. Normal CT appearance of liver, spleen, pancreas adrenal glands, kidneys. Included portions of lung bases are clear. No acute or suspicious osseous lesion. Nerve stimulator noted. IMPRESSION: No acute finding identified. Trans sacral electrode which traverses the right S3-S4 neural foramen adjacent to the right S3 nerve roots. Correlate with the patient's pain distribution. Dictated by: Obi Kent M.D. on 12/17/2021 at 23:22 Approved by: Obi Kent M.D. on 12/17/2021 at 23:30
[2021-12-17] MEDS: ONDANSETRON 4 MG/2 ML INJ IV (23:02)
[2021-12-17] MEDS: HYDROMORPHONE 0.5 MG INJ IV (23:02)
[2021-12-17] MEDS: SODIUM CHLORIDE 0.9% 1,000 ML 1000 ML IV (23:03)
[2021-12-17 23:11] LABS: Add Manual Diff / Slide Review NO; Basophils Absolute Auto 100 /uL (0-100); Basophils Percent Auto 0.6 % (0-2); Eosinophils Absolute Auto 100 /uL (0-450); Eosinophils Percent Auto 1.4 % (2-4); Hematocrit 41.2 % (36-46); Lymphocytes Absolute Auto 3200 /uL (1100-4500); Lymphocytes Percent Auto 30.7 % (25-40); Mean Corpuscular Hemoglobin 31.8 PG (26-34); Mean Corpuscular Volume 93.6 fL (80-100); Monocytes Absolute Auto 500 /uL (0-900); Monocytes Percent Auto 4.9 % (3-14); Neutrophils Absolute Auto 6500 /uL (1500-7000); Neutrophils Percent Auto 62.4 % (50-75); Platelet Count 220 X10^3/uL (150-400); Red Cell Distribution Width 13.4 % (11.6-14.8); White Blood Cell Count 10.4 X10^3/uL (4.5-11.0)
[2021-12-17 23:22] LABS: Alanine Aminotransferase 20 IU/L (<35); Albumin 4.5 g/dL (3.5-5.0); Albumin Globulin Ratio 1.7 (1.0-2.8); Alkaline Phosphatase 68 U/L (38-126); Aspartate Aminotransferase 24 IU/L (14-36); BUN Creatinine Ratio 14.9 (6-22); Bilirubin Total 0.4 mg/dL (0.2-1.3); Blood Urea Nitrogen 11 mg/dL (7-17); Carbon Dioxide 25 mmol/L (22-32); Chloride 107 mmol/L (98-107); Estimated Glomerular Filt Rate > 60 mL/min (>60); Globulin 2.6 g/dL (1.7-4.1); Glucose 80 mg/dL (70-100); HEMOLYSIS 18 (0-50); Lactate (Lactic Acid) 1.2 mmol/L (0.7-2.1); Potassium 3.8 mmol/L (3.4-5.1); Sodium 139 mmol/L (137-145); Total Protein 7.1 g/dL (6.3-8.2)
[2021-12-17 23:25] LABS: COVID19 -Nasal RAPID Negative (Negative)
[2021-12-18 00:32] VITALS: O2SAT 96
[2021-12-18 00:33] VITALS: BP 106/58; PULSE 78; O2SAT 97
[2021-12-18] MEDS: HYDROCODONE/ACET 5/325 PREPACK 1 BOTTLE MISC (00:45)
--- NOTE | 2021-12-18 14:49 | PC.NURSE ---
Attempted to call pt as she had called for a work note. No answer and voicemail has not been set up to leave message. From what I can see, it looks like a work note was part of her d/c packet
== END 2021-12-18 00:51 | disposition home or self-care (01) ==
PROVIDERS: Emergency Provider Emergency Medicine; PCP Family Medicine
DX: M54.89 Other dorsalgia (principal); N76.4 Abscess of vulva; K62.89 Other specified diseases of anus and rectum; Z20.822 Contact with and (suspected) exposure to COVID-19
CPT/HCPCS: 36415; 74177; 80053; 83605; 85025; 87040; 87635; 96361; 96374; 96375; 99284; C9803; J1170; J2405; Q9967

== ENCOUNTER 2022-02-02 18:04 | Emergency (ER) | payer OTHER, MEDICAID, SELFPAY ==
[2018-01-17 01:41] VITALS: BMI 32.3
[2022-02-02 18:16] VITALS: BP 120/81; PULSE 76; RESP 18; TEMP 36.1; O2SAT 100
[2022-02-02] MEDS: ACETAMINOPHEN 325 MG TABLET 975 MG PO (18:22)
== END 2022-02-02 19:38 | disposition left against medical advice (07) ==
PROVIDERS: Emergency Provider Emergency Medicine; PCP Family Medicine
CPT/HCPCS: 99283

== ENCOUNTER 2022-02-22 19:41 | Emergency (ER) | payer OTHER, MEDICAID, SELFPAY ==
[2018-01-17 01:41] VITALS: BMI 32.3
[2022-02-22] VITALS (7 sets, daily range): BP systolic 122–132; BP diastolic 60–88; PULSE 64–86; RESP 16–18; TEMP 36.6; O2SAT 96–100; BMI 29.8
--- NOTE | 2022-02-22 20:12 | DI.RAD.S_ITS ---
PROCEDURE: XR CHEST 1V INDICATIONS: altered mental status TECHNIQUE: One view of the chest was acquired. COMPARISON: [facility], CT, CT HEAD/BRAIN WO CON, 02/22/2022, 20:25. [facility], CR, XR CHEST 1V, 04/17/2021, 19:36. FINDINGS: Surgical changes and devices: There is a MOWING 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 shunt catheter projecting over the right chest and neck redemonstrated. Lungs and pleura: Lungs are clear. No pleural effusions or pneumothorax. Mediastinum: Mediastinal contours appear normal. Heart size is normal. Bones and chest wall: No suspicious bony lesions. Overlying soft tissues appear unremarkable. IMPRESSION: 1. No acute cardiopulmonary disease. Dictated by: Denys Turcios M.D. on 02/22/2022 at 20:49 Approved by: Denys Trucios M.D. on 02/22/2022 at 20:51
--- NOTE | 2022-02-22 20:12 | DI.CT.S_ITS ---
PROCEDURE: CT HEAD/BRAIN WO CON INDICATIONS: hx intercranial HTN. SX of flare up TECHNIQUE: Noncontrast 4.5 mm thick angled axial sections acquired from the foramen magnum to the vertex, with coronal and sagittal reformats. For radiation dose reduction, the following was used: automated exposure control, adjustment of mA and/or kV according to patient size. COMPARISON: [facility], CT, CT HEAD WITHOUT CONTRAST, 06/27/2020, 17:34. [facility], CT, CT HEAD/BRAIN WO CON, 08/23/2021, 17:55. FINDINGS: Image quality: Excellent. CSF spaces: Bilateral frontal 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 shunt catheters are redemonstrated with the tips in the region of the frontal horns of the lateral ventricles. Persistent slit-like leg ventricles are redemonstrated, similar in appearance to the prior studies. Basal cisterns are patent. No extra-axial fluid collections. Brain: No intracranial hemorrhage, mass, or mass effect. Cage-white matter interface appears preserved. Skull and face: Calvarium and visualized facial bones demonstrate no acute fractures. There are bilateral frontal cortney holes associated with the SENIOR HR MANAGER shunt catheter is redemonstrated. The catheters appear similar in course and contour compared to the prior study without new focal discontinuity. Sinuses: Visualized sinuses and mastoids are clear. IMPRESSION: 1. No acute intracranial hemorrhage or mass effect. 2. Persistent slit-like ventricles redemonstrated, similar in appearance to the prior studies. SENIOR HR MANAGER shunt catheters appear unchanged in position. Dictated by: Denys Turcios M.D. on 02/22/2022 at 20:36 Approved by: Denys Turcios M.D. on 02/22/2022 at 20:40
[2022-02-22 20:42] LABS: Add Manual Diff / Slide Review NO; Basophils Absolute Auto 0 /uL (0-100); Basophils Percent Auto 0.5 % (0-2); Eosinophils Absolute Auto 100 /uL (0-450); Eosinophils Percent Auto 1.2 % (2-4); Hematocrit 44.2 % (36-46); Lymphocytes Absolute Auto 2600 /uL (1100-4500); Lymphocytes Percent Auto 31.2 % (25-40); Mean Corpuscular HGB Conc 33.8 % (30-36); Mean Corpuscular Volume 94.7 fL (80-100); Monocytes Absolute Auto 400 /uL (0-900); Monocytes Percent Auto 5.2 % (3-14); Neutrophils Absolute Auto 5100 /uL (1500-7000); Neutrophils Percent Auto 61.9 % (50-75); Platelet Count 205 X10^3/uL (150-400); Red Blood Cell Count 4.67 X10^6/uL (4.0-5.2); Red Cell Distribution Width 13.6 % (11.6-14.8); White Blood Cell Count 8.3 X10^3/uL (4.5-11.0)
[2022-02-22 20:51] LABS: Alanine Aminotransferase 23 IU/L (<35); Albumin 4.7 g/dL (3.5-5.0); Albumin Globulin Ratio 1.6 (1.0-2.8); Alkaline Phosphatase 76 U/L (38-126); Aspartate Aminotransferase 28 IU/L (14-36); BUN Creatinine Ratio 16.5 (6-22); Bilirubin Total 0.4 mg/dL (0.2-1.3); Blood Urea Nitrogen 13 mg/dL (7-17); Calcium 9.2 mg/dL (8.4-10.2); Carbon Dioxide 25 mmol/L (22-32); Chloride 105 mmol/L (98-107); Estimated Glomerular Filt Rate > 60 mL/min (>60); Glucose 88 mg/dL (70-100); HEMOLYSIS 29 (0-50); Potassium 3.9 mmol/L (3.4-5.1); Sodium 139 mmol/L (137-145); Total Protein 7.7 g/dL (6.3-8.2)
[2022-02-22 20:52] LABS: COVID19 -Nasal RAPID Negative (Negative)
[2022-02-22 21:17] LABS: Ammonia (NH3) < 9 umol/L (9-30)
--- NOTE | 2022-02-22 21:24 | ED_ITS ---
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 She is here for evaluation of a headache that started earlier today. Also describing vision changes in balance issues. She has had headaches in the past. She comes emergency department for concerns her history of benign intracranial hypertension the headache and concern for increased pressure. Related Data Home Medications Medication Instructions Recorded Confirmed venlafaxine 75 mg capsule,extended 75 mg PO DAILY 01/05/18 08/18/19 release 24 hr valacyclovir 500 mg tablet 1,000 mg PO DAILY 07/24/18 08/18/19 lamotrigine 150 mg tablet 150 mg PO BID 01/06/19 08/18/19 metoclopramide HCl 10 mg tablet 10 mg PO TID PRN Nausea 01/06/19 08/18/19 Previous Rx's Medication Instructions Recorded venlafaxine 37.5 mg 37.5 mg PO DAILY Depression and 12/30/17 capsule,extended release 24 hr anxiety #30 caps acetaminophen 325 mg tablet 650 mg PO Q6HR PRN As Needed For 01/18/18 Fever/Mild Pain #30 tabs albuterol sulfate 90 mcg/actuation 2 puff inhalation Q4-6H PRN 08/18/19 aerosol inhaler shortness of breath or wheezing #18 grams fluticasone propionate 220 1 puff inhalation BID #12 grams 10/15/19 mcg/actuation HFA aerosol inhaler (Flovent HFA) diazepam 5 mg tablet (Valium) 5 mg PO BID-QID PRN muscle spasm 05/16/20 #10 tabs hydrocodone 5 mg-acetaminophen 325 1 tab PO Q6H PRN pain #10 tabs 04/18/21 mg tablet hydrocodone 5 mg-acetaminophen 325 1 tab PO Q6H PRN pain #10 tabs 04/18/21 mg tablet oxycodone-acetaminophen 5 mg-325 1 - 2 tab PO Q6H PRN pain #16 tabs 05/26/21 mg tablet cephalexin 500 mg capsule 500 mg PO TID #21 caps 06/24/21 oxycodone-acetaminophen 5 mg-325 1 tab PO Q6H PRN pain #14 tabs 06/24/21 mg tablet lidocaine 5 % topical patch 1 patch topical DAILY #15 ea 07/01/21 (Lidoderm) hydrocodone 5 mg-acetaminophen 325 1 tab PO BID PRN pain #10 tabs 10/31/21 mg tablet mupirocin 2 % topical ointment 1 applic topical BID #15 grams 10/31/21 hydrocodone 5 mg-acetaminophen 325 1 tab PO Q6H PRN pain #5 tabs 11/29/21 mg tablet hydrocodone 5 mg-acetaminophen 325 1 tab PO Q6H PRN pain #8 tabs 12/04/21 mg tablet clindamycin HCl 300 mg capsule 300 mg PO QID #28 caps 12/06/21 (Cleocin HCl) fluconazole 150 mg tablet 150 mg PO Q3D 2 doses #2 tabs 12/06/21 (Diflucan) hydrocodone 5 mg-acetaminophen 325 1 tab PO Q6H PRN pain #10 tabs 12/06/21 mg tablet Allergies Allergy/AdvReac Type Severity Reaction Status Date / Time coconut [COCONUT] Allergy Severe STOPS Verified 02/22/22 20:01 BREATHS prochlorperazine Allergy Intermediate seizure Verified 02/22/22 20:01 NSAIDS (Non-Steroidal Allergy Mild rash, milner Verified 02/22/22 20:01 Anti-Inflamma [NSAIDS (NON-STEROIDAL ANTI-INFLAMMA] promethazine [From PHENERGAN] Allergy Unknown restless Verified 02/22/22 20:01 legs Review of Systems Review of Systems ROS Unobtainable: All systems reviewed & are unremarkable except as noted in HPI and below Patient History Medical History Anxiety Cervical cancer Depression Femoral acetabular impingement Genital herpes Gout Kidney stones (12/2016) Ovarian cancer Pseudotumor cerebri Pulmonary embolism (2010) Pulmonary embolism (2009) Uterine cancer Surgical History History of bladder surgery History of carpal tunnel repair Status post appendectomy Status post breast reduction Status post cholecystectomy Status post hernia repair (2014) Status post hysterectomy with oophorectomy (2003) Status post laparoscopy CONVERSION MAN (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) shunt status Family History Father History of kidney cancer Mother Diabetes mellitus Hypertension Hyperlipidemia CAD (coronary artery disease) CVA (cerebral vascular accident) Social History marital status: household members: family lives independently: Yes occupational status: employed Smoking Status: Current every day smoker alcohol intake: never substance use type: marijuana Smoking Status: Current every day smoker tobacco type: cigarettes alcohol intake frequency: 0-2 drinks per day Substance Use Type: marijuana Exam Initial Vital Signs Initial Vital Signs: Vital Signs Temperature 98 F 02/22/22 19:56 Pulse Rate 86 02/22/22 19:56 Respiratory Rate 18 02/22/22 19:56 Blood Pressure 131/88 02/22/22 19:56 Pulse Oximetry 97 02/22/22 19:56 Oxygen Delivery Method 02/22/22 19:56 Const General: cooperative and healthy appearing HENMT Head: normal to inspection and normocephalic Face and sinus: normal facial exam Eyes Periorbital: periorbital findings normal Pupils: PERRL EOM: EOM intact bilaterally Other: Bedside ultrasound shows no papilledema bilaterally Resp Effort & Inspection: normal respiratory effort Cardio Rate: regular rate GI Inspection: normal to inspection Skin General: no rashes or lesions noted Neuro General: patient alert, patient awake and moves all extremities Cranial Nerves: CN's II-XI intact bilaterally Cognition: normal cognition Speech: speech normal Motor: muscle tone normal throughout Extrem General: normal to inspection and capillary refill normal Psych Appearance: grossly normal and well kempt Course Orders Ordered: ED Orders 02/22/22 20:00 Complete Blood Count AUTO DIFF Stat Comprehensive Metabolic Panel Stat 02/22/22 20:05 COVID19 -Nasal RAPID/Pre-Proc Stat 02/22/22 20:12 CT head/brain wo con Stat XR chest 1V Stat 02/22/22 20:49 EKG-12 Lead Stat 02/22/22 21:03 Ammonia (NH3) Stat 02/22/22 21:38 XR abdomen 1V Stat Discontinued Medications Hydromorphone HCl (Hydromorphone 1 Mg Inj) 1 mg IV NOW ONE Stop: 02/22/22 21:36 Last Admin: 02/22/22 22:22 Dose: 1 mg Documented By: SARAVANAN Hydromorphone HCl (Hydromorphone 0.5 Mg Inj) 0.5 mg IV NOW ONE Stop: 02/22/22 23:44 Last Admin: 02/23/22 00:00 Dose: 0.5 mg Documented By: SARAVANAN Metoclopramide HCl (Metoclopramide 10 Mg/2 Ml Inj) 10 mg IV NOW ONE Stop: 02/22/22 22:24 Last Admin: 02/22/22 22:27 Dose: 10 mg Documented By: SARAVANAN Vital Signs Vital signs: Vital Signs - 8 hr 02/22/22 21:00 02/22/22 22:00 02/22/22 23:00 Pulse Rate 77 65 64 Respiratory Rate 16 17 17 Blood Pressure 128/76 132/76 123/69 Pulse Oximetry 99 100 99 Oxygen Delivery Method Room Air Room Air Room Air 02/22/22 23:09 02/22/22 23:30 02/23/22 00:00 Pulse Rate 67 84 92 H Respiratory Rate Blood Pressure 122/76 127/86 Pulse Oximetry 96 96 98 Oxygen Delivery Method 02/23/22 00:30 Pulse Rate 72 Respiratory Rate Blood Pressure Pulse Oximetry 95 Oxygen Delivery Method Medical Decision Making Lab Data Lab results reviewed: Yes I reviewed the patient's lab results. Result diagrams: 02/22/22 20:00 02/22/22 20:00 Labs: Lab Results 02/22/22 02/22/22 02/22/22 Range/Units 20:00 20:00 20:05 WBC 8.3 (4.5-11.0) X10^3/uL RBC 4.67 (4.0-5.2) X10^6/uL Hgb 15.0 (12.0-16.0) g/dL Hct 44.2 (36-46) % MCV 94.7 (80-100) fL MCH 32.0 (26-34) PG MCHC 33.8 (30-36) % RDW 13.6 (11.6-14.8) % Plt Count 205 (150-400) X10^3/uL Neut % (Auto) 61.9 (50-75) % Lymph % (Auto) 31.2 (25-40) % [place] % (Auto) 5.2 (3-14) % Eos % (Auto) 1.2 L (2-4) % Baso % (Auto) 0.5 (0-2) % Neut # (Auto) 5100 (9002-9085) /uL Lymph # (Auto) 2600 (4435-1711) /uL [place] # (Auto) 400 (0-900) /uL Eos # (Auto) 100 (0-450) /uL Baso # (Auto) 0 (0-100) /uL Sodium 139 (137-145) mmol/L Potassium 3.9 (3.4-5.1) mmol/L Chloride 105 (98-107) mmol/L Carbon Dioxide 25 (22-32) mmol/L BUN 13 (7-17) mg/dL Creatinine 0.79 (0.52-1.04) mg/dL Estimated GFR > 60 (>60) mL/min BUN/Creatinine Ratio 16.5 (6-22) Glucose 88 (70-100) mg/dL Calcium 9.2 (8.4-10.2) mg/dL Total Bilirubin 0.4 (0.2-1.3) mg/dL AST 28 (14-36) IU/L ALT 23 (<35) IU/L Alkaline Phosphatase 76 (38-126) U/L Ammonia (9-30) umol/L Total Protein 7.7 (6.3-8.2) g/dL Albumin 4.7 (3.5-5.0) g/dL Globulin 3.0 (1.7-4.1) g/dL Albumin/Globulin Ratio 1.6 (1.0-2.8) SARS-CoV-2 (PCR) Negative (Negative) 02/22/22 Range/Units 21:03 WBC (4.5-11.0) X10^3/uL RBC (4.0-5.2) X10^6/uL Hgb (12.0-16.0) g/dL Hct (36-46) % MCV (80-100) fL MCH (26-34) PG MCHC (30-36) % RDW (11.6-14.8) % Plt Count (150-400) X10^3/uL Neut % (Auto) (50-75) % Lymph % (Auto) (25-40) % [place] % (Auto) (3-14) % Eos % (Auto) (2-4) % Baso % (Auto) (0-2) % Neut # (Auto) (6890-9577) /uL Lymph # (Auto) (2349-1648) /uL [place] # (Auto) (0-900) /uL Eos # (Auto) (0-450) /uL Baso # (Auto) (0-100) /uL Sodium (137-145) mmol/L Potassium (3.4-5.1) mmol/L Chloride (98-107) mmol/L Carbon Dioxide (22-32) mmol/L BUN (7-17) mg/dL Creatinine (0.52-1.04) mg/dL Estimated GFR (>60) mL/min BUN/Creatinine Ratio (6-22) Glucose (70-100) mg/dL Calcium (8.4-10.2) mg/dL Total Bilirubin (0.2-1.3) mg/dL AST (14-36) IU/L ALT (<35) IU/L Alkaline Phosphatase (38-126) U/L Ammonia < 9 L (9-30) umol/L Total Protein (6.3-8.2) g/dL Albumin (3.5-5.0) g/dL Globulin (1.7-4.1) g/dL Albumin/Globulin Ratio (1.0-2.8) SARS-CoV-2 (PCR) (Negative) Imaging Data Chest x-ray: Radiologist's Impression: [address] [address] XRay Report Signed Patient: Jing Lindo MR#: [id number] : 1980 Acct:[id number] Age/Sex: 41 / F Date of Service: 02/22/22 Loc: ED Accession Number: [id number] ?? Procedure: XR chest 1V Ordering Provider: Guzman Valadez D.O. PROCEDURE:? XR CHEST 1V ? INDICATIONS:? altered mental status ? TECHNIQUE:? One view of the chest was acquired.? ? COMPARISON:? [facility], CT, CT HEAD/BRAIN WO CON, 02/22/2022, 20:25.? [facility], CR, XR CHEST 1V, 04/17/2021, 19:36. ? FINDINGS:? ? Surgical changes and devices:? There is a CONVERSION MAN shunt catheter projecting over the right chest and neck redemonstrated.? ? Lungs and pleura:? Lungs are clear.? No pleural effusions or pneumothorax.? ? Mediastinum:? Mediastinal contours appear normal.? Heart size is normal.? ? Bones and chest wall:? No suspicious bony lesions.? Overlying soft tissues appear unremarkable.? ? IMPRESSION:? ? 1.? No acute cardiopulmonary disease. ? ? ? Dictated by: Denys Turcios M.D. on 02/22/2022 at 20:49 ? ? Approved by: Denys Turcios M.D. on 02/22/2022 at 20:51?? Abdominal x-ray: Radiologist's Impression: [address] [address] XRay Report Signed Patient: Jing Lindo MR#: [id number] : 1980 Acct:[id number] Age/Sex: 41 / F Date of Service: 02/22/22 Loc: ED Accession Number: [id number] ?? Procedure: XR abdomen 1V Ordering Provider: Guzman Valadez D.O. PROCEDURE:? XR ABDOMEN 1V ? INDICATIONS:? Continuity of shunt ? TECHNIQUE:? One view of the abdomen acquired.? ? COMPARISON:? [facility], CT, CT ANGIO CHEST PE PROTOCOL, 04/17/2021, 20:52.? [facility], CR, XR CHEST 1V, 04/17/2021, 19:36.? [facility], CR, XR CHEST 1V, 02/22/2022, 20:14.? [facility], CT, CT ABDOMEN PELVIS W CON, 12/17/2021, 22:23.? [facility], CR, XR ABDOMEN 1V, 02/17/2020, 18:31. ? FINDINGS:? ? Surgical changes and devices:? There is a partially visualized CONVERSION MAN shunt catheter redemonstrated with the tip projecting over the right atrium.? Findings are similar to the prior studies.? A neurostimulator device projects over the right lower quadrant with the tip projecting over the right hemipelvis. ? Bowel:? Bowel gas pattern is normal.? ? Soft tissues:? No suspicious abdominal calcifications.? ? Bones:? No suspicious bony lesions.? ? IMPRESSION:? ? 1. CONVERSION MAN shunt catheter tip redemonstrated in the region of the right atrium.? Findings are similar to the prior studies.? ? ? Dictated by: Denys Turcios M.D. on 02/22/2022 at 23:04 ? ? Approved by: Denys Turcios M.D. on 02/22/2022 at 23:09? CT scan - head: Radiologist's Impression: [address] [address] [address] Scan Report Signed Patient: Jing Lindo MR#: [id number] : 1980 Acct:[id number] Age/Sex: 41 / F Date of Service: 02/22/22 Loc: ED Accession Number: [id number] ?? Procedure: CT head/brain wo con Ordering Provider: Guzman Valadez D.O. PROCEDURE:? CT HEAD/BRAIN WO CON ? INDICATIONS:? hx intercranial HTN. SX of flare up ? TECHNIQUE:? Noncontrast 4.5 mm thick angled axial sections acquired from the foramen magnum to the vertex, with coronal and sagittal reformats.? For radiation dose reduction, the following was used:? automated exposure control, adjustment of mA and/or kV according to patient size.? ? COMPARISON:? [facility], CT, CT HEAD WITHOUT CONTRAST, 06/27/2020, 17:34.? [facility], CT, CT HEAD/BRAIN WO CON, 08/23/2021, 17:55. ? FINDINGS:? Image quality:? Excellent.? ? CSF spaces:? Bilateral frontal 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 shunt catheters are redemonstrated with the tips in the region of the frontal horns of the lateral ventricles.? Persistent slit-like leg ventricles are redemonstrated, similar in appearance to the prior studies.? Basal cisterns are patent.? No extra-axial fluid collections.? ? Brain:? No intracranial hemorrhage, mass, or mass effect.? Cage-white matter interface appears preserved.? ? Skull and face:? Calvarium and visualized facial bones demonstrate no acute fractures.? There are bilateral frontal cortney holes associated with the CONVERSION MAN shunt catheter is redemonstrated.? The catheters appear similar in course and contour compared to the prior study without new focal discontinuity. ? Sinuses:? Visualized sinuses and mastoids are clear.? ? IMPRESSION:? ? 1. No acute intracranial hemorrhage or mass effect. ? 2. Persistent slit-like ventricles redemonstrated, similar in appearance to the prior studies.? CONVERSION MAN shunt catheters appear unchanged in position. ? ? Dictated by: Denys Turcios M.D. on 02/22/2022 at 20:36 ? ? Approved by: Denys Turcios M.D. on 02/22/2022 at 20:40? ECG Data Attestation: I personally reviewed and interpreted this ECG as follows: Interpretation: Sinus rhythm Ventricular rate is 69 Normal axis Normal QRS Normal QTC No ST T wave changes MDM Narrative Medical decision making narrative: Head CT is unchanged. The shunt does not appear to be dislodged on the chest x- ray in the abdomen x-ray. She is a nonfocal neurologic exam. Bedside ultrasound shows no papilledema. Patient asked for Dilaudid Reglan Benadryl to be given at 1 time she states this is the only thing that improves her symptoms. I did discuss the case with Neurosurgery at [facility] who stated that she is no papilledema this is unlikely related to increased intracranial pressure. Patient felt better after treatments here in the ER. Stated that she felt well enough to go home. We will hold on a lumbar puncture for now. She was given return precautions. She expressed understanding and agreement. Discharge Plan Departure Patient Disposition: Home Clinical Impression: Headache Instructions: DI for Headache Activity Restrictions/Additional Instructions: Continue to take all of your medications as directed. Contact your primary provider for follow-up. Return to the emergency department for any new or worsening symptoms. Prescriptions: No Action albuterol sulfate 90 mcg/actuation HFA aerosol inhaler 2 puff INHALATION Q4-6H PRN (Reason: shortness of breath or wheezing) Qty: 18 0RF venlafaxine 37.5 mg capsule,extended release 24hr 37.5 mg PO DAILY MDD 112.5 mg Qty: 30 2RF Rx Instructions: Take in combination with 75 mg tab (112.5 mg daily) Flovent HFA 220 mcg/actuation HFA aerosol inhaler 1 puff INHALATION BID Qty: 12 0RF Rx Instructions: MUST ESTABLISH WITH NEW PRIMARY CARE PHYSICIAN PRIOR TO FURTHER REFILLS. lamotrigine 150 mg tablet 150 mg PO BID metoclopramide HCl 10 mg tablet 10 mg PO TID PRN (Reason: Nausea) Label Comments: take 1 tablet by mouth three times a day if needed diazepam [Valium] 5 mg tablet 5 mg PO BID-QID PRN (Reason: muscle spasm) Qty: 10 0RF hydrocodone-acetaminophen 5-325 mg tablet 1 tab PO Q6H PRN (Reason: pain) Qty: 10 0RF hydrocodone-acetaminophen 5-325 mg tablet 1 tab PO Q6H PRN (Reason: pain) Qty: 10 0RF hydrocodone-acetaminophen 5-325 mg tablet 1 tab PO BID PRN (Reason: pain) Qty: 10 0RF mupirocin 2 % ointment 1 applic topical BID Qty: 15 0RF hydrocodone-acetaminophen 5-325 mg tablet 1 tab PO Q6H PRN (Reason: pain) Qty: 8 0RF venlafaxine 75 mg capsule,extended release 24hr 75 mg PO DAILY Label Comments: TAKE 1 CAPSULE BY MOUTH EVERY DAY IN COMBINATION WITH 37.5MG CAPSULE FOR DEPRESSION AND ANXIETY acetaminophen 325 mg Tablet 650 mg PO Q6HR PRN (Reason: As Needed For Fever/Mild Pain) Qty: 30 0RF valacyclovir 500 mg tablet 1,000 mg PO DAILY oxycodone-acetaminophen 5-325 mg tablet 1 - 2 tab PO Q6H PRN (Reason: pain) Qty: 16 0RF oxycodone-acetaminophen 5-325 mg tablet 1 tab PO Q6H PRN (Reason: pain) Qty: 14 0RF cephalexin 500 mg capsule 500 mg PO TID Qty: 21 0RF lidocaine [Lidoderm] 5 % adhesive patch,medicated 1 patch topical DAILY Qty: 15 1RF Rx Instructions: leave on most painful area for up to 12 hrs hydrocodone-acetaminophen 5-325 mg tablet 1 tab PO Q6H PRN (Reason: pain) Qty: 5 0RF clindamycin HCl [Cleocin HCl] 300 mg capsule 300 mg PO QID Qty: 28 0RF hydrocodone-acetaminophen 5-325 mg tablet 1 tab PO Q6H PRN (Reason: pain) Qty: 10 0RF fluconazole [Diflucan] 150 mg tablet 150 mg PO Q3D Qty: 2 0RF Rx Instructions: may repeat second dose 72 hrs after first dose if symptoms persist Referrals: Carlos Mercado MD [Primary Care Provider] - Stand Alone Forms: Work Release Note Visit Report Forms: Patient Portal/API
--- NOTE | 2022-02-22 21:38 | DI.RAD.S_ITS ---
PROCEDURE: XR ABDOMEN 1V INDICATIONS: Continuity of shunt TECHNIQUE: One view of the abdomen acquired. COMPARISON: [facility], CT, CT ANGIO CHEST PE PROTOCOL, 04/17/2021, 20:52. [facility], CR, XR CHEST 1V, 04/17/2021, 19:36. [facility], CR, XR CHEST 1V, 02/22/2022, 20:14. [facility], CT, CT ABDOMEN PELVIS W CON, 12/17/2021, 22:23. [facility], CR, XR ABDOMEN 1V, 02/17/2020, 18:31. FINDINGS: Surgical changes and devices: There is a partially visualized VEGETABLE WASHING 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 shunt catheter redemonstrated with the tip projecting over the right atrium. Findings are similar to the prior studies. A neurostimulator device projects over the right lower quadrant with the tip projecting over the right hemipelvis. Bowel: Bowel gas pattern is normal. Soft tissues: No suspicious abdominal calcifications. Bones: No suspicious bony lesions. IMPRESSION: 1. VEGETABLE WASHING 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 shunt catheter tip redemonstrated in the region of the right atrium. Findings are similar to the prior studies. Dictated by: Denys Turcios M.D. on 02/22/2022 at 23:04 Approved by: Denys Turcios M.D. on 02/22/2022 at 23:09
[2022-02-22] MEDS: HYDROMORPHONE 1 MG INJ IV (22:22)
[2022-02-22] MEDS: METOCLOPRAMIDE 10 MG/2 ML INJ IV (22:27)
[2022-02-23] VITALS: BP 127/86; PULSE 92; O2SAT 98
[2022-02-23] MEDS: HYDROMORPHONE 0.5 MG INJ IV
[2022-02-23 00:30] VITALS: PULSE 72; O2SAT 95
== END 2022-02-23 01:03 | disposition home or self-care (01) ==
PROVIDERS: Emergency Provider Emergency Medicine; PCP Family Medicine
DX: R51.9 Headache, unspecified (principal); G93.2 Benign intracranial hypertension; Z20.822 Contact with and (suspected) exposure to COVID-19
CPT/HCPCS: 36415; 70450; 71045; 74018; 80053; 82140; 85025; 87635; 93005; 93010; 96374; 96375; 96376; 99284; C9803; J1170; J2765

== ENCOUNTER 2022-02-23 13:53 | Emergency (ER) | payer OTHER, MEDICAID, SELFPAY ==
[2018-01-17 01:41] VITALS: BMI 32.3
[2022-02-23 14:05] VITALS: BP 131/79; PULSE 88; RESP 20; TEMP 36.4; O2SAT 98; BMI 30.1
[2022-02-23 18:25] LABS: Add Manual Diff / Slide Review NO; Basophils Absolute Auto 0 /uL (0-100); Basophils Percent Auto 0.2 % (0-2); Eosinophils Absolute Auto 100 /uL (0-450); Hematocrit 42.4 % (36-46); Hemoglobin 14.7 g/dL (12.0-16.0); Lymphocytes Absolute Auto 2600 /uL (1100-4500); Lymphocytes Percent Auto 27.4 % (25-40); Mean Corpuscular HGB Conc 34.6 % (30-36); Mean Corpuscular Hemoglobin 32.3 PG (26-34); Mean Corpuscular Volume 93.3 fL (80-100); Monocytes Absolute Auto 500 /uL (0-900); Monocytes Percent Auto 5.6 % (3-14); Neutrophils Absolute Auto 6200 /uL (1500-7000); Neutrophils Percent Auto 65.8 % (50-75); Platelet Count 206 X10^3/uL (150-400); Red Blood Cell Count 4.54 X10^6/uL (4.0-5.2); Red Cell Distribution Width 13.7 % (11.6-14.8); White Blood Cell Count 9.4 X10^3/uL (4.5-11.0)
[2022-02-23 18:29] LABS: BUN Creatinine Ratio 20.5 (6-22); Blood Urea Nitrogen 17 mg/dL (7-17); Calcium 9.4 mg/dL (8.4-10.2); Carbon Dioxide 27 mmol/L (22-32); Chloride 104 mmol/L (98-107); Estimated Glomerular Filt Rate > 60 mL/min (>60); Glucose 88 mg/dL (70-100); HEMOLYSIS < 15 (0-50); Potassium 4.4 mmol/L (3.4-5.1); Sodium 138 mmol/L (137-145)
--- NOTE | 2022-02-23 19:24 | ED.HA ---
HPI - Headache General Chief Complaint: Headache Stated Complaint: migraine was here last night, confused, dizzy Time Seen by Provider: 02/23/22 14:07 Source: patient Mode of arrival: Ambulatory Limitations: no limitations History of Present Illness HPI Narrative: 41-year-old female. Has intracranial hypertension. Has a PLANT TECH shunt in place. I evaluated her in the emergency department yesterday for headache. She had a CT scan of her head which was unchanged from prior and no signs of increased intracranial pressure. She would no papilledema on bedside ultrasound. I did consult with Neurosurgery at [facility]. Patient received medications here in the ER which essentially resolved her headache. States she went home. She slept well. She woke up today and as the day progressed the headache returned. She states it is the same headache is yesterday. She does have history of migraines. She states that her migraine headaches and her increased intracranial pressure headaches are very similar. She does not take any preventative medicines for migraines. She states she gets them during the ?season changes ?she reports she is having some tingling in the tips of her fingers and on the front of both of her legs. Return to the emergency department today because of continued symptoms. Related Data Home Medications Medication Instructions Recorded Confirmed venlafaxine 75 mg capsule,extended 75 mg PO DAILY 01/05/18 08/18/19 release 24 hr valacyclovir 500 mg tablet 1,000 mg PO DAILY 07/24/18 08/18/19 lamotrigine 150 mg tablet 150 mg PO BID 01/06/19 08/18/19 metoclopramide HCl 10 mg tablet 10 mg PO TID PRN Nausea 01/06/19 08/18/19 Previous Rx's Medication Instructions Recorded venlafaxine 37.5 mg 37.5 mg PO DAILY Depression and 12/30/17 capsule,extended release 24 hr anxiety #30 caps acetaminophen 325 mg tablet 650 mg PO Q6HR PRN As Needed For 01/18/18 Fever/Mild Pain #30 tabs albuterol sulfate 90 mcg/actuation 2 puff inhalation Q4-6H PRN 08/18/19 aerosol inhaler shortness of breath or wheezing #18 grams fluticasone propionate 220 1 puff inhalation BID #12 grams 10/15/19 mcg/actuation HFA aerosol inhaler (Flovent HFA) diazepam 5 mg tablet (Valium) 5 mg PO BID-QID PRN muscle spasm 05/16/20 #10 tabs hydrocodone 5 mg-acetaminophen 325 1 tab PO Q6H PRN pain #10 tabs 04/18/21 mg tablet hydrocodone 5 mg-acetaminophen 325 1 tab PO Q6H PRN pain #10 tabs 04/18/21 mg tablet oxycodone-acetaminophen 5 mg-325 1 - 2 tab PO Q6H PRN pain #16 tabs 05/26/21 mg tablet cephalexin 500 mg capsule 500 mg PO TID #21 caps 06/24/21 oxycodone-acetaminophen 5 mg-325 1 tab PO Q6H PRN pain #14 tabs 06/24/21 mg tablet lidocaine 5 % topical patch 1 patch topical DAILY #15 ea 07/01/21 (Lidoderm) hydrocodone 5 mg-acetaminophen 325 1 tab PO BID PRN pain #10 tabs 10/31/21 mg tablet mupirocin 2 % topical ointment 1 applic topical BID #15 grams 10/31/21 hydrocodone 5 mg-acetaminophen 325 1 tab PO Q6H PRN pain #5 tabs 11/29/21 mg tablet hydrocodone 5 mg-acetaminophen 325 1 tab PO Q6H PRN pain #8 tabs 12/04/21 mg tablet clindamycin HCl 300 mg capsule 300 mg PO QID #28 caps 12/06/21 (Cleocin HCl) fluconazole 150 mg tablet 150 mg PO Q3D 2 doses #2 tabs 12/06/21 (Diflucan) hydrocodone 5 mg-acetaminophen 325 1 tab PO Q6H PRN pain #10 tabs 12/06/21 mg tablet metoclopramide HCl 10 mg tablet 10 mg PO Q6H PRN nausea and 02/23/22 (Reglan) vomiting #20 tabs Allergies Allergy/AdvReac Type Severity Reaction Status Date / Time coconut [COCONUT] Allergy Severe STOPS Verified 02/22/22 20:01 BREATHS prochlorperazine Allergy Intermediate seizure Verified 02/22/22 20:01 NSAIDS (Non-Steroidal Allergy Mild rash, milner Verified 02/22/22 20:01 Anti-Inflamma [NSAIDS (NON-STEROIDAL ANTI-INFLAMMA] promethazine [From PHENERGAN] Allergy Unknown restless Verified 02/22/22 20:01 legs Review of Systems Review of Systems ROS Unobtainable: All systems reviewed & are unremarkable except as noted in HPI and below Patient History Medical History Anxiety Cervical cancer Depression Femoral acetabular impingement Genital herpes Gout Kidney stones (12/2016) Ovarian cancer Pseudotumor cerebri Pulmonary embolism (2010) Pulmonary embolism (2009) Uterine cancer Surgical History History of bladder surgery History of carpal tunnel repair Status post appendectomy Status post breast reduction Status post cholecystectomy Status post hernia repair (2014) Status post hysterectomy with oophorectomy (2003) Status post laparoscopy PLANT TECH (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) shunt status Family History Father History of kidney cancer Mother Diabetes mellitus Hypertension Hyperlipidemia CAD (coronary artery disease) CVA (cerebral vascular accident) Social History marital status: household members: family lives independently: Yes occupational status: employed Smoking Status: Current every day smoker alcohol intake: never substance use type: marijuana Smoking Status: Current every day smoker tobacco type: cigarettes alcohol intake frequency: 0-2 drinks per day Substance Use Type: marijuana Exam Initial Vital Signs Initial Vital Signs: Vital Signs Temperature 97.5 F L 02/23/22 14:05 Pulse Rate 88 02/23/22 14:05 Respiratory Rate 20 02/23/22 14:05 Blood Pressure 131/79 02/23/22 14:05 Pulse Oximetry 98 02/23/22 14:05 Oxygen Delivery Method 02/23/22 14:05 Const General: cooperative, healthy appearing and comfortable HENMN Head: normal to inspection and normocephalic Eyes General: Yes appearance normal, both eyes and all related structures Resp Effort & Inspection: normal respiratory effort Cardio Rate: regular rate GI Inspection: normal to inspection Skin General: no rashes or lesions noted Neuro General: patient alert, patient awake, patient oriented x3 and moves all extremities Cognition: normal cognition Speech: speech normal Extrem General: normal to inspection and capillary refill normal Psych Appearance: grossly normal and well kempt Course Orders Ordered: ED Orders 02/23/22 16:36 Basic Metabolic Panel Stat Complete Blood Count AUTO DIFF Stat Discontinued Medications Diphenhydramine HCl (Diphenhydramine 50 Mg/Ml Vial) 25 mg IV NOW ONE Stop: 02/23/22 19:26 Last Admin: 02/23/22 19:56 Dose: 25 mg Documented By: NR Hydromorphone HCl (Hydromorphone 1 Mg Inj) 1 mg IV NOW ONE Stop: 02/23/22 19:26 Last Admin: 02/23/22 19:57 Dose: 1 mg Documented By: NR Hydromorphone HCl (Hydromorphone 0.5 Mg Inj) 0.5 mg IV NOW ONE Stop: 02/23/22 20:52 Last Admin: 02/23/22 21:01 Dose: 0.5 mg Documented By: NR Sodium Chloride (Normal Saline 0.9%) 1,000 mls @ 1,000 mls/hr IV BOLUS ONE Stop: 02/23/22 20:24 Last Infusion: 02/23/22 21:26 Dose: 0 mls/hr Documented By: Admin: 02/23/22 19:59 Dose: 1,000 mls/hr Documented By: NR Methylprednisolone (Methylprednisolone 125 Mg/2 Ml Vial) 125 mg IV NOW ONE Stop: 02/23/22 20:52 Last Admin: 02/23/22 21:01 Dose: 125 mg Documented By: NR Metoclopramide HCl (Metoclopramide 10 Mg/2 Ml Inj) 10 mg IV NOW ONE Stop: 02/23/22 19:26 Last Admin: 02/23/22 19:54 Dose: 10 mg Documented By: NR Ondansetron HCl (Ondansetron 4 Mg Odt Prepack) 1 bottle MISC SEEINSTR ONE Stop: 02/23/22 20:52 Last Admin: 02/23/22 21:02 Dose: 1 bottle Documented By: NR Vital Signs Vital signs: Vital Signs - 8 hr 02/23/22 21:15 02/23/22 20:00 02/23/22 20:30 Pulse Rate 80 74 67 Respiratory Rate 18 20 18 Blood Pressure 124/69 120/65 131/61 Pulse Oximetry 96 96 98 Oxygen Delivery Method Room Air Room Air Room Air 02/23/22 21:00 Pulse Rate 89 Respiratory Rate 20 Blood Pressure 127/71 Pulse Oximetry 99 Oxygen Delivery Method Room Air MDM - Headache Lab Data Result diagrams: 02/23/22 16:36 02/23/22 16:36 Labs: Lab Results 02/23/22 02/23/22 Range/Units 16:36 16:36 WBC 9.4 (4.5-11.0) X10^3/uL RBC 4.54 (4.0-5.2) X10^6/uL Hgb 14.7 (12.0-16.0) g/dL Hct 42.4 (36-46) % MCV 93.3 (80-100) fL MCH 32.3 (26-34) PG MCHC 34.6 (30-36) % RDW 13.7 (11.6-14.8) % Plt Count 206 (150-400) X10^3/uL Neut % (Auto) 65.8 (50-75) % Lymph % (Auto) 27.4 (25-40) % [place] % (Auto) 5.6 (3-14) % Eos % (Auto) 1.0 L (2-4) % Baso % (Auto) 0.2 (0-2) % Neut # (Auto) 6200 (7354-6134) /uL Lymph # (Auto) 2600 (4061-5021) /uL [place] # (Auto) 500 (0-900) /uL Eos # (Auto) 100 (0-450) /uL Baso # (Auto) 0 (0-100) /uL Sodium 138 (137-145) mmol/L Potassium 4.4 (3.4-5.1) mmol/L Chloride 104 (98-107) mmol/L Carbon Dioxide 27 (22-32) mmol/L BUN 17 (7-17) mg/dL Creatinine 0.83 (0.52-1.04) mg/dL Estimated GFR > 60 (>60) mL/min BUN/Creatinine Ratio 20.5 (6-22) Glucose 88 (70-100) mg/dL Calcium 9.4 (8.4-10.2) mg/dL [facility] Narrative Medical decision making narrative: Patient had a workup yesterday which had no indication of any increased intracranial pressure. She states she does get headaches during change of seasons which does fit this current time a year. The tingling in the tips of her fingers and in the front of her legs follow no specific nerve distribution. Did consider increased intracranial pressure however given her workup yesterday I feel that this is unlikely. I feel that the risks of a lumbar puncture outweigh the benefits given her presentation and her neurologic exam and the workup that she currently has had. I did discuss this with her. She was given medications that she states has helped her symptoms in the past. No fevers. Low suspicion for meningitis. Her symptoms resolved with the above treatments. Discharge patient home with follow-up instructions. She expressed understanding and agreement. Discharge Plan Departure Patient Disposition: Home Clinical Impression: Headache Instructions: DI for Headache Activity Restrictions/Additional Instructions: I recommend that you continue to take all of your medications as directed. On Friday contact your primary doctor for a follow-up. You may want to discuss the indications for referral to see a headache specialist. Return to the emergency department for any new symptoms. [facility] Until then you can use the Zofran you were given here in the emergency department for any nausea. Prescriptions: New metoclopramide HCl [Reglan] 10 mg tablet 10 mg PO Q6H PRN (Reason: nausea and vomiting) Qty: 20 0RF No Action albuterol sulfate 90 mcg/actuation HFA aerosol inhaler 2 puff INHALATION Q4-6H PRN (Reason: shortness of breath or wheezing) Qty: 18 0RF venlafaxine 37.5 mg capsule,extended release 24hr 37.5 mg PO DAILY MDD 112.5 mg Qty: 30 2RF Rx Instructions: Take in combination with 75 mg tab (112.5 mg daily) Flovent HFA 220 mcg/actuation HFA aerosol inhaler 1 puff INHALATION BID Qty: 12 0RF Rx Instructions: MUST ESTABLISH WITH NEW PRIMARY CARE PHYSICIAN PRIOR TO FURTHER REFILLS. lamotrigine 150 mg tablet 150 mg PO BID metoclopramide HCl 10 mg tablet 10 mg PO TID PRN (Reason: Nausea) Label Comments: take 1 tablet by mouth three times a day if needed diazepam [Valium] 5 mg tablet 5 mg PO BID-QID PRN (Reason: muscle spasm) Qty: 10 0RF hydrocodone-acetaminophen 5-325 mg tablet 1 tab PO Q6H PRN (Reason: pain) Qty: 10 0RF hydrocodone-acetaminophen 5-325 mg tablet 1 tab PO Q6H PRN (Reason: pain) Qty: 10 0RF hydrocodone-acetaminophen 5-325 mg tablet 1 tab PO BID PRN (Reason: pain) Qty: 10 0RF mupirocin 2 % ointment 1 applic topical BID Qty: 15 0RF hydrocodone-acetaminophen 5-325 mg tablet 1 tab PO Q6H PRN (Reason: pain) Qty: 8 0RF venlafaxine 75 mg capsule,extended release 24hr 75 mg PO DAILY Label Comments: TAKE 1 CAPSULE BY MOUTH EVERY DAY IN COMBINATION WITH 37.5MG CAPSULE FOR DEPRESSION AND ANXIETY acetaminophen 325 mg Tablet 650 mg PO Q6HR PRN (Reason: As Needed For Fever/Mild Pain) Qty: 30 0RF valacyclovir 500 mg tablet 1,000 mg PO DAILY oxycodone-acetaminophen 5-325 mg tablet 1 - 2 tab PO Q6H PRN (Reason: pain) Qty: 16 0RF oxycodone-acetaminophen 5-325 mg tablet 1 tab PO Q6H PRN (Reason: pain) Qty: 14 0RF cephalexin 500 mg capsule 500 mg PO TID Qty: 21 0RF lidocaine [Lidoderm] 5 % adhesive patch,medicated 1 patch topical DAILY Qty: 15 1RF Rx Instructions: leave on most painful area for up to 12 hrs hydrocodone-acetaminophen 5-325 mg tablet 1 tab PO Q6H PRN (Reason: pain) Qty: 5 0RF clindamycin HCl [Cleocin HCl] 300 mg capsule 300 mg PO QID Qty: 28 0RF hydrocodone-acetaminophen 5-325 mg tablet 1 tab PO Q6H PRN (Reason: pain) Qty: 10 0RF fluconazole [Diflucan] 150 mg tablet 150 mg PO Q3D Qty: 2 0RF Rx Instructions: may repeat second dose 72 hrs after first dose if symptoms persist Referrals: Carlos Mercado MD [Primary Care Provider] - Visit Report Forms: Patient Portal/API
[2022-02-23] MEDS: METOCLOPRAMIDE 10 MG/2 ML INJ IV (19:54)
[2022-02-23] MEDS: diphenhydrAMINE 50 MG/ML VIAL 25 MG IV (19:56)
[2022-02-23] MEDS: HYDROMORPHONE 1 MG INJ IV (19:57)
[2022-02-23] MEDS: SODIUM CHLORIDE 0.9% 1,000 ML 1000 ML IV (19:59)
[2022-02-23 20:00] VITALS: BP 120/65; PULSE 74; RESP 20; O2SAT 96
[2022-02-23 20:30] VITALS: BP 131/61; PULSE 67; RESP 18; O2SAT 98
[2022-02-23 21:00] VITALS: BP 127/71; PULSE 89; RESP 20; O2SAT 99
[2022-02-23] MEDS: HYDROMORPHONE 0.5 MG INJ IV (21:01)
[2022-02-23] MEDS: methylPREDNISolone 125 MG/2 ML VIAL IV (21:01)
[2022-02-23] MEDS: ONDANSETRON 4 MG ODT PREPACK 1 BOTTLE MISC (21:02)
--- NOTE | 2022-02-23 21:09 | PC.NURSE ---
pt states pain is 9/10. pt is laughing and joking with fiance. sitting up in bed, ambulating to bathroom.
[2022-02-23 21:15] VITALS: BP 124/69; PULSE 80; RESP 18; O2SAT 96
== END 2022-02-23 21:27 | disposition home or self-care (01) ==
PROVIDERS: Emergency Provider Emergency Medicine; PCP Family Medicine
DX: R51.9 Headache, unspecified (principal); G93.2 Benign intracranial hypertension
CPT/HCPCS: 36415; 80048; 85025; 96361; 96374; 96375; 96376; 99284; J1170; J1200; J2765; J2930

== ENCOUNTER 2022-03-03 14:06 | Emergency (ER) | payer OTHER, MEDICAID, SELFPAY ==
[2018-01-17 01:41] VITALS: BMI 32.3
[2022-03-03 14:21] VITALS: PULSE 73; RESP 22; TEMP 36.3; O2SAT 97; BMI 29.8
--- NOTE | 2022-03-03 14:25 | DI.RAD.S_ITS ---
PROCEDURE: XR CHEST 1V INDICATIONS: chest pain TECHNIQUE: One view of the chest was acquired. COMPARISON: [facility], CR, XR CHEST 1V, 02/22/2022, 20:14. [facility], CR, XR CHEST 1V, 04/17/2021, 19:36. [facility], CT, CT ANGIO CHEST PE PROTOCOL, 04/17/2021, 20:52. FINDINGS: Surgical changes and devices: There is a stable right-sided central line, with the tip near the cavoatrial junction. Lungs and pleura: On this semiupright portable chest examination, no large pneumothorax or large pleural effusions are seen. No focal infiltrates are seen. Mediastinum: Mediastinal contours appear normal. Heart size is normal. Bones and chest wall: No suspicious bony lesions. Overlying soft tissues appear unremarkable. IMPRESSION: No acute abnormality is seen. Stable right-sided central line. Dictated by: Marc Finley M.D. on 03/03/2022 at 14:24 Approved by: Marc Finley M.D. on 03/03/2022 at 14:25
--- NOTE | 2022-03-03 15:43 | DI.RAD.S_ITS ---
PROCEDURE: XR ABDOMEN 1V INDICATIONS: Eval for shunt congruence TECHNIQUE: One view of the abdomen acquired. COMPARISON: [facility], CR, XR ABDOMEN 1V, 02/22/2022, 21:42. [facility], CR, XR ABDOMEN 1V, 02/17/2020, 18:31. FINDINGS: Surgical changes and devices: Stimulator device projecting over the right pelvis. Thecal lead at the right sacrum. Cholecystectomy clips. [employer]IGATOR shunt catheter is outside the field of view terminating in the chest. Bowel: Bowel gas pattern is normal. Soft tissues: No suspicious abdominal calcifications. Visualized solid organ contours appear normal in size. Bones: No suspicious bony lesions. IMPRESSION: Nonobstructing bowel gas pattern. Dictated by: John Carmona M.D. on 03/03/2022 at 16:51 Approved by: John Carmona M.D. on 03/03/2022 at 16:52
--- NOTE | 2022-03-03 15:43 | ED_ITS ---
HPI - Chest Pain General Chief Complaint: Chest Pain Stated Complaint: RT ARM & CHEST PAIN Time Seen by Provider: 03/03/22 14:56 Source: patient Mode of arrival: Ambulatory Limitations: no limitations Limitations: no limitations History of Present Illness HPI narrative: 41-year-old female. Has a ASSISTANT BOOKKEEPER shunt in place. Is here for evaluation of right arm pain, right chest pain that is radiating to her right shoulder and up the right side of her neck into her right ear. Symptoms started earlier today. Woke up with the right-sided chest pain but then the chills and lightheadedness fevers and the rest of her symptoms started as the day came on. Has not tried anything for her symptoms. Related Data Home Medications Medication Instructions Recorded Confirmed venlafaxine 75 mg capsule,extended 75 mg PO DAILY 01/05/18 08/18/19 release 24 hr valacyclovir 500 mg tablet 1,000 mg PO DAILY 07/24/18 08/18/19 lamotrigine 150 mg tablet 150 mg PO BID 01/06/19 08/18/19 metoclopramide HCl 10 mg tablet 10 mg PO TID PRN Nausea 01/06/19 08/18/19 Previous Rx's Medication Instructions Recorded venlafaxine 37.5 mg 37.5 mg PO DAILY Depression and 12/30/17 capsule,extended release 24 hr anxiety #30 caps acetaminophen 325 mg tablet 650 mg PO Q6HR PRN As Needed For 01/18/18 Fever/Mild Pain #30 tabs albuterol sulfate 90 mcg/actuation 2 puff inhalation Q4-6H PRN 08/18/19 aerosol inhaler shortness of breath or wheezing #18 grams fluticasone propionate 220 1 puff inhalation BID #12 grams 10/15/19 mcg/actuation HFA aerosol inhaler (Flovent HFA) diazepam 5 mg tablet (Valium) 5 mg PO BID-QID PRN muscle spasm 05/16/20 #10 tabs hydrocodone 5 mg-acetaminophen 325 1 tab PO Q6H PRN pain #10 tabs 04/18/21 mg tablet hydrocodone 5 mg-acetaminophen 325 1 tab PO Q6H PRN pain #10 tabs 21 mg tablet oxycodone-acetaminophen 5 mg-325 1 - 2 tab PO Q6H PRN pain #16 tabs 01/01/22 mg tablet cephalexin 500 mg capsule 500 mg PO TID #21 caps 06/24/21 oxycodone-acetaminophen 5 mg-325 1 tab PO Q6H PRN pain #14 tabs 06/24/21 mg tablet lidocaine 5 % topical patch 1 patch topical DAILY #15 ea 07/01/21 (Lidoderm) hydrocodone 5 mg-acetaminophen 325 1 tab PO BID PRN pain #10 tabs 10/31/21 mg tablet mupirocin 2 % topical ointment 1 applic topical BID #15 grams 10/31/21 hydrocodone 5 mg-acetaminophen 325 1 tab PO Q6H PRN pain #5 tabs 11/29/21 mg tablet hydrocodone 5 mg-acetaminophen 325 1 tab PO Q6H PRN pain #8 tabs 12/04/21 mg tablet clindamycin HCl 300 mg capsule 300 mg PO QID #28 caps 12/06/21 (Cleocin HCl) fluconazole 150 mg tablet 150 mg PO Q3D 2 doses #2 tabs 12/06/21 (Diflucan) hydrocodone 5 mg-acetaminophen 325 1 tab PO Q6H PRN pain #10 tabs 12/06/21 mg tablet metoclopramide HCl 10 mg tablet 10 mg PO Q6H PRN nausea and 02/23/22 (Reglan) vomiting #20 tabs Allergies Allergy/AdvReac Type Severity Reaction Status Date / Time coconut [COCONUT] Allergy Severe STOPS Verified 03/03/22 14:26 BREATHS prochlorperazine Allergy Intermediate seizure Verified 03/03/22 14:26 NSAIDS (Non-Steroidal Allergy Mild rash, milner Verified 03/03/22 14:26 Anti-Inflamma [NSAIDS (NON-STEROIDAL ANTI-INFLAMMA] promethazine [From PHENERGAN] Allergy Unknown restless Verified 03/03/22 14:26 legs Review of Systems Review of Systems ROS Unobtainable: All systems reviewed & are unremarkable except as noted in HPI and below Patient History Medical History Anxiety Cervical cancer Depression Femoral acetabular impingement Genital herpes Gout Kidney stones (12/2016) Ovarian cancer Pseudotumor cerebri Pulmonary embolism (2010) Pulmonary embolism (2009) Uterine cancer Surgical History History of bladder surgery History of carpal tunnel repair Status post appendectomy Status post breast reduction Status post cholecystectomy Status post hernia repair (2014) Status post hysterectomy with oophorectomy (2003) Status post laparoscopy ASSISTANT BOOKKEEPER (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) shunt status Family History Father History of kidney cancer Mother Diabetes mellitus Hypertension Hyperlipidemia CAD (coronary artery disease) CVA (cerebral vascular accident) Social History marital status: household members: family lives independently: Yes occupational status: employed Smoking Status: Current every day smoker alcohol intake: never substance use type: marijuana Smoking Status: Current every day smoker tobacco type: cigarettes alcohol intake frequency: 0-2 drinks per day Substance Use Type: marijuana Exam Initial Vital Signs Initial Vital Signs: Vital Signs Temperature 97.3 F L 03/03/22 14:21 Pulse Rate 73 03/03/22 14:21 Respiratory Rate 22 03/03/22 14:21 Pulse Oximetry 97 03/03/22 14:21 Oxygen Delivery Method 03/03/22 14:21 Const General: cooperative, healthy appearing, comfortable and well developed HENMT Ears: TM's normal bilaterally Mouth: oral mucosae normal Throat: posterior oropharynx normal Neck Lymphatic: lymphadenopathy (Right submandibular and anterior and posterior cervical lymphadenopathy) Chest Chest: No crepitus and tenderness (Right anterior chest) Resp Effort & Inspection: normal respiratory effort Cardio Rate: regular rate Rhythm: regular rhythm Pulses: radial pulses present on the right GI Inspection: normal to inspection and non-distended Skin General: no rashes or lesions noted Neuro General: patient alert, patient awake, patient oriented x3 and moves all extremities Speech: speech normal Extrem General: normal to inspection, capillary refill normal and No edema Psych Appearance: grossly normal and well kempt Course Orders Ordered: ED Orders 03/03/22 14:25 XR chest 1V Stat Complete Blood Count AUTO DIFF Stat Comprehensive Metabolic Panel Stat Lipase Stat Magnesium Stat Troponin & CK Cardiac Panel Stat EKG-12 Lead Stat 03/03/22 15:43 XR abdomen 1V Stat XR chest 1V Stat XR soft tissue neck Stat Discontinued Medications Hydrocodone Bitart/Acetaminophen (Hydrocodone/Acet 5/325 Tablet) 1 tab PO NOW ONE Stop: 03/03/22 17:58 Last Admin: 03/03/22 18:07 Dose: 1 tab Documented By: NR Vital Signs Vital signs: Vital Signs - 8 hr 03/03/22 14:21 Temperature 97.3 F L Pulse Rate 73 Respiratory Rate 22 Pulse Oximetry 97 Oxygen Delivery Method Room Air MDM - Chest Pain Medical Records Data Attestation: I reviewed the patient's medical records. Lab Data Attestation: I reviewed the patient's lab results. Imaging Data Soft tissue neck: Radiologist's Impression: [address] [address] XRay Report Signed Patient: Jing Lindo MR#: [id number] : 1980 Acct:[id number] Age/Sex: 41 / F Date of Service: 03/03/22 Loc: ED Accession Number: [id number] ?? Procedure: XR soft tissue neck Ordering Provider: Guzman Valadez D.O. PROCEDURE:? XR SOFT TISSUE NECK ? INDICATIONS:? Eval for ASSISTANT BOOKKEEPER shunt congruency ? TECHNIQUE:? 2 views of the neck were acquired.? ? COMPARISON:? [facility], CR, XR CHEST 1V, 03/03/2022, 15:01.? [facility], CR, XR ABDOMEN 1V, 03/03/2022, 15:54.? [facility], CR, XR CHEST 1V, 03/03/2022, 15:54. ? FINDINGS:? Right ASSISTANT BOOKKEEPER shunt seen coursing down the right neck and thorax.? No shunt discontinuity or kinking is demonstrated where visualized. ? The shunt is seen terminating in the region of the right atrium on CXR earlier today. ? Airway:? The airway appears patent.? Visualized portions of the upper lungs are clear. ? Soft tissues:? Prevertebral soft tissues are normal in thickness.? The epiglottis and aryepiglottic folds appear normal.? No soft tissue gas.? ? Bones:? No suspicious bony lesions.? Visualized cervical spine is normally aligned.? ? IMPRESSION:? Right ASSISTANT BOOKKEEPER shunt.? No shunt discontinuity or kinking where visualized. ? ? Dictated by: John Carmona M.D. on 03/03/2022 at 16:45 ? ? Approved by: John Carmona M.D. on 03/03/2022 at 16:47? Chest x-ray: Radiologist's Impression: [address] [address] XRay Report Signed Patient: Jing Lindo MR#: [id number] : 1980 Acct:[id number] Age/Sex: 41 / F Date of Service: 03/03/22 Loc: ED Accession Number: [id number] ?? Procedure: XR chest 1V Ordering Provider: Guzman Valadez D.O. PROCEDURE:? XR CHEST 1V ? INDICATIONS:? eval for MORRISON and ASSISTANT BOOKKEEPER shunt congruent ? TECHNIQUE:? One view of the chest was acquired.? ? COMPARISON:? [facility], CR, XR CHEST 1V, 03/03/2022, 15:01.? [facility], CR, XR CHEST 1V, 02/22/2022, 20:14. ? FINDINGS:? ? Surgical changes and devices:? ASSISTANT BOOKKEEPER shunt catheter terminating in the region of the right atrium. ? Lungs and pleura:? Lungs are clear.? No pleural effusions or pneumothorax.? ? Mediastinum:? Mediastinal contours appear normal.? Heart size is normal.? ? Bones and chest wall:? No suspicious bony lesions.? Overlying soft tissues appear unremarkable.? ? IMPRESSION:? ASSISTANT BOOKKEEPER shunt catheter terminating in the region of the right atrium. ? No acute cardiopulmonary abnormality. ? ? ? Dictated by: John Carmona M.D. on 03/03/2022 at 16:48 ? ? Approved by: John Carmona M.D. on 03/03/2022 at 16:50?? Abdomen x-ray: Radiologist's Impression: [address] [address] XRay Report Signed Patient: Jing Lindo MR#: [id number] : 1980 Acct:[id number] Age/Sex: 41 / F Date of Service: 03/03/22 Loc: ED Accession Number: [id number] ?? Procedure: XR abdomen 1V Ordering Provider: Guzman Valadez D.O. PROCEDURE:? XR ABDOMEN 1V ? INDICATIONS:? Eval for shunt congruence ? TECHNIQUE:? One view of the abdomen acquired.? ? COMPARISON:? [facility], CR, XR ABDOMEN 1V, 02/22/2022, 21:42.? [facility], CR, XR ABDOMEN 1V, 02/17/2020, 18:31. ? FINDINGS:? ? Surgical changes and devices:? Stimulator device projecting over the right pelvis.? Thecal lead at the right sacrum.? Cholecystectomy clips.? ASSISTANT BOOKKEEPER shunt catheter is outside the field of view terminating in the chest. ? Bowel:? Bowel gas pattern is normal.? ? Soft tissues:? No suspicious abdominal calcifications.? Visualized solid organ contours appear normal in size.? ? Bones:? No suspicious bony lesions.? ? IMPRESSION:? Nonobstructing bowel gas pattern. ? ? Dictated by: John Carmona M.D. on 03/03/2022 at 16:51 ? ? Approved by: John Carmona M.D. on 03/03/2022 at 16:52?? ECG Data Attestation: I personally reviewed and interpreted this ECG as follows: Interpretation: Sinus rhythm Ventricular rate is 73 Normal axis Normal QRS Normal QTC No ST T wave changes MDM Narrative Medical decision making narrative: Patient does have right-sided cervical and submandibular lymphadenopathy that does seem to be tender to palpation. I do not have a specific source of this. She is no lesions on the right side of her face nor on her scalp. No supraclavicular lymph nodes felt. Nonreproducible right-sided chest discomfort also tingling in her arm. Had some difficulty from nursing staff obtaining lab tests and blood work. Care turned over to Dr. Zayda ortega changes have to follow- up and disposition. Discharge Plan Departure Prescriptions: No Action albuterol sulfate 90 mcg/actuation HFA aerosol inhaler 2 puff INHALATION Q4-6H PRN (Reason: shortness of breath or wheezing) Qty: 18 0RF venlafaxine 37.5 mg capsule,extended release 24hr 37.5 mg PO DAILY MDD 112.5 mg Qty: 30 2RF Rx Instructions: Take in combination with 75 mg tab (112.5 mg daily) Flovent HFA 220 mcg/actuation HFA aerosol inhaler 1 puff INHALATION BID Qty: 12 0RF Rx Instructions: MUST ESTABLISH WITH NEW PRIMARY CARE PHYSICIAN PRIOR TO FURTHER REFILLS. lamotrigine 150 mg tablet 150 mg PO BID metoclopramide HCl 10 mg tablet 10 mg PO TID PRN (Reason: Nausea) Label Comments: take 1 tablet by mouth three times a day if needed diazepam [Valium] 5 mg tablet 5 mg PO BID-QID PRN (Reason: muscle spasm) Qty: 10 0RF hydrocodone-acetaminophen 5-325 mg tablet 1 tab PO Q6H PRN (Reason: pain) Qty: 10 0RF hydrocodone-acetaminophen 5-325 mg tablet 1 tab PO Q6H PRN (Reason: pain) Qty: 10 0RF hydrocodone-acetaminophen 5-325 mg tablet 1 tab PO BID PRN (Reason: pain) Qty: 10 0RF mupirocin 2 % ointment 1 applic topical BID Qty: 15 0RF hydrocodone-acetaminophen 5-325 mg tablet 1 tab PO Q6H PRN (Reason: pain) Qty: 8 0RF metoclopramide HCl [Reglan] 10 mg tablet 10 mg PO Q6H PRN (Reason: nausea and vomiting) Qty: 20 0RF venlafaxine 75 mg capsule,extended release 24hr 75 mg PO DAILY Label Comments: TAKE 1 CAPSULE BY MOUTH EVERY DAY IN COMBINATION WITH 37.5MG CAPSULE FOR DEPRESSION AND ANXIETY acetaminophen 325 mg Tablet 650 mg PO Q6HR PRN (Reason: As Needed For Fever/Mild Pain) Qty: 30 0RF valacyclovir 500 mg tablet 1,000 mg PO DAILY oxycodone-acetaminophen 5-325 mg tablet 1 - 2 tab PO Q6H PRN (Reason: pain) Qty: 16 0RF oxycodone-acetaminophen 5-325 mg tablet 1 tab PO Q6H PRN (Reason: pain) Qty: 14 0RF cephalexin 500 mg capsule 500 mg PO TID Qty: 21 0RF lidocaine [Lidoderm] 5 % adhesive patch,medicated 1 patch topical DAILY Qty: 15 1RF Rx Instructions: leave on most painful area for up to 12 hrs hydrocodone-acetaminophen 5-325 mg tablet 1 tab PO Q6H PRN (Reason: pain) Qty: 5 0RF clindamycin HCl [Cleocin HCl] 300 mg capsule 300 mg PO QID Qty: 28 0RF hydrocodone-acetaminophen 5-325 mg tablet 1 tab PO Q6H PRN (Reason: pain) Qty: 10 0RF fluconazole [Diflucan] 150 mg tablet 150 mg PO Q3D Qty: 2 0RF Rx Instructions: may repeat second dose 72 hrs after first dose if symptoms persist Referrals: Carlos Mercado MD [Primary Care Provider] -
--- NOTE | 2022-03-03 15:43 | DI.RAD.S_ITS ---
PROCEDURE: XR SOFT TISSUE NECK INDICATIONS: Eval for SHEETMETAL PATTERNMAKER shunt congruency TECHNIQUE: 2 views of the neck were acquired. COMPARISON: [facility], CR, XR CHEST 1V, 03/03/2022, 15:01. [facility], CR, XR ABDOMEN 1V, 03/03/2022, 15:54. [facility], CR, XR CHEST 1V, 03/03/2022, 15:54. FINDINGS: Right SHEETMETAL PATTERNMAKER shunt seen coursing down the right neck and thorax. No shunt discontinuity or kinking is demonstrated where visualized. The shunt is seen terminating in the region of the right atrium on CXR earlier today. Airway: The airway appears patent. Visualized portions of the upper lungs are clear. Soft tissues: Prevertebral soft tissues are normal in thickness. The epiglottis and aryepiglottic folds appear normal. No soft tissue gas. Bones: No suspicious bony lesions. Visualized cervical spine is normally aligned. IMPRESSION: Right SHEETMETAL PATTERNMAKER shunt. No shunt discontinuity or kinking where visualized. Dictated by: John Carmona M.D. on 03/03/2022 at 16:45 Approved by: John Carmona M.D. on 03/03/2022 at 16:47
--- NOTE | 2022-03-03 15:43 | DI.RAD.S_ITS ---
PROCEDURE: XR CHEST 1V INDICATIONS: eval for MORRISON and GUEST SERVICES DIRECTOR shunt congruent TECHNIQUE: One view of the chest was acquired. COMPARISON: [facility], CR, XR CHEST 1V, 03/03/2022, 15:01. [facility], CR, XR CHEST 1V, 02/22/2022, 20:14. FINDINGS: Surgical changes and devices: GUEST SERVICES DIRECTOR shunt catheter terminating in the region of the right atrium. Lungs and pleura: Lungs are clear. No pleural effusions or pneumothorax. Mediastinum: Mediastinal contours appear normal. Heart size is normal. Bones and chest wall: No suspicious bony lesions. Overlying soft tissues appear unremarkable. IMPRESSION: GUEST SERVICES DIRECTOR shunt catheter terminating in the region of the right atrium. No acute cardiopulmonary abnormality. Dictated by: John Cramona M.D. on 03/03/2022 at 16:48 Approved by: John Carmona M.D. on 03/03/2022 at 16:50
--- NOTE | 2022-03-03 16:18 | PC.NURSE ---
pt states she is having shoulder pain that radiates to her neck and down her arm to her fingers. she awoke from sleeping with this, tried to go to work, lifted a box of bananas and it suddenly got way worse. she had to leave work to come to the ED
[2022-03-03] MEDS: HYDROCODONE/ACET 5/325 TABLET 1 TAB PO (18:07)
[2022-03-03 18:10] VITALS: BP 113/56; PULSE 77; O2SAT 96
[2022-03-03 18:30] VITALS: PULSE 75; O2SAT 97
[2022-03-03 19:00] VITALS: PULSE 80; O2SAT 96
[2022-03-03 19:03] LABS: Add Manual Diff / Slide Review NO; Alanine Aminotransferase 19 IU/L (<35); Albumin 4.4 g/dL (3.5-5.0); Albumin Globulin Ratio 1.5 (1.0-2.8); Alkaline Phosphatase 80 U/L (38-126); Aspartate Aminotransferase 31 IU/L (14-36); BUN Creatinine Ratio 23.9 (6-22); Basophils Absolute Auto 0 /uL (0-100); Basophils Percent Auto 0.5 % (0-2); Bilirubin Total 0.4 mg/dL (0.2-1.3); Blood Urea Nitrogen 17 mg/dL (7-17); Calcium 9.1 mg/dL (8.4-10.2); Carbon Dioxide 25 mmol/L (22-32); Chloride 105 mmol/L (98-107); Creatine Kinase 88 U/L (30-135); Eosinophils Absolute Auto 200 /uL (0-450); Eosinophils Percent Auto 1.8 % (2-4); Estimated Glomerular Filt Rate > 60 mL/min (>60); Globulin 2.9 g/dL (1.7-4.1); Glucose 85 mg/dL (70-100); HEMOLYSIS 15 (0-50); Hematocrit 41.8 % (36-46); Hemoglobin 14.4 g/dL (12.0-16.0); Lipase 57 U/L (23-300); Lymphocytes Absolute Auto 2900 /uL (1100-4500); Lymphocytes Percent Auto 32.6 % (25-40); Magnesium 2.1 mg/dL (1.6-2.3); Mean Corpuscular HGB Conc 34.3 % (30-36); Mean Corpuscular Volume 93.3 fL (80-100); Monocytes Absolute Auto 500 /uL (0-900); Monocytes Percent Auto 5.3 % (3-14); Neutrophils Absolute Auto 5300 /uL (1500-7000); Neutrophils Percent Auto 59.8 % (50-75); Platelet Count 201 X10^3/uL (150-400); Red Blood Cell Count 4.48 X10^6/uL (4.0-5.2); Red Cell Distribution Width 13.4 % (11.6-14.8); Sodium 139 mmol/L (137-145); Total Protein 7.3 g/dL (6.3-8.2); White Blood Cell Count 8.9 X10^3/uL (4.5-11.0)
[2022-03-03 19:14] LABS: Troponin I < 0.012 ng/mL (0.01-0.034)
[2022-03-03 19:30] VITALS: PULSE 78; O2SAT 97
[2022-03-03] MEDS: AMOXICILLIN 250 MG CAPSULE 500 MG PO (20:29)
[2022-03-03] MEDS: OXYCODONE/ACETAMINOPHEN 5/325 TABLET 2 TAB PO (20:29)
[2022-03-03] MEDS: methylPREDNISolone 125 MG/2 ML VIAL IV (20:30)
[2022-03-03 20:42] VITALS: BP 127/78; PULSE 70; RESP 16; O2SAT 99
== END 2022-03-03 20:41 | disposition home or self-care (01) ==
PROVIDERS: Emergency Provider Emergency Medicine; PCP Family Medicine
DX: H66.91 Otitis media, unspecified, right ear (principal); R07.9 Chest pain, unspecified; R59.0 Localized enlarged lymph nodes; Z95.5 Presence of coronary angioplasty implant and graft
CPT/HCPCS: 36415; 70360; 71045; 74018; 80053; 82550; 83690; 83735; 84484; 85025; 93005; 93010; 96374; 99284; J2930

== ENCOUNTER 2022-03-30 13:15 | Emergency (ER) | payer OTHER, MEDICAID, SELFPAY ==
[2018-01-17 01:41] VITALS: BMI 32.3
[2022-03-30] VITALS (10 sets, daily range): BP systolic 118–129; BP diastolic 60–78; PULSE 72–85; RESP 16–39; TEMP 37; O2SAT 97–100; BMI 30.1
--- NOTE | 2022-03-30 13:23 | DI.RAD.S_ITS ---
PROCEDURE: XR CHEST 1V INDICATIONS: chest pain TECHNIQUE: One view of the chest was acquired. COMPARISON: [facility], CR, XR CHEST 1V, 03/03/2022, 15:54. FINDINGS: Surgical changes and devices: Right IJ central venous line tip at the cavoatrial junction Lungs and pleura: Lungs are clear. No pleural effusions or pneumothorax. Mediastinum: Mediastinal contours appear normal. Heart size is normal. Bones and chest wall: No suspicious bony lesions. Overlying soft tissues appear unremarkable. IMPRESSION: No acute cardiopulmonary findings Approved by: Freeman Ibarra M.D. on 03/30/2022 at 14:07
--- NOTE | 2022-03-30 13:49 | ED.CHESTPAIN ---
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 She just got her from her [place] she was notified that she was exposed to COVID will she was there. She has had fever and body aches for the last 3 days. She has been nauseous no vomiting she feels like her stomach is gurgling she has only had 1 episode of diarrhea. She has a sore throat she has a nonproductive cough she generally feels miserable. She has been drinking rosaline yimi she has had decreased appetite. Related Data Home Medications Medication Instructions Recorded Confirmed venlafaxine 75 mg capsule,extended 75 mg PO DAILY 01/05/18 08/18/19 release 24 hr valacyclovir 500 mg tablet 1,000 mg PO DAILY 07/24/18 08/18/19 lamotrigine 150 mg tablet 150 mg PO BID 01/06/19 08/18/19 metoclopramide HCl 10 mg tablet 10 mg PO TID PRN Nausea 01/06/19 08/18/19 Previous Rx's Medication Instructions Recorded venlafaxine 37.5 mg 37.5 mg PO DAILY Depression and 12/30/17 capsule,extended release 24 hr anxiety #30 caps acetaminophen 325 mg tablet 650 mg PO Q6HR PRN As Needed For 01/18/18 Fever/Mild Pain #30 tabs albuterol sulfate 90 mcg/actuation 2 puff inhalation Q4-6H PRN 08/18/19 aerosol inhaler shortness of breath or wheezing #18 grams fluticasone propionate 220 1 puff inhalation BID #12 grams 10/15/19 mcg/actuation HFA aerosol inhaler (Flovent HFA) diazepam 5 mg tablet (Valium) 5 mg PO BID-QID PRN muscle spasm 05/16/20 #10 tabs hydrocodone 5 mg-acetaminophen 325 1 tab PO Q6H PRN pain #10 tabs 04/18/21 mg tablet hydrocodone 5 mg-acetaminophen 325 1 tab PO Q6H PRN pain #10 tabs 04/18/21 mg tablet oxycodone-acetaminophen 5 mg-325 1 - 2 tab PO Q6H PRN pain #16 tabs 05/26/21 mg tablet cephalexin 500 mg capsule 500 mg PO TID #21 caps 06/24/21 oxycodone-acetaminophen 5 mg-325 1 tab PO Q6H PRN pain #14 tabs 06/24/21 mg tablet lidocaine 5 % topical patch 1 patch topical DAILY #15 ea 07/01/21 (Lidoderm) hydrocodone 5 mg-acetaminophen 325 1 tab PO BID PRN pain #10 tabs 10/31/21 mg tablet mupirocin 2 % topical ointment 1 applic topical BID #15 grams 10/31/21 hydrocodone 5 mg-acetaminophen 325 1 tab PO Q6H PRN pain #5 tabs 11/29/21 mg tablet hydrocodone 5 mg-acetaminophen 325 1 tab PO Q6H PRN pain #8 tabs 12/04/21 mg tablet clindamycin HCl 300 mg capsule 300 mg PO QID #28 caps 12/06/21 (Cleocin HCl) fluconazole 150 mg tablet 150 mg PO Q3D 2 doses #2 tabs 12/06/21 (Diflucan) hydrocodone 5 mg-acetaminophen 325 1 tab PO Q6H PRN pain #10 tabs 12/06/21 mg tablet metoclopramide HCl 10 mg tablet 10 mg PO Q6H PRN nausea and 02/23/22 (Reglan) vomiting #20 tabs amoxicillin 500 mg capsule 500 mg PO TID #21 caps 03/03/22 oxycodone-acetaminophen 5 mg-325 1 tab PO Q6H PRN pain #10 tabs 03/03/22 mg tablet albuterol sulfate 90 mcg/actuation 2 puff inhalation Q4-6H PRN 03/30/22 aerosol inhaler shortness of breath or wheezing #8.5 grams Allergies Allergy/AdvReac Type Severity Reaction Status Date / Time coconut [COCONUT] Allergy Severe STOPS Verified 03/30/22 14:22 BREATHS prochlorperazine Allergy Intermediate seizure Verified 03/30/22 14:22 NSAIDS (Non-Steroidal Allergy Mild rash, milner Verified 03/30/22 14:22 Anti-Inflamma [NSAIDS (NON-STEROIDAL ANTI-INFLAMMA] promethazine [From PHENERGAN] Allergy Unknown restless Verified 03/30/22 14:22 legs Review of Systems Review of Systems Narrative: GENERAL: See HPI HEENT: Denies sinus pain, ear pain, sore throat, difficulty swallowing, neck pain RESPIRATORY: See HPI CARDIOVASCULAR: Denies chest pain, palpitations, orthopnea, edema GASTROINTESTINAL: Denies nausea, vomiting, abdominal pain, diarrhea, constipation, melena. : Denies dysuria, frequency, incontinence, hematuria, urinary retention, flank pain. MUSCULOSKELETAL: Denies weakness, joint pain, or bony pain SKIN: No rash, no erythema, no pruritus NEUROLOGIC: Denies weakness, dizziness, headache, numbness, change in speech, confusion PSYCHIATRIC: No concerning psychosocial issues. 12 point review of systems is negative except for those stated above and HPI Patient History Medical History (Updated 03/30/22 @ 16:43 by Krystyna Brenner DO) Anxiety Cervical cancer Depression Femoral acetabular impingement Genital herpes Gout Kidney stones (12/2016) Ovarian cancer Pseudotumor cerebri Pulmonary embolism (2010) Pulmonary embolism (2009) Uterine cancer Surgical History History of bladder surgery History of carpal tunnel repair Status post appendectomy Status post breast reduction Status post cholecystectomy Status post hernia repair (2014) Status post hysterectomy with oophorectomy (2003) Status post laparoscopy CHIEF SERVICE OBSERVER (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) shunt status Family History Father History of kidney cancer Mother Diabetes mellitus Hypertension Hyperlipidemia CAD (coronary artery disease) CVA (cerebral vascular accident) Social History marital status: household members: family lives independently: Yes occupational status: employed Smoking Status: Current every day smoker alcohol intake: never substance use type: marijuana Smoking Status: Current every day smoker tobacco type: cigarettes alcohol intake frequency: 0-2 drinks per day Substance Use Type: marijuana Exam Initial Vital Signs Initial Vital Signs: Vital Signs Temperature 98.6 F 03/30/22 13:30 Pulse Rate 82 03/30/22 13:30 Respiratory Rate 19 03/30/22 13:30 Blood Pressure 129/78 03/30/22 13:30 Pulse Oximetry 99 03/30/22 13:30 Oxygen Delivery Method 03/30/22 13:30 GENERAL: Alert pleasant 41-year-old female appears to not feel well HEENT: Head atraumatic,EOMI, pupils reactive, face symmetric, [moist] mucous membranes CARDIOVASCULAR: Regular rate and rhythm without murmurs, rubs or gallops. RESPIRATORY: Breath sounds equal bilaterally, no wheezes rales or rhonchi. ABDOMEN: Soft, nontender. Normoactive bowel sounds all 4 quadrants. No guarding or rebound. EXTREMITIES: Normal range of motion, no clubbing or edema. Neurovascularly intact NEUROLOGICAL: Alert and oriented x4. SKIN: Warm, dry, no laceration, no petechiae, no rashes or lesions. Course Orders Ordered: ED Orders 03/30/22 13:23 XR chest 1V Stat 03/30/22 13:29 EKG-12 Lead Stat 03/30/22 13:49 Covid-19 + FLU A/B by PCR Stat Respiratory Syncytial Virus Stat 03/30/22 14:06 Complete Blood Count AUTO DIFF Stat Comprehensive Metabolic Panel Stat Lactate (Lactic Acid) Stat Lipase Stat Magnesium Stat Procalcitonin Stat Troponin & CK Cardiac Panel Stat 03/30/22 14:30 Urinalysis and Microscopic Stat Discontinued Medications Hydromorphone HCl (Hydromorphone 1 Mg Inj) 1 mg IV NOW ONE Stop: 03/30/22 14:41 Last Admin: 03/30/22 15:06 Dose: 1 mg Documented By: MEAGAN Hydromorphone HCl (Hydromorphone 1 Mg Inj) 1 mg IV NOW ONE Stop: 03/30/22 16:57 Last Admin: 03/30/22 17:07 Dose: 1 mg Documented By: MEAGAN Sodium Chloride (Normal Saline 0.9%) 1,000 mls @ 1,000 mls/hr IV BOLUS ONE Stop: 03/30/22 15:39 Last Infusion: 03/30/22 16:49 Dose: 0 mls/hr Documented By: Admin: 03/30/22 15:06 Dose: 1,000 mls/hr Documented By: MEAGAN Vital Signs Vital signs: Vital Signs - 8 hr 03/30/22 13:30 03/30/22 14:24 03/30/22 14:30 Temperature 98.6 F Pulse Rate 82 85 Respiratory Rate 19 24 Blood Pressure 129/78 125/76 Pulse Oximetry 99 97 Oxygen Delivery Method Room Air 03/30/22 14:30 03/30/22 15:00 03/30/22 15:00 Temperature Pulse Rate 84 78 Respiratory Rate 24 Blood Pressure 118/73 Pulse Oximetry 97 98 Oxygen Delivery Method 03/30/22 15:31 03/30/22 15:32 03/30/22 15:36 Temperature Pulse Rate 80 78 Respiratory Rate 16 22 Blood Pressure 119/60 Pulse Oximetry 98 99 Oxygen Delivery Method 03/30/22 15:36 03/30/22 16:00 03/30/22 16:00 Temperature Pulse Rate 74 72 Respiratory Rate 22 25 H Blood Pressure 129/73 Pulse Oximetry 99 100 Oxygen Delivery Method 03/30/22 16:30 03/30/22 16:30 03/30/22 17:00 Temperature Pulse Rate 76 Respiratory Rate 39 H Blood Pressure 129/74 124/67 Pulse Oximetry 98 Oxygen Delivery Method 03/30/22 17:00 Temperature Pulse Rate 78 Respiratory Rate 20 Blood Pressure Pulse Oximetry 99 Oxygen Delivery Method MDM - Chest Pain Lab Data Result diagrams: 03/30/22 14:06 03/30/22 14:06 Labs: Lab Results 03/30/22 03/30/22 03/30/22 Range/Units 13:49 14:06 14:06 WBC 6.4 (4.5-11.0) X10^3/uL RBC 4.43 (4.0-5.2) X10^6/uL Hgb 14.3 (12.0-16.0) g/dL Hct 41.8 (36-46) % MCV 94.4 (80-100) fL MCH 32.2 (26-34) PG MCHC 34.1 (30-36) % RDW 13.7 (11.6-14.8) % Plt Count 185 (150-400) X10^3/uL Neut % (Auto) 78.2 H (50-75) % Lymph % (Auto) 13.5 L (25-40) % [place] % (Auto) 6.3 (3-14) % Eos % (Auto) 1.5 L (2-4) % Baso % (Auto) 0.5 (0-2) % Neut # (Auto) 5000 (0787-9402) /uL Lymph # (Auto) 900 L (3854-3258) /uL [place] # (Auto) 400 (0-900) /uL Eos # (Auto) 100 (0-450) /uL Baso # (Auto) 0 (0-100) /uL Sodium 139 (137-145) mmol/L Potassium 4.0 (3.4-5.1) mmol/L Chloride 106 (98-107) mmol/L Carbon Dioxide 26 (22-32) mmol/L BUN 9 (7-17) mg/dL Creatinine 0.77 (0.52-1.04) mg/dL Estimated GFR > 60 (>60) mL/min BUN/Creatinine Ratio 11.7 (6-22) Glucose 84 (70-100) mg/dL Lactate (0.7-2.1) mmol/L Calcium 8.4 (8.4-10.2) mg/dL Magnesium 1.8 (1.6-2.3) mg/dL Total Bilirubin 0.4 (0.2-1.3) mg/dL AST 25 (14-36) IU/L ALT 20 (<35) IU/L Alkaline Phosphatase 66 (38-126) U/L Total Creatine Kinase 68 (30-135) U/L CK-MB (CK-2) TNP CK-MB (CK-2) Rel Index TNP Troponin I < 0.012 (0.01-0.034) ng/mL Total Protein 7.1 (6.3-8.2) g/dL Albumin 4.1 (3.5-5.0) g/dL Globulin 3.0 (1.7-4.1) g/dL Albumin/Globulin Ratio 1.4 (1.0-2.8) Lipase 39 (23-300) U/L Procalcitonin (<0.5) ng/mL Urine Color Urine Appearance Urine pH (4.5-8.0) Ur Specific [place] (1.000-1.035) Urine Protein (Negative) Urine Glucose (UA) (Negative) g/dL Urine Ketones (NEGATIVE) Urine Occult Blood (Negative) Urine Nitrate (Negative) Urine Bilirubin (NEGATIVE) Urine Urobilinogen (0.2) E.U./dL Ur Leukocyte Esterase (NEGATIVE) Urine RBC (0-5/HPF) Urine WBC (0-5/HPF) Urine Bacteria (None) Ur Culture Indicated? Micro UA Comment SARS-CoV-2 (PCR) Negative (Negative) Influenza A (RT-PCR) Flu a negative (NEGATIVE) Influenza B (RT-PCR) Flu b negative (NEGATIVE) RSV (PCR) Not detected (Not Detect) 03/30/22 03/30/22 03/30/22 Range/Units 14:06 14:06 14:30 WBC (4.5-11.0) X10^3/uL RBC (4.0-5.2) X10^6/uL Hgb (12.0-16.0) g/dL Hct (36-46) % MCV (80-100) fL MCH (26-34) PG MCHC (30-36) % RDW (11.6-14.8) % Plt Count (150-400) X10^3/uL Neut % (Auto) (50-75) % Lymph % (Auto) (25-40) % [place] % (Auto) (3-14) % Eos % (Auto) (2-4) % Baso % (Auto) (0-2) % Neut # (Auto) (9534-0157) /uL Lymph # (Auto) (7662-1717) /uL [place] # (Auto) (0-900) /uL Eos # (Auto) (0-450) /uL Baso # (Auto) (0-100) /uL Sodium (137-145) mmol/L Potassium (3.4-5.1) mmol/L Chloride (98-107) mmol/L Carbon Dioxide (22-32) mmol/L BUN (7-17) mg/dL Creatinine (0.52-1.04) mg/dL Estimated GFR (>60) mL/min BUN/Creatinine Ratio (6-22) Glucose (70-100) mg/dL Lactate 1.2 (0.7-2.1) mmol/L Calcium (8.4-10.2) mg/dL Magnesium (1.6-2.3) mg/dL Total Bilirubin (0.2-1.3) mg/dL AST (14-36) IU/L ALT (<35) IU/L Alkaline Phosphatase (38-126) U/L Total Creatine Kinase (30-135) U/L CK-MB (CK-2) CK-MB (CK-2) Rel Index Troponin I (0.01-0.034) ng/mL Total Protein (6.3-8.2) g/dL Albumin (3.5-5.0) g/dL Globulin (1.7-4.1) g/dL Albumin/Globulin Ratio (1.0-2.8) Lipase (23-300) U/L Procalcitonin 0.06 (<0.5) ng/mL Urine Color Yellow Urine Appearance Clear Urine pH 8.0 (4.5-8.0) Ur Specific [place] 1.015 (1.000-1.035) Urine Protein Negative (Negative) Urine Glucose (UA) Negative (Negative) g/dL Urine Ketones Negative (NEGATIVE) Urine Occult Blood Negative (Negative) Urine Nitrate Negative (Negative) Urine Bilirubin Negative (NEGATIVE) Urine Urobilinogen 0.2 (0.2) E.U./dL Ur Leukocyte Esterase Negative (NEGATIVE) Urine RBC None seen (0-5/HPF) Urine WBC None seen (0-5/HPF) Urine Bacteria None seen (None) Ur Culture Indicated? Cult not indicated Micro UA Comment Microscopic normal SARS-CoV-2 (PCR) (Negative) Influenza A (RT-PCR) (NEGATIVE) Influenza B (RT-PCR) (NEGATIVE) RSV (PCR) (Not Detect) Imaging Data Chest x-ray: Radiologist's Impression: Signed Patient: Jing Lindo MR#: [id number] : 1980 Acct:[id number] Age/Sex: 41 / F Date of Service: 03/30/22 Loc: Accession Number: [id number] ?? Procedure: XR chest 1V Ordering Provider: Krystyna Brenner D.O. PROCEDURE:? XR CHEST 1V ? INDICATIONS:? chest pain ? TECHNIQUE:? One view of the chest was acquired.? ? COMPARISON:? [facility], , XR CHEST 1V, 03/03/2022, 15:54. ? FINDINGS:? ? Surgical changes and devices:? Right IJ central venous line tip at the cavoatrial junction ? Lungs and pleura:? Lungs are clear.? No pleural effusions or pneumothorax.? ? Mediastinum:? Mediastinal contours appear normal.? Heart size is normal.? ? Bones and chest wall:? No suspicious bony lesions.? Overlying soft tissues appear unremarkable.? ? IMPRESSION:? No acute cardiopulmonary findings ? ? ? Approved by: Freeman Ibarra M.D. on 03/30/2022 at 14:07? ECG Data Interpretation: Normal sinus rhythm rate 83 OR interval 158 QRS [address] changes no T-wave inversion MDM Narrative Medical decision making narrative: Patient overall does not feel well however workup is negative. She probably does have upper respiratory viral syndrome. She has fever body aches and cough. She is not septic. RSV influenza and COVID are negative. Chest x-ray does not show any pneumonia. She has body aches fever and cough not consistent with pulmonary embolism or coronary artery disease although those were considered. She continues to ask for Dilaudid for pain she cannot have Toradol because she is allergic to it. She is given albuterol inhaler recommended supportive care at this time. I do not see any need for any further workup. Discharge Plan Departure Patient Disposition: Home Clinical Impression: Acute upper respiratory infection Instructions: DI for Viral Upper Respiratory Infection -- Adult Activity Restrictions/Additional Instructions: *You have been diagnosed with upper respiratory infection *What to do: At this time her blood work is overall reassuring urine negative for COVID influenza and RSV. Please continue to stay hydrated treat fever and rest. *Continue to take medications as directed Tylenol 1000 mg every 6 hours if needed for [id number] pain or fever *Follow up with your primary care provider in 2-3 days or call [phone] *Return to ER if you should have increased shortness of breath not tolerating fluids or any new, worsening or concerning symptoms Prescriptions: New albuterol sulfate 90 mcg/actuation HFA aerosol inhaler 2 puff INHALATION Q4-6H PRN (Reason: shortness of breath or wheezing) Qty: 8.5 0RF No Action albuterol sulfate 90 mcg/actuation HFA aerosol inhaler 2 puff INHALATION Q4-6H PRN (Reason: shortness of breath or wheezing) Qty: 18 0RF venlafaxine 37.5 mg capsule,extended release 24hr 37.5 mg PO DAILY MDD 112.5 mg Qty: 30 2RF Rx Instructions: Take in combination with 75 mg tab (112.5 mg daily) Flovent HFA 220 mcg/actuation HFA aerosol inhaler 1 puff INHALATION BID Qty: 12 0RF Rx Instructions: MUST ESTABLISH WITH NEW PRIMARY CARE PHYSICIAN PRIOR TO FURTHER REFILLS. lamotrigine 150 mg tablet 150 mg PO BID metoclopramide HCl 10 mg tablet 10 mg PO TID PRN (Reason: Nausea) Label Comments: take 1 tablet by mouth three times a day if needed diazepam [Valium] 5 mg tablet 5 mg PO BID-QID PRN (Reason: muscle spasm) Qty: 10 0RF hydrocodone-acetaminophen 5-325 mg tablet 1 tab PO Q6H PRN (Reason: pain) Qty: 10 0RF hydrocodone-acetaminophen 5-325 mg tablet 1 tab PO Q6H PRN (Reason: pain) Qty: 10 0RF hydrocodone-acetaminophen 5-325 mg tablet 1 tab PO BID PRN (Reason: pain) Qty: 10 0RF mupirocin 2 % ointment 1 applic topical BID Qty: 15 0RF hydrocodone-acetaminophen 5-325 mg tablet 1 tab PO Q6H PRN (Reason: pain) Qty: 8 0RF metoclopramide HCl [Reglan] 10 mg tablet 10 mg PO Q6H PRN (Reason: nausea and vomiting) Qty: 20 0RF venlafaxine 75 mg capsule,extended release 24hr 75 mg PO DAILY Label Comments: TAKE 1 CAPSULE BY MOUTH EVERY DAY IN COMBINATION WITH 37.5MG CAPSULE FOR DEPRESSION AND ANXIETY acetaminophen 325 mg Tablet 650 mg PO Q6HR PRN (Reason: As Needed For Fever/Mild Pain) Qty: 30 0RF valacyclovir 500 mg tablet 1,000 mg PO DAILY oxycodone-acetaminophen 5-325 mg tablet 1 - 2 tab PO Q6H PRN (Reason: pain) Qty: 16 0RF oxycodone-acetaminophen 5-325 mg tablet 1 tab PO Q6H PRN (Reason: pain) Qty: 14 0RF cephalexin 500 mg capsule 500 mg PO TID Qty: 21 0RF lidocaine [Lidoderm] 5 % adhesive patch,medicated 1 patch topical DAILY Qty: 15 1RF Rx Instructions: leave on most painful area for up to 12 hrs hydrocodone-acetaminophen 5-325 mg tablet 1 tab PO Q6H PRN (Reason: pain) Qty: 5 0RF clindamycin HCl [Cleocin HCl] 300 mg capsule 300 mg PO QID Qty: 28 0RF hydrocodone-acetaminophen 5-325 mg tablet 1 tab PO Q6H PRN (Reason: pain) Qty: 10 0RF fluconazole [Diflucan] 150 mg tablet 150 mg PO Q3D Qty: 2 0RF Rx Instructions: may repeat second dose 72 hrs after first dose if symptoms persist amoxicillin 500 mg capsule 500 mg PO TID Qty: 21 0RF oxycodone-acetaminophen 5-325 mg tablet 1 tab PO Q6H PRN (Reason: pain) Qty: 10 0RF Referrals: Carlos Mercado MD [Primary Care Provider] - Stand Alone Forms: Work Release Note Visit Report Forms: Patient Portal/API
[2022-03-30 14:13] LABS: Add Manual Diff / Slide Review NO; Basophils Absolute Auto 0 /uL (0-100); Basophils Percent Auto 0.5 % (0-2); Eosinophils Absolute Auto 100 /uL (0-450); Eosinophils Percent Auto 1.5 % (2-4); Hematocrit 41.8 % (36-46); Hemoglobin 14.3 g/dL (12.0-16.0); Lymphocytes Absolute Auto 900 /uL (1100-4500); Lymphocytes Percent Auto 13.5 % (25-40); Mean Corpuscular HGB Conc 34.1 % (30-36); Mean Corpuscular Hemoglobin 32.2 PG (26-34); Mean Corpuscular Volume 94.4 fL (80-100); Monocytes Absolute Auto 400 /uL (0-900); Monocytes Percent Auto 6.3 % (3-14); Neutrophils Absolute Auto 5000 /uL (1500-7000); Neutrophils Percent Auto 78.2 % (50-75); Platelet Count 185 X10^3/uL (150-400); Red Blood Cell Count 4.43 X10^6/uL (4.0-5.2); Red Cell Distribution Width 13.7 % (11.6-14.8); White Blood Cell Count 6.4 X10^3/uL (4.5-11.0)
[2022-03-30 14:25] LABS: Alanine Aminotransferase 20 IU/L (<35); Albumin 4.1 g/dL (3.5-5.0); Albumin Globulin Ratio 1.4 (1.0-2.8); Alkaline Phosphatase 66 U/L (38-126); Aspartate Aminotransferase 25 IU/L (14-36); BUN Creatinine Ratio 11.7 (6-22); Bilirubin Total 0.4 mg/dL (0.2-1.3); Blood Urea Nitrogen 9 mg/dL (7-17); Calcium 8.4 mg/dL (8.4-10.2); Carbon Dioxide 26 mmol/L (22-32); Chloride 106 mmol/L (98-107); Creatine Kinase 68 U/L (30-135); Estimated Glomerular Filt Rate > 60 mL/min (>60); Glucose 84 mg/dL (70-100); Lipase 39 U/L (23-300); Magnesium 1.8 mg/dL (1.6-2.3); Sodium 139 mmol/L (137-145); Total Protein 7.1 g/dL (6.3-8.2)
[2022-03-30 14:26] LABS: HEMOLYSIS 67 (0-50)
[2022-03-30 14:32] LABS: Influenza A - CEPHEID Flu A NEGATIVE (NEGATIVE); Influenza B - CEPHEID Flu B NEGATIVE (NEGATIVE)
[2022-03-30 14:37] LABS: Troponin I < 0.012 ng/mL (0.01-0.034)
[2022-03-30 14:41] LABS: COVID-19 CEPHEID 4-PLEX PCR Negative (Negative)
[2022-03-30] MEDS: HYDROMORPHONE 1 MG INJ IV ×2 (15:06→17:07)
[2022-03-30] MEDS: SODIUM CHLORIDE 0.9% 1,000 ML 1000 ML IV (15:06)
[2022-03-30 15:09] LABS: Respiratory Syncytial Virus Not Detected (Not Detect)
[2022-03-30 15:14] LABS: Appearance Urine UA CLEAR; Bilirubin Urine UA NEGATIVE (NEGATIVE); Color Urine UA YELLOW; Glucose Urine UA NEGATIVE (Negative); Ketones Urine UA NEGATIVE (NEGATIVE); Leukocyte Esterase Urine UA NEGATIVE (NEGATIVE); Nitrite Urine UA NEGATIVE (Negative); Occult Blood Urine UA NEGATIVE (Negative); Protein Urine UA NEGATIVE (Negative); Specific Gravity Urine UA 1.015 (1.000-1.035); Urobilinogen Urine UA 0.2 E.U./dL (0.2)
[2022-03-30 15:20] LABS: Bacteria Urine None Seen; Culture Indicated Urine Cult Not Indicated; RBC Urine None Seen (0-5/HPF); Urine Comments Microscopic Normal; WBC Urine None Seen (0-5/HPF)
[2022-03-30 16:31] LABS: Lactate (Lactic Acid) 1.2 mmol/L (0.7-2.1)
[2022-03-30 16:48] LABS: Procalcitonin 0.06 ng/mL (<0.5)
== END 2022-03-30 17:45 | disposition home or self-care (01) ==
PROVIDERS: Emergency Provider Emergency Medicine; PCP Family Medicine
DX: J06.9 Acute upper respiratory infection, unspecified (principal); R07.9 Chest pain, unspecified; Z20.822 Contact with and (suspected) exposure to COVID-19
CPT/HCPCS: 36415; 71045; 80053; 81001; 82550; 83605; 83690; 83735; 84145; 84484; 85025; 87634; 87635; 93005; 96361; 96374; 96376; 99284; C9803; J1170

== ENCOUNTER 2022-04-09 13:32 | Emergency (ER) | payer OTHER, MEDICAID, SELFPAY ==
[2018-01-17 01:41] VITALS: BMI 32.3
[2022-04-09 13:37] VITALS: BP 163/114; PULSE 97; RESP 22; TEMP 36.4; O2SAT 96; BMI 29.8
--- NOTE | 2022-04-09 13:41 | DI.RAD.S_ITS ---
PROCEDURE: XR SHOULDER RT MIN 2V INDICATIONS: shoulder pain after lifting something TECHNIQUE: 2 views of the shoulder were acquired. COMPARISON: [facility], CR, XR SOFT TISSUE NECK, 03/03/2022, 15:54. [facility], CR, XR CHEST 1V, 03/30/2022, 13:22. FINDINGS: Bones: No fractures or dislocations. No suspicious bony lesions. Visualized ribs appear intact. Soft tissues: No suspicious soft tissue calcifications. Ventriculoatrial shunt catheter is stable. IMPRESSION: No fracture. No osseous lesion. If symptoms and/or clinical suspicion for pathology persists, further assessment with repeat radiographs (7-10 days) or advanced imaging (e.g. CT, MRI or bone scan) should be considered. Dictated by: Mary Bates MD, PhD on 04/09/2022 at 14:22 Approved by: Mary Bates MD, PhD on 04/09/2022 at 14:23
[2022-04-09] MEDS: OXYCODONE/ACETAMINOPHEN 5/325 TABLET 1 TAB PO (18:16)
--- NOTE | 2022-04-09 18:24 | ED_ITS ---
HPI - Extremity Injury (Upper) <Delio Butler PA-C - Last Filed: 04/09/22 19:12> General Chief Complaint: Extremity Injury, Upper Stated Complaint: RT. SHOULDER PAIN/SOB Time Seen by Provider: 04/09/22 17:43 Source: patient Mode of arrival: Wheelchair History of Present Illness HPI narrative: 41-year-old femal with past medical history borderline personality disorder, PTSD, generalized anxiety disorder, benign intracranial hypertension presents to the ED with 1 day of right-sided shoulder and thoracic back pain. Patient states that she was working on taking some items out of high shelves with her right hand, when she felt a tearing pain, following which she experienced pain in the right thoracic area beneath her shoulder blade, was unable to move her right arm due to the pain. Patient denies any other trauma. Patient denies pre-existing shoulder or back conditions. Patient denies fever, chills, chest pain, shortness of breath, nausea, vomiting, lightheadedness, dizziness, syncope. Patient denies numbness, tingling, weakness. Related Data Home Medications Medication Instructions Recorded Confirmed venlafaxine 75 mg capsule,extended 75 mg PO DAILY 01/05/18 08/18/19 release 24 hr valacyclovir 500 mg tablet 1,000 mg PO DAILY 07/24/18 08/18/19 lamotrigine 150 mg tablet 150 mg PO BID 01/06/19 08/18/19 metoclopramide HCl 10 mg tablet 10 mg PO TID PRN Nausea 01/06/19 08/18/19 Previous Rx's Medication Instructions Recorded venlafaxine 37.5 mg 37.5 mg PO DAILY Depression and 12/30/17 capsule,extended release 24 hr anxiety #30 caps acetaminophen 325 mg tablet 650 mg PO Q6HR PRN As Needed For 01/18/18 Fever/Mild Pain #30 tabs albuterol sulfate 90 mcg/actuation 2 puff inhalation Q4-6H PRN 08/18/19 aerosol inhaler shortness of breath or wheezing #18 grams fluticasone propionate 220 1 puff inhalation BID #12 grams 10/15/19 mcg/actuation HFA aerosol inhaler (Flovent HFA) diazepam 5 mg tablet (Valium) 5 mg PO BID-QID PRN muscle spasm 05/16/20 #10 tabs hydrocodone 5 mg-acetaminophen 325 1 tab PO Q6H PRN pain #10 tabs 04/18/21 mg tablet hydrocodone 5 mg-acetaminophen 325 1 tab PO Q6H PRN pain #10 tabs 04/18/21 mg tablet oxycodone-acetaminophen 5 mg-325 1 - 2 tab PO Q6H PRN pain #16 tabs 05/26/21 mg tablet cephalexin 500 mg capsule 500 mg PO TID #21 caps 06/24/21 oxycodone-acetaminophen 5 mg-325 1 tab PO Q6H PRN pain #14 tabs 06/24/21 mg tablet lidocaine 5 % topical patch 1 patch topical DAILY #15 ea 07/01/21 (Lidoderm) hydrocodone 5 mg-acetaminophen 325 1 tab PO BID PRN pain #10 tabs 10/31/21 mg tablet mupirocin 2 % topical ointment 1 applic topical BID #15 grams 10/31/21 hydrocodone 5 mg-acetaminophen 325 1 tab PO Q6H PRN pain #5 tabs 11/29/21 mg tablet hydrocodone 5 mg-acetaminophen 325 1 tab PO Q6H PRN pain #8 tabs 12/04/21 mg tablet clindamycin HCl 300 mg capsule 300 mg PO QID #28 caps 12/06/21 (Cleocin HCl) fluconazole 150 mg tablet 150 mg PO Q3D 2 doses #2 tabs 12/06/21 (Diflucan) hydrocodone 5 mg-acetaminophen 325 1 tab PO Q6H PRN pain #10 tabs 12/06/21 mg tablet metoclopramide HCl 10 mg tablet 10 mg PO Q6H PRN nausea and 02/23/22 (Reglan) vomiting #20 tabs amoxicillin 500 mg capsule 500 mg PO TID #21 caps 03/03/22 oxycodone-acetaminophen 5 mg-325 1 tab PO Q6H PRN pain #10 tabs 03/03/22 mg tablet albuterol sulfate 90 mcg/actuation 2 puff inhalation Q4-6H PRN 03/30/22 aerosol inhaler shortness of breath or wheezing #8.5 grams Allergies Allergy/AdvReac Type Severity Reaction Status Date / Time coconut [COCONUT] Allergy Severe STOPS Verified 04/09/22 13:37 BREATHS prochlorperazine Allergy Intermediate seizure Verified 04/09/22 13:37 NSAIDS (Non-Steroidal Allergy Mild rash, milner Verified 04/09/22 13:37 Anti-Inflamma [NSAIDS (NON-STEROIDAL ANTI-INFLAMMA] promethazine [From PHENERGAN] Allergy Unknown restless Verified 04/09/22 13:37 legs Review of Systems <Delio Butler PA-C - Last Filed: 04/09/22 19:12> Review of Systems ROS Unobtainable: All systems reviewed & are unremarkable except as noted in HPI and below Constitutional Constitutional: Denies chills, Denies fatigue, Denies fever(s), Denies frequent falls, Denies lethargy and Denies weakness Eyes Eyes: Denies change in vision, Denies eye discharge, Denies irritation and Denies loss of vision ENT Ears, Nose, Mouth, and Throat: Denies change in voice, Denies dizziness, Denies neck pain, Denies sore throat and Denies throat swelling Cardiovascular Cardiovascular: Denies chest pain, Denies irregular heart rhythm, Denies lightheadedness, Denies palpitations, Denies dyspnea, Denies dyspnea on exertion and Denies orthopnea Respiratory Respiratory: Denies cough, Denies dyspnea, Denies dyspnea on exertion and Denies wheezing Gastrointestinal Gastrointestinal: Denies abdominal pain, Denies change in bowel habits, Denies diarrhea, Denies nausea and Denies vomiting Genitourinary Genitourinary: Denies hematuria, Denies flank pain, Denies urinary incontinence and Denies urinary urgency Musculoskeletal Musculoskeletal: Denies back pain, Denies muscle weakness, Denies neck pain, Denies numbness and Denies tingling Comments: Right shoulder, right thoracic back pain Integumentary/Breasts Skin/Breast: Denies pruritus, Denies erythema, Denies rash and Denies wounds Neurologic Neurologic: Denies behavioral changes, Denies confusion, Denies dizziness, Denies frequent falls, Denies loss of vision, Denies numbness, Denies tingling and Denies weakness Psychiatric Psychiatric: Denies anxiety, Denies behavioral changes, Denies confusion, Denies depression, Denies homicidal ideation and Denies suicidal ideation Endocrine Endocrine: Denies fatigue, Denies flushing and Denies palpitations Hematologic/Lymphatic Hematologic/Lymphatic: Denies easy bruising Allergic/Immunologic Allergic/Immunologic: Denies urticaria, Denies throat swelling and Denies wheezing Patient History <Delio Butler PA-C - Last Filed: 04/09/22 19:12> Medical History Anxiety Cervical cancer Depression Femoral acetabular impingement Genital herpes Gout Kidney stones (12/2016) Ovarian cancer Pseudotumor cerebri Pulmonary embolism (2010) Pulmonary embolism (2009) Uterine cancer Surgical History History of bladder surgery History of carpal tunnel repair Status post appendectomy Status post breast reduction Status post cholecystectomy Status post hernia repair (2014) Status post hysterectomy with oophorectomy (2003) Status post laparoscopy FIRE PREVENTION CHIEF (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) shunt status Family History Father History of kidney cancer Mother Diabetes mellitus Hypertension Hyperlipidemia CAD (coronary artery disease) CVA (cerebral vascular accident) Social History marital status: household members: family lives independently: Yes occupational status: employed Smoking Status: Current every day smoker alcohol intake: never substance use type: marijuana Smoking Status: Current every day smoker tobacco type: cigarettes alcohol intake frequency: 0-2 drinks per day Substance Use Type: marijuana Exam <Delio Butler PA-C - Last Filed: 04/09/22 19:12> Narrative Exam Narrative: Const General:?cooperative, healthy appearing and comfortable [facility] Head:?normal to inspection Ears:?hearing grossly normal bilaterally Nose:?external nose normal Face and sinus:?normal facial exam and sinuses nontender Mouth:?oral mucosae normal Throat:?posterior oropharynx normal Eyes General:?appearance normal, both eyes and all related structures Neck Neck:?normal visual inspection and no lymphadenopathy noted Resp Effort & Inspection:?normal respiratory effort Auscultation:?clear to auscultation bilaterally Cardio Rate:?regular rate Rhythm:?regular rhythm Musculoskeletal Neuro General:?patient alert, patient awake and patient oriented x3 Initial Vital Signs Initial Vital Signs: Vital Signs Temperature 97.5 F L 04/09/22 13:37 Pulse Rate 97 H 04/09/22 13:37 Respiratory Rate 22 04/09/22 13:37 Blood Pressure 163/114 H 04/09/22 13:37 Pulse Oximetry 96 04/09/22 13:37 Oxygen Delivery Method 04/09/22 13:37 <Agueda Burger DO - Last Filed: 04/12/22 07:55> Initial Vital Signs Initial Vital Signs: Vital Signs Temperature 97.5 F L 04/09/22 13:37 Pulse Rate 97 H 04/09/22 13:37 Respiratory Rate 22 04/09/22 13:37 Blood Pressure 163/114 H 04/09/22 13:37 Pulse Oximetry 96 04/09/22 13:37 Oxygen Delivery Method 04/09/22 13:37 Course <Delio Butler PA-C - Last Filed: 04/09/22 19:12> Orders Ordered: Discontinued Medications Oxycodone/Acetaminophen (Oxycodone/Acetaminophen 5/325 Tablet) 1 tab PO NOW ONE Stop: 04/09/22 18:12 Last Admin: 04/09/22 18:16 Dose: 1 tab Documented By: ALVERTO Vital Signs Vital signs: Vital Signs - 8 hr 04/09/22 13:37 04/09/22 18:31 Temperature 97.5 F L Pulse Rate 97 H 68 Respiratory Rate 22 18 Blood Pressure 163/114 H 137/86 Pulse Oximetry 96 99 Oxygen Delivery Method Room Air Room Air <Agueda Burger DO - Last Filed: 04/12/22 07:55> Orders Ordered: Discontinued Medications Oxycodone/Acetaminophen (Oxycodone/Acetaminophen 5/325 Tablet) 1 tab PO NOW ONE Stop: 04/09/22 18:12 Last Admin: 04/09/22 18:16 Dose: 1 tab Documented By: ALVERTO Vital Signs Vital signs: Vital Signs - 8 hr 04/09/22 13:37 04/09/22 18:31 Temperature 97.5 F L Pulse Rate 97 H 68 Respiratory Rate 22 18 Blood Pressure 163/114 H 137/86 Pulse Oximetry 96 99 Oxygen Delivery Method Room Air Room Air MDM - Extremity Injury (Upper) <Delio Butler PA-C - Last Filed: 04/09/22 19:12> Imaging Data Extremity x-ray #1: Radiologist's Impression: PROCEDURE:? XR SHOULDER RT MIN 2V ? INDICATIONS:? shoulder pain after lifting something ? TECHNIQUE:? 2 views of the shoulder were acquired.? ? COMPARISON:? [facility], CR, XR SOFT TISSUE NECK, 03/03/2022, 15:54.? [facility], CR, XR CHEST 1V, 03/30/2022, 13:22. ? FINDINGS:? ? Bones:? No fractures or dislocations.? No suspicious bony lesions.? Visualized ribs appear intact.? ? Soft tissues:? No suspicious soft tissue calcifications.? Ventriculoatrial shunt catheter is stable.? ? IMPRESSION:? No fracture. No osseous lesion. If symptoms and/or clinical suspicion for pathology persists, further assessment with repeat radiographs (7-10 days) or advanced imaging (e.g. CT, MRI or bone scan) should be considered. ? ? Dictated by: Mary Bates MD, PhD on 04/09/2022 at 14:22 ? ? Approved by: Mary Bates MD, PhD on 04/09/2022 at 14:23 ? MDM Narrative Medical decision making narrative: 41-year-old femal with past medical history borderline personality disorder, PTSD, generalized anxiety disorder, benign intracranial hypertension presents to the ED with 1 day of right-sided shoulder and thoracic back pain. Concern for fracture/dislocation versus musculoskeletal sprain/strain. Shoulder x-ray negative for acute findings. Patient's symptoms likely due to a musculoskeletal sprain/strain. Recommend follow-up with PCP for further evaluation. Percocet given for pain control. Recommend taking Tylenol at home. ED return precautions were discussed with patient. Patient verbalized understanding. Discharge Plan Departure Patient Disposition: Home Clinical Impression: Musculoskeletal strain Instructions: DI for Back Strain or Sprain Activity Restrictions/Additional Instructions: You were evaluated in the ED today for right-sided shoulder pain, back pain. Yo ur x-ray was negative for any acute findings. Your symptoms are likely due to a musculoskeletal sprain/strain. You may continue to take Tylenol, Percocet for pain. Please follow-up with your PCP as soon as possible. Return to the ED if you experience any numbness, tingling, weakness. Prescriptions: No Action albuterol sulfate 90 mcg/actuation HFA aerosol inhaler 2 puff INHALATION Q4-6H PRN (Reason: shortness of breath or wheezing) Qty: 18 0RF venlafaxine 37.5 mg capsule,extended release 24hr 37.5 mg PO DAILY MDD 112.5 mg Qty: 30 2RF Rx Instructions: Take in combination with 75 mg tab (112.5 mg daily) Flovent HFA 220 mcg/actuation HFA aerosol inhaler 1 puff INHALATION BID Qty: 12 0RF Rx Instructions: MUST ESTABLISH WITH NEW PRIMARY CARE PHYSICIAN PRIOR TO FURTHER REFILLS. lamotrigine 150 mg tablet 150 mg PO BID metoclopramide HCl 10 mg tablet 10 mg PO TID PRN (Reason: Nausea) Label Comments: take 1 tablet by mouth three times a day if needed diazepam [Valium] 5 mg tablet 5 mg PO BID-QID PRN (Reason: muscle spasm) Qty: 10 0RF hydrocodone-acetaminophen 5-325 mg tablet 1 tab PO Q6H PRN (Reason: pain) Qty: 10 0RF hydrocodone-acetaminophen 5-325 mg tablet 1 tab PO Q6H PRN (Reason: pain) Qty: 10 0RF hydrocodone-acetaminophen 5-325 mg tablet 1 tab PO BID PRN (Reason: pain) Qty: 10 0RF mupirocin 2 % ointment 1 applic topical BID Qty: 15 0RF hydrocodone-acetaminophen 5-325 mg tablet 1 tab PO Q6H PRN (Reason: pain) Qty: 8 0RF metoclopramide HCl [Reglan] 10 mg tablet 10 mg PO Q6H PRN (Reason: nausea and vomiting) Qty: 20 0RF venlafaxine 75 mg capsule,extended release 24hr 75 mg PO DAILY Label Comments: TAKE 1 CAPSULE BY MOUTH EVERY DAY IN COMBINATION WITH 37.5MG CAPSULE FOR DEPRESSION AND ANXIETY acetaminophen 325 mg Tablet 650 mg PO Q6HR PRN (Reason: As Needed For Fever/Mild Pain) Qty: 30 0RF valacyclovir 500 mg tablet 1,000 mg PO DAILY oxycodone-acetaminophen 5-325 mg tablet 1 - 2 tab PO Q6H PRN (Reason: pain) Qty: 16 0RF oxycodone-acetaminophen 5-325 mg tablet 1 tab PO Q6H PRN (Reason: pain) Qty: 14 0RF cephalexin 500 mg capsule 500 mg PO TID Qty: 21 0RF lidocaine [Lidoderm] 5 % adhesive patch,medicated 1 patch topical DAILY Qty: 15 1RF Rx Instructions: leave on most painful area for up to 12 hrs hydrocodone-acetaminophen 5-325 mg tablet 1 tab PO Q6H PRN (Reason: pain) Qty: 5 0RF clindamycin HCl [Cleocin HCl] 300 mg capsule 300 mg PO QID Qty: 28 0RF hydrocodone-acetaminophen 5-325 mg tablet 1 tab PO Q6H PRN (Reason: pain) Qty: 10 0RF fluconazole [Diflucan] 150 mg tablet 150 mg PO Q3D Qty: 2 0RF Rx Instructions: may repeat second dose 72 hrs after first dose if symptoms persist amoxicillin 500 mg capsule 500 mg PO TID Qty: 21 0RF oxycodone-acetaminophen 5-325 mg tablet 1 tab PO Q6H PRN (Reason: pain) Qty: 10 0RF albuterol sulfate 90 mcg/actuation HFA aerosol inhaler 2 puff INHALATION Q4-6H PRN (Reason: shortness of breath or wheezing) Qty: 8.5 0RF Referrals: Carlos Mercado MD [Primary Care Provider] - Visit Report Forms: Patient Portal/API <Agueda Burger DO - Last Filed: 04/12/22 07:55> Cosign ED Attending Cassy Attestation: I was immediately available in the department for consultation. Documentation has been reviewed.
[2022-04-09 18:31] VITALS: BP 137/86; PULSE 68; RESP 18; O2SAT 99
== END 2022-04-09 18:37 | disposition home or self-care (01) ==
PROVIDERS: Emergency Provider Student in an Organized Health Care Education/Training Program; PCP Family Medicine
DX: S29.012A Strain of muscle and tendon of back wall of thorax, initial encounter (principal); X50.0XXA Overexertion from strenuous movement or load, initial encounter
CPT/HCPCS: 73030; 99283